=== PATIENT | female | born 1955 | race Caucasian/White ===

== ENCOUNTER → 2017-04-20 | Outpatient (CLI) | payer OTHER ==
[~2017-04-20] MED LIST: CPH250CIP PO; NF-PREM2.5 PO; PROP10TA8 PO
--- NOTE | 2017-04-20 14:11 | Diagnostic Imaging Report ---
EXAMINATION: Bilateral diagnostic mammogram with a Computer Aided Detection (CAD) system. INDICATION: Fullness in the lateral aspect of the left breast. COMPARISON: 01/04/2016. FINDINGS: The breasts are composed of heterogeneously dense parenchyma which may decrease mammographic sensitivity. There is an oval focal asymmetry in the lateral aspect of the left breast that appears to persist on the tomographic views without definitive confirmed mass. Focal compression views were performed and demonstrate persistent focal asymmetry; however, tomographic views of the compression also demonstrate no definite mass. The right breast demonstrates no definite change. IMPRESSION: Focal asymmetry in the lateral aspect of the left breast with no definite underlying lesion. An ultrasound evaluation is pending. ACR BI-RADS Category 0: Incomplete. (Needs additional imaging evaluation). Result letter will be mailed to the patient. Note: At least 10% of breast cancer is not imaged by mammography. Dictated by: Dictated on workstation # [id number]
--- NOTE | 2017-04-20 14:12 | Diagnostic Imaging Report ---
EXAMINATION: Left breast ultrasound. INDICATION: Outer left breast focal asymmetry. FINDINGS: There is a 1.4 x 0.8 x 1.4 cm septated cyst seen in the left breast at the 3 o'clock zone, 6 cm from the nipple. No suspicious mass is seen otherwise. IMPRESSION: A complicated cystic lesion with septation measuring 1.4 cm is seen at the 3 o'clock zone, 6 cm from the nipple. This might explain the focal asymmetry seen on mammography. A 6 month followup mammogram and ultrasound would be recommended to ensure stability. ACR BI-RADS Category 3: Probably benign findings. Dictated by: Dictated on workstation # [id number]
== END ==
LOC: RAD 12:46
PROVIDERS: ATTEND Family Medicine
DX: N64.89 Other specified disorders of breast (principal)
CPT/HCPCS: 76642; 77066

== ENCOUNTER 2018-01-15 13:50 | Outpatient (CLI) | payer BC, OTHER ==
[~2018-01-15] VITALS: Ht 165.1 cm; Wt 56.7 kg
[2018-01-15] MEDS ORDERED: ESTR1TAB14 PO (13:54)
== END 2018-01-15 14:04 ==
LOC: PREOP 13:50
PROVIDERS: ATTEND Surgery
DX: Z01.818 Encounter for other preprocedural examination (principal); Z12.11 Encounter for screening for malignant neoplasm of colon

== ENCOUNTER 2018-01-20 10:55 | Day surgery (SDC) | payer BC, OTHER ==
[~2018-01-20] VITALS: Ht 165.1 cm; Wt 56.7 kg
[~2018-01-20 10:55] MED LIST changes: +ESTR1TAB14 PO
[2018-01-20 11:00] VITALS: BP 115/61
[2018-01-20] MEDS ORDERED: NS IV 500 ML 500 ML IV PRN (11:07)
[2018-01-20] MEDS ORDERED: NS IV 500 ML 500 ML ONE (11:07)
--- NOTE | 2018-01-20 11:35 | Conscious Sedation/ASA ---
Conscious Sedation Pre-Proced Time Reviewed: 11:00 ASA Class: 1 Airway Mallampati Classification: ([place] appropriate class) I. II. III, IV Lungs Heart ASA score ASA 1: a normal healthy patient ASA 2: a patient with a mild systemic disease (mid diabetes, controlled hypertension, obesity ASA 3: a patient with a severe systemic disease that limits activity (angina , COPD, prior Myocardial infarction) ASA 4: a patient with an incapacitating disease that is a constant threat to life (CHF, renal failure) ASA 5: a moribund patient not expected to survive 24 hrs. (ruptured aneurysm) ASA 6: a declared brain patient whose organs are being harvested. For emergent operations, add the letter E after the classification Grade 2 Sedation Plan: Analgesia, Amnesia, Plan communicated to team members, Discussed options with patient/fam, Discussed risks with patient/fam Note The patient is an appropriate candidate to undergo the planned procedure, sedation, and anesthesia. The patient immediately re-assessed prior to indication. KAREN ALARCON MD Jan 20, 2018 11:35 am
--- NOTE | 2018-01-20 11:35 | Progress Note-Pre Operative ---
Pre-Operative Progress Note H&P Reviewed The H&P was reviewed, patient examined and no changes noted. Date Seen by Provider: Jan 20, 2018 Time Seen by Provider: 11:00 Date H&P Reviewed: Jan 20, 2018 Time H&P Reviewed: 11:00 Pre-Operative Diagnosis: screening colonsoscopy KAREN ALARCON MD Jan 20, 2018 11:35 am
[2018-01-20] MEDS ORDERED: ONDANSETRON 4 MG/2 ML (SDV) Z0FRAN IV PRN (11:45)
[2018-01-20] MEDS ORDERED: morphine INJ 10 MG/ML 1ML (SYR OR VIAL) IV PRN (11:45)
[2018-01-20] MEDS ORDERED: ACETAMINOPHEN 325 MG TABLET PO PRN (11:45)
[2018-01-20] MEDS ORDERED: HYDROcodone/APAP 5 MG/325 MG (LORTAB) TAB PO PRN (11:45)
[2018-01-20] MEDS ORDERED: LIDOCAINE JELLY 2% (XYLOCAINE) 5 ML TUBE ONE (13:22)
[2018-01-20] MEDS ORDERED: fentaNYL INJECTION 100 MCG/2 ML AMP ONE ×2 (13:22→13:23)
[2018-01-20] MEDS ORDERED: MIDAZOLAM 2 MG/2 ML (VERSED) VIAL ONE ×4 (13:23)
[2018-01-20] MEDS: fentaNYL INJECTION 100 MCG/2 ML AMP IVP PRN ×2 (13:35→13:40)
[2018-01-20] MEDS: MIDAZOLAM 2 MG/2 ML (VERSED) VIAL IVP PRN ×3 (13:38→13:57)
[2018-01-20 14:40] VITALS: BP 115/61
[2018-01-20 15:07] VITALS: BP 115/61
[2018-01-20 15:20] VITALS: BP 115/61
--- NOTE | 2018-01-20 15:25 | Progress Note-Post Operative ---
Post-Operative Progess Note Surgeon (s)/Appeals Reviewer Veteran (s) Surgeon KAREN ALARCON MD Appeals Reviewer Veteran: none Pre-Operative Diagnosis screening colonsoscopy Post-Operative Diagnosis hyperplastic polyp rectum(1mm) Procedure & Operative Findings Date of Procedure 01/20/18 Procedure Performed/Findings Colonoscopy with bx. Anesthesia Type CS Estimated Blood Loss Estimated blood loss (mL): minimal Specimens/Packing Specimens Removed HP rectal polyp KAREN ALARCON MD Jan 20, 2018 3:25 pm
--- NOTE | 2018-01-20 15:27 | Discharge Inst-Surgical ---
D/C Lap Instructions-AGNES Follow Up 10 years Activity as tolerated High Fiber Diet 25g or more per day Avoid Alcohol, Caffeine, Spicy [place] and Acid foods. Drink 64 fluid oz or more of fluids per day. Symptoms to Report: Fever over 101 degree F, Nausea/Vomiting If any problems/questions: Contact your physician or go to Emergency Room KAREN ALARCON MD Jan 20, 2018 3:27 pm
--- OUTSIDE RECORDS SUMMARY | 2018-01-20 18:16 | XMS REPORT | Continuity of Care Document ---
Author Author [facility] Organization [facility] Address Unknown Phone Unavailable Allergies Active Description Code Type Severity Reaction Onset Reported/Identified Relationship to Patient Clinical Status Yes No Known Drug Allergies [id number] Drug Allergy Unknown N/A 06/26/2013 Medications There is no data. Problems Date Dx Coded Attending Type Code Diagnosis Diagnosed By 09/08/2014 NADYA HOWARD MD Ot 733.90 09/08/2014 NADYA HOWARD MD Ot 737.30 09/11/2014 NADYA HOWARD MD Ot V67.9 09/20/2014 NADYA HOWARD MD Ot 733.90 09/20/2014 NADYA HOWARD MD Ot 737.30 01/07/2016 ORENDER DO, BILL S Ot Z12.31 ENCNTR SCREEN MAMMOGRAM FOR MALIGNANT NE 01/07/2016 ORENDER DO, BILL S Ot Z12.31 ENCNTR SCREEN MAMMOGRAM FOR MALIGNANT NE 01/21/2016 ORENDER DO, BILL S Ot Z12.31 ENCNTR SCREEN MAMMOGRAM FOR MALIGNANT NE 05/13/2017 ORENDER DO, BILL S Ot N64.89 OTHER SPECIFIED DISORDERS OF BREAST 05/13/2017 ORENDER DO, BILL S Ot N64.89 OTHER SPECIFIED DISORDERS OF BREAST 05/25/2017 ORENDER DO, BILL S Ot N64.89 OTHER SPECIFIED DISORDERS OF BREAST 01/13/2018 ORENDER DO, BILL S Ot N64.89 OTHER SPECIFIED DISORDERS OF BREAST 01/15/2018 KAREN ALARCON MD Ot Z01.818 ENCOUNTER FOR OTHER PREPROCEDURAL EXAMIN 01/15/2018 KAREN ALRACON MD Ot Z01.818 ENCOUNTER FOR OTHER PREPROCEDURAL EXAMIN 01/15/2018 KAREN ALARCON MD Ot Z01.818 ENCOUNTER FOR OTHER PREPROCEDURAL EXAMIN 01/18/2018 BILL HERRING DO Ot N64.89 OTHER SPECIFIED DISORDERS OF BREAST 01/18/2018 KAREN ALARCON MD Ot Z01.818 ENCOUNTER FOR OTHER PREPROCEDURAL EXAMIN 01/18/2018 KAREN ALARCON MD Ot Z12.11 ENCOUNTER FOR SCREENING FOR MALIGNANT NE Procedures There is no data. Results There is no data. Encounters ACCT No. Visit Date/Time Discharge Status Pt. Type Provider Facility Loc./Unit Complaint [id number] 01/15/2018 13:50:00 01/15/2018 14:04:00 DIS Outpatient KAREN ALARCON MD [facility] PREOP COLONOSCOPY [id number] 04/20/2017 12:46:00 04/20/2017 23:59:59 CLS Outpatient BILL HERRING DO [facility] RAD LT BREAST LATERAL FULLNESS [id number] 01/04/2016 09:53:00 01/04/2016 23:59:59 CLS Outpatient BILL HERRING DO [facility] RAD [id number] 09/07/2014 09:03:00 09/07/2014 23:59:59 CLS Outpatient NADYA HOWARD MD [facility] RAD [id number] 08/29/2014 08:24:00 08/29/2014 23:59:59 CLS Outpatient NADYA HOWARD MD [facility] RAD [id number] 12/28/2013 07:54:00 12/28/2013 23:59:59 CLS Outpatient [id number] 12/20/2013 11:37:00 12/20/2013 23:59:59 CLS Outpatient [id number] 06/26/2013 22:08:00 06/26/2013 22:38:00 DIS Emergency [id number] 01/20/2018 11:15:00 PEN Preadmit KAREN ALARCON MD [facility] ENDO SCREENING [id number] 09/09/2014 17:41:57 ACT Document Registration 12/201604/07/2017 14:16:24 04/07/2017 23:59:59 CLS Outpatient
--- NOTE | 2018-01-21 01:45 | OPERATIVE REPORT ---
DATE OF SERVICE: 01/20/2018 ATTENDING PRIMARY CARE PHYSICIAN: Dr. Burr PREOPERATIVE DIAGNOSIS: Screening colonoscopy. POSTOPERATIVE DIAGNOSIS: Small hyperplastic polyp of the rectum 1 to 2 mm in size. PROCEDURE: Colonoscopy with biopsy. SURGEON: Karen Alarcon MD ANESTHESIA: Conscious sedation. ESTIMATED BLOOD LOSS: Minimal. FINDINGS: A small hyperplastic polyp of the rectum, 1 to 2 mm in size. DISPOSITION: The patient tolerated the procedure well. INDICATIONS: The patient is a 62-year-old female in need of a screening followup colonoscopy. Her last colonoscopy was approximately 10 years ago and she does not remember any abnormalities at that time. She is doing well for the most part and does not report any diarrhea or constipation as well as no red blood per rectum or any dark tarry stools. She also does not report any family history of colon cancer. DESCRIPTION OF PROCEDURE: The patient was brought to the endoscopy suite, laid in the left lateral decubitus position. After adequate IV pain and sedating medications and conscious sedation anesthesia, a digital rectal examination was performed. Chronic stage II external and internal hemorrhoids were identified, which were not actively edematous or inflamed and no bleeding. Normal sphincter tone was felt and there were no palpable masses. The endoscope was then intubated into the anus and rectum gently insufflated. The endoscope was then advanced through the valves of Dejesus of the rectum with a small hyperplastic polyp identified approximately 1 to 2 mm in size. This was a benign appearing hyperplastic polyp. This was biopsied and destroyed using forceps and electrocautery. The endoscope was advanced to the sigmoid colon where no diverticulosis identified. The endoscope was then advanced to the mid of the descending, transverse and ascending colon and cecum. These segments were normal. There were no polyps and there were no other lesions identified. The endoscope was then slowly withdrawn while taking a second look and suctioning residual air with no additional findings. The patient tolerated the procedure well. We will recommend continued high fiber diet with at least 25 grams of fiber per day as well as at least 64 fluid ounces of water daily to promote soft stools on a daily basis. She does not need another colonoscopy in 10 years. Job ID: [id number] DocumentID: [id number] Dictated Date: 01/20/2018 14:12:52 [place] Crew Pusher Date: 01/21/2018 00:01:31 Dictated By: KAREN ALARCON MD
== END 2018-01-20 15:25 | disposition home or self-care (01) ==
LOC: ENDO 10:55
PROVIDERS: ATTEND Surgery
DX: Z12.11 Encounter for screening for malignant neoplasm of colon (principal); K62.1 Rectal polyp

== ENCOUNTER → 2018-05-19 | Outpatient (CLI) | payer BC ==
--- NOTE | 2018-05-19 09:19 | Diagnostic Imaging Report ---
INDICATION: Followup left breast mass. COMPARISON: 04/20/2017 and 01/07/2016. TECHNIQUE: 2D and 3D bilateral diagnostic mammography was performed with CAD. FINDINGS: Both breasts are heterogeneously dense, limiting the sensitivity of mammography. An ovoid mass in the outer portion of the left breast is again noted. This was shown to represent a septated cyst on prior studies from 1 year ago. A 6 month followup was recommended but the patient did not return. No new mass is seen. No malignant appearing microcalcifications are identified. The axillae are unremarkable. Benign-appearing nodules in the upper-outer right breast are stable and consistent with intramammary lymph nodes. IMPRESSION: Persistent density in the outer left breast, similar to the examination of 1 year earlier. Further evaluation of this area with ultrasound is recommended and will be performed today. ACR BI-RADS Category 0: Incomplete. (Needs additional imaging evaluation). Result letter will be mailed to the patient. Note: At least 10% of breast cancer is not imaged by mammography. Dictated by: Dictated on workstation # [id number]
--- NOTE | 2018-05-19 09:23 | Diagnostic Imaging Report ---
INDICATION: Followup left breast mass. COMPARISON: 04/20/2017. FINDINGS: Sonographic interrogation of the 3 o'clock location of the left breast 6 cm from the nipple was performed. The septated cystic mass previously noted at this location is again noted. This does measure slightly larger on today's study at 19 mm x 9 mm x 16 mm compared to 14 mm x 8 mm x 14 mm previously. This again demonstrates an internal septation but does not demonstrate vascularity. There is posterior acoustic enhancement. No new abnormality is seen. IMPRESSION: Septated cysts at the 3 o'clock location of the left breast, 6 cm from the nipple. This does measure slightly larger on today's study. Continued sonographic followup of the left breast in 6 months is recommended to confirm stability. ACR BI-RADS Category 3: Probably benign findings. Dictated by: Dictated on workstation # [id number]
== END ==
LOC: RAD 07:52
PROVIDERS: ATTEND Family Medicine
DX: N63.42 Unspecified lump in left breast, subareolar (principal); N64.89 Other specified disorders of breast
CPT/HCPCS: 76642; 77066

== ENCOUNTER → 2019-01-04 | Outpatient (CLI) | payer BC ==
--- NOTE | 2019-01-04 15:32 | Diagnostic Imaging Report ---
PROCEDURE: US Non-ob pelvis comp/trans. TECHNIQUE: Multiple realtime grayscale images were obtained of the pelvis in various projections endovaginally. Transabdominal imaging was also performed. INDICATION: Postmenopausal bleeding. FINDINGS: Uterus measures 5.4 x 3.0 x 2.5 cm. The endometrium is heterogeneous measuring approximately 6 mm. No internal vascularity is seen. No myometrial mass is detected. The ovaries were not visualized. No adnexal mass or free fluid is seen. IMPRESSION: Endometrial heterogeneity. No discrete mass is detected. Dictated by: Dictated on workstation # [id number]
--- NOTE | 2019-01-04 21:55 | Diagnostic Imaging Report ---
INDICATION: Left breast cyst. Patient presents for six-month follow-up. Correlation is made with prior left breast ultrasound from 05/19/2018. FINDINGS: Septated cyst at the 3 o'clock location of the left breast 6 cm from the nipple is again noted. This is measuring smaller on today's study at 1.1 x 0.5 x 0.8 cm compared with 1.9 x 0.9 x 1.6 cm. No new mass is detected. IMPRESSION: Decrease in size of septated cystic mass at the 3 o'clock location of the left breast when compared with prior exam. This has shown some stability for nearly two years and patient may return to routine screening mammography. ACR BI-RADS Category 2: Benign findings. Dictated by: Dictated on workstation # [id number]
== END ==
LOC: RAD 11:46
PROVIDERS: ATTEND Family Medicine
DX: N95.0 Postmenopausal bleeding (principal); N63.20 Unspecified lump in the left breast, unspecified quadrant
CPT/HCPCS: 76642; 76830; 76856

== ENCOUNTER 2019-04-01 05:32 | Outpatient (CLI) | payer BC ==
[~2019-04-01] VITALS: Ht 165.1 cm; Wt 56.7 kg
[2019-04-01] MEDS ORDERED: FLUO10TA PO (11:20)
[2019-04-05] MEDS ORDERED: OXC5T PO (10:01)
[2019-04-05] MEDS ORDERED: ACET-77 PO (10:01)
[2019-04-05] MEDS ORDERED: IBUP-844 PO (10:01)
[2019-04-05] MEDS ORDERED: SIME80TA16 PO (10:01)
== END 2019-04-01 11:51 | disposition home or self-care (01) ==
LOC: PREOP 05:32
PROVIDERS: ATTEND Obstetrics & Gynecology
DX: Z01.818 Encounter for other preprocedural examination (principal)

== ENCOUNTER 2019-04-05 06:02 | Day surgery (SDC) | payer BC ==
[~2019-04-05] VITALS: Ht 165.1 cm; Wt 56.7 kg
[2019-04-05] VITALS (10 sets, daily range): BP systolic 95–113; BP diastolic 52–70
[~2019-04-05 06:02] MED LIST changes: +FLUO10TA PO
[2019-04-05] MEDS: LACTATED RINGERS 1,000 ML IV PRN ×2 (06:20→09:05)
[2019-04-05] MEDS ORDERED: LIDOCAINE PF 2% 5 ML (XYLOCAINE) VIAL ONE (06:55)
[2019-04-05] MEDS ORDERED: fentaNYL INJECTION 100 MCG/2 ML AMP ONE (06:55)
[2019-04-05] MEDS ORDERED: ONDANSETRON 4 MG/2 ML (SDV) Z0FRAN ONE (06:55)
[2019-04-05] MEDS ORDERED: proPOfol 200 MG/20 ML (DIPRIVAN) VIAL IV ONE (06:55)
[2019-04-05] MEDS ORDERED: DEXAMETHASONE 10 MG/ML (DECADRON) 1 ML VIAL ONE (06:55)
[2019-04-05] MEDS ORDERED: SEVOFLURANE (ULTANE) 15 ML INHAL SOLN ONE ×2 (06:55→09:51)
[2019-04-05] MEDS ORDERED: MIDAZOLAM 2 MG/2 ML (VERSED) VIAL ONE (06:56)
[2019-04-05] MEDS ORDERED: metroNIDAZOLE 500MG/100ML IVPB 100 ML IV ONE (07:00)
[2019-04-05] MEDS ORDERED: ceFAZolin INJECTION 1,000 MG in WATER (STERILE) FOR INJECTION 10 ML IV ONE (07:00)
[2019-04-05] MEDS ORDERED: CATHETER FLUSH 10 ML SYR IV PRN (07:15)
--- NOTE | 2019-04-05 08:33 | Progress Note-Pre Operative ---
Pre-Operative Progress Note H&P Reviewed The H&P was reviewed, patient examined and no changes noted. Date Seen by Provider: Apr 05, 2019 Time Seen by Provider: 08:30 Date H&P Reviewed: Apr 05, 2019 Time H&P Reviewed: 08:15 Pre-Operative Diagnosis: post menopausal bleeding, cervical stenosis GRECIA SHELLEY DO Apr 05, 2019 08:33
[2019-04-05] MEDS ORDERED: NEOSTIGMINE 3 MG/3 ML VIAL ONE (09:07)
[2019-04-05] MEDS ORDERED: ROCURONIUM 10 MG/ML 5 ML SYRINGE IV ONE (09:07)
[2019-04-05] MEDS ORDERED: GLYCOPYRROLATE 0.2 MG/ML (ROBINUL) 2 ML VIAL ONE (09:07)
[2019-04-05] MEDS ORDERED: BUP/EPI 0.25% 1:200,000 (MARCAINE) 10 ML VIAL IJ ONE (09:09)
[2019-04-05] MEDS ORDERED: KETOROLAC 30 MG/ML VIAL ONE (09:45)
[2019-04-05] MEDS ORDERED: MEPERIDINE (DEMEROL) INJ 50 MG/ML ONE (09:55)
[2019-04-05] MEDS ORDERED: ONDANSETRON 4 MG/2 ML (SDV) Z0FRAN IVP PRN ×2 (10:00→10:15)
[2019-04-05] MEDS ORDERED: ACETAMINOPHEN 500 MG TAB (TYLENOL) PO PRN (10:00)
[2019-04-05] MEDS ORDERED: KETOROLAC 30 MG/ML VIAL IVP ONE (10:00)
--- NOTE | 2019-04-05 10:00 | Discharge Inst-Women's Service ---
Discharge Inst-Women's Serv Depart Medication/Instructions New, Converted or Re-Newed RX: RX on Chart Instructions watch for signs and symptoms of infection, fever, rigors, chills Call if no BM. O k to use stool softener, milk of magnesia, NO ENEMA expect light bleeding, spotting for up to -10 days Appointment in 1 week to discuss pathology and check incisions Bandage in place. May remove tomorrow. Ok to shower, no bath Nothing in the vagina until follow up. Hold prempro until given the ok. Final Diagnosis post menopausal bleeding endometrial polyp uterine perforation with laparoscopy (no injury) Problems Reviewed?: Yes Consults/Follow Up Additional Follow Up: Yes Activity Activity: Activity as Tolerated Driving Instructions: No Driving for 1 Week NO SMOKING: NO SMOKING Nothing Inside Vagina: No Douching, No Whiteside, No Tampons Diet Discharge Diet: No Restrictions Symptoms to Report to : Bleeding Excessive, Pain Increased, Fever Over 101 Degrees F, Vaginal Bleeding Increase, Cramps in Feet or Legs, Vaginal Discharge Foul For Any Problems or Questions: Contact Your Physician Skin/Wound Care Infection Signs and Symptoms: Increased Redness, Foul Odor of Wound, Increased Drainage, Skin Itchy or Has a Rash, Increased Swelling, Temperature Above 101 F Operative Area Clean and Dry: Keep Incision Clean/Dry Stitches/[place]ier/Dermabond: Dermabond Bathing Instructions: GRECIA Black DO Apr 05, 2019 10:00
[2019-04-05] MEDS ORDERED: ACET-77 PO (10:01)
[2019-04-05] MEDS ORDERED: IBUP-844 PO (10:01)
[2019-04-05] MEDS ORDERED: OXC5T PO (10:01)
[2019-04-05] MEDS ORDERED: SIME80TA16 PO (10:01)
[2019-04-05] MEDS ORDERED: MEPERIDINE (DEMEROL) INJ 50 MG/ML IVP ONE (10:15)
[2019-04-05] MEDS ORDERED: HYDROmorphone 2 MG/ML VIAL (DILAUDID) IV ONE (10:15)
[2019-04-05] MEDS ORDERED: morphine INJ 10 MG/ML 1ML (SYR OR VIAL) IVP ONE (10:15)
--- NOTE | 2019-04-05 10:40 | Operative Report ---
Operative Report Date of Procedure/Surgery Apr 05, 2019 Surgeon (s) GRECIA SHELLEY DO Hoisting Engineer Pile Driving (s): Judi Weems, MS III Post-Operative Diagnosis endometrial polyps incidental uterine perforation Procedure Performed Hysteroscopy dilation and curettage laparoscopy, diagnostic and repair of perforation Description of Procedure Anesthesia Type: General Estimated blood loss (mL): minimal Specimen(s) collected/removed endometrial polyps endometrial curettings Description of the Procedure With informed consent the patient was taken to the operating room where general anesthesia was found to be adequate. She had previously signed a consent for hysteroscopy, dilation and curettage due to post menopausal bleeding with a heterotopic endometrium. Risks of bleeding, injury to bowel, bladder, ureter, uterine perforation are explained to the patient. Appropriate consent was signed. She was placed in the dorsolithotomy position and prepped and draped in the usual sterile fashion. A straight catheter was placed in the bladder to drain the bladder of clear, yellow urine. A speculum was placed in the vagina and the cervix was grasped with a tenacululm. The cervix was again noted to be very stenotic. I used a 15 blade to make a small incision in the cervical os and then was able to use the smallest Zeferino dilator and then gradually and gently dilated the cervix. I then placed the hysteroscope and did a hysteroscopy. This revealed an atrophic endometrium with at least two polypoid lesions. I then removed the scope and did a gently polypectomy with a polyp forceps and sent this for pathology. I did a follow up hysteroscopy and at this time noted some bubbles at the top of the uterus suggesting a possible perforation. I did have adequate distension of the uterus cavity but was suspicious of a uterine perforation so I opted to proceed with diagnostic laparoscopy. She was repositioned for laparoscopy. She was reprepped and draped. A sponge stick was placed in the vagina. Attention was turned to the abdomen. The umbilicus was injected wit h 0.25% marcaine with epinephrine. A 5 mm skin incision was made and the veress needle was inserted. Intraabdominal placement was confirmed with a saline drop test and a drop in pressure. I then insufflated the abdomen to a maximum pressure for 15 mmHg. There was some fluid in the pelvis. I placed an additional 5 mm trocar in the right lower quadrant lateral to the rectus muscle and avoiding the inferior epigastric vessels. Findings of the Procedure at least two small polyps, small uterus, atrophic endometrium Allergies and Home Medications Allergies Coded Allergies: No Known Drug Allergies (Verified , 01/20/18) Home Medications Acetaminophen 500 Mg Tablet, 1,000 MG PO Q8H PRN for PAIN-MILD Prescribed by: GRECIA SHELLEY on 04/05/19 100 Fluoxetine HCl Unknown Strength Tablet, 1 TAB PO DAILY, (Reported) Ibuprofen 600 Mg Tablet, 600 MG PO Q6HR Prescribed by: GRECIA SHELLEY on 04/05/19 100 Oxycodone Hcl 5 Mg Tab, 5 MG PO Q4H PRN for PAIN-SEVERE Prescribed by: GRECIA SHELLEY on 04/05/19 100 Simethicone 80 Mg Tab.chew, 80 MG PO q2hr Prescribed by: GRECIA SHELLEY on 04/05/19 100 GRECIA SHELLEY DO Apr 05, 2019 10:40
[2019-04-05] MEDS ORDERED: IBUPROFEN 600 MG (MOTRIN) TAB PO SCH (12:00)
--- NOTE | 2019-04-05 12:41 | Anesthesia-General Post-Op ---
General Patient Condition Mental Status/LOC: Same as Preop Cardiovascular: Satisfactory Nausea/Vomiting: Absent Respiratory: Satisfactory Pain: Controlled Complications: Absent Post Op Complications Complications None Follow Up Care/Instructions Patient Instructions None needed. Anesthesia/Patient Condition Patient Condition Patient is doing well, no complaints, stable vital signs, no apparent adverse anesthesia problems. No complications reported per nursing. MUSA JIMENES CRNA Apr 05, 2019 12:41
== END 2019-04-05 12:08 | disposition home or self-care (01) ==
LOC: SDC 06:02
PROVIDERS: ATTEND Obstetrics & Gynecology
DX: D26.1 Other benign neoplasm of corpus uteri (principal); N99.71 Accidental puncture and laceration of a genitourinary system organ or structure during a genitourinary system procedure; N95.2 Postmenopausal atrophic vaginitis; Z82.49 Family history of ischemic heart disease and other diseases of the circulatory system; Z79.899 Other long term (current) drug therapy
CPT/HCPCS: 87081; 88305

== ENCOUNTER → 2019-08-12 | Outpatient (CLI) | payer BC ==
[~2019-08-12] MED LIST changes: +ACET-77 PO; +GADOBUTROL 7.5 MMOL/7.5 ML (GADAVIST) VIAL IV ONE; +IBUP-844 PO; +OXC5T PO; +SIME80TA16 PO
--- NOTE | 2019-08-12 13:12 | Diagnostic Imaging Report ---
EXAMINATION: MRI pelvis with and without contrast. TECHNIQUE: Multiplanar, multisequence MRI of the pelvis was performed with and without contrast according to rectal staging protocol. HISTORY: Rectal cancer. FINDINGS: Overall image quality: Adequate. Tumor location and morphology: Tumor location: Mid rectum (5.1-10 cm) Distance of inferior border of tumor to anal verge: 7 cm. Distance of inferior border of tumor to anorectal junction: 3 cm. Craniocaudal length: 4-5 cm. Circumferential location: There is circumferential involvement of the tumor in its mid aspect extending from the 12 o'clock position in a circumferential fashion to the 12 o'clock position. Morphology: (semi-)circumferential Mucinous: no T-category: T3a (<1 mm invasion beyond the muscularis propria) Structures invaded: Mesorectal fat. No invasion of surrounding viscera. Involvement of sphincter complex: no CRM (for T3 only): Shortest distance to CRM: 10 mm. Separate tumor deposit, suspicious lymph node or EMVI threating (<2 mm) or invading (<1 mm) the CRM: No. N-category: N1a (1 abnormal lymph node) above 9 mm Suspicious mesorectal lymph nodes and/or tumor deposits: There is a solitary ovoid heterogeneous lymph node measuring 9.2 mm in the left presacral region along the course of the superior rectal vein. Number of suspicious lymph nodes: 1 Distance from tumor deposit to CRM: 2 mm. Extramesorectal fascia lymph nodes: None. Other findings: None. IMPRESSION: 1. Mid rectal tumor has invasion through the muscularis propria by less than 5 mm (T3a). 2. Solitary suspicious lymph node is most indicative of N1a. This lymph node threatens the circumferential resection marking as it was in 2 mm of the mesorectal fascia. Dictated by: Dictated on workstation # [id number]
== END ==
LOC: RAD 10:45
PROVIDERS: ATTEND Internal Medicine Hematology & Oncology
DX: C20 Malignant neoplasm of rectum (principal)
CPT/HCPCS: 72197

== ENCOUNTER → 2019-08-16 | Outpatient (CLI) | payer BC ==
[~2019-08-16] MED LIST changes: -ACET-77 PO; +ACET-78 PO; -ESTR1TAB14 PO; -GADOBUTROL 7.5 MMOL/7.5 ML (GADAVIST) VIAL IV ONE; +NFPREMP0.3 PO
--- NOTE | 2019-08-16 14:12 | Diagnostic Imaging Report ---
INDICATION: Rectal carcinoma, initial staging. TECHNIQUE: Serum blood glucose level at the time of injection was 90 mg/dL. Patient was injected with 12.1 mCi F-18 FDG intravenously in the left antecubital location and PET imaging was performed from the top of skull to mid thigh. Noncontrast CT was also performed for attenuation correction and anatomic correlation. COMPARISON: No prior PET/CT studies are available for comparison. FINDINGS: There is symmetric activity throughout the brain. Soft tissues of the neck are unremarkable. No definite hilar or mediastinal hypermetabolism is seen. There is a circumscribed 17 mm nodule in the right middle lobe. This does not show hypermetabolism and is likely benign. No suspicious pulmonary parenchymal areas of hypermetabolism are identified. Physiologic activity within the gastrointestinal and genitourinary tract is noted. Bladder activity is seen. There is intense activity in the rectum with SUV max of approximately 22 consistent with patient's known rectal carcinoma. No definite hypermetabolic lymph nodes in the pelvis are identified. IMPRESSION: Rectal hypermetabolism consistent with known neoplasm. No hypermetabolic lymph nodes are identified. No other significant abnormality is seen. Dictated by: Dictated on workstation # [id number]
== END ==
LOC: RAD 08:55
PROVIDERS: ATTEND Internal Medicine Hematology & Oncology
DX: C20 Malignant neoplasm of rectum (principal)

== ENCOUNTER 2019-09-30 10:29 | Inpatient (IN) | payer BC ==
[~2019-09-30] VITALS: Ht 165.1 cm; Wt 55.8 kg
[2019-09-30] MEDS ORDERED: NS IV 1000 ML 1,000 ML IV SCH (10:45)
[2019-09-30] MEDS ORDERED: LOPERAMIDE 2 MG (IMODIUM) TABLET PO PRN (11:00)
[2019-09-30 11:17] VITALS: BP 102/61
--- NOTE | 2019-09-30 11:49 | HISTORY AND PHYSICAL ---
DATE OF SERVICE: The patient is admitted to room 419. PRESENTING COMPLAINT: Nausea, vomiting and diarrhea with increasing fatigue. HISTORY OF PRESENT ILLNESS: The patient is a 63-year-old female diagnosed with a rectal cancer recently and is undergoing neoadjuvant chemotherapy and radiation. She is completing 5 weeks of radiation therapy and has been having problems during the last one week with worsening nausea, occasional vomiting as well as diarrhea. Oral intake has been poor. She has been on scheduled antiemetics and receiving IV fluids 3 times this week on an outpatient basis. In spite of this, she is continuing to get worse. She is on a break today from chemotherapy as well as radiation therapy. As it is difficult to manage her on an outpatient basis, it was decided to admit her to the hospital for IV fluids, antiemetics and treatment of dehydration. PAST MEDICAL HISTORY: Significant for diagnosis of rectal cancer recently as mentioned in the history of present illness. She is undergoing combined chemoradiation neoadjuvantly and has completed 5 weeks of treatment. No other major medical problems. PAST SURGICAL HISTORY: Only previous surgeries were a D and C in 04/2019 with incidental uterine perforation requiring laparoscopic repair and a cosmetic eye surgery in 2014. SOCIAL HISTORY: The patient is and lives in [place], [place]. She tobacco or recreational drug use. She uses alcohol socially, but has not used it in the last few months. She has no children of her own, but has 2 stepsons in their 50s. 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 FAMILY HISTORY: Significant for coronary artery disease in her father. Maternal grandfather with lung cancer. Maternal aunt with bone cancer, the patient is unsure if this was primary or metastatic. No other major medical problems in the family that the patient knows of. PHYSICAL EXAMINATION: GENERAL: Showed middle-aged female, weak appearing, awake and oriented, in mild distress. HEENT: Normocephalic, extraocular muscles intact, conjunctivae pink, oral mucosa dry. NECK: Supple, with no JVD. No cervical, supraclavicular or axillary lymphadenopathy palpable. CHEST: Symmetrical. LUNGS: Clear to auscultation without wheezes or rales. CARDIOVASCULAR: Regular in rate and rhythm without murmurs or gallops. ABDOMEN: Soft with mild diffuse tenderness without guarding or rebound. Radiation changes in the lower abdomen/perineal area without skin breakdown. EXTREMITIES: Showed no edema. NEUROLOGIC: Grossly intact without focal motor deficits. The patient did not have any lab work done today. Most recent lab work done on 09/26/2019 showed WBC 2.4, hemoglobin 12, platelet count 190,000 with neutrophil count 1.3, lymphocyte count 0.2 and monocyte count 0.4. BMP from the same day showed normal electrolytes. BUN was 12 and creatinine 0.86 with GFR more than 60 mL per minute. IMPRESSION: 1. Nausea, vomiting and dehydration. 2. Diarrhea secondary to chemoradiation. 3. Rectal cancer with pelvic lymph node metastasis, on neoadjuvant chemoradiation. 4. Neutropenia related to chemoradiation. PLAN: 1. We will admit the patient to the hospital. 2. IV fluids. The patient has received 2 liters of normal saline as bolus on an outpatient basis. We will continue this at 200 mL per hour continuously. 3. I will obtain CBC and CMP today. If there are any electrolyte abnormalities, we will make appropriate replacement. 4. Imodium on a p.r.n. basis to control the diarrhea. 5. 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 6. Proton pump inhibitors for gastric protection. 7. Start on low residual diet with nutritional supplements and advance as tolerated. Job ID: [id number] DocumentID: [id number] Dictated Date: 09/30/2019 11:14:07 Director Of Corporate Sales Date: 09/30/2019 11:48:41 Dictated By: REFUGIO PINTO MD
[2019-09-30] MEDS ORDERED: CATHETER FLUSH 10 ML SYR IV PRN ×2 (13:15)
[2019-09-30] MEDS ORDERED: CAPE500T14 PO (13:20)
[2019-09-30] MEDS ORDERED: PANT20TA3 PO (13:20)
[2019-09-30] MEDS ORDERED: ONDA8TAB15 PO (13:20)
[2019-09-30] MEDS ORDERED: NFPREMP0.3 PO (13:20)
[2019-09-30] MEDS ORDERED: FLUO20CA46 PO (13:20)
[2019-09-30] MEDS: PANTOPRAZOLE 40 MG (PROTONIX) VIAL IV SCH (13:21)
[2019-09-30] MEDS ORDERED: CALC1CAP21 PO (13:21)
[2019-09-30] MEDS ORDERED: LOPE2CAP PO (13:21)
[2019-09-30] MEDS ORDERED: SILV25CR21 TP (13:59)
[2019-09-30] MEDS ORDERED: ONDANSETRON 4 MG/2 ML (SDV) Z0FRAN IVP ONE (14:00)
--- NOTE | 2019-09-30 14:00 | NUR ---
SPOKE WITH PT AND WENT THRU THE EXT MED HISTORY TO COMPLETE THE MED REC. PT WAS ABLE TO VERIFY ALL MEDS AND HOW/WHEN SHE TAKES EACH. PROCHLORPEMAZINE IS SHOWING ON THE EXTERNAL MED HISTORY BUT THE PT HAS NOT PICKED THIS MED UP XELODA 500MG: THE PT TAKES 2 TABS BID ONLY ON DAYS SHE RECEIVES RADIATION (MON-FRI) OTC MEDS: CALCIUM W/ VIT D IMODIUM TYLENOL
[2019-09-30 14:02] LABS: BASOPHILS % (AUTO) 0 % (0-10); EOSINOPHILS % (AUTO) 0 % (0-10); HEMATOCRIT 33 % (35-52); HEMOGLOBIN 10.9 G/DL (11.5-16.0); LYMPHOCYTES # (AUTO) 0.1 X 10^3 (1.0-4.0); LYMPHOCYTES % (AUTO) 2 % (12-44); MEAN CORPUSCULAR HEMOGLOBIN 30 PG (25-34); MEAN CORPUSCULAR HGB CONC 34 G/DL (32-36); MEAN CORPUSCULAR VOLUME 90 FL (80-99); MEAN PLATELET VOLUME 8.4 FL (7.4-10.4); MONOCYTES # (AUTO) 0.4 X 10^3 (0.0-1.0); MONOCYTES % (AUTO) 12 % (0-12); NEUTROPHILS # (AUTO) 2.4 X 10^3 (1.8-7.8); NEUTROPHILS % (AUTO) 86 % (42-75); PLATELET COUNT 186 10^3/uL (130-400); RED CELL DISTRIBUTION WIDTH 16.7 % (10.0-14.5); WHITE BLOOD COUNT 2.8 10^3/uL (4.3-11.0)
[2019-09-30 14:23] LABS: ALANINE AMINOTRANSFERASE 16 U/L (0-55); ALBUMIN 2.7 GM/DL (3.2-4.5); ALKALINE PHOSPHATASE 55 U/L (40-136); BILIRUBIN,TOTAL 0.6 MG/DL (0.1-1.0); BUN/CREATININE RATIO 12; CALCIUM 7.7 MG/DL (8.5-10.1); CARBON DIOXIDE 22 MMOL/L (21-32); CHLORIDE 103 MMOL/L (98-107); CREATININE SERUM 0.67 MG/DL (0.60-1.30); GFR ESTIMATED > 60; GLUCOSE 150 MG/DL (70-105); MAGNESIUM 1.6 MG/DL (1.6-2.4); POTASSIUM 3.3 MMOL/L (3.6-5.0); SODIUM 135 MMOL/L (135-145); TOTAL PROTEIN 4.9 GM/DL (6.4-8.2)
--- NOTE | 2019-09-30 15:48 | Diagnostic Imaging Report ---
INDICATION: Dehydration and low-grade fever. COMPARISON: No prior studies are available for comparison. The heart size is normal. There is a nodular density overlying the right lung base measuring 13 mm in size. The remainder of the lung nichole are clear. No infiltrates are seen. There is no effusion or pneumothorax. IMPRESSION: Right basilar nodule. This was seen on PET/CT study from 08/16/2019 and appears similar in size. No additional abnormality is detected. Dictated by: Dictated on workstation # [id number]
[2019-09-30 15:50] LABS: BAND NEUTROPHILS 6 %; BASOPHILS % (MANUAL) 1 %; LYMPHOCYTES % (MANUAL) 4 %; MONOCYTES % (MANUAL) 15 %; NEUTROPHILS % (MANUAL) 74 %; RBC MORPH NORMAL
[2019-09-30 15:55] VITALS: BP 109/67
--- NOTE | 2019-09-30 16:25 | NUR ---
DR. PINTO WAS CALLED TO NOTIFY HIM THAT PT'S TEMP WAS 37.7. PER DR. PINTO IF PT HAS TEMP OF 100.5 ORDER BLOOD CULTURES; IF PATIENT HAS WORSENING SORE THROAT OR NASAL DRAINAGE ORDER A FLU SWAB. IN EITHER CASE NOTIFY ONCOLOGIST DOCUMENT RESTORER.
[2019-09-30] MEDS: NS IV 1000 ML 1,000 ML IV SCH ×2 (17:15→23:22)
--- NOTE | 2019-09-30 18:41 | NUR ---
CALLED DR. GOMEZ TO NOTIFY HIM PT'S TEMPERATURE WAS UP TO 101.0. ORDERS FOR TYLENOL 650 ONCE AND CHEST X-RAY IF NOT ALREADY ORDERED. X-RAY WAS ORDERED BY . Addendum: 09/30/19 at 1844 by JENNIFER WARNER RN X-RAY DONE IN AM WILL REPEAT
[2019-09-30] MEDS ORDERED: ACETAMINOPHEN 325 MG TABLET PO NR (18:45)
[2019-09-30 19:14] VITALS: BP 112/68
[2019-09-30 19:31] LABS: BILIRUBIN,URINE NEGATIVE (NEGATIVE); CLARITY,URINE CLEAR; COLOR,URINE YELLOW; GLUCOSE, URINE (UA) NEGATIVE (NEGATIVE); KETONES,URINE 1+ (NEGATIVE); LEUKOCYTE ESTERASE ,URINE NEGATIVE (NEGATIVE); NITRITE,URINE NEGATIVE (NEGATIVE); PH,URINE 6.5 (5-9); PROTEIN,URINE TRACE (NEGATIVE)
[2019-09-30 19:39] LABS: BACTERIA,URINE TRACE /HPF; RBC,URINE 0-2 /HPF; WBC,URINE 0-2 /HPF
--- NOTE | 2019-09-30 19:41 | NUR ---
CALLED DR. GOMEZ TO NOTIFY PT WAS COMPLAINING OF NAUSEA NEW ORDER FOR NAUSEA MEDICATION SEE ORDER HISTORY. NEW ORDERS TO D/C FLUIDS AFTER 3 BAG GIVEN AND TO CALL BACK IF PT STILL HAVING TEMP.
--- NOTE | 2019-09-30 19:50 | Diagnostic Imaging Report ---
CHEST 1 VIEW, AP/PA ONLY Indication: Fever Comparison: Chest radiograph of earlier same day. Findings: No consolidation. Stable right basilar pulmonary nodule measuring 1.4 cm. Please note that the posterior lower lobes are poorly evaluated by portable radiography. No pleural effusion or pneumothorax. Normal cardiomediastinal silhouette. Impression: 1. No acute cardiopulmonary process by portable radiography. 2. Stable right basilar pulmonary nodule previously evaluated by PET/CT. Dictated by: Dictated on workstation # [id number]
[2019-09-30] MEDS: ONDANSETRON 4 MG/2 ML (SDV) Z0FRAN IVP SCH (19:53)
[2019-09-30] MEDS: SILVER SULFADIAZINE 50 GM CREAM TOP SCH (19:58)
[2019-09-30] MEDS: PROCHLORPERAZINE 10 MG/2ML INJ (COMPAZINE) IV PRN (23:22)
[2019-10-01] VITALS: BP 125/59
[2019-10-01 04:00] VITALS: BP 128/60
[2019-10-01 07:32] VITALS: BP 137/83
[2019-10-01] MEDS: PANTOPRAZOLE 40 MG (PROTONIX) VIAL IV SCH (07:50)
[2019-10-01] MEDS: SILVER SULFADIAZINE 50 GM CREAM TOP SCH ×2 (07:51→21:57)
[2019-10-01] MEDS: ONDANSETRON 4 MG/2 ML (SDV) Z0FRAN IVP SCH ×3 (07:51→22:00)
[2019-10-01] MEDS: PROCHLORPERAZINE 10 MG/2ML INJ (COMPAZINE) IV PRN (09:08)
[2019-10-01] MEDS ORDERED: DEXAMETHASONE 10 MG/ML (DECADRON) 1 ML VIAL IV ONE (10:00)
[2019-10-01 11:08] VITALS: BP 124/74
[2019-10-01] MEDS ORDERED: NS IV 500 ML 500 ML ONE (11:09)
[2019-10-01] MEDS ORDERED: ACETAMINOPHEN 325 MG TABLET ONE (11:09)
[2019-10-01] MEDS: POTASSIUM CL 10MEQ/50ML IVPB 50 ML IV SCH ×4 (11:29→14:48)
[2019-10-01] MEDS ORDERED: PROMETHAZINE 25 MG (PHENERGAN) TAB PO PRN (12:00)
--- NOTE | 2019-10-01 12:25 | Progress Note ---
Standard Progress Note Progress Notes/Assess & Plan Date Seen by a Provider: Oct 01, 2019 Time Seen by a Provider: 12:05 Progress/Assessment & Plan 63 yo female with rectal cancer currently on chemoradiation was admitted yesterday with nausea, vomiting and failure to thrive. She has been receiving IVF and scheduled ondansetron three times daily. Prochlorperazine PRN was added last night. Last night, she developed a low grade fever of 38.3 C so cultures were drawn and UA was obtained. UA and CXR were negative. She had no other localizing symptoms to suggest a source of her fever. She was given acetaminophen once. This morning, temperature is improved. Patient still cannot stomach more than a sip of Ensure Clear or a few animal crackers despite having antiemetics. Ondansetron seems to have the least effect on her nausea. She denies any dyspepsia, and diarrhea has improved significantly. On abdominal exam, she has hypoactive bowel sounds, mild distension, and mild tenderness without guarding or rebound. We will add dexamethasone and promethazine PRN and check a KUB. Potassium replacement for K 3.3 this morning. Encourage increased PO intake. BHARTI GOMEZ MD Oct 01, 2019 12:25
--- NOTE | 2019-10-01 13:30 | Diagnostic Imaging Report ---
EXAMINATION: Abdominal radiographs, single view. DATE: October 01, 2019. CLINICAL INDICATION: 63-year-old female, abdominal pain. COMPARISON: None. COMMENTS: There are gas-dilated segments of small bowel measuring up to approximately 3.3 cm in diameter. There are gas-filled segments of large bowel. There is no identified free intraperitoneal air on limited supine assessment. There is no identified portal venous gas or pneumatosis. The upper abdomen is incompletely imaged IMPRESSION: 1. Abnormal but nonspecific bowel gas pattern. Small bowel obstruction and ileus are both in the differential diagnosis. Dictated by: Dictated on workstation # [id number]
[2019-10-01] MEDS: DEXAMETHASONE 4 MG/ML SDV (DECADRON) IV PRN ×2 (13:57→22:00)
[2019-10-01 15:30] VITALS: BP 139/68
[2019-10-01] MEDS: NS IV 1000 ML 1,000 ML IV SCH (19:48)
[2019-10-01 19:59] VITALS: BP 131/62
[2019-10-02 00:30] VITALS: BP 131/78
[2019-10-02 04:15] VITALS: BP 135/80
[2019-10-02] MEDS: NS IV 1000 ML 1,000 ML IV SCH ×2 (05:49→16:13)
[2019-10-02 06:25] LABS: BASOPHILS % (AUTO) 0 % (0-10); EOSINOPHILS % (AUTO) 0 % (0-10); HEMATOCRIT 32 % (35-52); HEMOGLOBIN 10.6 G/DL (11.5-16.0); LYMPHOCYTES # (AUTO) 0.1 X 10^3 (1.0-4.0); LYMPHOCYTES % (AUTO) 2 % (12-44); MEAN CORPUSCULAR HEMOGLOBIN 30 PG (25-34); MEAN CORPUSCULAR HGB CONC 33 G/DL (32-36); MEAN CORPUSCULAR VOLUME 90 FL (80-99); MEAN PLATELET VOLUME 8.8 FL (7.4-10.4); MONOCYTES # (AUTO) 0.5 X 10^3 (0.0-1.0); MONOCYTES % (AUTO) 13 % (0-12); NEUTROPHILS # (AUTO) 3.1 X 10^3 (1.8-7.8); NEUTROPHILS % (AUTO) 85 % (42-75); PLATELET COUNT 224 10^3/uL (130-400); RED CELL DISTRIBUTION WIDTH 16.6 % (10.0-14.5); WHITE BLOOD COUNT 3.7 10^3/uL (4.3-11.0)
[2019-10-02 06:59] LABS: ALANINE AMINOTRANSFERASE 12 U/L (0-55); ALBUMIN 2.5 GM/DL (3.2-4.5); ALKALINE PHOSPHATASE 54 U/L (40-136); BILIRUBIN,TOTAL 0.3 MG/DL (0.1-1.0); BUN/CREATININE RATIO 14; CALCIUM 7.8 MG/DL (8.5-10.1); CARBON DIOXIDE 22 MMOL/L (21-32); CHLORIDE 104 MMOL/L (98-107); CREATININE SERUM 0.57 MG/DL (0.60-1.30); GFR ESTIMATED > 60; GLUCOSE 124 MG/DL (70-105); POTASSIUM 3.5 MMOL/L (3.6-5.0); SODIUM 135 MMOL/L (135-145); TOTAL PROTEIN 4.7 GM/DL (6.4-8.2)
[2019-10-02 07:21] VITALS: BP 120/74
[2019-10-02] MEDS: ONDANSETRON 4 MG/2 ML (SDV) Z0FRAN IVP SCH ×3 (08:18→20:40)
[2019-10-02] MEDS: DEXAMETHASONE 4 MG/ML SDV (DECADRON) IV PRN ×2 (08:18→20:40)
[2019-10-02] MEDS: PANTOPRAZOLE 40 MG (PROTONIX) VIAL IV SCH (08:18)
[2019-10-02] MEDS ORDERED: LORazepam 0.5 MG (ATIVAN) TABLET PO PRN (10:45)
[2019-10-02] MEDS ORDERED: METOCLOPRAMIDE INJ 10 MG/2 ML (REGLAN) IVP PRN (10:45)
[2019-10-02 11:16] VITALS: BP 148/79
--- NOTE | 2019-10-02 11:23 | Progress Note ---
Standard Progress Note Progress Notes/Assess & Plan Date Seen by a Provider: Oct 02, 2019 Time Seen by a Provider: 11:16 Progress/Assessment & Plan 63 yo female with rectal cancer currently on definitive chemoradiation was admitted 09/30/19 with nausea, vomiting and failure to thrive. She was started on IVF and scheduled ondansetron TID on admission. The night of admission, she developed a low grade fever of 38.3 C so cultures were drawn and UA was obtained. UA and CXR were negative. She had no other localizing symptoms to suggest a source of her fever. She was given acetaminophen once and fever has not recurred. Patient was still having severe nausea with eating yesterday morning, but after dexamethasone was added to her nausea regimen in the early afternoon, she improved quite significantly and was able to eat a small evening meal. This morning she ate two small meals without nausea or abdominal pain. This morning on abdominal exam, she has mildly improved distension and tenderness, but bowel sounds are improved. KUB yesterday was equivocal but suggested ileus. Her clinical picture contradicts x-ray findings. We will leave her diet to be advanced as tolerated, but we will d/c medications that may delay GI motility. We will add metoclopramide and lorazepam prn. Continue IVF and repeat KUB in the morning. Will plan to resume radiation tomorrow. BHARTI GOMEZ MD Oct 02, 2019 11:23
[2019-10-02] MEDS: POTASSIUM CL 10MEQ/50ML IVPB 50 ML IV SCH ×2 (12:06→13:01)
[2019-10-02] MEDS: SILVER SULFADIAZINE 50 GM CREAM TOP SCH ×2 (13:02→20:40)
[2019-10-02 16:19] VITALS: BP 147/81
[2019-10-02 19:20] VITALS: BP 125/75
[2019-10-03 00:06] VITALS: BP 132/76
[2019-10-03] MEDS: NS IV 1000 ML 1,000 ML IV SCH ×2 (01:57→12:03)
[2019-10-03 05:25] LABS: BASOPHILS % (AUTO) 0 % (0-10); EOSINOPHILS % (AUTO) 0 % (0-10); HEMATOCRIT 31 % (35-52); HEMOGLOBIN 10.3 G/DL (11.5-16.0); LYMPHOCYTES # (AUTO) 0.1 X 10^3 (1.0-4.0); LYMPHOCYTES % (AUTO) 3 % (12-44); MEAN CORPUSCULAR HEMOGLOBIN 30 PG (25-34); MEAN CORPUSCULAR HGB CONC 33 G/DL (32-36); MEAN CORPUSCULAR VOLUME 90 FL (80-99); MEAN PLATELET VOLUME 8.6 FL (7.4-10.4); MONOCYTES # (AUTO) 0.8 X 10^3 (0.0-1.0); MONOCYTES % (AUTO) 17 % (0-12); NEUTROPHILS # (AUTO) 3.6 X 10^3 (1.8-7.8); NEUTROPHILS % (AUTO) 80 % (42-75); PLATELET COUNT 211 10^3/uL (130-400); RED CELL DISTRIBUTION WIDTH 16.5 % (10.0-14.5); WHITE BLOOD COUNT 4.5 10^3/uL (4.3-11.0)
[2019-10-03 05:55] LABS: ALANINE AMINOTRANSFERASE 11 U/L (0-55); ALBUMIN 2.3 GM/DL (3.2-4.5); ALKALINE PHOSPHATASE 55 U/L (40-136); BILIRUBIN,TOTAL 0.3 MG/DL (0.1-1.0); BUN/CREATININE RATIO 13; CALCIUM 7.3 MG/DL (8.5-10.1); CARBON DIOXIDE 24 MMOL/L (21-32); CHLORIDE 106 MMOL/L (98-107); CREATININE SERUM 0.61 MG/DL (0.60-1.30); GFR ESTIMATED > 60; GLUCOSE 122 MG/DL (70-105); POTASSIUM 3.3 MMOL/L (3.6-5.0); SODIUM 135 MMOL/L (135-145); TOTAL PROTEIN 4.3 GM/DL (6.4-8.2)
[2019-10-03 08:00] VITALS: BP 146/82
--- NOTE | 2019-10-03 08:25 | Diagnostic Imaging Report ---
Abdomen at 612 hours. INDICATION: Abdominal pain with nausea. A single supine view was obtained. FINDINGS: The prior exam of 10/01/2019 noted several dilated gas filled segments of small bowel as well as some gas within the colon. On this study, the dilated gas filled segments of small bowel are again evident although they are somewhat less conspicuous. The amount of gas in the colon has also decreased since the prior exam. Bowel gas pattern is nonspecific but may be related to a resolving ileus. There is no mass or organomegaly identified. The osseous structures are intact. IMPRESSION: The amount of gas in the colon seen on prior exam has diminished. The dilated segments of small bowel are also somewhat less distended. This appearance may be secondary to a resolving ileus. A follow-up exam would be recommended for continued evaluation. Dictated by: Dictated on workstation # [id number]
[2019-10-03] MEDS: PANTOPRAZOLE 40 MG (PROTONIX) VIAL IV SCH (08:28)
[2019-10-03] MEDS: ONDANSETRON 4 MG/2 ML (SDV) Z0FRAN IVP SCH ×3 (08:29→21:18)
[2019-10-03] MEDS: SILVER SULFADIAZINE 50 GM CREAM TOP SCH ×2 (08:33→21:18)
--- NOTE | 2019-10-03 10:16 | NUR ---
visited and prayed w/ pt and .
[2019-10-03 12:00] VITALS: BP 128/74
--- NOTE | 2019-10-03 13:34 | NUR ---
"RD ASSESSMENT PMHx: CA(rectal) PT INTERACTION: Pt was awake and pleasant during nutrition assessment. Pt states current appetite is not good, and has been this way for about a week. Note avg PO intake of 25% x3d, per chart review. Pt states following a regular diet at home, and has no issues with chewing/swallowing food. Pt states some recent issues with nausea/vomiting, but states it has improved. Note 1 episode of emesis on , per chart review. Pt states some recent issues with diarrhea. Note last BM was 10/01 and pt not currently on bowel regimen per chart review. Pt states recent 10# wt loss x3w. Note unable to determine recent wt hx, per chart review. Pt states that she isn't tolerating her nutrition supplementation that much. ABNORMAL NUTRITION-RELATED LAB VALUES LOW: K 3.3; Ca 7.3; Pro 4.3; alb 2.3 HIGH: glu 122 Est. kcal needs: 8715-1264 kcal | 25-30 kcal/kg Est. Pro needs: 56-67 g Pro | 1.0-1.2 g Pro/kg PES STATEMENT: Inadequate oral intake (NI-2.1) related to loss of appetite | nausea | vomiting | diarrhea as evidenced by pt interview | avg PO intake <25% x3d INTERVENTION: Continue with current diet order of Fiber Restricted diet. Recommend switching current supplementation order of Ensure Clear to BID at L/HS; and Ensure Enlive to BID at B/D. Clear provides 250 kcal and 8 g Pro per serving; Enlive provides 350 kcal and 13 g Pro per serving. Will continue to follow and reassess as pt needs, intake and status change. MONITOR/EVALUATE: PO Intake; Plan of Care; Hydration Status; Weight Status; Lab Values Maxi Willis, MS, RD, LD"
[2019-10-03 16:14] VITALS: BP 138/74
[2019-10-03] MEDS: NS W/KCL 20 MEQ/L 1,000 ML IV SCH (16:54)
--- NOTE | 2019-10-03 18:28 | Progress Note ---
Standard Progress Note Progress Notes/Assess & Plan Date Seen by a Provider: Oct 03, 2019 Time Seen by a Provider: 18:22 Progress/Assessment & Plan 63 year old female with rectal cancer who is undergoing neoadjuvant chemoradiation using oral Xeloda and has completed 23/28 fractions of radiation, admitted to the hospital with nausea, vomiting, diarrhea and dehydration. Patient had failed outpatient management with IV fluids. She is feeling better and starting to increase oral intake. She was also noted to have ileus by abdominal x-ray which has improved slightly today. Her stools are soft but not watery. She is not taking Imodium at this time. Nausea is controlled with Zofran plus Decadron. Patient had increased abdominal symptoms today morning and the radiation was held for 1 more day after discussion with Dr. Nñuez. I encouraged her to increase oral intake as tolerated. Continue hydration with normal saline and add potassium supplements. Recheck lab work and KUB tomorrow morning. Plan to resume chemotherapy and radiation tomorrow. If she is continuing to improve, we will consider discharge tomorrow. REFUGIO PINTO Oct 03, 2019 18:28
[2019-10-03 20:33] VITALS: BP 146/83
[2019-10-04] VITALS: BP 120/75
[2019-10-04] MEDS: NS W/KCL 20 MEQ/L 1,000 ML IV SCH ×2 (03:03→13:32)
[2019-10-04 05:44] LABS: BASOPHILS % (AUTO) 1 % (0-10); EOSINOPHILS % (AUTO) 1 % (0-10); HEMATOCRIT 34 % (35-52); HEMOGLOBIN 11.2 G/DL (11.5-16.0); LYMPHOCYTES # (AUTO) 0.4 X 10^3 (1.0-4.0); LYMPHOCYTES % (AUTO) 8 % (12-44); MEAN CORPUSCULAR HEMOGLOBIN 30 PG (25-34); MEAN CORPUSCULAR HGB CONC 33 G/DL (32-36); MEAN CORPUSCULAR VOLUME 90 FL (80-99); MEAN PLATELET VOLUME 8.2 FL (7.4-10.4); MONOCYTES # (AUTO) 0.7 X 10^3 (0.0-1.0); MONOCYTES % (AUTO) 13 % (0-12); NEUTROPHILS % (AUTO) 78 % (42-75); PLATELET COUNT 238 10^3/uL (130-400); RED CELL DISTRIBUTION WIDTH 17.2 % (10.0-14.5); WHITE BLOOD COUNT 5.1 10^3/uL (4.3-11.0)
[2019-10-04 06:05] LABS: ALANINE AMINOTRANSFERASE 12 U/L (0-55); ALBUMIN 2.4 GM/DL (3.2-4.5); ALKALINE PHOSPHATASE 56 U/L (40-136); BILIRUBIN,TOTAL 0.4 MG/DL (0.1-1.0); BUN/CREATININE RATIO 9; CALCIUM 7.4 MG/DL (8.5-10.1); CARBON DIOXIDE 24 MMOL/L (21-32); CHLORIDE 105 MMOL/L (98-107); CREATININE SERUM 0.58 MG/DL (0.60-1.30); GFR ESTIMATED > 60; GLUCOSE 95 MG/DL (70-105); MAGNESIUM 1.6 MG/DL (1.6-2.4); SODIUM 137 MMOL/L (135-145); TOTAL PROTEIN 4.3 GM/DL (6.4-8.2)
[2019-10-04] MEDS: PANTOPRAZOLE 40 MG (PROTONIX) VIAL IV SCH (07:47)
[2019-10-04] MEDS: ONDANSETRON 4 MG/2 ML (SDV) Z0FRAN IVP SCH ×2 (07:47→13:31)
[2019-10-04] MEDS: SILVER SULFADIAZINE 50 GM CREAM TOP SCH (07:48)
[2019-10-04 08:00] VITALS: BP 133/65
--- NOTE | 2019-10-04 08:41 | NUR ---
RADIATION TREATMENT #24 OF 28 WAS DELIVERED TODAY AT 8:41 AM
--- NOTE | 2019-10-04 09:20 | Diagnostic Imaging Report ---
INDICATION: Abdominal pain COMPARISON: 10/03/2019 FINDINGS: Supine and upright frontal views of the abdomen are performed. Gas is seen in large and small bowel throughout the abdomen. Distention is improved compared to the prior exam, with no high-grade distention seen at this time. No large collection of free air is seen. No acute osseous abnormalities seen. IMPRESSION: 1. Gaseous bowel distention appears improved compared to the prior study. Dictated by: Dictated on workstation # [id number]
[2019-10-04] MEDS: POTASSIUM CL 10MEQ/50ML IVPB 50 ML IV SCH ×4 (09:35→13:57)
--- NOTE | 2019-10-04 15:47 | Discharge Inst-Simple/Standard ---
Discharge Inst-Standard Reconcile Patient Problems Problems Reviewed?: Yes Discharge Medications New, Converted or Re-Newed RX: Other Patient Instructions/Follow Up Plan of Care/Instructions/FU: F/U at cancer center daily for radiation. F/U with me on at 1030 hrs. Activity as Tolerated: Yes Discharge Diet: Eat Small Frequent Meals Return to The Hospital For: worsening symptoms REFUGIO PINTO Oct 04, 2019 15:47
[2019-10-04 16:24] VITALS: BP 133/65
--- NOTE | 2019-10-04 16:30 | NUR ---
HALEY HERNANDEZ demonstrates understanding of discharge instructions and accurately returns instructions upon questioning. Copy of Post-Discharge Instructions and Medication Discharge Instructions given to PT. HALEY HERNANDEZ is able to manage continuing needs after discharge. Patients belongings returned to PT. Skin dry and intact; no breakdown noted. Patient discharged from 419-1 on at 1624 . HALEY HERNANDEZ left floor via , accompanied by STAFF AND FRIEND.
--- NOTE | 2019-10-05 06:13 | DISCHARGE SUMMARY ---
DATE OF SERVICE: The patient was admitted to room 419. FINAL DIAGNOSES: 1. Dehydration due to intractable nausea, vomiting and diarrhea. 2. Ileus. 3. Rectal cancer and on combined chemotherapy and radiation. 4. Hypokalemia due to diarrhea and vomiting. BRIEF HISTORY AND HOSPITAL COURSE: The patient is a 63-year-old female with history of rectal cancer for which she is undergoing neoadjuvant chemotherapy and radiation. She had completed 23 out of planned 28 fractions of radiation therapy along with concurrent oral chemotherapy with Xeloda. She was having increasing nausea with vomiting and diarrhea, the side effects of the combined chemoradiation. She was treated with outpatient IV fluids, but continued to worsen. On 09/30/2019, it was decided to admit her to the hospital for further management because of increasing weakness, decreased oral intake and clinical dehydration. She had received 2 liters of normal saline bolus prior to admission at the [facility] and this was continued at 200 mL per hour for the initial 24 hours. After that the IV fluids were decreased to 100 mL per hour and continued throughout her stay. She was treated with Zofran, dexamethasone and either Compazine or Reglan for the nausea. With the IV antiemetics, her nausea was under control. She was started on clear liquids and attempt to increase the diet caused worsening of nausea. Also complained of abdominal distention and a KUB obtained showed evidence of ileus. She was continued on liquids for the first 2 to 3 days and then gradually increased the diet to soft, which she tolerated. Serial KUB films showed improvement in the ileus. Symptomatically also the patient improved. She was given a break from chemotherapy and radiation on Thursday as well as on Thursday and by Thursday afternoon, she was significantly better. Her potassium level continued to be low requiring parenteral replacement along with the IV fluids. Her activity level was gradually improved and by 10/04/2019, radiation therapy was restarted and the patient will start the chemotherapy also the same day. As she was eating and drinking better and feeling better, it was decided to discharge home the following instructions and medications. She will continue pantoprazole 40 mg p.o. daily. Zofran 8 mg p.o. every 8 hours as needed. Reglan 5 mg p.r.n. and continue other home medications. She will continue to apply silver sulfadiazine to the perineal area twice daily as instructed. She will follow up at the [facility] daily for radiation therapy as scheduled. She will have an office visit with me on 10/06/2019 at 10:30 with lab work. She is having any new or unusual symptoms, she was instructed to contact us. Job ID: [id number] DocumentID: [id number] Dictated Date: 10/04/2019 17:55:21 Warp Knitting Machine Operator Date: 10/05/2019 06:12:42 Dictated By: REFUGIO PINTO MD
--- OUTSIDE RECORDS SUMMARY | 2019-10-06 22:19 | XMS REPORT | Encounter Summary ---
Author Author [facility] Organization [facility] Address Unknown Phone Unavailable Care Team Providers Care Commercial Internship Name Role Phone PCP Unavailable Encounter Details Care Team Description Date Type Department 08/12/2019 [facility] [address] [address] Social History Date Tobacco Use Types Packs/Day Years Used Never Assessed Sex Assigned at Date Recorded Not on file Industry Job Start Date Occupation Not on file Not on file Not on file Travel End Travel History Travel Start No recent travel history available. documented as of this encounter Plan of Treatment Not on filedocumented as of this encounter Procedures Comments Procedure Name Priority Date/Time Associated Diag nosis CT CHEST EXTERNAL IMAGING Routine 08/12/2019 12:05 AM MARKETING AUTOMATION MANAGER documented in this encounter Results * CT CHEST EXTERNAL IMAGING (08/12/2019 12:05 AM MARKETING AUTOMATION MANAGER) Specimen Narrative Performed At This order has been auto finalized and does not contain a result. documented in this encounter Visit Diagnoses Not on filedocumented in this encounter
--- OUTSIDE RECORDS SUMMARY | 2019-10-06 22:19 | XMS REPORT ---
Author Author [employer] Organization [employer] Address [address] [place] [address] Care Team Providers Care Assistant Spa Manager Name Role Phone ANNA BURR Unavailable KAREN ALARCON MD Unavailable Unavailable Unavailable Unavailable ANNA SMartínez [facility] PP Unavailable ANNA S. [facility] CCM Unavailable ANNA BURR PCP GRECIA SHELLEY DO Unavailable Unavailable ANNA BURR DO Unavailable Unavailable REFUGIO PINTO MD Unavailable Unavailable ADEEL ECHAVARRIA DO Unavailable Unavailable Allergies Normalized Allergy Reported Date of Reaction(s) Care Provider Facility Allergy Type classification allergen Allergy Onset DA (7 Unclassified No Known Drug 06-26-2013 - no information ANNA Not Available sources.) Allergies DO NEVAEH (89608) Medications Medication Ingredient Drug Dose Dates Status Sig Sig Care Class(es) (Normalized) (Original) Provid er acetaminoph Acetaminoph no 1000 04-05-20 Complete take 2 A cetaminophe Grecia en 500 mg en information mg 19 d tablets by n 5 00 Mg C Shelley oral tablet mouth every Tablet 1,000 (no (2 eight hours Mg ORAL phone) sources.) as needed Every 8HRS for pain as needed for Pain-Mild 100 Tab 04/05/19 no Cephalexin no 06-26-20 Complete take 1 Cephalexin Pet er information Hcl (Keflex information 13 - d capsule by Hcl (Keflex J Call Center Trainer (4 Capsule) 01-16-20 mouth three Capsule) 250 [place] sources.) 250 Mg Cap, 18 times daily Mg Cap, 250 (no 250 Mg Oral Mg Oral phone) Three Times A Day 06/26/13 Discontinued estrogens, estrogens, Progestin, 01-12-20 no take 1 Prempro 0.3 [place] conjugated conjugated Estrogen 19 - informat tablet by mg-1.5 mg line (care home) 0.3 (care home) / 01-05-20 ion mouth once tablet Orend e mg / medroxyPROG 20 daily in the RxNorm: r (no medroxyPROG ESTERone morning 1 phone) ESTERone Translation Tablet(s) PO acetate 1.5 s: [ {28 QD mg oral (Estrogens, 01/11/2019 tablet (16 Conjugated 01/05/2020 sources.) (DETENTION) 0.625 Active MG / 11/19/2018 medroxyprog 9:35:46 AM N she, O T I C E Prempro 0.3 Last mg-1.5 mg quantity tablet, doesn't Prempro match 0.45 mg-1.5 original mg tablet] quantity 07-16-2018 Completed take 1 Prempro Jacqueli - tablet 0.3 ne 12-18-2018 by mg-1.5 Orender mouth mg (no once tablet phone) daily RxNorm: in the 9558068 mornin TAKE 1 g TABLET BY MOUTH EVERY DAY 11/20/19 19 12/19/19 19 Inactive 11/20/19 19 9:35:46 AM N O T I C E Last quantity doesn't match original quantity 04-07-2017 Completed take 1 Prempro Jacqueli - tablet 0.3 ne 04-01-2018 by mg-1.5 Orender mouth mg (no once tablet phone) daily RxNorm: 6418969 1 Tablet(s ) PO QD 04/07/20 17 04/01/20 18 Inactive 01-06-2017 Completed take 1 Prempro Jacqueli - tablet 0.45 ne 04-06-2017 by mg-1.5 Orender mouth mg (no once tablet phone) daily RxNorm: 7046856 1 Tablet(s ) PO QD LAST REFILL UNTIL SEEN 02/21/20 17 04/06/20 17 Inactive 12-27-2015 Completed take 1 Prempro Jacqueli - tablet 0.3 ne 01-06-2017 by mg-1.5 Orender mouth mg (no once tablet phone) daily RxNorm: 9638346 1 Tablet(s ) PO QD 12/27/19 16 01/07/20 17 Inactive 04-01-2019 Completed no Estrogen (no inform ,Con/M-P phone) ation rogest Acet (Prempro 0.3 Mg-1.5 Mg Tablet) 1 Each Tablet, 1 Each Oral Daily Disconti nued Completed take 1 Estrogen (no tablet ,Con/M-P phone) by rogest mouth Acet once (Prempro daily, 0.3 then Mg-1.5 take Mg 0.3 Tablet) tablet 1 Each by Tablet 1 mouth Each ORAL Daily 01-15-2018 Completed no Estrog (no inform Conj/Med phone) ation ryoxypro g Acet (Prempro 0.625 Mg/2.5 Mg (Non-For mulary)) 1 Tab Tab, 1 Tab Oral Daily Disconti nued FLUoxetine FLUoxetine Serotonin 40 mg 01-12-20 no take 2 fl uoxetine [place] 20 mg oral Translation Reuptake 19 - informat capsules by 20 m g line capsule (5 s: [ Inhibitor 01-05-20 ion mouth once capsule Orende sources.) Fluoxetine 20 daily RxNorm: r 10 MG Oral [id number] 2 Other Tablet] Capsule(s) Phone: PO QD 1(775) 01/11/[phone] 01/05/2020 32 Active 40 mg 12-27-2015 Completed take 2 fluoxeti Jacqueli - capsul ne 20 mg ne 12-20-2016 es by capsule Orender mouth RxNorm: Other once 452222 2 Phone: daily Capsule( 1(908)23 s) PO QD 1-313112/27/19 16 12/21/19 17 Inactive 10 mg Completed take 1 no Other tablet informat Phone: by ion [phone] mouth 1-3132 once daily ibuprofen Ibuprofen Nonsteroida 600 mg 04-05-20 Complete take 1 Ibuprofen Grecia 600 mg oral l 19 d tablet by (Ibu) 600 Mg C Shelley tablet (2 Anti-inflam mouth every Tablet 600 (no sources.) matory Drug six hours Mg ORAL Give phone) Every 6 Hr On Schedule 60 Tab 04/05/19 oxyCODONE oxyCODONE Opioid 5 mg 04-05-20 Complete take 1 Oxyco done Grecia hydrochlori Agonist 19 d tablet by Hcl (Oxyir C Shelley de 5 mg mouth every Tablet) 5 Mg (no oral tablet four hours Tab 5 Mg phone) (2 as needed ORAL Every sources.) for pain 4HRS as needed for Pain-Severe 12 Tab 04/05/19 propranolol propranolol beta-Adrene 10 mg 06-15-20 Complete no Propranolol (no hydrochlori rgic 18 d information Hcl 10 Mg p trinh) de 10 mg Denys Tablet, 10 oral tablet Mg Oral (4 Daily sources.) Discontinued simethicone Simethicone no 80 mg 04-05-20 Complete take 1 S imethicone Grecia 80 mg information 19 d tablet by 80 Mg C Sh aw chewable mouth every Tab.chew 80 (no tablet (2 two hours Mg ORAL Q2hr phone) sources.) for Gas 60 Tab 04/05/19 Problems Active Problems Problem Normalized Date of Normalized Normalized Provider Fac ility Classification Problem(s) Problem Problem Problem Sta tus Onset/Resoluti Duration on Complications Accidental Episodic Active MARVA ABEBE Via of surgical puncture and [facility] [place] procedures or laceration of Hospital - medical care a [place] (4 sources.) genitourinary (94466) system organ or structure during a genitourinary system procedure 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 disorders (5 replacement [place] [address] [place] sources.) therapy (84549) (Work Translations: Phone: [ Hormone replacement ) therapy (postmenopausa l), Hormone replacement therapy (postmenopausa l), Hormone replacement therapy (postmenopausa l)] Unclassified Laceration of no information Active ANNA [facility] [place] (1 source.) finger [facility] [address] [facility] (52621) Open wounds of Laceration of Episodic Active ANNA As cension Via extremities (2 finger [facility] [address] [place] sources.) Hospital (97722) Cancer of Malignant 09-09-2019 - Chronic Active MARVA SANCHEZ Via rectum and neoplasm of [facility] [place] madrigal (20 rectum Hospital - sources.) [place] ([address]16) Benign Other benign Episodic Active GRECIA SHELLEY [facility] V ia neoplasm of neoplasm of [facility] uterus (4 corpus uteri Hospital - sources.) [place] (41655) Other Other long Episodic Active GRECIA SHELLEY [facility] Via aftercare (4 term (current) [facility] [place] sources.) drug therapy Hospital - [place] (91502) Nonmalignant Other 12-29-2018 - Episodic Active ANNA [facility] Via breast specified [facility] conditions (11 disorders of Hospital - sources.) breast [place] Translations: (57218) [ Solitary cyst of left breast, Solitary cyst of left breast, Solitary cyst of left breast, Solitary cyst of left breast, UNSPECIFIED LUMP IN LEFT BREAST, SUBAREO, OTHER SPECIFIED DISORDERS OF BREAST, UNSPECIFIED LUMP IN THE LEFT BREAST, UNS] Residual Other 09-09-2019 - Episodic Active REFUGIO PINTO [facility] Via codes; specified [facility] unclassified postprocedural Hospital - (21 sources.) [facility] (56244) Menopausal Postmenopausal 12-29-2018 - Chronic Active JACMESFINL INE [facility] Via disorders (13 bleeding [facility] sources.) Translations: Hospital - [ [place] Postmenopausal (95410) bleeding, Postmenopausal bleeding, Postmenopausal bleeding, Postmenopausal atrophic vaginitis, Postmenopausal atrophic vaginitis, Postmenopausal atrophic vaginitis, POSTMENOPAUSAL ATROPHIC VAGINITIS, POSTMENOPAUSAL BLEEDING] Unclassified Screening no information Active ANNA Via [place] (1 source.) colonoscopy [address] ([address]) Nonmalignant Unspecified Episodic Active ANNA Not Av ailable breast lump in left [facility] , (07509) conditions (2 breast, sources.) subareolar Translations: [ OTHER SPECIFIED DISORDERS OF BREAST] Unclassified no information no information Active ANNA [facility] Via (4 sources[address] ([address]) Past or Other Problems Problem Normalized Date of Normalized Normalized Provider Fac ility Classification Problem(s) Problem Problem Problem Sta tus Onset/Resoluti Duration on Other Encounter for Episodic Completed KAREN ALARCON [facility] Via screening for screening for [facility] suspected malignant Hospital - conditions neoplasm of [place] (not mental colon (20769) disorders or infectious disease) (8 sources.) Anal and Rectal polyp Episodic Completed MARVA LOUISE Via rectal [facility] (5 Hospital - sources.) [place] (50426) Procedures Procedure Normalized Procedure Procedure Result Performer Facility Date 04-05-2019 Diagnostic laparoscopy no information GRECIA SHELLEY [facility] ([id number]) 04-05-2019 - 04-05-2019 12-29-2018 Handlg&/or convey of no information no name (no collette ne) ANNA THORNENDER - spec for tr office to [facility] LLC (06388) (Work 12-29-2018 lab Phone: ) Comment: SPECIMEN HANDLING OFFICE-LAB 04-07-2017 Handlg&/or convey of no information no name (no collette ne) ANNA THORNENDER - spec for tr office to [facility] (14219) (Work 04-07-2017 lab Phone: ) Comment: SPECIMEN HANDLING OFFICE-LAB 04-05-2019 Hysteroscopy no information GRECIA SHELLEY [facility] ([id number]) 04-05-2019 - 04-05-2019 Screening colonoscopy no information no name (no phone) Asce nsion Via [facility] (05422) 03-10-2019 Urnls dip stick/tablet no information no name (no p trinh) ANNA BURR - rgnt non-auto w/o [facility] ([id number]) (Wo rk 03-10-2019 micrscp Phone: ) Comment: URINALYSIS NONAUTO W/O SCOPE Immunizations Normalized Immunization Date Notes Care Provider Facili ty Immunization Shingrix 03-04-2019 no information Anna Burr LETICIA UELINE S. 05721 [facility] ([id number]) (Work Phone: ) Shingrix 12-08-2018 no information Anna Gallardoer LETICIA UELINE S. 24686 [facility] ([id number]) (Work Phone: ) Vaccination no information ANNA BURR Via [facility] Translations: [ [address] [place] (78495) vaccine] Results Test Name Value Interpretation Reference Range Date Time Fa cility (Normalized) (Normalized) (Medline Reference) No panel information on null Sodium no information (no code) Via [facility] (53573) methicillin resistant staphylococcus aureus (mrsa) screening culture on 2019-04-05 MRSA isol Org MRSA not (no code) [facility] Via specific cx Ql isolated [facility] (Unsp spec) (52786) Vital Signs Vital Sign Value Interpretation Reference Date Time Care Prov ider Facility (Normalized) (Normalized) Range BMI (Body Mass 21.4 kg/m2 (no code) 15 - 25 kg/m2 12-29-2018 Stefano queline ANNA S. Index) 02:00-0400 Orender 60249 [facility] (14258) (Work Phone: ) BMI (Body Mass 21.4 kg/m2 (no code) 15 - 25 kg/m2 04-07-2017 Stefano queline ANNA S. Index) 02:00-0400 Orender 31219 [facility] ([id number]) (Work Phone: ) BMI (Body Mass 21.8 kg/m2 (no code) 15 - 25 kg/m2 12-27-2015 Stefano queline ANNA S. Index) 02:00-0400 Orender 62350 [facility] ([id number]) (Work Phone: ) Body 98.6 [degF] (N) 97.8 - 99.0 03-10-2019 Anna ANNA S. Temperature [degF] 02:00-0400 O[place] 56650 [facility] ([id number]) (Work Phone: ) Body 98.6 [degF] (N) 97.8 - 99.0 12-29-2018 Anna ANNA S. Temperature [degF] 02:00-0400 Orender 36558 [facility] ([id number]) (Work Phone: ) Body 98.6 [degF] (N) 97.8 - 99.0 04-07-2017 Anna ANNA S. Temperature [degF] 02:00-0400 Orender 43211 [facility] ([id number]) (Work Phone: ) Body 98.6 [degF] (N) 97.8 - 99.0 12-27-2015 Anna German Temperature [degF] 02:00-040 Orender 45619 [facility] ([id number]) (Work Phone: ) Body weight 58 kg (N) kg 03-10-2019 Anna SHAW S. 02:00-399 O[place] 99155 [facility] (49443) (Work Phone: ) Body weight 58 kg (N) kg 12-29-2018 Anna SHAW S. 02:00-399 O[place] 77236 [facility] ([id number]) (Work Phone: ) Body weight 58 kg (N) kg 04-07-2017 Anna SHAW S. 02:00-399 O[place] 31145 [facility] ([id number]) (Work Phone: ) Body weight 59 kg (N) kg 12-27-2015 Anna SHAW S. 02:00-0 Orender 12159 [facility] (75432) (Work Phone: ) Blood Pressure 112/ (N,N) Systolic: 03-10-2019 Kurt German 64mm[Hg] 120 mm[Hg] 02: Orender 96533 [facility] ([id number]) (Work Diastolic: 60 Phone: - 80 mm[Hg] ) Blood Pressure 116/ (N,N) Systolic: 12-29-2018 Kurt German 70mm[Hg] 120 mm[Hg] 02:00 Orender 78411 [facility] (47951) (Work Diastolic: 60 Phone: - 80 mm[Hg] ) Blood Pressure 112/ (N,N) Systolic: 04-07-2017 Kurt KHAN S. 68mm[Hg] 120 mm[Hg] 02:00-0400 Orender 39694 [facility] ([id number]) (Work Diastolic: 60 Phone: - 80 mm[Hg] ) Blood Pressure 116/ (N,N) Systolic: 90 - 12-27-2015 Kurt KHAN S. 70mm[Hg] 120 mm[Hg] 02:00-0400 Orender 02390 [facility] ([id number]) (Work Diastolic: 60 Phone: - 80 mm[Hg] ) Height 165 cm (N) cm 12-29-2018 Anna URENA S. 02:00-0400 Orender 27403 [facility] ([id number]) (Work Phone: ) Height 165 cm (N) cm 04-07-2017 Anna URENA S. 02:00-0400 Orender 85320 [facility] ([id number]) (Work Phone: ) Height 165 cm (N) cm 12-27-2015 Anna YOUNGNE S. 02:00-0400 Orender 49043 [facility] (68005) (Work Phone: ) Pulse (Heart 66 /min (N) 60 - 100 /min 03-10-2019 Jacjanusz ladd ANNA S. Rate) 02:00-0400 Orender 07311 [facility] ([id number]) (Work Phone: ) Pulse (Heart 72 /min (N) 60 - 100 /min 12-29-2018 Jacqueli ne ANNA S. Rate) 02:00-0400 Orender 44923 [facility] (73335) (Work Phone: ) Pulse (Heart 80 /min (N) 60 - 100 /min 04-07-2017 Jacjanusz ne ANNA S. Rate) 02:00-0400 Orender 56925 [facility] ([id number]) (Work Phone: ) Pulse (Heart 72 /min (N) 60 - 100 /min 12-27-2015 Eulalio KHAN S. Rate) 02:00-0400 Orender 84295 [facility] ([id number]) (Work Phone: ) Pulse Oximetry 97 % (N) 95 - 100 % 03-10-2019 Deborah RAMIREZLINE S. 02:00-0400 Orender 65727 [facility] (89319) (Work Phone: ) Pulse Oximetry 98 % (N) 95 - 100 % 12-29-2018 Deborah RAMIREZLINE S. 02:00-040 Orender 55678 [facility] (86339) (Work Phone: ) Pulse Oximetry 97 % (N) 95 - 100 % 04-07-2017 Deborah RAMIREZLINE S. 02:00-040 Orender 98463 [facility] (44462) (Work Phone: ) Respiratory 18 /min (N) 12 - 20 /min 12-29-2018 Anna ANNA S. Rate 02:00-0400 Orender 21563 [facility] ([id number]) (Work Phone: ) Respiratory 20 /min (N) 12 - 20 /min 04-07-2017 Anna ANNA S. Rate 02:00-0400 Orender 38890 [facility] ([id number]) (Work Phone: ) Respiratory 20 /min (N) 12 - 20 /min 12-27-2015 Anna ANNA S. Rate 02:00-0400 Orender 80774 [facility] (47359) (Work Phone: ) Interventions No Information Plan of Treatment Normalized Care Care Detail Care Activity Date Care Provider F acility Activity ASSAY OF FREE Goal: ASSAY OF FREE no information Anna Thorne nder ANNA S. THYROXINE THYROXINE Notes: 91511 [facility] ([id number]) (Work Phone: ) ASSAY THYROID STIM Goal: ASSAY THYROID no information Deborah e Orender ANNA S. HORMONE STIM HORMONE Notes: 61230 [facility] (64305) (Work Phone: ) COMPLETE CBC W/AUTO Goal: COMPLETE CBC no information Deborah e Orender ANNA S. DIFF WBC W/AUTO DIFF WBC 81641 [facility] Notes: (60535) (Work Phone: ) COMPREHEN METABOLIC Goal: COMPREHEN no information Anna O render ANNA S. PANEL METABOLIC PANEL 48660 [facility] Notes: (78097) (Work Phone: ) Development of care no information 03-10-2019 Anna Orend er ANNA S. plan 65418 [facility] ([id number]) (Work Phone: ) Development of care no information 12-29-2018 - Anna Alfa catrachito ANNA S. plan 12-29-2018 - 38369 [facility] 12-29-2018 (53028) (Work Phone: ) Development of care no information 04-07-2017 - Anna Alfa catrachito ANNA S. plan 04-07-2017 - 15696 [facility] 04-07-2017 (50793) (Work Phone: ) Development of care Had extensive 12-27-2015 Anna Orende r ANNA S. plan bloodwork and stress 79250 [employer] [facility] [employer] testing last year at (57522) (Work Phone: David ) ClinicMammogram orderedDue for colonoscopy next yearSees dermatology yearlyPlan for Pap next yearDecrease prempro to 0.3/1.5mg daily LIPID PANEL Goal: LIPID PANEL no information Anna Orender ANNA S. Notes: 73072 [facility] ([id number]) (Work Phone: ) MAMMOGRAM SCREENING Goal: MAMMOGRAM no information Anna O render ANNA S. SCREENING Notes: 51655 [facility] (10889) (Work Phone: ) Patient referral Notes: Referral - no information Anna Or desiree ANNA S. Provider: [place], [address] [facility] DO LARA Grecia Johnson - ([id number]) (Work Phone: Address:[facility] ) [facility], [address] [place], [address] Referral Order Goal: Referral Order no information Anna O render ANNA S. Notes: 93275 [facility] (36903) (Work Phone: ) US EXAM PELVIC Goal: US EXAM PELVIC no information Anna O render ANNA S. COMPLETE COMPLETE Notes: 58255 [facility] ([id number]) (Work Phone: ) Goals No Information Social History Normalized Code Original Code Date Value no information no information no information Never smoked to bacco (finding) Marital status Marital status 12-27-2015 - 12-27-2015 Chanda rubio no information no information no information Tobacco history Alcohol history Alcohol history no information Alcohol histo ry Frequency of drinks Frequency of drinks no information Frequ ency of drinks Functional Status The data below is from unstructured sourcesNo functional status information available.No functional status information available.No functional status information available.No Functional Status dataNo Functional Status dataNo functional status information available.No functional status information available.No functional status information available.No functional status information available. Mental Status No Information Encounters Encounter Normalized Encounter Encounter Diagnosis Care Provi catrachito Organization Date Type 04-05-2019 Admission to day no information GRECIA SHELLEY Work no organization name - surgery (no phone ) 04-05-2019 GRECIA SHELLEY 01-20-2018 Admission to day no information KAREN ALARCON Work no organization name - surgery (no phone ) 01-20-2018 12-27-2015 Initial preventive Encounter for general Anna Burr (no ANNA S. [facility] medicine new patient adult medical phone) LLC (n o phone) 40-64yrs examination without abnormal findings 03-10-2019 Office outpatient Postmenopausal Anna Burr (no ANNA BURR visit 15 minutes bleeding phone) [facility] LLC (no ph one) 05-19-2018 Patient encounter no information no name (no phone) no organization name (no phone) 01-20-2018 Patient encounter no information no name (no phone) no organization name - (no phone) 01-20-2018 01-15-2018 Patient encounter no information [employer] Work no organization name - (no phone) 01-15-2018 [employer] NEGATED Patient encounter no information no name (no phone) no organization name 01-14-2018 (no phone) 04-20-2017 Patient encounter no information no name (no phone) no organization name (no phone) 09-29-2019 Patient encounter no information REFUGIO PINTO MD (no [facility] [place] procedure phone) [facility] (no phone) 09-28-2019 Patient encounter no information REFUGIO PINTO MD (no [facility] [place] procedure phone) [facility] (no phone) 09-27-2019 Patient encounter no information REFUGIO PINTO MD (no [facility] [place] procedure phone) [facility] (no phone) 09-26-2019 Patient encounter no information REFUGIO PINTO MD (no [facility] [place] procedure phone) [facility] (no phone) 09-23-2019 Patient encounter no information REFUGIO PINTO MD (no [facility] [place] procedure phone) [facility] (no phone) 09-22-2019 Patient encounter no information REFUGIO PINTO MD (no [facility] [place] procedure phone) [facility] (no phone) 09-21-2019 Patient encounter no information REFUGIO PINTO MD (no [facility] procedure phone) [facility] (no phone) 09-20-2019 Patient encounter no information REFUGIO PINTO MD (no [facility] [place] procedure phone) [facility] (no phone) 09-19-2019 Patient encounter no information REFUGIO PINTO MD (no [facility] [place] procedure phone) [facility] (no phone) 09-16-2019 Patient encounter no information REFUGIO PINTO MD (no [facility] [place] procedure phone) [facility] (no phone) 09-15-2019 Patient encounter no information REFUGIO PINTO MD (no [facility] [place] procedure phone) [facility] (no phone) 09-14-2019 Patient encounter no information REFUGIO PINTO MD (no [facility] [place] procedure phone) [facility] (no phone) 09-13-2019 Patient encounter no information REFUGIO PINTO MD (no [facility] [place] procedure phone) [facility] (no phone) 09-12-2019 Patient encounter no information REFUGIO PINTO MD (no [facility] [place] procedure phone) [facility] (no phone) 09-09-2019 Patient encounter no information REFUGIO PINTO MD (no [facility] [place] procedure phone) [facility] (no phone) 09-08-2019 Patient encounter no information no name (no phone) no organization name procedure (no phone) 09-07-2019 Patient encounter no information no name (no phone) no organization name procedure (no phone) 09-06-2019 Patient encounter no information no name (no phone) no organization name procedure (no phone) 09-05-2019 Patient encounter no information no name (no phone) no organization name procedure (no phone) 09-02-2019 Patient encounter no information no name (no phone) no organization name procedure (no phone) 09-01-2019 Patient encounter no information no name (no phone) no organization name procedure (no phone) 08-31-2019 Patient encounter no information no name (no phone) no organization name procedure (no phone) 08-23-2019 Patient encounter no information no name (no phone) no organization name procedure (no phone) 08-18-2019 Patient encounter no information no name (no phone) no organization name procedure (no phone) 08-17-2019 Patient encounter no information no name (no phone) no organization name procedure (no phone) 08-16-2019 Patient encounter no information no name (no phone) no organization name procedure (no phone) 08-12-2019 Patient encounter no information REFUGIO PINTO MD (no [facility] procedure phone) [facility] (no phone) 08-11-2019 Patient encounter no information no name (no phone) no organization name procedure (no phone) 04-05-2019 Patient encounter no information no name (no phone) no organization name - procedure (no phone) 04-05-2019 04-05-2019 Patient encounter no information no name (no phone) no organization name - procedure (no phone) 04-05-2019 04-01-2019 Patient encounter no information GRECIA SHELLEY Work no organization name - procedure (no phone ) 04-01-2019 GRECIA SHELLEY 04-01-2019 Patient encounter no information no name (no phone) no organization name - procedure (no phone) 04-01-2019 01-04-2019 Patient encounter no information no name (no phone) no organization name procedure (no phone) 04-20-2017 Patient encounter no information no name (no phone) no organization name procedure (no phone) 12-29-2018 Periodic preventive Encounter for general Deborah e Orender (no ANNA S. [facility] med est patient adult medical phone) DO LLC (no collette ne) 40-64yrs examination without abnormal findings 04-07-2017 Periodic preventive Encounter for general Deborah e Orender (no ANNA S. [facility] med est patient adult medical phone) [facility] (no collette ne) 40-64yrs examination without abnormal findings 12-29-2018 Encounter for Encounter for no name (no phone) no organization name gynecological gynecological (no phone) examination (general) examination (general) (routine) without (routine) without abnormal findings abnormal findings 12-29-2018 Encounter for general Encounter for general no name (no phone) no organization name adult medical adult medical (no phone) examination without examination without abnormal findings abnormal findings 04-07-2017 Encounter for Encounter for no name (no phone) no organization name gynecological gynecological (no phone) examination (general) examination (general) (routine) without (routine) without abnormal findings abnormal findings 04-07-2017 Encounter for general Encounter for general no name (no phone) no organization name [facility] adult medical (no phone) examination without examination without abnormal findings abnormal findings 04-07-2017 Encounter for Encounter for no name (no phone) no organization name gynecological gynecological (no phone) examination (general) examination (general) (routine) without (routine) without abnormal findings abnormal findings 12-27-2015 Encounter for general Encounter for general no name (no phone) no organization name adult [facility] adult medical (no phone) examination without examination without abnormal findings abnormal findings 12-26-2015 Encounter for general Encounter for general no name (no phone) no organization name adult medical adult medical (no phone) examination without examination without abnormal findings abnormal findings no information Encounter for other no name (no phone) no org anization name preprocedural (no phone) examination Medical Equipment No Information Payers Normalized Payer Value [facility] [id number] Private Health Insurance [id number]) Private Health Insurance [id number] [facility] Insurance [id number] Advance Directives Directive Response Recor ded Date/Time Advance Directives No 1:49pm Organ Donor Yes 01/15/18 1:49pm Resuscitation Status Full Code 01/15/18 1:49pm Directive Response Recor ded Date/Time Advance Directives No 11:00am Organ Donor Yes 01/20/18 11:00am Resuscitation Status Full Code 01/20/18 11:00am Directive Response Recor ded Date/Time Advance Directives No 11:21am Organ Donor Yes 04/01/19 11:21am Discharge Instructions No hospital discharge instruction information available.No hospital discharge instruction information available.No hospital discharge instruction information available.No hospital discharge instruction information available. Summary Purpose Interface Exchange Family History Diagnosis Age At Onset Lung Cancer Unknown Diagnosis Age At Onset Coronary Artery Disease(CAD) Unknown Diagnosis Age At Onset Hip fracture Unknown Dementia Unknown Assessments Condition Codes Effectiv e Dates Postmenopausal bleeding ICD-10: N95. 0 ICD-9: 627.1 03/10/2019 Solitary cyst of left breast ICD-10: N60.02 ICD-9: 610.0 12/29/2018 Encounter for general adult medical exam ination without abnormal findings ICD-10: Z00.00 ICD-9: V70.9 12/29/2018 Encounter for gynecological examination (general) (routine) without abnormal findings ICD-10: Z01.419 ICD-9: V72.31 12/29/2018 Postmenopausal atrophic vaginitis IC D-10: N95.2 ICD-9: 627.3 12/29/2018 Hormone replacement therapy (postmenopausal) ICD-10: Z79.890 ICD-9: V07.4 12/29/2018 Essential tremor ICD-10: G25.0 ICD-9: 333.1 04/07/2017 Chief Complaint Reason For Visit Effective Dates Notes follow up 03/10/2019 well woman exam (40-65 years) 12/29/2018 Wellness Physical, last mammogram with additional imaging was May 2018, had colonoscopy January 2018 with polyp Annual Checkup 04/07/2017 ~generic 12/27/2015 New Patient---establishing visit Review of System System Result Effective Dates Gastrointestinal No hemorrhoids 03/10/2019 Gastrointestinal No hepatitis 03/10/2019 Gastrointestinal No abdominal pain 03/10/2019 Gastrointestinal No constipation 03/10/2019 Gastrointestinal No diarrhea 03/10/2019 Gastrointestinal No gastroesophageal reflu x 03/10/2019 Gastrointestinal No melena 03/10/2019 Gastrointestinal No nausea 03/10/2019 Gastrointestinal No vomiting 03/10/2019 Genitourinary/Nephrology hematuria 03/10/2019 Genitourinary/Nephrology menstrual i rregularity 03/10/2019 Constitutional No night sweats 12/29/2018 Constitutional No fatigue 12/29/2018 Constitutional No fever 12/29/2018 Constitutional No insomnia 12/29/2018 Constitutional No weight loss 12/29/2018 Eyes No eye pain 019 Eyes No photophobia 12/02 Eyes No vision change Eyes No visual disturbance 12/29/2018 Ears/Nose/Throat/Neck No hearing loss 12/29/2018 Ears/Nose/Throat/Neck No nasal discharge 12/29/2018 Ears/Nose/Throat/Neck No sinus congestion 12/29/2018 Ears/Nose/Throat/Neck No sore throat 12/29/2018 Cardiovascular No arrhythmia 12/29/2018 Cardiovascular No chest pain/pressure 12/29/2018 Cardiovascular No edema 12/29/2018 Cardiovascular No exercise intolerance 12/29/2018 Cardiovascular No orthopnea 12/29/2018 Cardiovascular No palpitations 12/29/2018 Respiratory No asthma Respiratory No cough Respiratory No dyspnea 0 12/29/2018 Respiratory No pleuritic pain 12/29/2018 Respiratory No productive sputum 12/29/2018 Respiratory No wheezing 12/29/2018 Gastrointestinal No hemorrhoids 12/29/2018 Gastrointestinal No hepatitis 12/29/2018 Gastrointestinal No abdominal pain 12/29/2018 Gastrointestinal No constipation 12/29/2018 Gastrointestinal No diarrhea 12/29/2018 Gastrointestinal No gastroesophageal reflu x 12/29/2018 Gastrointestinal No melena 12/29/2018 Gastrointestinal No nausea 12/29/2018 Gastrointestinal No vomiting 12/29/2018 Genitourinary/Nephrology No dysuria 12/29/2018 Genitourinary/Nephrology No nocturia 12/29/2018 Genitourinary/Nephrology No urinary incontinence 12/29/2018 Musculoskeletal No muscle weakness 12/29/2018 Musculoskeletal No myalgias 12/29/2018 Musculoskeletal No stiffness 12/29/2018 Musculoskeletal No swelling 12/29/2018 Dermatologic No rash Dermatologic No scar Neurologic No dizziness 12/29/2018 Neurologic No headache 0 12/29/2018 Neurologic No neck pain 12/29/2018 Neurologic No syncope Psychiatric No anxiety 0 12/29/2018 Psychiatric No depression 12/29/2018 Endocrine No goiter 12/02 Endocrine No hyperglycemia 12/29/2018 Endocrine No hypoglycemia 12/29/2018 Hematologic/Lymphatic No abnormal ec chymoses 12/29/2018 Hematologic/Lymphatic No petechiae 12/29/2018 Hematologic/Lymphatic No abnormal bl eeding and bruising 12/29/2018 Hematologic/Lymphatic No anemia 12/29/2018 Hematologic/Lymphatic No lymph node enlargement/mass 12/29/2018 Allergy/Immunology No food allergy 12/29/2018 Genitourinary/Nephrology menopausal symptoms 12/29/2018 Constitutional No night sweats 04/07/2017 Constitutional No fatigue 04/07/2017 Constitutional No fever 04/07/2017 Constitutional No insomnia 04/07/2017 Constitutional No weight loss 04/07/2017 Eyes No eye pain 017 Eyes No photophobia 12/2016 Eyes No vision change Eyes No visual disturbance 04/07/2017 Ears/Nose/Throat/Neck No hearing loss 04/07/2017 Ears/Nose/Throat/Neck No nasal discharge 04/07/2017 Ears/Nose/Throat/Neck No sinus congestion 04/07/2017 Ears/Nose/Throat/Neck No sore throat 04/07/2017 Cardiovascular No arrhythmia 04/07/2017 Cardiovascular No chest pain/pressure 04/07/2017 Cardiovascular No edema 04/07/2017 Cardiovascular No exercise intolerance 04/07/2017 Cardiovascular No orthopnea 04/07/2017 Cardiovascular No palpitations 04/07/2017 Respiratory No asthma Respiratory No cough 12/2016 Respiratory No dyspnea 0 04/07/2017 Respiratory No pleuritic pain 04/07/2017 Respiratory No productive sputum 04/07/2017 Respiratory No wheezing 04/07/2017 Gastrointestinal No hemorrhoids 04/07/2017 Gastrointestinal No hepatitis 04/07/2017 Gastrointestinal No abdominal pain 04/07/2017 Gastrointestinal No constipation 04/07/2017 Gastrointestinal No diarrhea 04/07/2017 Gastrointestinal No gastroesophageal reflu x 04/07/2017 Gastrointestinal No melena 04/07/2017 Gastrointestinal No nausea 04/07/2017 Gastrointestinal No vomiting 04/07/2017 Genitourinary/Nephrology No dysuria 04/07/2017 Genitourinary/Nephrology No nocturia 04/07/2017 Genitourinary/Nephrology No urinary incontinence 04/07/2017 Musculoskeletal No muscle weakness 04/07/2017 Musculoskeletal No myalgias 04/07/2017 Musculoskeletal No stiffness 04/07/2017 Musculoskeletal No swelling 04/07/2017 Dermatologic No rash 12/2016 Dermatologic No scar 12/2016 Neurologic No dizziness 04/07/2017 Neurologic No headache 0 04/07/2017 Neurologic No neck pain 04/07/2017 Neurologic No syncope Psychiatric No anxiety 0 04/07/2017 Psychiatric No depression 04/07/2017 Endocrine No goiter 09/0 12/2016 Endocrine No hyperglycemia 04/07/2017 Endocrine No hypoglycemia 04/07/2017 Hematologic/Lymphatic No abnormal ec chymoses 04/07/2017 Hematologic/Lymphatic No petechiae 04/07/2017 Hematologic/Lymphatic No abnormal bl eeding and bruising 04/07/2017 Hematologic/Lymphatic No anemia 04/07/2017 Hematologic/Lymphatic No lymph node enlargement/mass 04/07/2017 Allergy/Immunology No food allergy 04/07/2017 Neurologic dyskinesia or tremor 04/07/2017 Constitutional No night sweats 12/27/2015 Constitutional No fatigue 12/27/2015 Constitutional No fever 12/27/2015 Constitutional No insomnia 12/27/2015 Constitutional No weight loss 12/27/2015 Eyes No eye pain 016 Eyes No photophobia 12/02 Eyes No vision change Eyes No visual disturbance 12/27/2015 Ears/Nose/Throat/Neck No hearing loss 12/27/2015 Ears/Nose/Throat/Neck No nasal discharge 12/27/2015 Ears/Nose/Throat/Neck No sinus congestion 12/27/2015 Ears/Nose/Throat/Neck No sore throat 12/27/2015 Cardiovascular No arrhythmia 12/27/2015 Cardiovascular No chest pain/pressure 12/27/2015 Cardiovascular No edema 12/27/2015 Cardiovascular No exercise intolerance 12/27/2015 Cardiovascular No orthopnea 12/27/2015 Cardiovascular No palpitations 12/27/2015 Respiratory No asthma Respiratory No cough Respiratory No dyspnea 0 12/27/2015 Respiratory No pleuritic pain 12/27/2015 Respiratory No productive sputum 12/27/2015 Respiratory No wheezing 12/27/2015 Gastrointestinal No hemorrhoids 12/27/2015 Gastrointestinal No hepatitis 12/27/2015 Gastrointestinal No abdominal pain 12/27/2015 Gastrointestinal No constipation 12/27/2015 Gastrointestinal No diarrhea 12/27/2015 Gastrointestinal No gastroesophageal reflu x 12/27/2015 Gastrointestinal No melena 12/27/2015 Gastrointestinal No nausea 12/27/2015 Gastrointestinal No vomiting 12/27/2015 Genitourinary/Nephrology No dysuria 12/27/2015 Genitourinary/Nephrology No nocturia 12/27/2015 Genitourinary/Nephrology No urinary incontinence 12/27/2015 Musculoskeletal No muscle weakness 12/27/2015 Musculoskeletal No myalgias 12/27/2015 Musculoskeletal No stiffness 12/27/2015 Musculoskeletal No swelling 12/27/2015 Dermatologic No rash Dermatologic No scar Neurologic No dizziness 12/27/2015 Neurologic No headache 0 12/27/2015 Neurologic No neck pain 12/27/2015 Neurologic No syncope Psychiatric No anxiety 0 12/27/2015 Psychiatric No depression 12/27/2015 Endocrine No goiter 12/02 Endocrine No hyperglycemia 12/27/2015 Endocrine No hypoglycemia 12/27/2015 Hematologic/Lymphatic No abnormal ec chymoses 12/27/2015 Hematologic/Lymphatic No petechiae 12/27/2015 Hematologic/Lymphatic No abnormal bl eeding and bruising 12/27/2015 Hematologic/Lymphatic No anemia 12/27/2015 Hematologic/Lymphatic No lymph node enlargement/mass 12/27/2015 Allergy/Immunology No food allergy 12/27/2015 Musculoskeletal arthralgia(s) 12/27/2015 Physical Exam Exam Name System Name It em Name Status Result Effective Dates Notes Full Exam - General Constitutional general appearance Overall: well nourished 03/10/2019 None Full Exam - General Constitutional general appearance Overall: well developed 03/10/2019 None Full Exam - General Constitutional general appearance Overall: in no acute distress 03/10/2019 None Full Exam - General Neurologic mental status Overall: alert 9 None Full Exam - General Neurologic mental status Overall: oriented 03/10/2019 None Full Exam - General Psychiatric mood and affect Overall: normal mood and affect 03/10/2019 None Full Exam - General Respiratory auscultation Overall: breath sounds clear bilater ally 03/10/2019 None Full Exam - General Abdomen abdominal exam Overall: no masses 03/10/2019 None Full Exam - General Abdomen abdominal exam Overall: no tenderness 03/10/2019 None Full Exam - General Abdomen abdominal exam Overall: normal bowel sounds 03/10/2019 None Full Exam - General Abdomen abdominal exam Overall: soft 03/10/2019 None Full Exam - General Constitutional general appearance Overall: well nourished 12/29/2018 None Full Exam - General Constitutional general appearance Overall: well developed 12/29/2018 None Full Exam - General Constitutional general appearance Overall: in no acute distress 12/29/2018 None Full Exam - General Neurologic mental status Overall: alert 9 None Full Exam - General Neurologic mental status Overall: oriented 12/29/2018 None Full Exam - General Psychiatric mood and affect Overall: normal mood and affect 12/29/2018 None Full Exam - General Respiratory auscultation Overall: breath sounds clear bilater ally 12/29/2018 None Full Exam - General Cardiovascular auscultation of heart Overall: regular rate 12/29/2018 None Full Exam - General Cardiovascular auscultation of heart Overall: normal heart sounds 12/29/2018 None Full Exam - General Cardiovascular auscultation of heart Overall: no murmurs 12/29/2018 None Full Exam - General Neck inspection of neck Overall: normal size 12/29/2018 None Full Exam - General Neck inspection of neck Overall: no masses 12/29/2018 None Full Exam - General Ears/Nose/Throat otoscopic exam Overall: external auditory canals clear 12/29/2018 None Full Exam - General Ears/Nose/Throat otoscopic exam Overall: tympanic membranes clear 12/29/2018 None Full Exam - General Ears/Nose/Throat internal nose Overall: bilateral nasal cavities clear 12/29/2018 None Full Exam - General Ears/Nose/Throat oral cavity/pharynx/larynx Overall: oral mucosa clear 12/29/2018 None Full Exam - General Cardiovascular extremities Overall: no clubbing 12/29/2018 None Full Exam - General Cardiovascular extremities Overall: No edema 12/29/2018 None Full Exam - General Cardiovascular extremities Overall: No cyanosis 12/29/2018 None Full Exam - General Abdomen abdominal exam Overall: no masses 12/29/2018 None Full Exam - General Abdomen abdominal exam Overall: no tenderness 12/29/2018 None Full Exam - General Abdomen abdominal exam Overall: normal bowel sounds 12/29/2018 None Full Exam - General Abdomen abdominal exam Overall: soft 12/29/2018 None Full Exam - General Musculoskeletal gait and station Overall: normal gait 12/29/2018 None Full Exam - General Musculoskeletal gait and station Overall: normal station 12/29/2018 None Full Exam - General Genitourinary uterus Overall: normal size 12/29/2018 None Full Exam - General Genitourinary cervix Inspection: erythematous 12/29/2018 None Full Exam - General Genitourinary cervix Inspection: friable 12/29/2018 with punctate bleeding Full Exam - General Genitourinary labia and vagina Overall: normal hair distribution 12/29/2018 None Full Exam - General Genitourinary labia and vagina Vagina: erythematous 12/29/2018 None Full Exam - General Genitourinary adnexa/parametria Overall: no tenderness 12/29/2018 None Full Exam - General Constitutional general appearance Overall: well nourished 04/07/2017 None Full Exam - General Constitutional general appearance Overall: well developed 04/07/2017 None Full Exam - General Constitutional general appearance Overall: in no acute distress 04/07/2017 None Full Exam - General Neurologic mental status Overall: alert 7 None Full Exam - General Neurologic mental status Overall: oriented 04/07/2017 None Full Exam - General Psychiatric mood and affect Overall: normal mood and affect 04/07/2017 None Full Exam - General Ears/Nose/Throat otoscopic exam Overall: external auditory canals clear 04/07/2017 None Full Exam - General Ears/Nose/Throat otoscopic exam Overall: tympanic membranes clear 04/07/2017 None Full Exam - General Ears/Nose/Throat internal nose Overall: bilateral nasal cavities clear 04/07/2017 None Full Exam - General Ears/Nose/Throat oral cavity/pharynx/larynx Overall: oral mucosa clear 04/07/2017 None Full Exam - General Neck inspection of neck Overall: normal size 04/07/2017 None Full Exam - General Neck inspection of neck Overall: no masses 04/07/2017 None Full Exam - General Respiratory auscultation Overall: breath sounds clear bilater ally 04/07/2017 None Full Exam - General Cardiovascular auscultation of heart Overall: regular rate 04/07/2017 None Full Exam - General Cardiovascular auscultation of heart Overall: normal heart sounds 04/07/2017 None Full Exam - General Cardiovascular auscultation of heart Overall: no murmurs 04/07/2017 None Full Exam - General Cardiovascular extremities Overall: no clubbing 04/07/2017 None Full Exam - General Cardiovascular extremities Overall: No edema 04/07/2017 None Full Exam - General Cardiovascular extremities Overall: No cyanosis 04/07/2017 None Full Exam - General Chest/Breast breast and axillae palpation Overall: breasts non- tender 04/07/2017 None Full Exam - General Chest/Breast breast and axillae palpation Overall: no masses 04/07/2017 None Full Exam - General Chest/Breast breast and axillae palpation Overall: axillae non- tender 04/07/2017 None Full Exam - General Chest/Breast breast and axillae palpation Overall: no nipple discharge 04/07/2017 None Full Exam - General Abdomen abdominal exam Overall: no masses 04/07/2017 None Full Exam - General Abdomen abdominal exam Overall: no tenderness 04/07/2017 None Full Exam - General Abdomen abdominal exam Overall: normal bowel sounds 04/07/2017 None Full Exam - General Abdomen abdominal exam Overall: soft 04/07/2017 None Full Exam - General Genitourinary uterus Overall: normal size 04/07/2017 None Full Exam - General Genitourinary cervix Overall: no discharge 04/07/2017 None Full Exam - General Genitourinary labia and vagina Overall: normal hair distribution 04/07/2017 None Full Exam - General Genitourinary labia and vagina Overall: no lesions 04/07/2017 None Full Exam - General Genitourinary adnexa/parametria Overall: no tenderness 04/07/2017 None Full Exam - General Musculoskeletal gait and station Overall: normal gait 04/07/2017 None Full Exam - General Musculoskeletal gait and station Overall: normal station 04/07/2017 None Full Exam - General Constitutional general appearance Overall: well nourished 12/27/2015 None Full Exam - General Constitutional general appearance Overall: well developed 12/27/2015 None Full Exam - General Constitutional general appearance Overall: in no acute distress 12/27/2015 None Full Exam - General Neurologic mental status Overall: alert 6 None Full Exam - General Neurologic mental status Overall: oriented 12/27/2015 None Full Exam - General Respiratory auscultation Overall: breath sounds clear bilater ally 12/27/2015 None Full Exam - General Cardiovascular auscultation of heart Overall: regular rate 12/27/2015 None Full Exam - General Cardiovascular auscultation of heart Overall: normal heart sounds 12/27/2015 None Full Exam - General Cardiovascular auscultation of heart S3 (ventricular gallop): present 12/27/2015 None Full Exam - General Cardiovascular auscultation of heart Murmur: previously known murmur unchanged 12/27/2015 None Full Exam - General Cardiovascular extremities Overall: no clubbing 12/27/2015 None Full Exam - General Cardiovascular extremities Overall: No edema 12/27/2015 None Full Exam - General Cardiovascular extremities Overall: No cyanosis 12/27/2015 None Full Exam - General Neck inspection of neck Overall: normal size 12/27/2015 None Full Exam - General Neck inspection of neck Overall: no masses 12/27/2015 None Full Exam - General Ears/Nose/Throat otoscopic exam Overall: external auditory canals clear 12/27/2015 None Full Exam - General Ears/Nose/Throat otoscopic exam Overall: tympanic membranes clear 12/27/2015 None Full Exam - General Ears/Nose/Throat internal nose Overall: bilateral nasal cavities clear 12/27/2015 None Full Exam - General Ears/Nose/Throat oral cavity/pharynx/larynx Overall: oral mucosa clear 12/27/2015 None Full Exam - General Abdomen abdominal exam Overall: no masses 12/27/2015 None Full Exam - General Abdomen abdominal exam Overall: no tenderness 12/27/2015 None Full Exam - General Abdomen abdominal exam Overall: normal bowel sounds 12/27/2015 None Full Exam - General Abdomen abdominal exam Overall: soft 12/27/2015 None Full Exam - General Musculoskeletal gait and station Overall: normal gait 12/27/2015 None Full Exam - General Musculoskeletal gait and station Overall: normal station 12/27/2015 None Full Exam - General Musculoskeletal spine, ribs and pelvis Palpation - right hip: tender at greater trochanter 12/27/2015 None History of Present Illness Symptom Name Status Resu lt Effective Date Notes Quality intermittent 03/10/2019 None Onset and Resolution o ngoing 03/10/2019 None Pap Smear last normal performed on 04-07-17 12/29/2018 None Control menopaus e. 12/29/2018 Patient has been having s ome spotting over the last six months to a year. 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 12/29/2018 None Sexual Activity is mon ogamous 12/29/2018 None Health Guidance self-b reast exam 12/29/2018 None Health Guidance baseli ne mammogram 12/29/2018 None Health Guidance HIV pr ecautions 12/29/2018 None Health Guidance STD pr ecautions 12/29/2018 None Health Guidance hormon e replacement therapy 12/29/2018 None Health Guidance geneti c counseling 12/29/2018 None Health Guidance tobacc o, drugs and alcohol avoidance 12/29/2018 None Health Guidance regula r exercise 12/29/2018 None Health Guidance safety belt use 12/29/2018 None Health Guidance helmet use 12/29/2018 None Health Guidance hearin g loss prevention 12/29/2018 None Health Guidance limiti ng UV/sun exposure 12/29/2018 None Health Guidance suicid e prevention 12/29/2018 None Health Guidance depres steven symptoms 12/29/2018 None Nutrition and Exercise normal weight 12/29/2018 None Nutrition and Exercise balanced nutrition 12/29/2018 None Nutrition and Exercise moderate exercise 12/29/2018 None Lifestyle no history o f physical abuse 12/29/2018 None Lifestyle no history o f sexual abuse 12/29/2018 None Lifestyle no history o f verbal abuse 12/29/2018 None Lifestyle regular seat belt use 12/29/2018 None Lifestyle family suppo rtive of relationship 12/29/2018 None Lifestyle satisfactory work experience 12/29/2018 None Lifestyle normal amoun t of stress 12/29/2018 None Lifestyle satisfactory marriage/partner relationship 12/29/2018 None Menstrual History post menopausal bleeding 12/29/2018 None Annual Checkup Control none 04/07/2017 None Annual Checkup Lifestyle no history of physical abuse 04/07/2017 None Annual Checkup Lifestyle no history of sexual abuse 04/07/2017 None Annual Checkup Lifestyle no history of verbal abuse 04/07/2017 None Annual Checkup Sexual Activity is monogamous 04/07/2017 None Annual Checkup Lifestyle regular seatbelt use 04/07/2017 None Annual Checkup Lifestyle family supportive of relationship 04/07/2017 None Annual Checkup Lifestyle satisfactory school experience 04/07/2017 None Annual Checkup Lifestyle satisfactory peer relationships 04/07/2017 None Annual Checkup Lifestyle normal amount of stress 04/07/2017 None Annual Checkup Nutrition and Exercise normal weight 04/07/2017 None Annual Checkup Nutrition and Exercise balanced nutrition 04/07/2017 None Annual Checkup Nutrition and Exercise moderate exercise 04/07/2017 None Annual Checkup Reproductive System D evelopment normal development 04/07/2017 None Annual Checkup Health Guidance self-breast exam 04/07/2017 None Annual Checkup Health Guidance HIV precautions 04/07/2017 None Annual Checkup Health Guidance tobacco, drugs and alcohol avoidance 04/07/2017 None Annual Checkup Health Guidance regular exercise 04/07/2017 None Annual Checkup Health Guidance safety belt use 04/07/2017 None Annual Checkup Health Guidance helmet use 04/07/2017 None Annual Checkup Health Guidance hearing loss prevention 04/07/2017 None Annual Checkup Health Guidance limiting UV/sun exposure 04/07/2017 None Annual Checkup Health Guidance suicide prevention 04/07/2017 None Annual Checkup Health Guidance depression symptoms 04/07/2017 None Annual Checkup Health Guidance control options 04/07/2017 None Annual Checkup Pap Smear normal results 04/07/2017 None well woman exam (40-65 years) Lifestyle no history of physical abuse 12/27/2015 None well woman exam (40-65 years) Lifestyle no history of sexual abuse 12/27/2015 None well woman exam (40-65 years) Lifestyle no history of verbal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
--- OUTSIDE RECORDS SUMMARY | 2019-10-06 22:19 | XMS REPORT | Encounter Summary ---
Author Author [facility] Organization [facility] Address Unknown Phone Unavailable Care Team Providers Care Ebd Teacher Name Role Phone Mony Wang MD Unavailable Anna Burr MD [address] DO Unavailable Anna Burr MD PCP Reason for Visit * Reason Comments General Question rectal bleeding Encounter Details Care Team Description Date Type Department Yoni Elliott DO [address] [place] [address] [phone] General Question (rectal bleeding) 08/31/2019 Telephone The [address] [address] Social History Date Tobacco Use Types Packs/Day Years Used Never Smoker Smokeless Tobacco: Never Used Drinks/Week oz/Week Comments Alcohol Use 2 Glasses of wine 2.0 Yes Sex Assigned at Date Recorded Not on file Industry Job Start Date Occupation Not on file Not on file Not on file Travel End Travel History Travel Start No recent travel history available. documented as of this encounter Miscellaneous Notes * Telephone Encounter - Deepti Hernandez RN - 08/31/2019 12:52 PM FOUNDER & CEO This pt called today to let me know that she's been having intermittent rectal b leeding. She said she was in to see her rad onc today and he was aware. I told h er I would notify Dr. Elliott, but most likely something we will just monitor f or now. I did tell her to call Dr. Wang's office, her med onc, and let him kno w. She had no more questions. DER & CEO documented in this encounter Plan of Treatment Not on filedocumented as of this encounter Visit Diagnoses Not on filedocumented in this encounter
--- OUTSIDE RECORDS SUMMARY | 2019-10-06 22:19 | XMS REPORT | Encounter Summary ---
Author Author [facility] Organization [facility] Address Unknown Phone Unavailable Care Team Providers Care Letter Sorting Machine Operator Name Role Phone Mony Wang MD Unavailable Anna Burr MD [address] DO Unavailable Anna Burr MD PCP Reason for Visit * Reason Comments Appointment Request Encounter Details Care Team Description Date Type Department Yoni Elliott DO [address] [place] [address] [phone] Appointment Request 09/19/[address] [facility] [address] [address] Social History Date Tobacco Use Types Packs/Day [...] encounter Miscellaneous Notes * Telephone Encounter - Logan Arita - 09/19/2019 9:12 AM BIOFUELS PRODUCT MANAGER Left voice message for Pippa Fernandez regarding rescheduled appointments from 2019 to 10/14/2019 MRI (pelvis) at 12:30pm with 12:00pm arrival time at [facility] and Dr. Elliott at 2:30pm with 2:15pm arrival time at [facility]. Will mail appointment information. UELS PRODUCT MANAGER * Telephone Encounter - Logan Arita - 09/19/2019 9:08 AM BIOFUELS PRODUCT MANAGER ----- Message from Deepti Hernandez RN sent at 09/16/2019 3:56 PM BIOFUELS PRODUCT MANAGER ----- Regarding: appt move Diagnosis code (ICD10): C20 Ordering Doctor/EBER: DR. ELLIOTT Has the patient been contacted about this appointment? Yes Comments for appointment: Please call pt to move 10/27 Dr. Elliott appt and MRI pelvis to 10/13. She is finishing her treatment on 10/09 and would like to move up her appt. I left her a VM just now letting her know that would be ok and that someone will be ca lling her to move this early next week. Thank you, STEFANIE Tatum UELS PRODUCT MANAGER documented in this encounter Plan of Treatment Not on filedocumented as of this encounter Visit Diagnoses Not on filedocumented in this encounter
--- OUTSIDE RECORDS SUMMARY | 2019-10-06 22:19 | XMS REPORT | Clinical Summary ---
Author Author [facility] Organization [facility] Address Unknown Phone Unavailable Care Team Providers Care Sock Ironer Name Role Phone Mony Wang MD Unavailable Anna Burr MD [address] DO Unavailable Anna Burr MD PCP Source Comments Some departments are not documenting in the electronic medical record. If you d o not see the information that you expected, contact Release of Information in [facility] [employer] Information Management department at [phone] for further assistan ce in locating additional records.[facility] Allergies No Known Allergies Medications End Date Status Medication Sig Dispensed Refills Start Date Active CALCIUM PO Take 1,200 mg 0 by mouth daily. Active estrogens, Take 1 tablet 0 conj/medroxyPROGESTERone by mouth (PREMPRO) 0.3/1.5 mg daily. tablet Active fluoxetine (PROZAC) 20 mg Take 20 mg by 0 capsule mouth daily. Active Problems Problem Noted Date Rectal cancer 08/26/2019 Encounters Care Team Description Date Type Specialty Yoni Elliott DO General Question 10/04/2019 Telephone Oncology Yoni Elliott DO Rectal cancer (HCC) (Primary Dx) 10/04/2019 Orders Only Oncology Yoni Elliott, DO Appointment Request 09/19/2019 Telephone Oncology Yoni Elliott DO General Question (rectal bleeding) 08/31/2019 Telephone Oncology Yoni Elliott DO Rectal cancer (HCC) (Primary Dx) 08/26/2019 Office Visit Oncology Yoni Elliott, DO Appointment 08/26/2019 Telephone Oncology Yoni Elliott, Navigation Assessment 08/24/2019 Telephone Oncology 08/16/2019 Hospital Radiology Encounter 08/12/2019 Hospital Radiology Encounter 08/12/2019 Hospital Radiology Encounter 08/12/2019 Hospital Radiology Encounter from Last 3 Months Family History Medical History Relation Name Comments Heart Disease Father Hypertension Father Cancer-Ovarian Maternal Grandfather Cancer Paternal Aunt Relation Name Status Comments Father Maternal Grandfather Paternal Aunt Social History Date Tobacco Use Types Packs/Day Years Used Never Smoker Smokeless Tobacco: Never Used Drinks/Week oz/Week Comments Alcohol Use 2 Glasses of wine 2.0 Yes Sex Assigned at Date Recorded Not on file Industry Job Start Date Occupation Not on file Not on file Not on file Travel End Travel History Travel Start No recent travel history available. Last Filed Vital Signs Reading Time Taken Comments Vital Sign 122/65 08/26/2019 9:41 AM WELDING TEACHER Blood Pressure 80 08/26/2019 9:41 AM WELDING TEACHER Pulse 37.1 C (98.8 F) 08/26/2019 9:41 AM WELDING TEACHER Temperature 16 08/26/2019 9:41 AM WELDING TEACHER Respiratory Rate 97% 08/26/2019 9:41 AM WELDING TEACHER Oxygen Saturation - - Inhaled Oxygen Concentration 57 kg (125 lb 9.6 oz) 08/26/2019 9:41 AM WELDING TEACHER Weight 164.4 cm (5' 4.72") 08/26/2019 9:41 AM WELDING TEACHER Height 21.08 08/26/2019 9:41 AM WELDING TEACHER Body Mass Index Plan of Treatment Health Maintenance Due Date Last Done Comments HEPATITIS C SCREENING 1955 DTAP/TDAP VACCINES ( - 11/08/1967 Tdap) HIV SCREENING 11/08/1971 PHYSICAL (COMPREHENSIVE) 1974 EXAM CERVICAL CANCER SCREENING 1986 BREAST CANCER SCREENING 1996 COLORECTAL CANCER 2006 SCREENING INFLUENZA VACCINE 03/03/2019 SHINGLES RECOMBINANT Completed 03/04/2019, 12/08 VACCINE Procedures Comments Procedure Name Priority Date/Time Associated Diag nosis NM PET/CT EXTERNAL Routine 08/16/2019 IMAGING 12:[address] ABD/PEL EXTERNAL Routine 08/12/2019 IMAGING 12:[address] CHEST EXTERNAL IMAGING Routine 08/12/2019 12:05 AM WELDING TEACHER MRI PELVIS EXTERNAL Routine 08/12/2019 IMAGING 12:00 AM WELDING TEACHER from Last 3 Months Results * NM PET/CT EXTERNAL IMAGING (08/16/2019 12:00 AM WELDING TEACHER) Specimen Narrative Performed At This order has been auto finalized and does not contain a result. * CT ABD/PEL EXTERNAL IMAGING (08/12/2019 12:10 AM WELDING TEACHER) Specimen Narrative Performed At This order has been auto finalized and does not contain a result. * CT CHEST EXTERNAL IMAGING (08/12/2019 12:05 AM WELDING TEACHER) Specimen Narrative Performed At This order has been auto finalized and does not contain a result. * MRI PELVIS EXTERNAL IMAGING (08/12/2019 12:00 AM WELDING TEACHER) Specimen Narrative Performed At This order has been auto finalized and does not contain a result. from Last 3 Months Insurance Type Payer Benefit Subscriber ID Effective Phone Address Plan / Dates Group PPO [facility] xxxxxxxxxxxx 2019-[id number] [facility] resent [id number] Advance Directives Patient Printing Assistant Explanation Type Date Recorded Advance Directive/DPOA
--- OUTSIDE RECORDS SUMMARY | 2019-10-06 22:19 | XMS REPORT | Encounter Summary ---
Author Author [facility] Organization [facility] Address Unknown Phone Unavailable Care Team Providers Care Sales And Marketing Director Name Role Phone PCP Unavailable Encounter Details Care Team Description Date Type Department 08/16/2019 [facility] [address] [address] Social History Date Tobacco Use [...] PET/CT EXTERNAL Routine 08/16/2019 IMAGING 12:00 AM TURRET LATHE SET UP OPERATOR documented in this encounter Results * NM PET/CT EXTERNAL IMAGING (08/16/2019 12:00 AM TURRET LATHE SET UP OPERATOR) Specimen Narrative Performed At This order has been auto finalized and does not contain a result. documented in this encounter Visit Diagnoses Not on filedocumented in this encounter
--- OUTSIDE RECORDS SUMMARY | 2019-10-06 22:19 | XMS REPORT | Encounter Summary ---
Author Author [facility] Organization [facility] Address Unknown Phone Unavailable Care Team Providers Care Bag Machine Set Up Operator Name Role Phone Mony Wang MD Unavailable Anna Burr MD [address] DO Unavailable Reason for Visit * Reason Comments Navigation Assessment Encounter Details Care Team Description Date Type Department oYni Elliott DO [address] [place] [address] [phone] Navigation Assessment 08/24/[address] [address] Social History Date Tobacco Use Types Packs/Day Years Used Never Assessed Sex Assigned at Date Recorded Not on file Industry Job Start Date Occupation Not on file Not on file Not on file Travel End Travel History Travel Start No recent travel history available. documented as of this encounter Miscellaneous Notes * Telephone Encounter - Ewelina Millard RN - 08/24/2019 11:16 AM HSE SPECIALIST Navigation Intake Assessment Document Patient Name: Pippa Fernandez : 1955 Insurance: BC Appointment Info: Future Appointments Date Time Provider Department Center 08/26/2019 9:45 AM Yoni Elliott DO [facility] Exam Diagnosis & Reason for Visit: Rectal cancer Physician Info: Referring Physician: Dr Ocampo [phone] Location of Films: PACS Location of Pathology: Please notify Julia Millard RN in Navigation and intake what additional studies are desired on path from rectal bx. Specimen at [facility] Lab [phone] collected 07/21/2019 History of Present Illness: 07/21/2019 Colonoscopy due to hematochezia , frond like partially obstruction la rge mass was found in the rectum 5 cm from anal vergePath mod diff adeno ca 07/26/2019 Flex Sig / EUS 08/11/2019 Medical Oncology Consult -- planning for imaging, MRI chemo/radiation 08/12/2019 CT C/A/P RML Nodule, rectal mass 08/12/2019 MRI Pelvis Mid rectal invasion through Muscularis propria By less james n 5 mm, solitary suspicious lymph node 08/16/2019 Pet Rectal hypermetabolism NEEDS Assessment: Genetic Counseling: Genetic Assessment: No identified risk factors Nutrition: Current Weight (in pounds): 134 Recent Weight Loss Without Trying?: No Eating Poorly Due to Decreased Appetite?: No Score: Malnutrition Screening Tool (MST): 0 Nutrition Intervention: Provided information about available services;Other (Com ment)(deitician appt not available during consult time. ) Social & Financial: Social and Financial Assessment: Reports adequate support system Tobacco assessment last 30 days: Patient has not used tobacco products within th e last 30 days Spiritual & Emotional: Spiritual and Emotional Assessment: Reports adequate support system Physical: Fall Risk: None identified Physical Needs Intervention: Provided information about available services Communication: Communication Barrier: No Onc Fertility: Onc Fertility Assessment: Not applicable SPECIALIST documented in this encounter Plan of Treatment Not on filedocumented as of this encounter Visit Diagnoses Not on filedocumented in this encounter
--- OUTSIDE RECORDS SUMMARY | 2019-10-06 22:19 | XMS REPORT | Encounter Summary ---
Author Author [facility] Organization [facility] Address Unknown Phone Unavailable Care Team Providers Care Boiler Or Engine Operator Name Role Phone Mony Wang MD Unavailable Anna Burr MD [address] DO Unavailable Anna Burr MD PCP Reason for Referral * Radiology Services (Routine) Referred By Contact Referred To Contact Status Reason Specialty Diagnoses / Procedures Yoni Elliott DO [address] [place] [address] Ca2 Mri [address] [address] No Auth Needed Radiology Diagnoses Rectal cancer (HCC) P rocedures MRI PELVIS WO/W CONTRAST MRI PELVIS W CONTRAST Reason for Visit * Reason Comments New CA Pt * Consult, Test & Treat (Routine) Referred By Contact Referred To Contact Status Reason Specialty Diagnoses / Procedures Mony Wang MD [address] [place] [address] Yoni Elliott DO [address] [place] [address] No Auth Needed Oncology Diagnoses Rectal cancer Encounter Details Care Team Description Date Type Department Yoni Elliott DO [address] [facility] [place] [address] [phone] Rectal cancer (HCC) (Primary Dx) 08/26/2019 Office Visit [facility] [address] [address] Social History Date Tobacco Use Types Packs/Day [...] history available. documented as of this encounter Last Filed Vital Signs Reading Time Taken Comments Vital Sign 122/65 08/26/2019 9:41 AM LACQUERER Blood Pressure 80 08/26/2019 9:41 AM LACQUERER Pulse 37.1 C (98.8 F) 08/26/2019 9:41 AM LACQUERER Temperature 16 08/26/2019 9:41 AM LACQUERER Respiratory Rate 97% 08/26/2019 9:41 AM LACQUERER Oxygen Saturation - - Inhaled Oxygen Concentration 57 kg (125 lb 9.6 oz) 08/26/2019 9:41 AM LACQUERER Weight 164.4 cm (5' 4.72") 08/26/2019 9:41 AM LACQUERER Height 21.08 08/26/2019 9:41 AM LACQUERER Body Mass Index documented in this encounter Progress Notes * Yoni Elliott DO - 08/26/2019 9:45 AM LACQUERER Name: Pippa Fernandez : 1955 AGE: 63 y.o . DATE OF SERVICE: 08/26/2019 Subjective: Reason for Visit: New [place] Pt History of Present Illness Pippa Fernandez is a 63 y.o. female without significant past medical history wh o was recently diagnosed with T3N1A rectal adenocarcinoma. She reports history of rectal bleeding for approximately 1 and half years. She underwent colonoscopy as part of her routine screening colonoscopy in the summer 2017. At that time the colonoscopy was negative for polyps or lesions. Her rectal bleeding was att ributed to hemorrhoids at that time. Then she continued having rectal bleeding and had a repeat colonoscopy in July 2019. This was significant for a parti ally obstructing rectal mass for 5 to 15 cm from the anal verge. Biopsy of the lesion was consistent with adenocarcinoma. Her subsequent work-up included CT c hest, abdomen, and pelvis, PET/CT, rectal EUS, and MRI of pelvis. CT chest demonstrated a 14 mm right middle lobe nodule that was PET negative. M RI of the pelvis demonstrated a mid rectum mass 7 cm from the anal verge and 3 c m from the anorectal junction. Lesion was invading beyond the muscularis propri a making T3a and there was a 1 abnormal lymph node grading 9 mm in size. She has already seen with an oncologist and is planning to undergo neoadjuvant c hemoradiation starting next week. Patient continues to have some rectal bleedin g from the bottom but does not have complaints of fatigue or weakness. She pete es any symptoms of rectal obstruction and is having bowel movement every day. Colonoscopy 07/21/2019 Impression 1. 10 mm polyp in the sigmoid colon removed with a hot snare. Resected and ret rieved. 2. Likely malignant partially obstructing tumor in the rectum. Biopsied. 3. Examination was otherwise normal. Surgical pathology: Rectal mass biopsy, moderately differentiated adenocarcinoma . CT of the chest with contrast 08/12/19 Impression: 1. right medial lobe nodule, which may be due to hematoma, granuloma, or metasta tic lesion. A PET/CT should be considered to work-up this lesion. 2. Otherwise normal chest CT PET CT 08/16/2019 Impression: Rectal hypermetabolism consistent with known neoplasm. No hypermeta bolic lymph nodes are identified. No other significant abnormality is seen. MRI of the pelvis T3a, N1a lesion, 7 cm from the anal verge, 3 cm from the anorectal junction. Review of Systems Constitutional: Negative. Negative for activity change, chills, fatigue, fever and unexpected weight change. HENT: Negative for congestion. Eyes: Negative. Respiratory: Negative. Negative for cough, choking, chest tightness and shortne ss of breath. Cardiovascular: Negative. Negative for chest pain and leg swelling. Gastrointestinal: Positive for anal bleeding. Negative for abdominal distention, abdominal pain, blood in stool, constipation, diarrhea, nausea, rectal pain and vomiting. Endocrine: Negative for polydipsia and polyphagia. Genitourinary: Negative. Negative for difficulty urinating, dysuria and frequen cy. Musculoskeletal: Negative. Negative for arthralgias and myalgias. Skin: Negative. Negative for pallor and rash. Neurological: Negative for dizziness and light-headedness. Hematological: Negative for adenopathy. Does not bruise/bleed easily. Psychiatric/Behavioral: Negative for agitation, behavioral problems and confusio n. All other systems reviewed and are negative. Medical History: Diagnosis Date Rectal cancer (HCC) Surgical History: Procedure Laterality Date COLONOSCOPY Family History Problem Relation Age of Onset Heart Disease Father Hypertension Father Cancer Paternal Aunt Cancer-Ovarian Maternal Grandfather Social History Socioeconomic History Marital status: Spouse name: Not on file Number of children: Not on file Years of education: Not on file Highest education level: Not on file Occupational History Not on file Tobacco Use Smoking status: Never Smoker Smokeless tobacco: Never Used Substance and Sexual Activity Alcohol use: Yes Alcohol/week: 2.0 standard drinks Types: 2 Glasses of wine per week Drug use: Not Currently Sexual activity: Not on file Other Topics Concern Not on file Social History Narrative Not on file Objective: CALCIUM PO Take 1,200 mg by mouth daily. estrogens, conj/medroxyPROGESTERone (PREMPRO) 0.3/1.5 mg tablet Take 1 table t by mouth daily. fluoxetine (PROZAC) 20 mg capsule Take 20 mg by mouth daily. Vitals: 08/26/19 0941 BP: 122/65 BP Source: Arm, Right Upper Patient Position: Sitting Pulse: 80 Resp: 16 Temp: 37.1 C (98.8 F) TempSrc: Oral SpO2: 97% Weight: 57 kg (125 lb 9.6 oz) Height: 164.4 cm (64.72") PainSc: Zero Body mass index is 21.08 kg/m. Pain Score: Zero Fatigue Scale: 2 Physical Exam Vitals signs reviewed. Exam conducted with a material inspector present. Constitutional: Appearance: Normal appearance. She is well-developed. HENT: Head: Normocephalic and atraumatic. Eyes: General: No scleral icterus. Right eye: No discharge. Left eye: No discharge. Extraocular Movements: Extraocular movements intact. Conjunctiva/sclera: Conjunctivae normal. Neck: Musculoskeletal: Normal range of motion and neck supple. Trachea: No tracheal deviation. Cardiovascular: Rate and Rhythm: Normal rate. Pulses: Normal pulses. Radial pulses are 2+ on the right side and 2+ on the left side. Pulmonary: Effort: Pulmonary effort is normal. Abdominal: General: Abdomen is flat. Bowel sounds are normal. Palpations: Abdomen is soft. Genitourinary: Comments: MARY JANE consistent with rectal mass 4-5 cm from the anal verge. Posteri or tethered mass was palpated. Musculoskeletal: Normal range of motion. Lymphadenopathy: Cervical: No cervical adenopathy. Right cervical: No superficial cervical adenopathy. Left cervical: No superficial cervical adenopathy. Comments: No significant edema Skin: General: Skin is warm and dry. Coloration: Skin is not pale. Findings: No erythema or rash. Neurological: Mental Status: She is alert and oriented to person, place, and time. Psychiatric: Mood and Affect: Mood normal. Behavior: Behavior normal. Thought Content: Thought content normal. Assessment and Plan: 1. Newly diagnosed rectal adenocarcinoma, cT3 N1a M0 Patient has a newly diagnosed rectal cancer that is biopsy proven. We discussed the natural history, pathophysiology, and treatment scheme for rectal cancer. We explained the need for neoadjuvant chemoradiation therapy given her clinical st aging in order to reduce risk of locoregional recurrence. Need for adjuvant michael mtherapy will be determined by the medical oncologist following her surgery. Giv en her body habitus and surgical history, we will be able to proceed with roboti c, possibly open, low anterior resection with DLI versus APR upon completion of her neoadjuvant therapy. Timeline of surgery was described in detail. Patient is currently following with an oncologist. The oncologist is planning to perform neoadjuvant chemoradiation as early as next week. We will have patient return to clinic following completion of neoadjuvant therapy in approximately 8 week. MRI of pelvis will be repeated at the time. Sudeep Mitchell MD ATTESTATION I personally performed the stark portions of the E/M visit, discussed case with re sident and concur with resident documentation of history, physical exam, assessm ent, and treatment plan unless otherwise noted. Staff name: Yoni Elliott DO Date: 08/26/2019 I spent 45 minutes with this patient. UERER documented in this encounter Plan of Treatment Order Schedule Name Type Priority Associated Diag noses Expected: 10/28/2019 (Approximate), Expi res: 08/26/2020 MRI PELVIS WO/W CONTRAST Imaging Routine Recta l cancer (HCC) documented as of this encounter Visit Diagnoses Diagnosis Rectal cancer (HCC) - Primary Malignant neoplasm of rectum documented in this encounter
--- OUTSIDE RECORDS SUMMARY | 2019-10-06 22:19 | XMS REPORT | Encounter Summary ---
Author Author [facility] Organization [facility] Address Unknown Phone Unavailable Care Team Providers Care Careers Adviser Name Role Phone PCP Unavailable Encounter Details Care Team Description Date Type Department 08/12/2019 [facility] [address] [address] Social History Date Tobacco Use [...] Procedure Name Priority Date/Time Associated Diag nosis MRI PELVIS EXTERNAL Routine 08/12/2019 IMAGING 12:00 AM SPREADING MACHINE OPERATOR documented in this encounter Results * MRI PELVIS EXTERNAL IMAGING (08/12/2019 12:00 AM SPREADING MACHINE OPERATOR) Specimen Narrative Performed At This order has been auto finalized and does not contain a result. documented in this encounter Visit Diagnoses Not on filedocumented in this encounter
--- OUTSIDE RECORDS SUMMARY | 2019-10-06 22:19 | XMS REPORT | Encounter Summary ---
Author Author [facility] Organization [facility] Address Unknown Phone Unavailable Care Team Providers Care Corporate Human Resources Manager Name Role Phone Mony Wang MD Unavailable Anna Burr MD [address] DO Unavailable Anna Burr MD PCP Encounter Details Care Team Description Date Type Department Yoni Elliott DO [address] [place], [place] [phone] Rectal cancer (HCC) (Primary Dx) 10/04/2019 Orders Only The [address] [phone] Social History Date Tobacco Use Types Packs/Day [...] as of this encounter Plan of Treatment Order Schedule Name Type Priority Associated Diag noses Expected: 10/28/2019, Expires: TYPE & SCREEN (NOT Blood Bank Routine Rectal canc er (HCC) CROSSMATCH ELIGIBLE) Expected: 10/05/2019 (Approximate), Expi res: 10/04/2020 CBC Lab Routine Rectal cancer ( HCC) Expected: 10/05/2019 (Approximate), Expi res: 10/04/2020 COMPREHENSIVE METABOLIC Lab Routine Rectal cancer (HCC) PANEL documented as of this encounter Visit Diagnoses Diagnosis Rectal cancer (HCC) - Primary Malignant neoplasm of rectum documented in this encounter
--- OUTSIDE RECORDS SUMMARY | 2019-10-06 22:19 | XMS REPORT | Encounter Summary ---
Author Author [facility] Organization [facility] Address Unknown Phone Unavailable Care Team Providers Care Assistant Property Manager Name Role Phone Mony Wang MD Unavailable Anna Burr MD [address] DO Unavailable Anna Burr MD PCP Reason for Visit * Reason Comments General Question Encounter Details Care Team Description Date Type Department Yoni Elliott DO [address] [place], [place] [phone] General Question 10/04/2019 Telephone [facility] [address] [phone] Social History Date Tobacco Use Types Packs/Day [...] Telephone Encounter - Deepti Hernandez RN - 10/04/2019 3:47 PM SPRING COVERER I called this pt today to clarify timing of MRI. We would prefer her MRI be at least 2 weeks after completion of tx, which is 10/[address] Elliott is ok w MRI being done anytime after that, as he thinks her plan for surgery will not change based on MRI. I called pt and she was ok moving MRI and appt out to 10/27. I have scheduled labs same day and have messaged PAT about clarification about i f pt will need appt or not. I told pt I would call her back and let her know if I needed to add on that appt to 10/[address] Elliott, surgery needs to be scheduled 8 weeks after tx completion. We picked date of 12/08/19, robotic LAR with ileostomy. I discussed this w pt who is ok with this date. I will schedule surgery later this week. Pt had no further questions. NG COVERER documented in this encounter Plan of Treatment Not on filedocumented as of this encounter Visit Diagnoses Not on filedocumented in this encounter
--- OUTSIDE RECORDS SUMMARY | 2019-10-06 22:19 | XMS REPORT | Encounter Summary ---
Author Author [facility] Organization [facility] Address Unknown Phone Unavailable Care Team Providers Care Senior Center Director Name Role Phone Mony Wang MD Unavailable Anna Burr MD [address] DO Unavailable Anna Burr MD PCP Reason for Visit * Reason Comments Appointment Encounter Details Care Team Description Date Type Department Yoni Elliott DO [address] [place] [address] [phone] Appointment 08/26/[address] [facility] [address] [address] Social History Date Tobacco Use Types Packs/Day [...]
--- OUTSIDE RECORDS SUMMARY | 2019-10-06 22:19 | XMS REPORT | Encounter Summary ---
Author Author [facility] Organization [facility] Address Unknown Phone Unavailable Care Team Providers Care Nike Athlete Name Role Phone PCP Unavailable Encounter Details Care Team Description Date Type Department 08/12/2019 [facility] [address] [address] Social History Date Tobacco Use [...] Name Priority Date/Time Associated Diag nosis CT ABD/PEL EXTERNAL Routine 08/12/2019 IMAGING 12:10 AM PANEL MONITOR documented in this encounter Results * CT ABD/PEL EXTERNAL IMAGING (08/12/2019 12:10 AM PANEL MONITOR) Specimen Narrative Performed At This order has been auto finalized and does not contain a result. documented in this encounter Visit Diagnoses Not on filedocumented in this encounter
--- OUTSIDE RECORDS SUMMARY | 2019-10-06 22:20 | XMS REPORT | Continuity of Care Document ---
Author Organization Unknown Address Unknown Phone Unavailable Allergies Active Description Code Type Severity Reaction Onset Reported/Identified Relationship to Patient Clinical Status Yes No Known Drug Allergies [id number] Drug Allergy Unknown N/A 01/20/2018 Medications There is no data. Problems Date Dx Coded Attending Type Code Diagnosis Diagnosed By 09/08/2014 ANITA ORELLANA, NADYA Ugalde Ot 733.90 09/08/2014 ANITA ORELLANA, NADYA Ugalde Ot 737.30 09/11/2014 NADYA HOWARD MD Ot V67.9 09/20/2014 NADYA HOWARD MD Ot 733.90 09/20/2014 ANITA ORELLANA, NADYA Ugalde Ot 737.30 01/07/2016 ORENDER DO, BILL S [...] OF BREAST 01/15/2018 KAREN ALARCON MD Ot Z01.81 8 ENCOUNTER FOR OTHER PREPROCEDURAL EXAMIN 01/15/2018 KAREN ALARCON MD Ot Z01.81 8 ENCOUNTER FOR OTHER PREPROCEDURAL EXAMIN 01/15/2018 KAREN ALARCON MD Ot Z01.81 8 ENCOUNTER FOR OTHER PREPROCEDURAL EXAMIN 01/15/2018 KAREN ALARCON MD Ot Z12.11 ENCOUNTER FOR SCREENING FOR MALIGNANT NE 01/18/2018 ORENDER DO, BILL S Ot N64.89 OTHER SPECIFIED DISORDERS OF BREAST 01/18/2018 KAREN ALARCON MD Ot Z01.81 8 ENCOUNTER FOR OTHER PREPROCEDURAL EXAMIN 01/18/2018 KAREN ALARCON MD Ot Z12.11 ENCOUNTER FOR SCREENING FOR MALIGNANT NE 01/20/2018 KAREN ALARCON MD Ot K62.1 RECTAL POLYP 01/20/2018 KAREN ALARCON MD Ot Z12.11 ENCOUNTER FOR SCREENING FOR MALIGNANT NE 01/22/2018 KAREN ALARCON MD Ot K62.1 RECTAL POLYP 01/22/2018 KAREN ALARCON MD Ot Z12.11 ENCOUNTER FOR SCREENING FOR MALIGNANT NE 05/27/2018 ORENDER DO, BILL S Ot N63.42 UNSPECIFIED LUMP IN LEFT BREAST, SUBAREO 05/27/2018 ORENDER DO, BILL S Ot N64.89 OTHER SPECIFIED DISORDERS OF BREAST 06/11/2018 ORENDER DO, BILL S Ot N63.42 UNSPECIFIED LUMP IN LEFT BREAST, SUBAREO 06/11/2018 ORENDER DO, BILL S Ot N64.89 OTHER SPECIFIED DISORDERS OF BREAST 12/31/2018 ORENDER DO, BILL S Ot N64.89 OTHER SPECIFIED DISORDERS OF BREAST 12/31/2018 ORENDER DO, BILL S Ot N63.42 UNSPECIFIED LUMP IN LEFT BREAST, SUBAREO 12/31/2018 ORENDER DO, BILL S Ot N64.89 OTHER SPECIFIED DISORDERS OF BREAST 01/06/2019 ORENDER DO, BILL S Ot N63.20 UNSPECIFIED LUMP IN THE LEFT BREAST, UNS 01/06/2019 ORENDER DO, BILL S Ot N95.0 POSTMENOPAUSAL BLEEDING 01/20/2019 ORENDER DO, BILL S Ot N63.20 UNSPECIFIED LUMP IN THE LEFT BREAST, UNS 01/20/2019 ORENDER DO, BILL S Ot N95.0 POSTMENOPAUSAL BLEEDING 04/05/2019 GRECIA SHELLEY DO Ot 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 04/05/2019 GRECIA SHELLEY DO Ot N95.2 POSTMENOPAUSAL ATROPHIC VAGINITIS 04/05/2019 SHELLEY DO, GRECIA C Ot N99.7 1 ACC PNCTR LAC OF A SYS ORG DURING A 04/05/2019 SHELLEY DO, GRECIA C Ot Z79.8 99 OTHER PRISON (CURRENT) DRUG THERAPY 04/05/2019 SHELLEY DO, GRECIA C Ot Z82.4 9 FAMILY HX OF ISCHEM HEART DIS AND OTH DI 04/11/2019 SHELLEY DO, GRECIA C Ot 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 04/11/2019 SHELLEY DO, GRECIA C Ot N95.2 POSTMENOPAUSAL ATROPHIC VAGINITIS 04/11/2019 SHELLEY DO, GRECIA C Ot N99.7 1 ACC PNCTR LAC OF A SYS ORG DURING A 04/11/2019 SHELLEY DO, GRECIA C Ot Z79.8 99 OTHER PRISON (CURRENT) DRUG THERAPY 04/11/2019 SHELLEY DO, GRECIA C Ot Z82.4 9 FAMILY HX OF ISCHEM HEART DIS AND OTH DI 04/15/2019 SHELLEY DO, GRECIA C Ot 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 04/15/2019 SHELLEY DO, GRECIA C Ot N95.2 POSTMENOPAUSAL ATROPHIC VAGINITIS 04/15/2019 SHELLEY DO, GRECIA C Ot N99.7 1 ACC PNCTR LAC OF A SYS ORG DURING A 04/15/2019 SHELLEY DO, GRECIA C Ot 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 04/15/2019 SHELLEY DO, GRECIA C Ot Z82.4 9 FAMILY HX OF ISCHEM HEART DIS AND OTH DI 08/15/2019 MILLIE, BOBAN N Ot C20 MALIGNANT NEOPLASM OF RECTUM 08/15/2019 MILLIE, BOBAN N Ot C20 MALIGNANT NEOPLASM OF RECTUM 08/16/2019 MILLIE, BOBAN N Ot C20 MALIGNANT NEOPLASM OF RECTUM 08/18/2019 MILLIE, BOBAN N Ot C20 MALIGNANT NEOPLASM OF RECTUM 08/23/2019 MILLIE, BOBAN N Ot C20 MALIGNANT NEOPLASM OF RECTUM 08/23/2019 MILLIE, BOBAN N Ot Z98.890 OTHER SPECIFIED POSTPROCEDURAL STATES 08/30/2019 MILLIE, BOBAN N Ot C20 MALIGNANT NEOPLASM OF RECTUM 08/30/2019 MILLIE BOBAN N Ot Z98.890 OTHER SPECIFIED POSTPROCEDURAL STATES 09/22/2019 MILLIE, BOBAN N Ot C20 MALIGNANT NEOPLASM OF RECTUM 09/29/2019 REFUGIO PINTO Ot C20 MALIGNANT NEOPLASM OF RECTUM 09/29/2019 REFUGIO PINTO Ot Z98.890 OTHER SPECIFIED POSTPROCEDURAL STATES 10/04/2019 REFUGIO PINTO Ot C20 MALIGNANT NEOPLASM OF RECTUM 10/04/2019 REFUGIO PINTO Ot 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 Results Test Result Range Methicillin resistant Staphylococcus aur eus (MRSA) screening culture - 04/05/19 06:25 Methicillin resistant Staphylococcus aureus (MRSA) scr eening culture NEG NRG Complete blood count (CBC) with automate d white blood cell (WBC) differential - 09/30/19 13:54 Blood leukocytes automated count (number/volume) 2.8 10*3/uL 4.3-11.0 Blood erythrocytes automated count (number/volume) 3.63 10*6/uL 4.35-5.85 Venous blood hemoglobin measurement (mass/volume) 10.9 g/dL 11.5-16.0 Blood hematocrit (volume fraction) 33 % 35-52 Automated erythrocyte mean corpuscular volume 90 [ foz_us] 80-99 Automated erythrocyte mean corpuscular h emoglobin (mass per erythrocyte) 30 pg 25-34 Automated erythrocyte mean corpuscular h emoglobin concentration measurement (mass/volume) 34 g/dL 32-36 Automated erythrocyte distribution width ratio 16. 7 % 10.0- 14.5 Automated blood platelet count (count/volume) 186 10*3/uL 130-400 Automated blood platelet mean volume measurement 8.4 [foz_us] 7.4-10.4 Automated blood neutrophils/100 leukocytes 86 % 42-75 Automated blood lymphocytes/100 leukocytes 2 % 12-44 Blood monocytes/100 leukocytes 12 % 0-12 Automated blood eosinophils/100 leukocytes 0 % 0-10 Automated blood basophils/100 leukocytes 0 % 0-10 Blood neutrophils automated count (number/volume) 2.4 10*3 1.8-7.8 Blood lymphocytes automated count (number/volume) 0.1 10*3 1.0-4.0 Blood monocytes automated count (number/volume) 0. 4 10*3 0.0-1.0 Automated eosinophil count 0.0 10*3/uL 0 .0-0.3 Automated blood basophil count (count/volume) 0.0 10*3/uL 0.0-0.1 Comprehensive metabolic panel - 09/30/19 13:54 Serum or plasma sodium measurement (moles/volume) 135 mmol/L 135-145 Serum or plasma potassium measurement (moles/volume) 3.3 mmol/L 3.6-5.0 Serum or plasma chloride measurement (moles/volume) 103 mmol/L 98-107 Carbon dioxide 22 mmol/L 21-32 Serum or plasma anion gap determination (moles/volume) 10 mmol/L 5-14 Serum or plasma urea nitrogen measurement (mass/volume ) 8 mg/dL 7-18 Serum or plasma creatinine measurement (mass/volume) 0.67 mg/dL 0.60-1.30 Serum or plasma urea nitrogen/creatinine mass ratio 12 NRG Serum or plasma creatinine measurement w ith calculation of estimated glomerular filtration rate > NRG Serum or plasma glucose measurement (mass/volume) 150 mg/dL 70-105 Serum or plasma calcium measurement (mass/volume) 7.7 mg/dL 8.5-10.1 Serum or plasma total bilirubin measurement (mass/volu me) 0.6 mg/dL 0.1-1.0 Serum or plasma alkaline phosphatase michele surement (enzymatic activity/volume) 55 U/L 40-136 Serum or plasma aspartate aminotransfera se measurement (enzymatic activity/volume) 11 U/L 5-34 Serum or plasma alanine aminotransferase measurement (enzymatic activity/volume) 16 U/L 0-55 Serum or plasma protein measurement (mass/volume) 4.9 g/dL 6.4-8.2 Serum or plasma albumin measurement (mass/volume) 2.7 g/dL 3.2-4.5 CALCIUM CORRECTED 8.7 mg/dL 8.5-10.1 Magnesium - 09/30/19 13:54 Magnesium 1.6 mg/dL 1.6-2.4 Manual absolute plasma cell count - 09/04 03/22 13:54 Blood monocytes/100 leukocytes 15 % NRG Manual blood segmented neutrophils/100 leukocytes 74 % NRG Blood band neutrophils/100 leukocytes 6 % NRG Manual blood lymphocytes/100 leukocytes 4 % NRG Manual blood basophils/100 leukocytes 1 % NRG Blood erythrocyte morphology finding identification NORMAL NRG Complete urinalysis with reflex to cultu re - 09/30/19 19:00 Urine color determination YELLOW NRG Urine clarity determination CLEAR NR G Urine pH measurement by test strip 6.5 5-9 Specific gravity of urine by test strip 1.020 1.016-1.022 Urine protein assay by test strip, semi-quantitative TRACE NEGATIVE Urine glucose detection by automated test strip NE GATIVE NEGATIVE Erythrocytes detection in urine sediment by light micr oscopy NEGATIVE NEGATIVE Urine ketones detection by automated test strip 1+ NEGATIVE Urine nitrite detection by test strip NEGATIVE NEGATIVE Urine total bilirubin detection by test strip NEGA TIVE NEGATIVE Urine urobilinogen measurement by automated test strip (mass/volume) 1.0 mg/dL < = 1.0 Urine leukocyte esterase detection by dipstick NEG ATIVE NEGATIVE Automated urine sediment erythrocyte cou nt by microscopy (number/high power field) [HPF] NRG Automated urine sediment leukocyte count by microscopy (number/high power field) [HPF] NRG Bacteria detection in urine sediment by light microsco py TRACE NRG Squamous epithelial cells detection in u rine sediment by light microscopy 2-5 NRG Crystals detection in urine sediment by light microsco py NONE NRG Casts detection in urine sediment by light microscopy NONE NRG Mucus detection in urine sediment by light microscopy NEGATIVE NRG Complete urinalysis with reflex to culture NO NRG Bacterial blood culture - 09/30/19 19:04 Bacterial blood culture NG NRG Bacterial blood culture - 09/30/19 19:09 Bacterial blood culture NG NRG Complete blood count (CBC) with automate d white blood cell (WBC) differential - 10/02/19 05:10 Blood leukocytes automated count (number/volume) 3.7 10*3/uL 4.3-11.0 Blood erythrocytes automated count (number/volume) 3.55 10*6/uL 4.35-5.85 Venous blood hemoglobin measurement (mass/volume) 10.6 g/dL 11.5-16.0 Blood hematocrit (volume fraction) 32 % 35-52 Automated erythrocyte mean corpuscular volume 90 [ foz_us] 80-99 Automated erythrocyte mean corpuscular h emoglobin (mass per erythrocyte) 30 pg 25-34 Automated erythrocyte mean corpuscular h emoglobin concentration measurement (mass/volume) 33 g/dL 32-36 Automated erythrocyte distribution width ratio 16. 6 % 10.0- 14.5 Automated blood platelet count (count/volume) 224 10*3/uL 130-400 Automated blood platelet mean volume measurement 8.8 [foz_us] 7.4-10.4 Automated blood neutrophils/100 leukocytes 85 % 42-75 Automated blood lymphocytes/100 leukocytes 2 % 12-44 Blood monocytes/100 leukocytes 13 % 0-12 Automated blood eosinophils/100 leukocytes 0 % 0-10 Automated blood basophils/100 leukocytes 0 % 0-10 Blood neutrophils automated count (number/volume) 3.1 10*3 1.8-7.8 Blood lymphocytes automated count (number/volume) 0.1 10*3 1.0-4.0 Blood monocytes automated count (number/volume) 0. 5 10*3 0.0-1.0 Automated eosinophil count 0.0 10*3/uL 0 .0-0.3 Automated blood basophil count (count/volume) 0.0 10*3/uL 0.0-0.1 Comprehensive metabolic panel - 10/02/19 05:10 Serum or plasma sodium measurement (moles/volume) 135 mmol/L 135-145 Serum or plasma potassium measurement (moles/volume) 3.5 mmol/L 3.6-5.0 Serum or plasma chloride measurement (moles/volume) 104 mmol/L 98-107 Carbon dioxide 22 mmol/L 21-32 Serum or plasma anion gap determination (moles/volume) 9 mmol/L 5-14 Serum or plasma urea nitrogen measurement (mass/volume ) 8 mg/dL 7-18 Serum or plasma creatinine measurement (mass/volume) 0.57 mg/dL 0.60-1.30 Serum or plasma urea nitrogen/creatinine mass ratio 14 NRG Serum or plasma creatinine measurement w ith calculation of estimated glomerular filtration rate > NRG Serum or plasma glucose measurement (mass/volume) 124 mg/dL 70-105 Serum or plasma calcium measurement (mass/volume) 7.8 mg/dL 8.5-10.1 Serum or plasma total bilirubin measurement (mass/volu me) 0.3 mg/dL 0.1-1.0 Serum or plasma alkaline phosphatase michele surement (enzymatic activity/volume) 54 U/L 40-136 Serum or plasma aspartate aminotransfera se measurement (enzymatic activity/volume) 13 U/L 5-34 Serum or plasma alanine aminotransferase measurement (enzymatic activity/volume) 12 U/L 0-55 Serum or plasma protein measurement (mass/volume) 4.7 g/dL 6.4-8.2 Serum or plasma albumin measurement (mass/volume) 2.5 g/dL 3.2-4.5 CALCIUM CORRECTED 9.0 mg/dL 8.5-10.1 Complete blood count (CBC) with automate d white blood cell (WBC) differential - 10/03/19 04:41 Blood leukocytes automated count (number/volume) 4.5 10*3/uL 4.3-11.0 Blood erythrocytes automated count (number/volume) 3.42 10*6/uL 4.35-5.85 Venous blood hemoglobin measurement (mass/volume) 10.3 g/dL 11.5-16.0 Blood hematocrit (volume fraction) 31 % 35-52 Automated erythrocyte mean corpuscular volume 90 [ foz_us] 80-99 Automated erythrocyte mean corpuscular h emoglobin (mass per erythrocyte) 30 pg 25-34 Automated erythrocyte mean corpuscular h emoglobin concentration measurement (mass/volume) 33 g/dL 32-36 Automated erythrocyte distribution width ratio 16. 5 % 10.0- 14.5 Automated blood platelet count (count/volume) 211 10*3/uL 130-400 Automated blood platelet mean volume measurement 8.6 [foz_us] 7.4-10.4 Automated blood neutrophils/100 leukocytes 80 % 42-75 Automated blood lymphocytes/100 leukocytes 3 % 12-44 Blood monocytes/100 leukocytes 17 % 0-12 Automated blood eosinophils/100 leukocytes 0 % 0-10 Automated blood basophils/100 leukocytes 0 % 0-10 Blood neutrophils automated count (number/volume) 3.6 10*3 1.8-7.8 Blood lymphocytes automated count (number/volume) 0.1 10*3 1.0-4.0 Blood monocytes automated count (number/volume) 0. 8 10*3 0.0-1.0 Automated eosinophil count 0.0 10*3/uL 0 .0-0.3 Automated blood basophil count (count/volume) 0.0 10*3/uL 0.0-0.1 Comprehensive metabolic panel - 10/03/19 04:41 Serum or plasma sodium measurement (moles/volume) 135 mmol/L 135-145 Serum or plasma potassium measurement (moles/volume) 3.3 mmol/L 3.6-5.0 Serum or plasma chloride measurement (moles/volume) 106 mmol/L 98-107 Carbon dioxide 24 mmol/L 21-32 Serum or plasma anion gap determination (moles/volume) 5 mmol/L 5-14 Serum or plasma urea nitrogen measurement (mass/volume ) 8 mg/dL 7-18 Serum or plasma creatinine measurement (mass/volume) 0.61 mg/dL 0.60-1.30 Serum or plasma urea nitrogen/creatinine mass ratio 13 NRG Serum or plasma creatinine measurement w ith calculation of estimated glomerular filtration rate > NRG Serum or plasma glucose measurement (mass/volume) 122 mg/dL 70-105 Serum or plasma calcium measurement (mass/volume) 7.3 mg/dL 8.5-10.1 Serum or plasma total bilirubin measurement (mass/volu me) 0.3 mg/dL 0.1-1.0 Serum or plasma alkaline phosphatase michele surement (enzymatic activity/volume) 55 U/L 40-136 Serum or plasma aspartate aminotransfera se measurement (enzymatic activity/volume) 11 U/L 5-34 Serum or plasma alanine aminotransferase measurement (enzymatic activity/volume) 11 U/L 0-55 Serum or plasma protein measurement (mass/volume) 4.3 g/dL 6.4-8.2 Serum or plasma albumin measurement (mass/volume) 2.3 g/dL 3.2-4.5 CALCIUM CORRECTED 8.7 mg/dL 8.5-10.1 Complete blood count (CBC) with automate d white blood cell (WBC) differential - 10/04/19 05:15 Blood leukocytes automated count (number/volume) 5.1 10*3/uL 4.3-11.0 Blood erythrocytes automated count (number/volume) 3.78 10*6/uL 4.35-5.85 Venous blood hemoglobin measurement (mass/volume) 11.2 g/dL 11.5-16.0 Blood hematocrit (volume fraction) 34 % 35-52 Automated erythrocyte mean corpuscular volume 90 [ foz_us] 80-99 Automated erythrocyte mean corpuscular h emoglobin (mass per erythrocyte) 30 pg 25-34 Automated erythrocyte mean corpuscular h emoglobin concentration measurement (mass/volume) 33 g/dL 32-36 Automated erythrocyte distribution width ratio 17. 2 % 10.0- 14.5 Automated blood platelet count (count/volume) 238 10*3/uL 130-400 Automated blood platelet mean volume measurement 8.2 [foz_us] 7.4-10.4 Automated blood neutrophils/100 leukocytes 78 % 42-75 Automated blood lymphocytes/100 leukocytes 8 % 12-44 Blood monocytes/100 leukocytes 13 % 0-12 Automated blood eosinophils/100 leukocytes 1 % 0-10 Automated blood basophils/100 leukocytes 1 % 0-10 Blood neutrophils automated count (number/volume) 4.0 10*3 1.8-7.8 Blood lymphocytes automated count (number/volume) 0.4 10*3 1.0-4.0 Blood monocytes automated count (number/volume) 0. 7 10*3 0.0-1.0 Automated eosinophil count 0.0 10*3/uL 0 .0-0.3 Automated blood basophil count (count/volume) 0.0 10*3/uL 0.0-0.1 Comprehensive metabolic panel - 10/04/19 05:15 Serum or plasma sodium measurement (moles/volume) 137 mmol/L 135-145 Serum or plasma potassium measurement (moles/volume) 3.0 mmol/L 3.6-5.0 Serum or plasma chloride measurement (moles/volume) 105 mmol/L 98-107 Carbon dioxide 24 mmol/L 21-32 Serum or plasma anion gap determination (moles/volume) 8 mmol/L 5-14 Serum or plasma urea nitrogen measurement (mass/volume ) 5 mg/dL 7-18 Serum or plasma creatinine measurement (mass/volume) 0.58 mg/dL 0.60-1.30 Serum or plasma urea nitrogen/creatinine mass ratio 9 NRG Serum or plasma creatinine measurement w ith calculation of estimated glomerular filtration rate > NRG Serum or plasma glucose measurement (mass/volume) 95 mg/dL 70-105 Serum or plasma calcium measurement (mass/volume) 7.4 mg/dL 8.5-10.1 Serum or plasma total bilirubin measurement (mass/volu me) 0.4 mg/dL 0.1-1.0 Serum or plasma alkaline phosphatase michele surement (enzymatic activity/volume) 56 U/L 40-136 Serum or plasma aspartate aminotransfera se measurement (enzymatic activity/volume) 12 U/L 5-34 Serum or plasma alanine aminotransferase measurement (enzymatic activity/volume) 12 U/L 0-55 Serum or plasma protein measurement (mass/volume) 4.3 g/dL 6.4-8.2 Serum or plasma albumin measurement (mass/volume) 2.4 g/dL 3.2-4.5 CALCIUM CORRECTED 8.7 mg/dL 8.5-10.1 Magnesium - 10/04/19 05:15 Magnesium 1.6 mg/dL 1.6-2.4 Encounters ACCT No. Visit Date/Time Discharge Status Pt. Type Provider Facility Loc./Unit Complaint 12/201607/07/2019 10:13:45 07/07/2019 23:59 :59 CLS Outpatient [id number] 09/30/2019 11:10:00 020 16:24:00 DIS Inpatient REFUGIO PINTO Vi a [facility] 4TH DEHYDRATION,N/V [id number] 08/16/2019 08:55:00 23:59:59 CLS Outpatient REFUGIO PINTO [facility] RAD RECTAL CANCER [id number] 08/12/2019 10:45:00 23:59:59 CLS Outpatient REFUGIO PINTO [facility] RAD RECTAL CANCER [id number] 04/05/2019 06:02:00 019 12:08:00 DIS Outpatient GRECIA SHELLEY DO Via [facility] SDC POST MENOPAUSAL BLEEDIN G [id number] 04/01/2019 05:32:00 019 11:51:00 DIS Outpatient KARSTEN GRECIA [facility] PREOP POST MENOPAUSAL BLEEDIN G [id number] 01/04/2019 11:46:00 019 23:59:59 CLS Outpatient BILL HERRING DO Via [facility] RAD POST MENOPAUSAL BLEEDING [id number] 05/19/2018 07:52:00 018 23:59:59 CLS Outpatient BILL HERRING DO Via [facility] RAD 6 MONTH FOLLOW UP LT BREAST ASYMMETRY [id number] 05/18/2018 10:30:00 018 23:59:59 CLS Preadmit ROBERTH PEOPLES APRN [facility] RAD SCREENING [id number] 01/20/2018 10:55:00 018 15:25:00 DIS Outpatient KAREN ALARCON MD Via [facility] ENDO SCREENING [id number] 01/15/2018 13:50:00 018 14:04:00 DIS Outpatient KAREN ALARCON MD Via [facility] PREOP COLONOSCOPY [id number] 04/20/2017 12:46:00 017 23:59:59 CLS Outpatient BILL HERRING DO Via [facility] RAD LT BREAST LATER AL FULLNESS [id number] 01/04/2016 09:53:00 016 23:59:59 CLS Outpatient BILL HERRING DO Via [facility] RAD [id number] 09/07/2014 09:03:00 015 23:59:59 CLS Outpatient NADYA HOWARD MD Via [facility] RAD [id number] 08/29/2014 08:24:00 015 23:59:59 CLS Outpatient NADYA HOWARD MD Via [facility] RAD [id number] 12/28/2013 07:54:00 014 23:59:59 CLS Outpatient [id number] 12/20/2013 11:37:00 014 23:59:59 CLS Outpatient [id number] 06/26/2013 22:08:00 013 22:38:00 DIS Emergency [id number] 10/05/2019 13:25:[address] Outpatient REFUGIO PINTO [facility]
== END 2019-10-04 16:24 | disposition home or self-care (01) | DRG 641 ==
LOC: 4TH 11:10
PROVIDERS: ADMIT Internal Medicine Hematology & Oncology; ATTEND Internal Medicine Hematology & Oncology
DX: E86.0 Dehydration (principal); C20 Malignant neoplasm of rectum; C77.5 Secondary and unspecified malignant neoplasm of intrapelvic lymph nodes; K52.1 Toxic gastroenteritis and colitis; R11.2 Nausea with vomiting, unspecified; T45.1X5A Adverse effect of antineoplastic and immunosuppressive drugs, initial encounter; R62.7 Adult failure to thrive; D70.1 Agranulocytosis secondary to cancer chemotherapy; L59.8 Other specified disorders of the skin and subcutaneous tissue related to radiation; Y84.2 Radiological procedure and radiotherapy as the cause of abnormal reaction of the patient, or of later complication, without mention of misadventure at the time of the procedure
CPT/HCPCS: 36415; 71045; 74018; 74019; 80053; 81000; 83735; 85007; 85025; 85027; 87040

== ENCOUNTER 2019-11-03 09:13 | Outpatient (RCR) | payer BC ==
[2019-08-11 15:16] LABS: BASOPHILS % (AUTO) 0 % (0-10); EOSINOPHILS # (AUTO) 0.3 10^3/uL (0.0-0.3); EOSINOPHILS % (AUTO) 5 % (0-10); HEMATOCRIT 39 % (35-52); HEMOGLOBIN 12.7 G/DL (11.5-16.0); LYMPHOCYTES # (AUTO) 1.5 X 10^3 (1.0-4.0); LYMPHOCYTES % (AUTO) 26 % (12-44); MEAN CORPUSCULAR HEMOGLOBIN 29 PG (25-34); MEAN CORPUSCULAR HGB CONC 32 G/DL (32-36); MEAN CORPUSCULAR VOLUME 90 FL (80-99); MEAN PLATELET VOLUME 9.2 FL (7.4-10.4); MONOCYTES # (AUTO) 0.5 X 10^3 (0.0-1.0); MONOCYTES % (AUTO) 8 % (0-12); NEUTROPHILS # (AUTO) 3.5 X 10^3 (1.8-7.8); NEUTROPHILS % (AUTO) 60 % (42-75); PLATELET COUNT 241 10^3/uL (130-400); RED CELL DISTRIBUTION WIDTH 13.2 % (10.0-14.5); WHITE BLOOD COUNT 5.9 10^3/uL (4.3-11.0)
[2019-08-11 15:39] LABS: ALBUMIN 4.2 GM/DL (3.2-4.5); BILIRUBIN,TOTAL 0.3 MG/DL (0.1-1.0); CALCIUM 9.5 MG/DL (8.5-10.1); POTASSIUM 4.2 MMOL/L (3.6-5.0); TOTAL PROTEIN 6.8 GM/DL (6.4-8.2)
[2019-08-30 15:08] LABS: BASOPHILS % (AUTO) 0 % (0-10); EOSINOPHILS # (AUTO) 0.2 10^3/uL (0.0-0.3); EOSINOPHILS % (AUTO) 4 % (0-10); HEMATOCRIT 39 % (35-52); HEMOGLOBIN 12.6 G/DL (11.5-16.0); LYMPHOCYTES # (AUTO) 1.5 X 10^3 (1.0-4.0); LYMPHOCYTES % (AUTO) 23 % (12-44); MEAN CORPUSCULAR HEMOGLOBIN 29 PG (25-34); MEAN CORPUSCULAR HGB CONC 32 G/DL (32-36); MEAN CORPUSCULAR VOLUME 90 FL (80-99); MEAN PLATELET VOLUME 9.3 FL (7.4-10.4); MONOCYTES # (AUTO) 0.5 X 10^3 (0.0-1.0); MONOCYTES % (AUTO) 7 % (0-12); NEUTROPHILS # (AUTO) 4.3 X 10^3 (1.8-7.8); NEUTROPHILS % (AUTO) 66 % (42-75); PLATELET COUNT 226 10^3/uL (130-400); WHITE BLOOD COUNT 6.5 10^3/uL (4.3-11.0)
[2019-08-30 15:31] LABS: ALANINE AMINOTRANSFERASE 13 U/L (0-55); ALBUMIN 4.1 GM/DL (3.2-4.5); ALKALINE PHOSPHATASE 73 U/L (40-136); BILIRUBIN,TOTAL 0.3 MG/DL (0.1-1.0); BUN/CREATININE RATIO 15; CALCIUM 9.5 MG/DL (8.5-10.1); CARBON DIOXIDE 29 MMOL/L (21-32); CHLORIDE 103 MMOL/L (98-107); CREATININE SERUM 0.84 MG/DL (0.60-1.30); GFR ESTIMATED > 60; GLUCOSE 113 MG/DL (70-105); POTASSIUM 3.9 MMOL/L (3.6-5.0); SODIUM 139 MMOL/L (135-145); TOTAL PROTEIN 6.9 GM/DL (6.4-8.2)
[2019-09-07 08:54] LABS: BASOPHILS % (AUTO) 0 % (0-10); EOSINOPHILS # (AUTO) 0.3 10^3/uL (0.0-0.3); EOSINOPHILS % (AUTO) 9 % (0-10); HEMATOCRIT 37 % (35-52); HEMOGLOBIN 12.1 G/DL (11.5-16.0); LYMPHOCYTES # (AUTO) 0.6 X 10^3 (1.0-4.0); LYMPHOCYTES % (AUTO) 18 % (12-44); MEAN CORPUSCULAR HEMOGLOBIN 30 PG (25-34); MEAN CORPUSCULAR HGB CONC 33 G/DL (32-36); MEAN CORPUSCULAR VOLUME 90 FL (80-99); MEAN PLATELET VOLUME 8.8 FL (7.4-10.4); MONOCYTES # (AUTO) 0.3 X 10^3 (0.0-1.0); MONOCYTES % (AUTO) 9 % (0-12); NEUTROPHILS # (AUTO) 1.9 X 10^3 (1.8-7.8); NEUTROPHILS % (AUTO) 64 % (42-75); PLATELET COUNT 186 10^3/uL (130-400); RED CELL DISTRIBUTION WIDTH 12.8 % (10.0-14.5)
[2019-09-07 09:10] LABS: BUN/CREATININE RATIO 21; CALCIUM 8.8 MG/DL (8.5-10.1); CARBON DIOXIDE 24 MMOL/L (21-32); CHLORIDE 107 MMOL/L (98-107); CREATININE SERUM 0.78 MG/DL (0.60-1.30); GFR ESTIMATED > 60; GLUCOSE 92 MG/DL (70-105); POTASSIUM 4.1 MMOL/L (3.6-5.0); SODIUM 138 MMOL/L (135-145)
[2019-09-13 08:59] LABS: BASOPHILS % (AUTO) 0 % (0-10); EOSINOPHILS # (AUTO) 0.5 10^3/uL (0.0-0.3); EOSINOPHILS % (AUTO) 14 % (0-10); HEMATOCRIT 36 % (35-52); HEMOGLOBIN 11.6 G/DL (11.5-16.0); LYMPHOCYTES # (AUTO) 0.4 X 10^3 (1.0-4.0); LYMPHOCYTES % (AUTO) 14 % (12-44); MEAN CORPUSCULAR HEMOGLOBIN 30 PG (25-34); MEAN CORPUSCULAR HGB CONC 33 G/DL (32-36); MEAN CORPUSCULAR VOLUME 91 FL (80-99); MEAN PLATELET VOLUME 8.9 FL (7.4-10.4); MONOCYTES # (AUTO) 0.3 X 10^3 (0.0-1.0); MONOCYTES % (AUTO) 9 % (0-12); NEUTROPHILS % (AUTO) 62 % (42-75); PLATELET COUNT 135 10^3/uL (130-400); RED CELL DISTRIBUTION WIDTH 13.3 % (10.0-14.5); WHITE BLOOD COUNT 3.2 10^3/uL (4.3-11.0)
[2019-09-13 09:16] LABS: BUN/CREATININE RATIO 22; CALCIUM 8.8 MG/DL (8.5-10.1); CARBON DIOXIDE 26 MMOL/L (21-32); CHLORIDE 106 MMOL/L (98-107); CREATININE SERUM 0.79 MG/DL (0.60-1.30); GFR ESTIMATED > 60; GLUCOSE 81 MG/DL (70-105); POTASSIUM 4.1 MMOL/L (3.6-5.0); SODIUM 138 MMOL/L (135-145)
[2019-09-20 11:02] LABS: BASOPHILS % (AUTO) 0 % (0-10); EOSINOPHILS # (AUTO) 0.7 10^3/uL (0.0-0.3); EOSINOPHILS % (AUTO) 17 % (0-10); HEMATOCRIT 38 % (35-52); HEMOGLOBIN 12.5 G/DL (11.5-16.0); LYMPHOCYTES # (AUTO) 0.3 X 10^3 (1.0-4.0); LYMPHOCYTES % (AUTO) 7 % (12-44); MEAN CORPUSCULAR HEMOGLOBIN 30 PG (25-34); MEAN CORPUSCULAR HGB CONC 33 G/DL (32-36); MEAN CORPUSCULAR VOLUME 90 FL (80-99); MEAN PLATELET VOLUME 8.8 FL (7.4-10.4); MONOCYTES # (AUTO) 0.3 X 10^3 (0.0-1.0); MONOCYTES % (AUTO) 8 % (0-12); NEUTROPHILS % (AUTO) 69 % (42-75); PLATELET COUNT 134 10^3/uL (130-400); RED CELL DISTRIBUTION WIDTH 14.6 % (10.0-14.5); WHITE BLOOD COUNT 4.4 10^3/uL (4.3-11.0)
[2019-09-20 11:25] LABS: ALANINE AMINOTRANSFERASE 13 U/L (0-55); ALBUMIN 3.9 GM/DL (3.2-4.5); ALKALINE PHOSPHATASE 55 U/L (40-136); BILIRUBIN,TOTAL 0.5 MG/DL (0.1-1.0); BUN/CREATININE RATIO 19; CALCIUM 9.1 MG/DL (8.5-10.1); CARBON DIOXIDE 28 MMOL/L (21-32); CHLORIDE 105 MMOL/L (98-107); CREATININE SERUM 0.79 MG/DL (0.60-1.30); GFR ESTIMATED > 60; GLUCOSE 102 MG/DL (70-105); POTASSIUM 4.2 MMOL/L (3.6-5.0); SODIUM 139 MMOL/L (135-145); TOTAL PROTEIN 6.4 GM/DL (6.4-8.2)
[2019-09-26 10:29] LABS: BASOPHILS % (AUTO) 0 % (0-10); EOSINOPHILS # (AUTO) 0.4 10^3/uL (0.0-0.3); EOSINOPHILS % (AUTO) 16 % (0-10); HEMATOCRIT 37 % (35-52); LYMPHOCYTES # (AUTO) 0.2 X 10^3 (1.0-4.0); LYMPHOCYTES % (AUTO) 9 % (12-44); MEAN CORPUSCULAR HEMOGLOBIN 29 PG (25-34); MEAN CORPUSCULAR HGB CONC 32 G/DL (32-36); MEAN CORPUSCULAR VOLUME 91 FL (80-99); MEAN PLATELET VOLUME 8.6 FL (7.4-10.4); MONOCYTES # (AUTO) 0.4 X 10^3 (0.0-1.0); MONOCYTES % (AUTO) 18 % (0-12); NEUTROPHILS # (AUTO) 1.3 X 10^3 (1.8-7.8); NEUTROPHILS % (AUTO) 57 % (42-75); PLATELET COUNT 190 10^3/uL (130-400); RED CELL DISTRIBUTION WIDTH 15.5 % (10.0-14.5); WHITE BLOOD COUNT 2.4 10^3/uL (4.3-11.0)
[2019-09-26 10:49] LABS: BUN/CREATININE RATIO 14; CALCIUM 8.8 MG/DL (8.5-10.1); CARBON DIOXIDE 28 MMOL/L (21-32); CHLORIDE 106 MMOL/L (98-107); CREATININE SERUM 0.86 MG/DL (0.60-1.30); GFR ESTIMATED > 60; GLUCOSE 88 MG/DL (70-105); POTASSIUM 4.2 MMOL/L (3.6-5.0); SODIUM 141 MMOL/L (135-145)
[2019-10-06 09:56] LABS: BASOPHILS % (AUTO) 0 % (0-10); EOSINOPHILS # (AUTO) 0.3 10^3/uL (0.0-0.3); EOSINOPHILS % (AUTO) 5 % (0-10); HEMATOCRIT 37 % (35-52); LYMPHOCYTES # (AUTO) 0.2 X 10^3 (1.0-4.0); LYMPHOCYTES % (AUTO) 4 % (12-44); MEAN CORPUSCULAR HEMOGLOBIN 30 PG (25-34); MEAN CORPUSCULAR HGB CONC 33 G/DL (32-36); MEAN CORPUSCULAR VOLUME 91 FL (80-99); MEAN PLATELET VOLUME 8.4 FL (7.4-10.4); MONOCYTES # (AUTO) 0.4 X 10^3 (0.0-1.0); MONOCYTES % (AUTO) 8 % (0-12); NEUTROPHILS # (AUTO) 3.8 X 10^3 (1.8-7.8); NEUTROPHILS % (AUTO) 82 % (42-75); PLATELET COUNT 256 10^3/uL (130-400); RED CELL DISTRIBUTION WIDTH 16.8 % (10.0-14.5); WHITE BLOOD COUNT 4.7 10^3/uL (4.3-11.0)
[2019-10-06 10:24] LABS: ALANINE AMINOTRANSFERASE 16 U/L (0-55); ALBUMIN 2.8 GM/DL (3.2-4.5); ALKALINE PHOSPHATASE 60 U/L (40-136); BILIRUBIN,TOTAL 0.5 MG/DL (0.1-1.0); BUN/CREATININE RATIO 14; CALCIUM 8.1 MG/DL (8.5-10.1); CARBON DIOXIDE 28 MMOL/L (21-32); CHLORIDE 102 MMOL/L (98-107); CREATININE SERUM 0.71 MG/DL (0.60-1.30); GFR ESTIMATED > 60; GLUCOSE 98 MG/DL (70-105); MAGNESIUM 1.7 MG/DL (1.6-2.4); POTASSIUM 3.3 MMOL/L (3.6-5.0); SODIUM 139 MMOL/L (135-145); TOTAL PROTEIN 4.9 GM/DL (6.4-8.2)
[2019-10-10 15:03] LABS: BASOPHILS % (AUTO) 0 % (0-10); EOSINOPHILS # (AUTO) 0.2 10^3/uL (0.0-0.3); EOSINOPHILS % (AUTO) 2 % (0-10); HEMATOCRIT 36 % (35-52); HEMOGLOBIN 11.8 G/DL (11.5-16.0); LYMPHOCYTES # (AUTO) 0.4 X 10^3 (1.0-4.0); LYMPHOCYTES % (AUTO) 4 % (12-44); MEAN CORPUSCULAR HEMOGLOBIN 30 PG (25-34); MEAN CORPUSCULAR HGB CONC 33 G/DL (32-36); MEAN CORPUSCULAR VOLUME 93 FL (80-99); MEAN PLATELET VOLUME 8.4 FL (7.4-10.4); MONOCYTES # (AUTO) 0.5 X 10^3 (0.0-1.0); MONOCYTES % (AUTO) 7 % (0-12); NEUTROPHILS % (AUTO) 87 % (42-75); PLATELET COUNT 238 10^3/uL (130-400); RED CELL DISTRIBUTION WIDTH 16.9 % (10.0-14.5)
[2019-10-10 15:20] LABS: BUN/CREATININE RATIO 14; CALCIUM 8.2 MG/DL (8.5-10.1); CARBON DIOXIDE 31 MMOL/L (21-32); CHLORIDE 104 MMOL/L (98-107); CREATININE SERUM 0.81 MG/DL (0.60-1.30); GFR ESTIMATED > 60; GLUCOSE 106 MG/DL (70-105); MAGNESIUM 1.8 MG/DL (1.6-2.4); POTASSIUM 4.5 MMOL/L (3.6-5.0); SODIUM 139 MMOL/L (135-145)
[~2019-11-03 09:13] MED LIST changes: +CALC1CAP21 PO; +CAPE500T14 PO; +FLUO20CA46 PO; +LOPE2CAP PO; +NS IV 1000 ML (CANCER CTR) 1,000 ML ONE; +NS IV 500 ML (CANCER CENTER) 500 ML ONE; +ONDA8TAB15 PO; +ONDANSETRON 8 MG, DEXAMETHASONE 4 MG/NS 50 ML IVPB (Cancer Ctr) IV ONE; +ONDANSETRON MDV (CANCER CENTER 8 MG, DEXAMETHASONE INJ (CANCER CTR) 4 MG in NS (IVPB) C... IV ONE; +PANT20TA3 PO; +POTASSIUM CHL INJ (CANCER CTR) 20 MEQ in NS IV 1000 ML (CANCER CTR) 1,000 ML IV NR; +SILV25CR21 TP
[2019-11-03 09:26] LABS: BASOPHILS % (AUTO) 0 % (0-10); EOSINOPHILS # (AUTO) 0.1 10^3/uL (0.0-0.3); EOSINOPHILS % (AUTO) 1 % (0-10); HEMATOCRIT 35 % (35-52); HEMOGLOBIN 11.4 G/DL (11.5-16.0); LYMPHOCYTES # (AUTO) 0.3 X 10^3 (1.0-4.0); LYMPHOCYTES % (AUTO) 8 % (12-44); MEAN CORPUSCULAR HEMOGLOBIN 31 PG (25-34); MEAN CORPUSCULAR HGB CONC 33 G/DL (32-36); MEAN CORPUSCULAR VOLUME 96 FL (80-99); MEAN PLATELET VOLUME 8.1 FL (7.4-10.4); MONOCYTES # (AUTO) 0.5 X 10^3 (0.0-1.0); MONOCYTES % (AUTO) 13 % (0-12); NEUTROPHILS # (AUTO) 2.9 X 10^3 (1.8-7.8); NEUTROPHILS % (AUTO) 78 % (42-75); PLATELET COUNT 275 10^3/uL (130-400); RED CELL DISTRIBUTION WIDTH 18.2 % (10.0-14.5); WHITE BLOOD COUNT 3.8 10^3/uL (4.3-11.0)
[2019-11-03 09:41] LABS: ALANINE AMINOTRANSFERASE 18 U/L (0-55); ALBUMIN 3.8 GM/DL (3.2-4.5); ALKALINE PHOSPHATASE 71 U/L (40-136); BILIRUBIN,TOTAL 0.4 MG/DL (0.1-1.0); BUN/CREATININE RATIO 16; CALCIUM 8.6 MG/DL (8.5-10.1); CARBON DIOXIDE 24 MMOL/L (21-32); CHLORIDE 106 MMOL/L (98-107); CREATININE SERUM 0.77 MG/DL (0.60-1.30); GFR ESTIMATED > 60; GLUCOSE 82 MG/DL (70-105); POTASSIUM 3.8 MMOL/L (3.6-5.0); SODIUM 140 MMOL/L (135-145); TOTAL PROTEIN 6.5 GM/DL (6.4-8.2)
== END 2019-11-09 | disposition home or self-care (01) ==
LOC: ONC 09:13
PROVIDERS: ATTEND Internal Medicine Hematology & Oncology
DX: Z51.0 Encounter for antineoplastic radiation therapy (principal); C20 Malignant neoplasm of rectum; Z98.890 Other specified postprocedural states
CPT/HCPCS: 77290; 77295; 77300; 77307; 77334; 77336; 77417; 77470; 80048; 80053; 82378; 83735; 85025; 96360; 96361; 96365; 96366; 96374; 99204; 99213; 99214

== ENCOUNTER → 2019-11-28 | Outpatient (CLI) | payer BC ==
[~2019-11-28] MED LIST changes: -NS IV 1000 ML (CANCER CTR) 1,000 ML ONE; -NS IV 500 ML (CANCER CENTER) 500 ML ONE; -ONDANSETRON 8 MG, DEXAMETHASONE 4 MG/NS 50 ML IVPB (Cancer Ctr) IV ONE; -ONDANSETRON MDV (CANCER CENTER 8 MG, DEXAMETHASONE INJ (CANCER CTR) 4 MG in NS (IVPB) C... IV ONE; -POTASSIUM CHL INJ (CANCER CTR) 20 MEQ in NS IV 1000 ML (CANCER CTR) 1,000 ML IV NR
== END ==
LOC: LABNPT 14:04
PROVIDERS: ATTEND Family Medicine
DX: C20 Malignant neoplasm of rectum (principal)
CPT/HCPCS: 87635

== ENCOUNTER 2020-01-17 05:40 | Outpatient (RCR) | payer BC ==
[~2020-01-17] VITALS: Ht 165 cm; Wt 54.5 kg
== END 2020-01-17 14:30 | disposition home or self-care (01) ==
LOC: PREOP 05:40
PROVIDERS: ATTEND Surgery
DX: Z01.818 Encounter for other preprocedural examination (principal); Z11.59 Encounter for screening for other viral diseases
CPT/HCPCS: 87635

== ENCOUNTER 2020-01-20 08:43 | Day surgery (SDC) | payer BC ==
[~2020-01-20] VITALS: Ht 165 cm; Wt 54.5 kg
[2020-01-20] VITALS (8 sets, daily range): BP systolic 96–122; BP diastolic 51–66
[2020-01-20] MEDS ORDERED: LACTATED RINGERS 1,000 ML IV PRN (08:49)
[2020-01-20] MEDS ORDERED: ceFAZolin INJECTION 1,000 MG in WATER (STERILE) FOR INJECTION 10 ML IV ONE (09:00)
[2020-01-20] MEDS ORDERED: 0.9% SODIUM CHLORIDE PF INJ 20 ML VIAL ONE (09:01)
[2020-01-20] MEDS ORDERED: BUP/EPI 0.5% 1:200,000 (SENSORCAINE) 30 ML VIAL ONE (09:01)
[2020-01-20] MEDS ORDERED: HEParin (CENTRAL IV FLUSH) 500 UNIT/5 ML SYR ONE (09:01)
--- NOTE | 2020-01-20 09:07 | Progress Note-Pre Operative ---
Pre-Operative Progress Note H&P Reviewed The H&P was reviewed, patient examined and no changes noted. Date Seen by Provider: Jan 20, 2020 Time Seen by Provider: 09:07 Date H&P Reviewed: Jan 20, 2020 Time H&P Reviewed: 09:07 Pre-Operative Diagnosis: rectal cancer SHEBA TORRES DO Jan 20, 2020 09:07
[2020-01-20] MEDS ORDERED: WATER (STERILE) FOR INJECTION 10 ML ONE (09:08)
[2020-01-20] MEDS ORDERED: ceFAZolin INJECTION 1,000 MG ONE (09:08)
[2020-01-20] MEDS ORDERED: PROPOFOL INJECTION 50 ML IV ONE (09:25)
[2020-01-20] MEDS ORDERED: MIDAZOLAM 2 MG/2 ML (VERSED) VIAL ONE (09:26)
[2020-01-20] MEDS ORDERED: CATHETER FLUSH 10 ML SYR IV PRN (09:30)
--- OUTSIDE RECORDS SUMMARY | 2020-01-20 09:51 | XMS REPORT | Clinical Summary ---
Author Author [facility] Organization [facility] Address Unknown Phone Unavailable Care Team Providers Care Superintendent Tests Name Role Phone Mony Wang MD Unavailable Anna Burr MD [id number] Dudley DO Unavailable Anna Burr MD PCP Source Comments Some departments are not documenting in the electronic medical record. If you d o not see the information that you expected, contact Release of Information in [facility] Information Management department at [phone] for further assistan ce in locating additional records.[facility] Allergies No Known Allergies Medications End Date Status Medication Sig Dispensed Refills Start Date Active CALCIUM PO Take 1,200 mg 0 by mouth daily. Active estrogens, Take 1 tablet 0 conj/medroxyPROGESTERone by mouth (PREMPRO) 0.3/1.5 mg daily. tablet Active fluoxetine (PROZAC) 20 mg Take 20 mg by 0 capsule mouth daily. Active pantoprazole DR Take 20 mg by 0 (PROTONIX) 20 mg tablet mouth daily. 0 Active ondansetron (ZOFRAN) 4 mg Take one 4 tablet 0 tabletIndications: Rectal tablet by 0 cancer (HCC) mouth every 4 hours as needed for Nausea or Vomiting. Active Calcium Carbonate Take 2 0 (CALCIUM 600) 600 mg tablets by calcium (1,500 mg) tab mouth daily. Active oxyCODONE (ROXICODONE) 5 Take one 30 tablet 0 0 mg tablet tablet to two 0 tablets by mouth every 4 hours as needed Active Problems Problem Noted Date Rectal cancer 08/26/2019 Encounters Care Team Description Date Type Specialty Nikkie Rodriguez, PROPERTY ADJUSTER-FUR SCRAPER Rectal cancer (HCC) (Primary Dx) 12/23/2019 Office Visit Oncology 12/23/2019 Travel Lexi Bessy DO Kena General Question (postop question) 12/13/2019 Telephone Oncology Bessy Elliott DO Results (path results) 12/08/2019 Telephone Oncology Bessy Elliott DO Results 12/05/2019 Telephone Oncology Gabriel Rose MD 12/01/2019 Anesthesia Event Bessy Elliott DO ROBOTIC ASSISTED LOW ANTERIOR RESECTION WITH LOOP ILEOSTOMY, MOBILIZATION OF SPLENIC FLEXURE 12/01/2019 Surgery Bessy Elliott DO Rectal cancer (HCC) 12/01/2019 Hospital - Encounter 12/04/2019 12/01/2019 Bessy Armijo DO 11/29/2019 Orders Only Oncology Bessy Elliott DO General Question (preop covid19 testing) 11/22/2019 Telephone Oncology Bessy Elliott DO Rectal cancer (HCC) (Primary Dx) 11/22/2019 Orders Only Oncology Bessy Elliott, Rectal cancer (HCC) (Primary Dx) 10/28/2019 Office Visit Oncology Bessy Elliott DO Rectal cancer (HCC) 10/28/2019 Lab Only Oncology Bessy Elliott DO 10/28/2019 Hospital Radiology Encounter Bessy Elliott DO Rectal cancer (HCC) (Primary Dx) 10/28/2019 Prep for Case Oncology 10/28/2019 Travel Bessy Elliott DO General Question 10/24/2019 Telephone Oncology from Last 3 Months Family History Medical History Relation Name Comments Heart Disease Father Hypertension Father Cancer-Ovarian Maternal Grandfather Cancer Paternal Aunt Relation Name Status Comments Father Maternal Grandfather Paternal Aunt Social History Date Tobacco Use Types Packs/Day Years Used Never Smoker Smokeless Tobacco: Never Used Drinks/Week oz/Week Comments Alcohol Use 2 Glasses of wine 2.0 Yes Sex Assigned at Date Recorded Female 10/28/2019 9:01 AM CDT Industry Job Start Date Occupation Not on file Not on file Not on file Travel End Travel History Travel Start No recent travel history available. Date Recorded COVID-19 Exposure Response 12/23/2019 10:24 AM CDT In the last month, have you been in contact with No / Unsure someone who was confirmed or suspected to have Coronavirus / COVID-19? Last Filed Vital Signs Reading Time Taken Comments Vital Sign 109/62 12/23/2019 10:37 AM CDT Blood Pressure 76 12/23/2019 10:37 AM CDT Pulse 36.3 C (97.3 F) 12/23/2019 10:37 AM CDT Temperature 16 12/23/2019 10:37 AM CDT Respiratory Rate 96% 12/23/2019 10:37 AM CDT Oxygen Saturation - - Inhaled Oxygen Concentration 53.4 kg (117 lb 12.8 oz) 12/23/2019 10:37 AM CDT Weight 165.1 cm (5' 5") 12/23/2019 10:37 AM CDT Height 19.6 12/23/2019 10:37 AM CDT Body Mass Index Plan of Treatment Health Maintenance Due Date Last Done Comments HIV SCREENING 11/08/1971 DTAP/TDAP VACCINES (1 - 1974 Tdap) HEPATITIS C SCREENING 1974 PHYSICAL (COMPREHENSIVE) 1974 EXAM CERVICAL CANCER SCREENING 1977 BREAST CANCER SCREENING 1996 COLORECTAL CANCER 2006 SCREENING INFLUENZA VACCINE 05/03/2020 SHINGLES RECOMBINANT Completed 03/04/2019, VACCINE 12/08/2018 Goals Goal Patient Associated Recent Progress Patient-Stat Aut hor Goal Type Problems ed? Resume normal activities [facility] No Pat Hand RN Procedures Comments Procedure Name Priority Date/Time Associated Diag nosis HC BASIC METABOLIC PANEL Routine 12/02/2019 4:14 AM CDT HC CBC,AUTOMATED Routine 12/02/2019 4:14 AM CDT HC LEV III SRG PTH, GROSS Routine 12/01/2019 Rect al cancer (HCC) & MICRO 9:45 AM CDT ROBOT ASSISTED 12/01/2019 Rectal cancer (HCC) LAPAROSCOPIC COLECTOMY 7:50 AM CDT WITH ANASTOMOSIS AND COLOPROCTOSTOMY PARTIAL HC ABO GROUP STAT 12/01/2019 6:40 AM CDT TELEMETRY STRIPS-SCAN 12/01/2019 12:00 AM CDT HC ABO GROUP Routine 10/28/2019 Rectal cancer ( HCC) 10:56 AM CDT HC COMPREHENSIVE Routine 10/28/2019 Rectal cancer (HCC) METABOLIC PANEL 10:56 AM CDT HC CBC,AUTOMATED Routine 10/28/2019 Rectal cancer (HCC) 10:56 AM CDT MRI PELVIS WO/W CONTRAST Routine 10/28/2019 Recta l cancer (HCC) 10:21 AM CDT from Last 3 Months Results * CBC (12/02/2019 4:14 AM CDT) Only the most recent of 2 results within the time period is included. White Blood 5.5 4.5 - 11.0 K/UL [facility] Cells RBC 3.57 (L) 4.0 - 5.0 M/UL [facility] Hemoglobin 11.5 (L) 12.0 - 15.0 GM/DL [facility] Hematocrit 33.8 (L) 36 - 45 % [facility] MCV 94.8 80 - 100 FL [facility] MCH 32.2 26 - 34 PG [facility] MCHC 34.0 32.0 - 36.0 G/DL [facility] RDW 14.7 11 - 15 % [facility] Platelet Count 189 150 - 400 K/UL [facility] MPV 7.1 7 - 11 FL [facility] Specimen Blood Performing Organization Address City/State/Zipcode Ph one Number [facility] [address] [place] [address] * BASIC METABOLIC PANEL (12/02/2019 4:14 AM CDT) Pathologist [facility] [place] Sodium 140 137 - 147 MMOL/L [facility] Potassium 4.3 3.5 - 5.1 MMOL/L [facility] Chloride 107 98 - 110 MMOL/L [facility] CO2 29 21 - 30 MMOL/L [facility] Anion Gap 4 3 - 12 [facility] Glucose 103 (H) 70 - 100 MG/DL [facility] Blood Urea 9 7 - 25 MG/DL [facility] Nitrogen Creatinine 0.91 0.4 - 1.00 MG/DL [facility] Calcium 8.5 8.5 - 10.6 MG/DL [facility] eGFR Non >60 >60 mL/min [facility] Comment: [place] The eGFR is not validated f or use in drug dosing adjustments. Continue to use estimated creatinine clearance per dosing reference text. Please contact the Clinical Pharmacist for questions. eGFR >60 >60 mL/min [facility] [place] Comment: The eGFR is not validated for use in drug dosing adjustments. Continue to use estimated creatinine clearance per dosing reference text. Please contact the Clinical Pharmacist for questions. Specimen Blood Performing Organization Address City/State/Zipcode Ph one Number [facility] [address] [place] [address] * SURGICAL PATHOLOGY (12/01/2019 9:45 AM CDT) PATHOLOGY [facility] [email or web address] Department of Pathology and Laboratory Medicine [address] [place] [address] Surgical Pathology Office: [phone] SURGICAL PATHOLOGY REPORT NAME: PIPPA HERNANDEZ Raji SURG PATH #: [id number] MR #: [id number] SPECIMEN CLASS: [facility] BILLING #: [id number] ALT ID #: LOCATION: DISCHARGED DATE OF PROCEDURE: 12/01/2019 AGE: 64 SEX: F DATE RECEIVED: 12/02/2019 : 1955 TIME RECEIVED: 14:49 PHYSICIAN: BESSY ELLIOTT DO DATE OF REPORT: 12/07/2019 COPY TO: DATE OF PRINTIN12/07/2019 ############################## ############################## ############ Final Diagnosis: A. "Rectum and sigmoid", resection: Invasive moderately differentiated colonic adenocarcinoma, invading muscularis propria. Fibrosis and acellular mucin, consistent with treatment effect. Lymph nodes (23): negative for malignancy in 23 lymph nodes (0/23). Tubular adenoma. Hyperplastic polyps. See comment. B. "Distal donut", excision: Negative for malignancy. Comment: Pursuant to the Dry Primer Powder Blender Program at the [facility] Pathology Department, selected slides from this case have been concurrently reviewed by the following pathologist: Dr. Cates who agrees with the final diagnosis. COLON AND RECTUM: Resection, Including Transanal Disk Excision of Rectal Neoplasms CAP Version: ColonRectum 4.0.1.0 Procedure: Low anterior resection Tumor Site: Rectum Tumor Location: Entirely below the anterior peritoneal reflection Tumor Size: Greatest dimension: 1.4 cm Macroscopic Tumor Perforation: Not identified Macroscopic Intactness of Mesorectum: (ONLY FOR CARCINOMAS INVOLVING THE RECTUM) Complete Histologic Type: Adenocarcinoma Histologic Grade: G2: Moderately differentiated Microscopic Tumor Extension: Tumor invades muscularis propria Margins: All margins uninvolved by invasive carcinoma, high-grade dysplasia, intramucosal adenocarcinoma, and adenoma Margins examined: Proximal, distal, radial Distance of tumor from radial margin (required only for rectal tumors): >1 cm Treatment Effect: Present Residual cancer with evident tumor regression, but more than single cells or rare small groups of cancer cells (partial response, score 2) Lymphovascular Invasion: Not identified Perineural Invasion: Not identified Tumor Deposits: Not identified Regional Lymph Nodes Lymph Node Examination (required only if lymph nodes present in specimen) Number of Lymph Nodes Involved: 0 Number of Lymph Nodes Examined: 23 Prognostic markers ordered: See below. Pathologic Stage Classification (pTNM, AJCC 8th Edition) Pathologic Staging (pTNM): ypT2 N0 TNM Descriptors y (posttreatment) Primary Tumor (pT): pT2: Tumor invades muscularis propria Regional Lymph Nodes (pN): pN0: No regional lymph node metastasis The pathologic stage assigned here should be regarded as provisional, as it reflects only current pathologic data and does not incorporate full knowledge of the patient's clinical status and/or prior pathology. Block for Biomarker Testing: [A5] Block tested: A5 i. Immunohistochemistry (IHC) Testing for Mismatch Repair (MMR) Proteins MLH1 Intact nuclear expression MSH2 Intact nuclear expression MSH6 Intact nuclear expression PMS2 Intact nuclear expression Background nonneoplastic tissue/internal control with intact nuclear expression: Yes IHC Interpretation No loss of nuclear expression of MMR proteins: low probability of microsatellite instability-high (MSI-H)# #There are exceptions to the above IHC interpretations. These results should not be considered in isolation, and clinical correlation with genetic counseling is recommended to assess the need for germline testing. Attestation: By this signature, I attest that I have personally formulated the final interpretation expressed in this report and that the above diagnosis is based upon my examination of the slides and/or other material indicated in this report. +++ +++ mew/12/05/2019 ############################## ############################## ############ Material Received: A: rectum and sigmoid B: distal donut History: 64-year-old female with clinical history of rectal cancer. Gross Description: A. Fixative: Fresh Labeled: 'Rectum and sigmoid" Measurements: 14.0 cm in length by 2.5 to 3.4 cm in diameter Serosa: Zuñiga-pink, smooth Tumor: 1.0 x 0.6 x 0.3 cm Tumor location: Rectum Tumor appearance: Firm zuñiga scar Tumor from proximal margin: 12.5 cm Tumor from distal margin: 1.4 cm Tumor invasion: Superficial Tumor from serosa: 3.0 cm Tumor from circumferential/mesenteric margin: 1.2 cm Tumor to peritoneal reflection: Below Mesorectal envelope: Complete Uninvolved mucosa: Zuñiga-pink with multiple scattered sessile and superficial polyps measuring up to 0.4 cm Lymph nodes: Ranging from 0.3 x 0.2 x 0.2 cm to 0.5 x 0.4 x 0.3 cm The serosal surface is inked blue, the circumferential/mesenteric margin is inked black. The distal staple margin is removed and the underlying tissue is inked green. Tissue submitted to Biospecimen Repository Core Facility: No Upholstery Handler sections of the specimen are submitted as follows: A1 Proximal margin shave. A2 Perpendicular section of serosal surface closest to tumor. A3-A5 Entire tumor to distal margin, circumferential margin, and adjacent mucosa. A6-A8 Every polyp with adjacent mucosa. A9-A10 Multiple possible lymph nodes, intact. (maricarmen) A11-A15 Fibroadipose tissue with multiple possible lymph nodes (submitted on 12/06/2019 by (maricarmen)). B. Received in formalin, labeled with the patient's name and "distal donut" is a 1.5 x 1.3 x 0.7 cm ring of colonic mucosa. A 1.0 cm staple line is removed and the underlying tissue is inked blue. The mucosa is zuñiga, smooth. The specimen is serially sectioned and submitted entirely in cassettes B1-B2. (maricarmen) 12/05/2019 If immunohistochemical stains and/or in situ hybridization are cited in this report, the performance characteristics were determined by the Department of Pathology and Laboratory Medicine of the [facility] ([employer]) in compliance with CLIA'88 regulations. Some of these tests rely on the use of "analyte specific reagents" and are subject to specific labeling requirements by the FDA. Known positive and negative control tissues demonstrate appropriate staining. Results should be interpreted with caution given the likelihood of false negativity on decalcified specimens. This testing was developed by the Department of Pathology and Laboratory Medicine of the [facility]. It has not been cleared or approved by the FDA. The FDA has determined that such clearance or approval is not necessary. Specimen Tissue - Colon Tissue - Colon Performing Organization Address [facility] Ph one Number [facility] [address] [place] [address] * TYPE & CROSSMATCH (12/01/2019 6:40 AM CDT) Units Ordered 2 [facility] Crossmatch 12/04/2019,2359 Interview [facility] Expires Record Check FOUND MAIN LAB ABO/RH(D) O POS MAIN LAB Antibody Screen NEG MAIN LAB Electronic YES MAIN LAB Crossmatch Specimen Blood Performing Organization Address [facility] Ph one Number [facility] [address] [place] [address] * TELEMETRY STRIPS-SCAN (12/01/2019 12:00 AM CDT) Narrative Performed At This result has an attachment that is n ot available. Ordered by an unspecified provider. * TYPE & SCREEN (NOT CROSSMATCH ELIGIBLE) (10/28/2019 10:56 AM CDT) ABO/RH(D) O POS MAIN LAB Antibody Screen NEG MAIN LAB Blood Component RED CELL GROUP MAIN LAB Type Specimen Blood, venous - Blood Performing Organization Address [facility] Ph one Number [facility] [address] [place] [address] * COMPREHENSIVE METABOLIC PANEL (10/28/2019 10:56 AM CDT) Sodium 140 137 - 147 MMOL/L [facility] Potassium 3.9 3.5 - 5.1 MMOL/L [facility] Chloride 105 98 - 110 MMOL/L [facility] Glucose 96 70 - 100 MG/DL [facility] Blood Urea 11 7 - 25 MG/DL [facility] Nitrogen Creatinine 0.65 0.4 - 1.00 MG/DL [facility] Calcium 9.0 8.5 - 10.6 MG/DL [facility] Total Protein 6.3 6.0 - 8.0 G/DL [facility] Total Bilirubin 0.4 0.3 - 1.2 MG/DL [facility] Albumin 3.6 3.5 - 5.0 G/DL [facility] Alk Phosphatase 72 25 - 110 U/L [facility] AST (SGOT) 18 7 - 40 U/L [facility] CO2 28 21 - 30 MMOL/L [facility] ALT (SGPT) 18 7 - 56 U/L [facility] Anion Gap 7 3 - 12 [facility] eGFR Non >60 >60 mL/min [facility] Comment: [place] The eGFR is not validated f or use in drug dosing adjustments. Continue to use estimated creatinine clearance per dosing reference text. Please contact the Clinical Pharmacist for questions. eGFR >60 >60 mL/min [facility] [place] Comment: The eGFR is not validated for use in drug dosing adjustments. Continue to use estimated creatinine clearance per dosing reference text. Please contact the Clinical Pharmacist for questions. Specimen Performing Organization Address City/State/Zipcode Ph one Number [facility] [address] [place] [address] * MRI PELVIS WO/W CONTRAST (10/28/2019 10:21 AM CDT) Specimen Impressions Performed At 1. Decrease in size of the posterior lo w rectal mass. Mild residual soft tissue [facility] thickening with associated restricted d iffusion is suggestive of residual tumor. 2. Decrease in size and near complete r esolution of a previously enlarged perirectal lymph node. Finalized by Terrence Torres M.D. on 0 11:18 AM. Dictated by Terrence Torres M.D. on 10/28/2019 11:01 AM. Narrative Performed At MRI PELVIS [facility] Clinical Indication: Rectal cancer. Technique: Multisequence and multiplana r MR imaging was obtained through the pelvis before and following the adminis tration of gadolinium contrast material. IV Contrast:Multihance Bowel contrast: None Magnet:3 Lu[place] Comparison: Pelvis MRI August 12, 2019 that was performed at an outside facility. FINDINGS: Significant decrease in size of the janes iannular, polypoid mass that was present along the posterior wall of the low rec jarret. There continues to be some residual mild thickening at this location that h as associated restricted diffusion (series 7 image 20). The distal aspect of this residual thickening is 5.4 cm from the anal verge. There is no involv ement of the anus. A mildly enlarged lymph node in the perirectal space fat posterior to the mid rectum at the 5 o'clock position has decreased in size and near completely resolved. No iliac or inguinal lymphadenopathy. There is a mi niscule amount of ascites layering dependently within the pelvis. Procedure Note Interface, Radiant Results - 10/28/2019 11:22 AM CDT MRI PELVIS Clinical Indication: Rectal cancer. Technique: Multisequence and multiplanar MR imaging was obtained through the pelvis before and following the administration of gadolinium contrast material. IV Contrast:Multihance Bowel contrast: None Magnet:3 Lu[place] Comparison: Pelvis MRI August 12, 2019 that was performed at an outside facility. FINDINGS: Significant decrease in size of the semiannular, polypoid mass that was present along the posterior wall of the low rectum. There continues to be some residual mild thickening at this location that has associated restricted diffusion (series 7 image 20). The distal aspect of this residual thickening is 5.4 cm from the anal verge. There is no involvement of the anus. A mildly enlarged lymph node in the perirectal space fat posterior to the mid rectum at the 5 o'clock position has decreased in size and near completely resolved. No iliac or inguinal lymphadenopathy. There is a miniscule amount of ascites layering dependently within the pelvis. IMPRESSION 1. Decrease in size of the posterior low rectal mass. Mild residual soft tissue thickening with associated restricted diffusion is suggestive of residual tumor. 2. Decrease in size and near complete re solution of a previously enlarged perirectal lymph node. Finalized by Terrence Torres M.D. on 10/28/2019 11:18 AM. Dictated by Terrence Torres M.D. on 10/28/2019 11:01 AM. Performing Organization Address City/State/Zipcode Ph one Number [facility] from Last 3 Months Insurance Type Payer Benefit Subscriber ID Effective Phone Address Plan / Dates Group PPO BCBS [facility] xxxxxxxxxxxx [id number] PREF CARE resent BLUE [id number] Advance Directives Patient Upholstery Handler Explanation Type Date Recorded Advance Directive/DPOA Date Inactivated Comments Code Status Date Activated 12/04/2019 3:17 PM Full Code 12/01/2019 1:35 PM Provider has discussed Code Status No, discussion no t w/Patient or Family? necessary based on Dx
--- OUTSIDE RECORDS SUMMARY | 2020-01-20 09:51 | XMS REPORT | Continuity of Care Document ---
Author HALEY Roldan Organization [facility] Address Unknown Phone Unavailable Care Team Providers Care Molder Feeder Name Role Phone [facility] Unavailable Unavailable Problems No Data Provided for This Section Medications No Data Provided for This Section Allergies, Adverse Reactions, Alerts No Known Medication Allergies Immunizations Immunization Date Given Site Status Last Updated Comments Source Evaluated Forecast 01/20/2020 completed table.evaluated-forecast { border-collapse: collapse; font-family: Quail, Helvetica, sans-serif; } .evaluated-forecast th, .evaluated-forecast td { paddinpx 8px; } .evaluated-forecast thead th { background: #[id number]; text-transform: lowercase; text-align: left; font-size: 15px; color: #fff; } .evaluated-forecast tr { border: 1px solid #[id number]; } .evaluated- forecast tbody tr { border-bottom: 1px solid #[id number]; } .evaluated- forecast tbody tr:nth-child(odd) { background: #[id number]; } .e valuated-forecast tbody th, .evaluated-forecast tbody tr td { border- right: 1px solid #[id number]; } .evaluated-forecast tfoot th { background: #[id number]; text-align: left; font-weight: normal; font-size: 10px; color: #fff; } .evaluated-forecast tr *:nth- child(3), .evaluated-forecast tr *:nth-child(4) { text-align: right; } MMR 1956 LANCE (Varivax) 1956 Td 07/24/2013 Influenza IIV4 MDV 01/31/2019 PPSV23 (Pneumovax 23) 2021 Polio, [id number]^Too Old^LN Hib, UF [id number]^Too Old^LN Hep B, UF [id number]^Too Old^LN Hep A, UF [id number]^Too Old^LN Rotavirus, UF [id number]^Too Old^LN Meningococcal, UF [id number]^Too Old^LN HPV, UF [id number]^Too Old^LN Zoster, UF TF96274-7^Complete^LN [id number], Zoster Subunit (Shingrix) 03/04/2019 Not Given [id number], Zoster Subunit (Shingrix) 12/08/2018 Not Given [id number], Tdap 06/26/2013 Not Given [id number], Results No Data Provided for This Section Pathology Reports No Data Provided for This Section Diagnostic Reports No Data Provided for This Section Consultation Notes No Data Provided for This Section Discharge Summaries No Data Provided for This Section History and Physicals No Data Provided for This Section Vital Signs No Data Provided for This Section Encounters Location Location Details Encounter Type Encounter Number Reason For Visit Attending Provider ADM Date DC Date Status Source [facility] [id number] J OHN RON 08/26/2019 08/26/2019 Active [facility], CA2MRI OUTP ATIENT [id number] J OHN RNO 10/14/2019 Active [facility], CA[facility] OUTP ATIENT [id number] J OHN RON 10/28/2019 10/29/2019 Active [facility], CA2[facility] OUTP ATIENT [id number] J OHN RON 10/28/2019 10/29/2019 Discharged [facility], CA7 INPATIE NT [id number] J OHN RON 12/01/2019 12/04/2019 Active [facility] CA SER IES [id number] José Manuel TORRE 12/23/2019 12/23/2019 Active [facility], [facility] Lupe TORRE Active [facility], Procedures No Data Provided for This Section Plan of Care No Data Provided for This Section Social History No Data Provided for This Section Assessment and Plan No Data Provided for This Section Family History No Data Provided for This Section Advance Directives No Data Provided for This Section Functional Status No Data Provided for This Section
--- OUTSIDE RECORDS SUMMARY | 2020-01-20 09:51 | XMS REPORT | Encounter Summary ---
Author Author [facility] Organization [facility] Address Unknown Phone Unavailable Care Team Providers Care Lining Feller Blindstitch Name Role Phone Mony Wang MD Unavailable Anna Burr MD [address] DO Unavailable Anna Burr MD PCP Reason for Visit * Reason Comments General Question postop question Encounter Details Care Team Description Date Type Department Yoni Elliott DO [address] [place] [address] [phone] General Question (postop question) 12/13/2019 Telephone [facility] Cancer [address] [phone] Social History Date Tobacco Use Types Packs/Day [...] history available. Date Recorded COVID-19 Exposure Response 12/01/2019 6:08 AM CDT In the last month, have you been in contact with No / Unsure someone who was confirmed or suspected to have Coronavirus / COVID-19? documented as of this encounter Functional Status Date of Assessment Functional Status Response 12/01/2019 Does the patient have a hearing impairment: No 10/28/2019 Does the patient have a visual impairment: Yes 10/28/2019 Does the patient have impaired ambulation: No 10/28/2019 Does the patient have an activity of daily living No (ADL) impairment: 10/28/2019 Does the patient have an instrumental activity of No daily living (IADL) impairment: Date of Assessment Cognitive Status Response 10/28/2019 Does the patient have a cognitive impairment: No documented as of this encounter Miscellaneous Notes * Telephone Encounter - Deepti Hernandez RN - 12/13/2019 11:31 AM CDT This pt called today leaving a VM, c/o some cramping she has noticed last night and this morning. I called her back to discuss. I told her since only 2 weeks out from surgery I'm not surprised she is having some intermittent cramping still. I told her ok to take ibuprofen if she wanted to and to try a heating pad. She said overall she h as been doing well with no other concerns. I reminded her of her postop appt on 12/22. She is aware. She said she would use a heating pad. I told her to call me back with any other questions. documented in this encounter Plan of Treatment Not on filedocumented as of this encounter Goals Goal Patient Associated Recent Progress Patient-Stat Aut hor Goal Type Problems ed? Resume normal activities Hospital No Pat Hand RN documented as of this encounter Visit Diagnoses Not on filedocumented in this encounter
--- OUTSIDE RECORDS SUMMARY | 2020-01-20 09:51 | XMS REPORT | Encounter Summary ---
Author Author [facility] Organization [facility] Address Unknown Phone Unavailable Care Team Providers Care Dryland Farmer Name Role Phone Mony Wang MD Unavailable Anna Burr MD [address] DO Unavailable Anna Burr MD PCP Encounter Details Care Team Description Date Type Department 12/23/2019 Travel Social History Date Tobacco Use Types Packs/Day [...] impairment: No documented as of this encounter Plan of Treatment Not on filedocumented as of this encounter Goals Goal Patient Associated Recent Progress Patient-Stat Aut hor Goal Type Problems ed? Resume normal activities Hospital No Pat Hand RN documented as of this encounter Visit Diagnoses Not on filedocumented in this encounter
--- OUTSIDE RECORDS SUMMARY | 2020-01-20 09:51 | XMS REPORT | Encounter Summary ---
Author Author [facility] Organization [facility] Address Unknown Phone Unavailable Care Team Providers Care Rewind Operator Name Role Phone Mony Wang MD Unavailable Anna Burr MD [address] DO Unavailable Anna Burr MD PCP Reason for Referral * Radiology Services (Routine) Referred By Contact Referred To Contact Status Reason Specialty Diagnoses / Procedures Nikkie Rodriguez APRN-NP [address] [place] [address] New Request Radiology Diagnoses Rectal cancer (HCC) P rocedures COLON SINGLE CONTRAST Reason for Visit * Reason Comments Post Operative Visit Encounter Details Care Team Description Date Type Department Nikkie Rodriguez APRN-NP [address] [place], [place] [phone] Rectal cancer (HCC) (Primary Dx) 12/23/2019 Office Visit [facility] [address] [place] [phone] Social History Date Tobacco Use Types Packs/Day [...] / COVID-19? documented as of this encounter Last Filed [...] 12/23/2019 10:37 AM CDT Body Mass Index documented in this encounter Functional Status Date of Assessment [...] impairment: No documented as of this encounter Progress Notes * Nikkie Rodriguez, BALDEV-TERRITORY ACCOUNT EXECUTIVE - 12/23/2019 10:30 AM CDT Name: Pippa Fernandez : 1955 AGE: 64 y.o . DATE OF SERVICE: 12/23/2019 Subjective: Reason for Visit: Post Operative Visit Pippa Fernandez is a 64 y.o. female. Cancer Staging No matching staging information was found for the patient. History of Present Illness Mrs. Fernandez is a 64yo with rectal cancer status post robotic assisted LAR with DL I on 12/01/2019. Final pathology returned ypT2N0. She returns today post operati vely. She is doing exceeding well. She has already seen medical oncology who lynn ns to give her additional chemotherapy. She is eating and drinking well without any nausea or vomiting. Her stoma is functioning well. She empties this every 2- 3hrs. There is some consistency to the output. There is minimal surrounding skin irritation. She had a little bit of this but used stoma powder and it resolved. Denies any light headedness or dizziness. Pain is well controlled with OTC medi cation. Incisions are healing well without drainage or redness. Denies any fever or chills. 12/01/2019 - ROBOTIC ASSISTED LOW ANTERIOR RESECTION WITH LOOP ILEOSTOMY, MOBILI ZATION OF SPLENIC FLEXURE Pathology: A. "Rectum and sigmoid", resection: Invasive moderately differentiated colonic adenocarcinoma, invading muscularis propria. Fibrosis and acellular mucin, consistent with treatment effect. Lymph nodes (23): negative for malignancy in 23 lymph nodes (0/23). Tubular adenoma. Hyperplastic polyps. See comment. B. "Distal donut", excision: Negative for malignancy. Comment: Pursuant to the Bedspread Cutter Hand Program at the [facility] Pathology Department, selected slides from this case [...] to assess the need for germline testing. . Medical History: Diagnosis Date Rectal cancer (HCC) Surgical History: Procedure Laterality Date ROBOTIC ASSISTED LOW ANTERIOR RESECTION WITH LOOP ILEOSTOMY, MOBILIZATION OF SPLENIC FLEXURE N/A 12/01/2019 Performed by Yoni Elliott DO at [facility] COLONOSCOPY Family History Problem Relation Age of [...] Glasses of wine per week Drug use: Never Sexual activity: Not on file Other Topics Concern Not on file Social History Narrative Not on file Review of Systems Constitutional: Positive for activity change. Negative for chills, fever and une xpected weight change. HENT: Negative. Eyes: Negative. Respiratory: Negative. Cardiovascular: Negative. Gastrointestinal: Positive for abdominal pain. Negative for abdominal distention , anal bleeding, blood in stool, constipation, diarrhea, nausea, rectal pain and vomiting. Endocrine: Negative. Genitourinary: Negative. Musculoskeletal: Negative. Skin: Negative. Negative for color change and wound. Allergic/Immunologic: Negative. Neurological: Negative. Negative for weakness and light-headedness. Hematological: Negative. Psychiatric/Behavioral: Negative. All other systems reviewed and are negative. Objective: Calcium Carbonate (CALCIUM 600) 600 mg calcium (1,500 mg) tab Take 2 tablets by mouth daily. CALCIUM PO Take 1,200 mg by mouth daily. estrogens, conj/medroxyPROGESTERone (PREMPRO) 0.3/1.5 mg tablet Take 1 table t by mouth daily. fluoxetine (PROZAC) 20 mg capsule Take 20 mg by mouth daily. ondansetron (ZOFRAN) 4 mg tablet Take one tablet by mouth every 4 hours as n eeded for Nausea or Vomiting. oxyCODONE (ROXICODONE) 5 mg tablet Take one tablet to two tablets by mouth e very 4 hours as needed pantoprazole DR (PROTONIX) 20 mg tablet Take 20 mg by mouth daily. Vitals: 12/23/19 1037 BP: 109/62 BP Source: Arm, Left Upper Patient Position: Sitting Pulse: 76 Resp: 16 Temp: 36.3 C (97.3 F) SpO2: 96% Weight: 53.4 kg (117 lb 12.8 oz) Height: 165.1 cm (65") PainSc: Zero Body mass index is 19.6 kg/m. Pain Score: Zero Fatigue Scale: 4 Physical Exam Vitals signs reviewed. Constitutional: General: She is not in acute distress. Appearance: Normal appearance. She is well-developed. HENT: Head: Normocephalic and atraumatic. Nose: Nose normal. Eyes: General: Lids are normal. Conjunctiva/sclera: Conjunctivae normal. Neck: Musculoskeletal: Normal range of motion. Pulmonary: Effort: Pulmonary effort is normal. No respiratory distress. Breath sounds: Normal breath sounds. Abdominal: General: There is no distension. Palpations: Abdomen is soft. Tenderness: There is no abdominal tenderness. There is no guarding. Musculoskeletal: Normal range of motion. Skin: General: Skin is warm and dry. Neurological: Mental Status: She is alert and oriented to person, place, and time. Psychiatric: Speech: Speech normal. Behavior: Behavior normal. Thought Content: Thought content normal. Judgment: Judgment normal. Assessment and Plan: Date 12/01/2019 Surgery LAR Path/Stage ypT2N0 [facility] Colonoscopy 07/21/2019 Scans 08/15/2019 [facility] SCP 64yo with rectal cancer status post robotic assisted LAR with DLI on 12/01/2019. Final pathology returned ypT2N0. She is doing exceedingly well. Ileostomy funct ioning well. Post-Operative Care: - Reviewed that the patient has a 10lb weightlifting restriction for 6wks from t he date of surgery. I warned the patient of the risk of hernia if lifting too so on. However, encouraged aerobic activity. Gentle resume tennis back. Discussed t hat there is a lot of core involved with this and she may experience discomfort. - Discussed that small frequent high protein meals will assist with healing. Exa mples of hard-boiled egg, peanut butter and crackers, or yogurt was given. [place] should eat 6 small meals a day. If not having 6 supplements with protein supp lemental shake. - Discussed pain management strategies at this point post operatively. Heating p ad and ibuprofen as needed. - Wound care reviewed. Rectal Cancer: - Reviewed pathology. - Already has seen Med Onc. Planning additional treatment. - Will require GGE (ordered) and 4wks past last chemotherapy treatment for rever jewel. - She will call to set this up once she knows when her last chemotherapy will be . High Ostomy Output: - Discussed that an ileostomy can lead to dehydration due to the very liquidly n ature of the output. Reviewed why it is liquid in nature. This can lead to signi ficant dehydration and electrolyte abnormalities. Goal of 800-1000mL of ostomy o utput per day. - She was admitted during neoadjuvant treatment for dehydration. - The patient was given a cylinder and in case she needs to start measuring. Dis cussed the possible need for labs, fluids, and Imodium were discussed. Provider Communication: - The patient was encouraged to sign up for [employer]. They were instructed that tiki sabillon may send pictures with this. They were encouraged to call with any questions or concerns. Plan: - RTC approximately 3wks after completion of chemotherapy with GGE. .My collaborating provider on this case is Dr. Yoni Elliott DO. Nikkie Rodriguez MSN, PLASTIC FABRICATOR, AGCNS-BC, AGPCNP- Advanced Practice Provider Colon and Rectal Surgery Surgical Oncology Pager: [phone] * Nikkie Rodriguez APRN-NP - 12/23/2019 10:30 AM CDT .Pre Clinic Pre Chart: Problem List: . Date 12/01/2019 Surgery LAR Path/Stage ypT2N0 [facility] Colonoscopy 07/21/2019 Scans 08/15/2019 [facility] SCP Rectal Cancer Status Ileostomy 12/01/2019 - ROBOTIC ASSISTED LOW ANTERIOR RESECTION WITH LOOP ILEOSTOMY, MOBILI ZATION OF SPLENIC FLEXURE Pathology: A. "Rectum and sigmoid", resection: Invasive moderately differentiated colonic adenocarcinoma, invading muscularis propria. Fibrosis and acellular mucin, consistent with treatment effect. Lymph nodes (23): negative for malignancy in 23 lymph nodes (0/23). Tubular adenoma. Hyperplastic polyps. See comment. B. "Distal donut", excision: Negative for malignancy. Comment: Pursuant to the Bedspread Cutter Hand Program at the [facility] Pathology Department, selected slides from this case [...] to assess the need for germline testing. documented in this encounter Plan of Treatment Order Schedule Name Type Priority Associated Diag noses Expected: 12/23/2019 (Approximate), Expi res: 12/23/2020 COLON SINGLE CONTRAST Imaging Routine Rectal c ancer (HCC) documented as of this encounter Goals Goal Patient Associated Recent Progress Patient-Stat Aut hor Goal Type Problems ed? Resume normal activities Hospital No Pat Hand RN documented as of this encounter Visit Diagnoses Diagnosis Rectal cancer (HCC) Malignant neoplasm of rectum documented in this encounter
--- OUTSIDE RECORDS SUMMARY | 2020-01-20 09:52 | XMS REPORT | Encounter Summary ---
Author Author [facility] Organization [facility] Address Unknown Phone Unavailable Care Team Providers Care Motorcycle Police Name Role Phone Mony Wang MD Unavailable Anna Burr MD [address] Carlton Dudley DO Unavailable Anna Burr MD PCP Reason for Visit * Auth/Cert Referred By Contact Referred To Contact Status Reason Specialty Diagnoses / Procedures Diagnoses Rectal cancer (HCC) Rectal cancer (HCC) [C20] P rocedures IA LAPS COLECTOMY PRTL W/COLOPXTSTMY LW ANAST ROBOTIC ASSISTED LOW ANTERIOR RESECTION WITH LOOP ILEOSTOMY Encounter Details Care Team Description Date Type Department Gabriel Rose MD [id number] [place] [address] 12/01/2019 Anesthesia [facility] [place] [address] [place] [address] Anesthesia Record Responsible Anesthesiologist Anesthesia Start Time Anesthesi a Stop Time Procedure Name Gabriel Rose MD 12/01/19 0750 12/01/19 1136 ROBOTIC ASSISTED LOW ANTERIOR RESECTION WITH LOOP ILEOSTOMY, MOBILIZATION OF SPLENIC FLEXURE (N/A Abdomen) Date Time Event Comment 71424 AN Equip Check 0749 Out of Pre Procedure 0750 Anes Start 0750 In Room 0751 An Start Data 0802 An Induction The patient was ree valuated immediately before moderate or deep sedation use and before anesthesia induction. 0802 An Intubation 0811 Anesthesia Ready 0811 Antibiotic Given 0819 Quick Note CI 4.0 0838 Proc Start 0902 Quick Note SVI 47 CI 3 0930 Quick Note SVI 43 CI 2.7 1012 Antibiotic Given 1012 Quick Note SVI 48 CI 3.0 1109 An Extubation 1131 an stop data 1136 Handoff to RN I completed my SBAR handoff to the receiving nurse. 1136 An Stop Meds Name Total midazolam (VERSED) 1 mg/mL injection 2 mg lidocaine (2%) 200 mg/10mL Injection 80 mg syringe propofol (DIPRIVAN) 200 mg/ 20 mL 100 mg injection (VIAL) rocuronium (ZEMURON) injection 70 mg ondansetron (ZOFRAN) injection 4 mg dexamethasone (DECADRON) 4 mg/mL 4 mg injection phenylephrine (HERMINIA-SYNEPHRINE) 0.1 mg/mL 400 mcg injection (SYRINGE) sugammadex (BRIDION) 100 mg/mL iv soln 150 mg dextran 70/hypromellose (GENTEAL TEARS; 2 drop BION TEARS) ophthalmic solution cefOXitin (MEFOXIN) 2 g in sodium 4 g chloride 0.9% (NS) 100 mL IVPB (MB+) HYDROmorphone injection (DILAUDID) 2 2 mg mg syringe indocyanine green (ICY-GREEN) injection 7.5 mg sodium chloride 0.9 % infusion 250 mL electrolyte-A (PLASMA-LYTE A PH 7.4) 700 mL infusion lactated ringers infusion (1000 mL bag) 300 mL * Name O2 N2O Inspired Sevoflurane Inspired Sevoflurane * No blood administrations on file. Removal Type Details Placement Ileostomy 12/01/19; 1025; Upper Right Quadrant 0 12/01/19 1025 by Cheri Benjamin, GORDONN Wounds 12/01/19; 1025; Abdomen; Surgical 11/03 1025 by (NOT for Incision Cheri Benjamin, GORDONN Pressure Injuries) 12/04/19 1105 by Maral Hawkins RN Peripheral 12/01/19; 0705; RN; L; Outer; Wrist; 12/01/19 0705 by ROSY Velásquez G; 1; Therapy completed; 12/04/19; 1105 STEFANIE Samson 12/01/19 1109 by Susana Prieto CRNA ETT 12/01/19; 0802; Mask ventilation not 0 12/01/19 0802 by Conner, attempted (0); Direct laryngoscopy, DAT Meza Stylet; Single-Lumen; 7mm; Mac; 3; Oral ; 1-Full view of the glottis; 1 insertion attempt; Auscultation, ETCO2 Detector; 22 centimeters; 12/01/19; 1109 12/04/19 1105 by Maral Hawkins RN Peripheral 12/01/19; 0806; Provider; R; Hand; 16 G ; 12/01/19 0806 by ROSY Prieto 1; Therapy completed; 12/04/19; 1105 L almamila, ELIGIBILITY CONSULTANT 12/02/19 0700 by Pat Lewis RN Indwelling 12/01/19; 0825; Unit (Comment) (OR); 16 12/01/19 0825 by Urinary FR; Regular (Two-way); 12/02/19; 0700 Cheri Benjamin BSN Catheter documented in this encounter Social History Date Tobacco Use Types Packs/Day [...] Status Date of Assessment Functional Status Response 10/28/2019 Does the patient have a hearing impairment: [...] impairment: No documented as of this encounter OR Notes * Anesthesia Postprocedure Evaluation - Lazaro Leggett MD - 12/01/2019 12:38 PM CDT Post-Anesthesia Evaluation Name: Pippa Fernandez : 1955 Age: 64 y.o. Sex: female Procedure Date: 12/01/2019 Procedure(s): ROBOTIC ASSISTED LOW ANTERIOR RESECTION WITH LOOP ILEOSTOMY, MOBILIZATION OF SPL ENIC FLEXURE Surgeon: Surgeon(s): Yoni Elliott DO Mouw, Tyler, MD Cummiskey, Brian R, MD Post-Anesthesia Vitals BP: 118/67 (11/30 1230) Temp: 36.6 C (97.9 F) (11/30 1200) Pulse: 85 (11/30 1230) Respirations: 17 PER MINUTE (11/30 1230) SpO2: 99 % (11/30 1230) SpO2 Pulse: 85 (11/30 1230) Vitals Value Taken Time BP 118/67 12/01/2019 12:30 PM Temp 36.6 C (97.9 F) 12/01/2019 12:00 PM Pulse 85 12/01/2019 12:30 PM Respirations 17 PER MINUTE 12/01/2019 12:30 PM SpO2 99 % 12/01/2019 12:30 PM Post Anesthesia Evaluation Note Evaluation location: pre/post Patient participation: recovered; patient participated in evaluation Level of consciousness: alert Pain score: 3 Pain management: adequate Hydration: normovolemia Temperature: 36.0C - 38.4C Airway patency: adequate Perioperative Events Post-op nausea and vomiting: no PONV Postoperative Status Cardiovascular status: hemodynamically stable Respiratory status: spontaneous ventilation and supplemental oxygen (supplementa l O2 as per SSI bundle) Perioperative Events Perioperative Event: No Emergency Case Activation: No * Anesthesia Preprocedure Evaluation - Gabriel Rose MD - 12/01/2019 7:09 AM CDT Anesthesia Pre-Procedure Evaluation Name: Pippa Fernandez : 1955 Age: 64 y.o. Sex: female Procedure Info: Procedure Information Date/Time: 12/01/19744 Procedure: ROBOTIC ASSISTED LOW ANTERIOR RESECTION WITH LOOP ILEOSTOMY (N/A ) - CASE LENGTH 3 HOURS, CLIPPING AND HIBICLENS PREP TO BE DONE IN PRE-POST Location: [facility] OR07 / [facility] OR/Periop Surgeon: Yoni Elliott DO Physical Assessment Vital Signs (last filed in past 24 hours): BP: 129/71 (12/01 631) Temp: 36.8 C (98.2 F) (12/01 631) Pulse: 87 (12/01 631) Respirations: 18 PER MINUTE (12/01 631) SpO2: 99 % (12/01 631) Height: 165.1 cm (65") (12/01 631) Weight: 52.8 kg (116 lb 6.4 oz) (12/01 631) Patient History No Known Allergies Current Medications Medication Directions CALCIUM PO Take 1,200 mg by mouth daily. estrogens, conj/medroxyPROGESTERone (PREMPRO) 0.3/1.5 mg tablet Take 1 tablet by mouth daily. fluoxetine (PROZAC) 20 mg capsule Take 20 mg by mouth daily. metroNIDAZOLE (FLAGYL) 500 mg tablet 2 tablets PO at 1 pm, 3 pm and 11 pm the da y prior to surgery neomycin (MYCIFRADIN) 500 mg tablet 2 tablets PO at 1 pm, 3 pm and 11 pm the day prior to surgery ondansetron (ZOFRAN) 4 mg tablet Take one tablet by mouth every 4 hours as neede d for Nausea or Vomiting. pantoprazole DR (PROTONIX) 20 mg tablet Take 20 mg by mouth daily. Review of Systems/Medical History PONV Screening: Female gender and Non-smoker No history of anesthetic complications No family history of anesthetic complications Airway - negative Pulmonary - negative Cardiovascular - negative Exercise tolerance: >4 METS (diminished with chemo) GI/Hepatic/Renal - negative Neuro/Psych - negative Endocrine/Other Malignancy (rectal cancer) Constitution - negative Physical Exam Airway Findings Mallampati: I TM distance: >3 FB Neck ROM: full Mouth opening: good Airway patency: adequate Dental Findings: Negative Cardiovascular Findings: Negative Pulmonary Findings: Negative Abdominal Findings: Negative Constitutional findings: Negative Diagnostic Tests Hematology: Lab Results Component Value Date HGB 11.7 10/28/2019 HCT 34.8 10/28/2019 PLTCT 301 10/28/2019 WBC 4.9 10/28/2019 MCV 92.9 10/28/2019 MCH 31.1 10/28/2019 MCHC 33.5 10/28/2019 MPV 6.2 10/28/2019 RDW 20.3 10/28/2019 General Chemistry: Lab Results Component Value Date NA 140 10/28/2019 K 3.9 10/28/2019 CL 105 10/28/2019 CO2 28 10/28/2019 GAP 7 10/28/2019 BUN 11 10/28/2019 CR 0.65 10/28/2019 GLU 96 10/28/2019 CA 9.0 10/28/2019 ALBUMIN 3.6 10/28/2019 TOTBILI 0.4 10/28/2019 Coagulation: No results found for: PT, PTT, INR Anesthesia Plan ASA score: 2 Plan: general Induction method: intravenous NPO status: acceptable Informed Consent Anesthetic plan and risks discussed with patient. Plan discussed with: anesthesiologist and ELIGIBILITY CONSULTANT. documented in this encounter Plan of Treatment Not on filedocumented as of this encounter Goals Goal Patient Associated Recent Progress Patient-Stat Aut hor Goal Type Problems ed? Resume normal activities Hospital No Pat Hand RN documented as of this encounter Visit Diagnoses Not on filedocumented in this encounter Administered Medications Action Date Dose Rate Site Medication Order MAR Action 12/01/2019 10:12 AM CDT 2 g cefOXitin (MEFOXIN) 2 g in sodium Bolus chloride 0.9% (NS) 100 mL IVPB (MB+) 2 g, Intravenous, at 600 mL/hr, ONCE, 1 dose, Nicky 12/01/19 at 0630, Give Pre-Op < 60 minutes prior to first incision. Re-dose every 2 hours while in procedure., Pre-Op 2 g Given - New Bag 12/01/2019 8:11 AM CDT 12/01/2019 8:10 AM CDT 4 mg dexamethasone (DECADRON) injection Given Intravenous, INTRA-PROCEDURE MED, Starting Nicky 20 at 0810, Until Nicky 12/01/19 at 1139, Anesthesia Intra-op 12/01/2019 8:03 AM CDT 2 drops dextran 70/hypromellose (GENTEAL TEARS) Given ophthalmic solution INTRA-PROCEDURE MED, Starting Nicky 12/01/19 at 0803, Until Nicky 12/01/19 at 1139, Anesthesia Intra-op 12/01/2019 8:07 AM CDT electrolyte-A (PLASMA-LYTE A PH 7.4) Given - New injection Bag INTRA-PROCEDURE MED(CONT), Starting Nicky 12/01/19 at 0807, Until Nicky 12/01/19 at 1139, Anesthesia Intra-op 12/01/2019 10:55 AM CDT 1 mg HYDROmorphone injection (DILAUDID) Given INTRA-PROCEDURE MED, Starting Nicky 12/01/19 at 0750, Until Nicky 12/01/19 at 1139, Anesthesia Intra-op 0.5 mg Given 12/01/2019 7:58 AM CDT 0.5 mg Given 12/01/2019 7:50 AM CDT 12/01/2019 9:54 AM CDT 7.5 mg indocyanine green (IC GREEN) injection Given INTRA-PROCEDURE MED, Starting Nicky 12/01/19 at 0954, Until Nicky 12/01/19 at 1139, Anesthesia Intra-op 12/01/2019 8:05 AM CDT lactated ringers infusion Given - New INTRA-PROCEDURE MED(CONT), Starting Nicyk Bag 12/01/19 at 0805, Until Nicky 12/01/19 at 1139, Anesthesia Intra-op 12/01/2019 8:02 AM CDT 80 mg lidocaine (PF) injection Given INTRA-PROCEDURE MED, Starting Nicky 20 at 0802, Until Nicky 20 at 1139, Anesthesia Intra-op 12/01/2019 7:50 AM CDT 2 mg midazolam (VERSED) injection Given Intravenous, INTRA-PROCEDURE MED, Starting Nicky 4/30/20 at 0750, Until Nicky 12/01/19 at 1139, Anesthesia Intra-op 12/01/2019 10:19 AM CDT 4 mg ondansetron (ZOFRAN) injection Given Intravenous, INTRA-PROCEDURE MED, Starting Nicky 12/01/19 at 1019, Until Nicky 12/01/19 at 1139, Anesthesia Intra-op 12/01/2019 8:40 AM CDT 100 mcg phenylephrine in NS injection syringe Given Intravenous, INTRA-PROCEDURE MED, Starting Nicky 12/01/19 at 0812, Until Nicky 12/01/19 at 1139, Anesthesia Intra-op 100 mcg Given 12/01/2019 8:37 AM CDT 100 mcg Given 12/01/2019 8:13 AM CDT 12/01/2019 8:02 AM CDT 100 mg propofol (DIPRIVAN) injection Given INTRA-PROCEDURE MED, Starting Nicky 12/01/19 at 0802, Until Nicky 12/01/19 at 1139, Anesthesia Intra-op 12/01/2019 9:58 AM CDT 10 mg rocuronium injection Given Intravenous, INTRA-PROCEDURE MED, Starting Nicky 12/01/19 at 0802, Until Nicky 12/01/19 at 1139, Anesthesia Intra-op 60 mg Given 12/01/2019 8:02 AM CDT 12/01/2019 10:52 AM CDT 150 mg sugammadex (BRIDION) injection Given Intravenous, INTRA-PROCEDURE MED, Starting Nicky 12/01/19 at 1052, Until Nicky 12/01/19 at 1139, Anesthesia Intra-op documented in this encounter
--- OUTSIDE RECORDS SUMMARY | 2020-01-20 09:52 | XMS REPORT | Encounter Summary ---
Author Author [facility] Organization [facility] Address Unknown Phone Unavailable Care Team Providers Care Instructor Dramatic Arts Name Role Phone Mony Wang MD Unavailable Anna Burr MD [address] Carl[address] Dudley DO Unavailable Anna Burr MD PCP Encounter Details Care Team Description Date Type Department Yoni Elliott DO [address] [place] [address] [phone] 11/29/2019 Orders Only The [facility] [address] [address] Social History Date Tobacco Use Types Packs/Day [...]
--- OUTSIDE RECORDS SUMMARY | 2020-01-20 09:52 | XMS REPORT | Encounter Summary ---
Author Author [facility] Organization [facility] Address Unknown Phone Unavailable Care Team Providers Care Clinical Editor Name Role Phone Mony Wang MD Unavailable Anna Burr MD [address]ton Dudley DO Unavailable Anna Burr MD PCP Encounter Details Care Team Description Date Type Department 10/28/2019 Travel Social History Date Tobacco Use Types [...] history available. Date Recorded COVID-19 Exposure Response 10/28/2019 8:56 AM CDT In the last month, have [...]
--- OUTSIDE RECORDS SUMMARY | 2020-01-20 09:52 | XMS REPORT | Encounter Summary ---
Author Author [facility] Organization [facility] Address Unknown Phone Unavailable Care Team Providers Care Information Manager Name Role Phone Mony Wang MD Unavailable Anna Burr MD [address] Carlton Dudley DO Unavailable Anna Burr MD PCP Reason for Visit * Reason Comments Results path results Encounter Details Care Team Description Date Type Department Yoni Elliott KenaDO [address] [place] [address] [phone] Results (path results) 12/08/[address] [address] Social History Date Tobacco Use Types Packs/Day [...] Telephone Encounter - Deepti Hernandez RN - 12/08/2019 9:38 AM CDT I called this pt today to let her know her lymph nodes were negative for any mal ignancy. She said she sees her oncologist Dr. Wang on 12/15 and asked if I would fax his office her path report. I told her I would do this today. We will see her back in clinic on 12/22. I told her to let me know if she needed anything prior to that. She has my direct phone number. documented in this encounter Plan of Treatment Not on filedocumented as of this encounter Goals Goal Patient Associated Recent Progress Patient-Stat Aut hor Goal Type Problems ed? Resume normal activities Hospital No Pat Hand RN documented as of this encounter Visit Diagnoses Not on filedocumented in this encounter
--- OUTSIDE RECORDS SUMMARY | 2020-01-20 09:52 | XMS REPORT | Encounter Summary ---
Author Author [facility] Organization [facility] Address Unknown Phone Unavailable Care Team Providers Care Respite Care Provider Name Role Phone Mony Wang MD Unavailable Anna Burr MD [address] Carlton Dudley DO Unavailable Anna Burr MD PCP Encounter Details Care Team Description Date Type Department Yoni Elliott DO [address] [place] [address] [phone] Rectal cancer (HCC) (Primary Dx) 10/28/2019 Prep for Case The [address] [address] Social History Date Tobacco Use Types Packs/Day [...]
--- OUTSIDE RECORDS SUMMARY | 2020-01-20 09:52 | XMS REPORT | Encounter Summary ---
Author Author [facility] Organization [facility] Address Unknown Phone Unavailable Care Team Providers Care Commercial Loan Underwriter Name Role Phone Mony Wang MD Unavailable Anna Burr MD [address] Carlton Dudley DO Unavailable Anna Burr MD PCP Reason for Visit * Reason Comments Results Encounter Details Care Team Description Date Type Department Yoni Elliott KenaDO [address] [place] [address] [phone] Results 12/05/2019 [address] The [address] [address] Social History Date Tobacco Use Types Packs/Day [...] Telephone Encounter - Deepti Hernandez RN - 12/05/2019 10:34 AM CDT This pt called today asking for her pathology results. I told her they are still in process, but would keep an eye out for results to get posted and let her kno w. She said she was doing well postop, has no questions or concerns. documented in this encounter Plan of Treatment Not on filedocumented as of this encounter Goals Goal Patient Associated Recent Progress Patient-Stat Aut hor Goal Type Problems ed? Resume normal activities Hospital No Pat Hand, STEFANIE documented as of this encounter Visit Diagnoses Not on filedocumented in this encounter
--- OUTSIDE RECORDS SUMMARY | 2020-01-20 09:52 | XMS REPORT | Encounter Summary ---
Author Author [facility] Organization [facility] Address Unknown Phone Unavailable Care Team Providers Care Media Center Assistant Name Role Phone Mony Wang MD Unavailable Anna Burr MD [address] Carlton Dudley DO Unavailable Anna Burr MD PCP Encounter Details Care Team Description Date Type Department 12/01/2019 Travel Social History Date Tobacco Use Types [...]
--- OUTSIDE RECORDS SUMMARY | 2020-01-20 09:52 | XMS REPORT | Encounter Summary ---
Author Author [facility] Organization [facility] Address Unknown Phone Unavailable Care Team Providers Care Maintenance [place] Name Role Phone Mony Wang MD Unavailable Anna Burr MD [address] Carlton Dudley DO Unavailable Anna Burr MD PCP Reason for Visit * Reason Comments General Question preop covid19 testing Encounter Details Care Team Description Date Type Department Yoni Elliott, DO [address] [place] [address] [phone] General Question (preop covid19 testing) 11/22/2019 Telephone The [facility] [address] [address] Social History Date Tobacco Use Types Packs/Day [...] Telephone Encounter - Deepti Hernandez RN - 11/22/2019 4:38 PM CDT I called this pt today to set up her preop covid19 screening at [facility] in [place], [place]. I have faxed [facility] microbiology lab the order and have fille d out the requested [facility] screening form. Pt is to go for screening 11/27 between 1-3pm. She was given the address and the phone number to call when she pulls up PH: [phone]. Her surgery is 11/30 wit byron Elliott. They will call me directly with results and I have requested that they fax them as well. Pt had no further questions. documented in this encounter Plan of Treatment Not on filedocumented as of this encounter Goals Goal Patient Associated Recent Progress Patient-Stat Aut hor Goal Type Problems ed? Resume normal activities Hospital No Pat Hand RN documented as of this encounter Visit Diagnoses Not on filedocumented in this encounter
--- OUTSIDE RECORDS SUMMARY | 2020-01-20 09:52 | XMS REPORT | Encounter Summary ---
Author Author [facility] Organization [facility] Address Unknown Phone Unavailable Care Team Providers Care Fluorescent Solution Mixer Name Role Phone Mony Wang MD Unavailable Anna Burr MD [address] Carlton Dudley DO Unavailable Anna Burr MD PCP Encounter Details Care Team Description Date Type Department Yoni Elliott DO [address] [place] [address] [phone] Rectal cancer (HCC) (Primary Dx) 11/22/2019 Orders Only The [facility] [address] [address] Social History Date Tobacco Use Types Packs/Day [...] Name Type Priority Associated Diag noses Expected: 12/05/2019 (Approximate), Expi res: 11/21/2020 COVID-19 (SARS-COV-2) PCR Microbiology Routine Rect al cancer (HCC) documented as of this encounter Goals Goal Patient Associated Recent Progress Patient-Stat Aut hor Goal Type Problems ed? Resume normal activities Hospital No Pat Hand, STEFANIE documented as of this encounter Visit Diagnoses Diagnosis Rectal cancer (HCC) Malignant neoplasm of rectum documented in this encounter
--- OUTSIDE RECORDS SUMMARY | 2020-01-20 09:52 | XMS REPORT | Encounter Summary ---
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 Name Role Phone Mony Wang MD Unavailable Anna Burr MD [phone] Dudley DO Unavailable Anna Burr MD PCP Reason for Visit * Auth/Cert Referred By Contact Referred To Contact Status Reason Specialty Diagnoses / Procedures Diagnoses Rectal cancer (HCC) Rectal cancer (HCC) [C20] P rocedures [place] LAPS COLECTOMY PRTL W/COLOPXTSTMY LW ANAST ROBOTIC ASSISTED LOW ANTERIOR RESECTION WITH LOOP ILEOSTOMY Encounter Details Care Team Description Date Type Department Bessy Elliott DO [address] [place], [place] [id number] Rectal cancer (HCC) 12/01/2019 [facility] 12/04/[address] [place] [id number] Social History Date Tobacco Use Types Packs/Day [...] Signs Reading Time Taken Comments Vital Sign 106/68 12/04/2019 7:14 AM CDT Blood Pressure 81 12/04/2019 7:14 AM CDT Pulse 37.1 C (98.8 F) 12/04/2019 7:14 AM CDT Temperature - - Respiratory Rate 98% 12/04/2019 7:14 AM CDT Oxygen Saturation - - Inhaled Oxygen Concentration 52.8 kg (116 lb 6.4 oz) 12/01/2019 6:32 AM CDT Weight 165.1 cm (5' 5") 12/01/2019 6:32 AM CDT Height 19.37 12/01/2019 6:32 AM CDT Body Mass Index documented in [...] impairment: No documented as of this encounter Discharge Summaries * Donnie Marquez DO - 12/04/2019 1:00 PM CDT Physician Discharge Summary Name: Pippa Hernandez Date Of : 1955 Age: 64 years Admit date: 12/01/2019 Discharge date: 12/04/2019 1:00 PM Attending Physician: Dr. Bessy Elliott DO Service: Surgery-Onco logy Physician Summary completed by: Donnie Marquez DO Reason for hospitalization: Rectal cancer (HCC) Significant PMH: Medical History: Diagnosis Date Rectal cancer (HCC) Allergies: Patient has no known allergies. Admission Physical Exam notable for: none Admission Lab/Radiology studies notable for: No results found for this visit on 12/01/19 (from the past 24 hour(s)). No orders to display Brief Hospital Course: The patient was admitted and the following issues were a ddressed during this hospitalization: (with pertinent details). Mrs. Hernandez is a 64 female with known rectal CA who underwent RA LAR, DLI on 11/03 0. Postoperatively there were no complications. POD2 she began to have great ile ostomy output. She worked well with PT and was deemed safe for discharge to home . Patient was discharged in stable condition, afebrile, with good bowel and urin ketan function, ambulating, tolerating regular diet and PO medications. Ostomy edu cation was provided prior to discharge. Condition at Discharge: Stable Discharge Diagnoses: Hospital Problems Active Problems Rectal cancer (HCC) Active Problems: Rectal cancer (HCC) Surgical Procedures: Procedure(s) (LRB): ROBOTIC ASSISTED LOW ANTERIOR RESECTION WITH LOOP ILEOSTOMY, MOBILIZATION OF SPL ENIC FLEXURE (N/A) Significant Diagnostic Studies and Procedures: noted in brief hospital course Consults: CONSULT WOUND/OSTOMY TEAM NURSE Patient Disposition: Home Patient instructions/medications: Regular Diet You have no dietary restriction. Please continue with a healthy balanced diet. Activity as Tolerated You will likely feel tired for at least 1 week after your surgery. Take your pa in medicine as needed in order to stay active, but rest as needed for recovery. Gradually increased your activity level and take short walks 2-3 times a day. This will help reduce the risk of blood clots and lung infection (pneumonia) fol lowing surgery. You may use the stairs as needed as long as you are not dizzy or weak. Make sure someone is around the first few times you use the stairs or exercise. Begin to work toward your normal activity level at [facility] emergency department. Bathing Restrictions You may shower the day after surgery and allow clean, soapy water to run over y our incision but do not expose your incisions to soaking in water (i.e. hot tub, bathtub or swimming pools) for the first 6 weeks after surgery. Do not put any ointment or creams over the incisions for the first 6 weeks after surgery or whi le the incision is open, draining or scabbed. Lifting Restrictions Practice 10 deep breaths every hour and 2 coughs every hour, (for at least 12 h ours a day), while awake for the first week after surgery to reduce the risk of lung problems or pneumonia. Do not lift heavy objects (more than 8 pounds) for t he first 4 weeks. Also avoid pushing, pulling or abdominal pressure for these fi rst 4 weeks. When coughing, be sure to place a pillow over the incision and gent ly press inward to reduce the pressure (from coughing) on your incision. Incision Care *Keep your incision clean and dry. *May shower the day following procedure. Avoid direct water contact to the incis ion. Take sponge baths, working around the incision during this time. soapy wate r to run over your incision but do not expose your incisions to soaking in water (i.e. hot tub, bathtub or swimming pools) for the first 6 weeks after surgery. Do not put any ointment or creams over the incisions for the first 6 weeks after surgery or while the incision is open, draining or scabbed. *Your incisions have been closed with dissolvable suture on the inside and a spe cial skin glue over the incision. The skin glue will dissolve so do not attempt to remove it from your skin. *Your incision should gradually look better each day. If you notice unusual swel ling, redness, drainage, have increasing pain at the site, or have a fever great er than 100 degrees, notify your physician immediately Report These Signs and Symptoms Please contact your doctor if you have any of the following symptoms: temperatu re higher than 100.4 degrees F, uncontrolled pain, persistent nausea and/or vomi ting or severe abdominal pain Questions About Your Stay For questions or concerns regarding your hospital stay, call [phone]. Discharging attending physician: BESSY ELLIOTT [[id number]] Current Discharge Medication List START taking these medications Details oxyCODONE (ROXICODONE) 5 mg tablet Take one tablet to two tablets by mouth every 4 hours as needed Qty: 30 tablet, Refills: 0 PRESCRIPTION TYPE: Print CONTINUE these medications which have NOT CHANGED Details Calcium Carbonate (CALCIUM 600) 600 mg calcium (1,500 mg) tab Take 2 tablets by mouth daily. PRESCRIPTION TYPE: Historical Med CALCIUM PO Take 1,200 mg by mouth daily. PRESCRIPTION TYPE: Historical Med estrogens, conj/medroxyPROGESTERone (PREMPRO) 0.3/1.5 mg tablet Take 1 tablet by mouth daily. PRESCRIPTION TYPE: Historical Med fluoxetine (PROZAC) 20 mg capsule Take 20 mg by mouth daily. PRESCRIPTION TYPE: Historical Med ondansetron (ZOFRAN) 4 mg tablet Take one tablet by mouth every 4 hours as neede d for Nausea or Vomiting. Qty: 4 tablet, Refills: 0 PRESCRIPTION TYPE: Normal Associated Diagnoses: Rectal cancer (HCC) pantoprazole DR (PROTONIX) 20 mg tablet Take 20 mg by mouth daily. PRESCRIPTION TYPE: Historical Med Future Appointments Date Time Provider Department Center 12/23/2019 10:30 AM Nikkie Rodriguez APRN-ROUTE RETURNER [facility]2 [facility] Exam Pending items needing follow up: follow up appointment Signed: Donnie Marquez DO 12/04/2019 cc: Primary Care Physician: Anna Burr Referring physicians: Additional provider(s): documented in this encounter Discharge Instructions * Pre-Anesthesia Patient Instructions* Rosalina Jules RN - 11/24/2019 12:02 PM CDT GENERAL INFORMATION Before you come to the hospital Make arrangements for a responsible adult to drive you home and stay with you for 24 hours following surgery. Bath/Shower Instructions Take a bath or shower with antibacterial soap the night before or the morning of your procedure. Use clean towels. Put on clean clothes after bath or shower. Avoid using lotion and oils. Sleep on clean sheets if bath or shower is done the night before procedure. Leave money, credit cards, jewelry, and any other valuables at home. [facility] is not responsible for the loss or breakage of persona Oris4 items. Remove nail venezuelan, makeup and all jewelry (including piercings) before comin g to the hospital. The morning of your procedure: brush your teeth and tongue do not smoke do not shave the area where you will have surgery What to bring to the hospital ID/ Insurance Card [employer] card Official documents for legal guardianship Copy of your Living Will, Advanced Directives, and/or Durable Power of Attorn ey Small bag with a few personal belongings Cases for glasses/hearing aids/contact lens (bring solutions for contacts) Dress in clean, loose, comfortable clothing Eating or drinking before surgery Do not eat or drink anything after 11:00 p.m. the day before your procedure ( including gum, mints, candy, or chewing tobacco) OR follow the specific instruct ions you were given by your Surgeon. You may have WATER ONLY up to 2 hours before arriving at the hospital. Other instructions Notify your surgeon if: there is a possibility that you are you become ill with a cough, fever, sore throat, nausea, vomiting or flu-like symptoms you have any open wounds/sores that are red, painful, draining, or are new si nce you last saw the doctor you need to cancel your procedure You will receive a call with your surgery arrival time from between 2:30pm an d 4:30pm the last business day before your procedure. If you do not receive a c all, please call [phone] before 4:30pm or [phone] after 4:30pm. Notify us at Call [phone] and ask for [employer] if you need to cancel your procedure if you are going to be late Arrival at the hospital [address] [address] ? Park in the P5 parking garage located at [facility] [address]. ? [employer] parking is available in front of [facility] between the hours of 7:00 am and 4:00 pm Thursday through Thursday. ? If parking in the P5 garage, take the east elevators in the parking garage to the second level and walk to the entrance of the [facility]. ? Enter through the 1st floor main entrance and check in with Information Desk. ? If you are a woman between the ages of 10 and 55, and have not had a hysterect franklyn, you will be asked for a urine sample prior to surgery. Please do not urina te before arriving in the Surgery Waiting Room. Once there, check in and let th e attendant know if you need to provide a sample. Coronavirus (COVID19) Information If you get sick with fever (100.4F/38C or higher), cough, or have trouble breath ing: ? Call your primary care physician for questions or health needs ? Tell your doctor about any recent travel and your symptoms. ? Avoid contact with others. ? Notify your surgeon. For up to date information on the Coronavirus, visit the CDC website at CDC.gov. For the safety of all patients, visitors and staff as we work to contain COVID-1 9, we must dramatically restrict patient visitors. For most patients, no visitors are allowed. Exceptions include: ? 1 parent or guardian for patients younger than 18 ? 1 support person for labor and delivery patients ? 1 support person for patients with disabilities or impairments needing assista nce ? 1 support person or line haul driver for patients undergoing outpatient treatment or pro cedures ? Support persons for patients nearing end of life * Pre-Anesthesia Medication Instructions* Rosalina Jules RN - 11/24/2019 12:04 PM CDT YOUR MEDICATIONS: CALCIUM PO Take 1,200 mg by mouth daily. estrogens, conj/medroxyPROGESTERone (PREMPRO) 0.3/1.5 mg tablet Take 1 table t by mouth daily. fluoxetine (PROZAC) 20 mg capsule Take 20 mg by mouth daily. metroNIDAZOLE (FLAGYL) 500 mg tablet 2 tablets PO at 1 pm, 3 pm and 11 pm th e day prior to surgery neomycin (MYCIFRADIN) 500 mg tablet 2 tablets PO at 1 pm, 3 pm and 11 pm the day prior to surgery ondansetron (ZOFRAN) 4 mg tablet Take one tablet by mouth every 4 hours as n eeded for Nausea or Vomiting. pantoprazole DR (PROTONIX) 20 mg tablet Take 20 mg by mouth daily. YOUR MEDICATION INSTRUCTIONS FOR SURGERY: Before surgery Do not start any new vitamins, herbals, and natural supplements 14 days before s urgery: Stop the following medications 7 days before surgery: Anti-inflammatory medications such as ibuprofen (Advil, Motrin) and naproxen (Aleve) You may use acetaminophen (Tylenol) Morning of surgery On the morning of surgery, do NOT take these medications: Remaining vitamins/supplements Ointments/creams/lotions Calcium supplement On the morning of surgery, take ONLY these medications with a sip (1-2 ounces) o f water: Estrogen (Prempro) Fluoxetine (Prozac) Ondansetron (Zofran) if needed Pantoprazole DR (Protonix) if taking Other information Before surgery, please contact Rosalina with any medicine updates or questions. E-mail: [email or web address] Before going home from the hospital, please ask your doctor when you should re-s tart your medicines that were stopped before surgery. * Discharge Instr - Case Management* Ellie Reed RN - 12/02/2019 1:42 PM CDT Your home health agency is [facility] in [place] [phone]. Your home health nurse will call you tomorrow to arrange your first home health visi t. Please be aware that the nurse is typically coming [facility] and will provide a time frame for visit, not a specific time. If you do not he ar from your nurse within 48 hours of discharge, please call your home health ag ency directly at number listed above. Please schedule follow up appointment with Anna Burr with in a month o f discharge, please call [phone]. Thank you, and take care! Ellie Reed documented in this encounter Medications at Time of Discharge Start Date End Date Medication Sig Dispensed Refills Calcium Carbonate Take 2 0 (CALCIUM 600) 600 mg tablets by calcium (1,500 mg) tab mouth daily. CALCIUM PO Take 1,200 mg 0 by mouth daily. estrogens, Take 1 tablet 0 conj/medroxyPROGESTERone by mouth (PREMPRO) 0.3/1.5 mg daily. tablet fluoxetine (PROZAC) 20 mg Take 20 mg by 0 capsule mouth daily. 10/28/2019 ondansetron (ZOFRAN) 4 mg Take one 4 tablet 0 tabletIndications: Rectal tablet by cancer (HCC) mouth every 4 hours as needed for Nausea or Vomiting. 12/04/2019 oxyCODONE (ROXICODONE) 5 Take one 30 tablet 0 mg tablet tablet to two tablets by mouth every 4 hours as needed 10/18/[address] Take 20 mg by 0 (PROTONIX) 20 mg tablet mouth daily. documented as of this encounter Progress Notes * Maral Hawkins RN - 12/04/2019 11:11 AM CDT Discharge instructions given to pt regarding pain management and opioid safety, bowel regimen, follow-up appointment, activity restrictions, diet, SSI to watch for and report to MD. IV d/c with tip intact. Bandage applied to site, pt tolera jacob well. All belongings, d/c paperwork, and prescriptions with pt at time of d/ c. Pt awaiting transport. * Donnie Marquez DO - 12/04/2019 5:37 AM CDT Surgical Oncology Progress Note 12/04/2019 ASSESSMENT 64 F w rectal CA s/p RA GINA GARVEY (11/30) Active Problems: Rectal cancer (HCC) PLAN - Regular diet, SLIV today - Pain control with tylenol, oxycodone - Continue to monitor ileostomy output; will remove bridge - Encourage IS - PT/OT, encourage ambulation; anticipated home with supervision - Dispo: floor, will need home health at discharge with ostomy Plan for discharge this afternoon Frederic Kiser DO Pager: [phone] S: No acute events overnight. Pain controlled. No nausea or vomiting. Increased os ross output. Ambulating as tolerated O: Temp: 36.8 C (98.3 F) (12/04 347) Pulse: 70 (12/04 347) Respirations: 16 PER MINUTE (12/04 347) BP: 123/52 (12/04 347) PE Gen: no apparent distress, alert and oriented HEENT: normocephalic/atraumatic CV: regular rate and rhythm Resp: unlabored on RA Abd: Soft, Appropriate TTP, minimally distended, ostomy pink and moist with good output recorded, bridge in place Ext: non edematous, no deformities noted No current facility-administered medications on file prior to encounter. Current Outpatient Medications on File Prior to Encounter Medication Sig Dispense Refill Calcium Carbonate (CALCIUM 600) 600 mg calcium [...] as n eeded for Nausea or Vomiting. [address] (PROTONIX) 20 mg tablet Take 20 mg by mouth daily. Associated attestation - Lele Campbell MD - 12/11/2019 12:55 AM CDT ATTESTATION I personally performed the stark portions of the E/M visit, discussed case with re sident and concur with resident documentation of history, physical exam, assessm ent, and treatment plan unless otherwise noted. Staff name: Lele Campbell MD Date: 12/11/2019 * Donnie Marquez DO - 12/03/2019 5:52 AM CDT Surgical Oncology Progress Note 12/03/2019 ASSESSMENT 64 F w rectal CA s/p RA LAR, DLI (11/30) Active Problems: Rectal cancer (HCC) PLAN - Regular diet, SLIV today - Successful follow up void, continue to monitor I/Os - Pain control with tylenol, oxycodone 5-15, d/c fent prn - Continue to monitor ileostomy output - Wound/ostomy team for education, will remove bridge POD3 (tomorrow) - Encourage IS - PT/OT, encourage ambulation; anticipated home with supervision - Dispo: floor, will need home health at discharge with ostomy Donnie Marquez DO Pager: [phone] S: No acute events overnight. Pain controlled. No nausea or vomiting. Increased os ross output. Ambulating as tolerated O: Temp: 36.3 C (97.3 F) (12/02 302) Pulse: 76 (12/02 302) Respirations: 16 PER MINUTE (12/02 302) BP: 132/68 (12/02 302) PE Gen: no apparent distress, alert and oriented HEENT: normocephalic/atraumatic CV: regular rate and rhythm Resp: unlabored on RA Abd: Soft, Appropriate TTP, minimally distended, ostomy pink and moist with good output recorded, bridge in place Ext: non edematous, no deformities noted No current facility-administered medications on file prior to encounter. Current Outpatient Medications on File Prior to Encounter Medication Sig Dispense Refill Calcium Carbonate (CALCIUM 600) 600 mg calcium [...] as n eeded for Nausea or Vomiting. [address] (PROTONIX) 20 mg tablet Take 20 mg by mouth daily. Associated attestation - Lele Campbell MD - 12/11/2019 12:54 AM CDT ATTESTATION I personally performed the stark portions of the E/M visit, discussed case with re sident and concur with resident documentation of history, physical exam, assessm ent, and treatment plan unless otherwise noted. Staff name: Lele Campbell MD Date: 12/11/2019 * Liv Canela - 12/02/2019 8:50 AM CDT OCCUPATIONAL THERAPY ASSESSMENT & DISCHARGE NOTE Name: Pippa Hernandez : 1955 Age: 64 y.o. Admission Date: 12/01/2019 LOS: 1 day Mobility Progressive Mobility Level: Walk in hallway Distance Walked (feet): 200 ft Level of Assistance: Assist X1 Assistive Device: None(hand hold initially progressing to none) Time Tolerated: 11-30 minutes Activity Limited By: Fatigue;Nausea Subjective Pertinent Dx per Physician: 64 F w rectal CA s/p RA LAR, DLI (11/30) Precautions: Standard;Falls Pain / Complaints: Patient agrees to participate in therapy;Patient premedicated Pain Location: Abdomen Comments: Patient in bed upon therapist entry and positioned for comfort in galdino r with needs in reach and precautions in place upon therapist exit. RN aware. Pt feeling a little nauseous- RN notified and will address. Objective Psychosocial Status: Willing and Cooperative to Participate Persons Present: Physical Therapist Home Living Type of Home: House Bathroom Shower / Tub: Walk-in Shower Bathroom Toilet: Standard Comment: Sleeps in a flat bed. OT provided education regarding long-handled spon ge rec for bathing at d/c. Prior Function Level Of Hunt: Independent with ADLs and functional transfers Lives With: Spouse Receives Help From: None Needed Comments: Patient active, independent with ADLs/IADLs and mobility without yocasta tive device. Reports she will have plenty of help from spouse with chores/ as ne eded at discharge. Vision Current Vision: (WFL) ADL's Where Assessed: Edge of Bed;Chair Eating Assist: Not Performed Eating Deficits: (hand to mouth WNL) UE Dressing Deficits: No Assist Needed LE Dressing Assist: Stand By Assist LE Dressing Deficits: Supervision/Safety(Demonstrated crossover technique for so cks) Toileting Assist: Total Assist Toileting Deficits: (new ostomy) Functional Transfer Assist: Minimal Assist (Contact Guard); Stand by assist Functional Transfer Deficits: Setup;Steadying;Verbal Cueing;Supervision/Safety Comments: Stand by assist + verbal cues for log roll for supine to sit. Contact guard for sit <> stands. Minimal assist progressing to contact guard for hallway mobility without assistive device. Activity Tolerance Endurance: 3/5 Tolerates 25-30 Minutes Exercise w/Multiple Rests Sitting Balance: 4/5 Moves/Returns Trunkal Midpoint 1-2 Inches in Multiple Plane s Comments: C/o a little lightheadedness upon sitting up at EOB that improved. Pt c/o nausea during hallway mobility. RN notified and reports she will address. Cognition Overall Cognitive Status: WFL to Adequately Complete Self Care Tasks Safely UE AROM Overall BUE AROM WNL: Yes Coordination: Adequate to Complete ADLs Grasp: Bilateral Grasp Functional for Activity Sensory Overall Sensory: Bilateral Intact UE Strength / Tone Overall Strength / Tone: WFL Able to Perform ADL Tasks Overall Strength < 4/5: No Education Goal Formulation: With Patient Assessment Assessment: Decreased Endurance;Decreased High-Level ADLs;Decreased Self-Care Tr ans Prognosis: Good Goal Formulation: Patient Plan OT Frequency: No Further Treatment Comments: Patient's current functional status suggests that she will progress wi th on discipline acutely. OT will sign off at this time, as discussed with patie nt and PT. Please re-consult, as indicated, if patient has a decline in function al status. Thank you. OT Discharge Recommendations Recommendation: Home/prior living situation; Discontinue acute OT Patient Currently Requires Physical Assist With: (IADLs) Patient Currently Requires Equipment: None Therapist: SEEMA Chavarria/Lesa [id number] Date: 12/02/2019 * Luci Flores, PT - 12/02/2019 8:30 AM CDT PHYSICAL THERAPY ASSESSMENT Name: Pippa Hernandez : 1955 Age: 64 y.o. Admission Date: 12/01/2019 LOS: 1 day Mobility Patient Turn/Position: Chair Subjective Significant hospital events: 64 F w rectal CA s/p RA LAR, DLI (11/30) Mental / Cognitive Status: Alert;Oriented;Cooperative;Follows Commands Persons Present: Spouse Pain: Patient complains of pain;10/10 Pain Location: Abdomen;Post-surgical Pain Description: Aching Pain Interventions: Patient pre-medicated;Patient agrees to participate in thera py;Patient assisted into position of comfort Ambulation Assist: Independent Mobility in Community without Device Patient Owned Equipment: Roller Walker(shower chair) Home Situation: Lives with Family() Type of Home: House Entry Stairs: No Stairs In-Home Stairs: No Stairs Comments: Patient reports that she was independent with all ADL and IADL prior t o admission ROM LE ROM: Bilateral;WFL Strength R LE WNL: Yes L LE WNL: Yes Posture/Neurological Head Control: Independent Posture: No Postural Deviations Bed Mobility/Transfer Bed Mobility: Supine to Sit: Standby Assist(standby assist with logroll techniqu e ) Comments: Tolerated sitting edge of bed with standby assist. Slight dizziness re ported, vitals stable Transfer Type: Sit to Stand Transfer: Assistance Level: To/From;Bed;Minimal Assist(contact guard assist ) Transfer: Assistive Device: Hand Hold Assist Transfers: Type Of Assistance: For Balance;For Safety Considerations End Of Activity Status: Up in Chair;Nursing Notified;Instructed Patient to Reque st Assist with Mobility;Instructed Patient to Use Call Light(chair alarm activat ed ) Balance Sitting Balance: Static Sitting Balance;Dynamic Sitting Balance;No UE Support;St andby Assist Standing Balance: Static Standing Balance;Dynamic Standing Balance;No UE support ;Standby Assist Gait Gait Distance: 200 feet Gait: Assistance Level: Minimal Assist(contact guard assist ) Gait: Assistive Device: None;Hand Hold Assist Gait: Descriptors: Pace: Slow;Decreased step length Comments: Patient ammbulated 200 feet with hand hold initially progressing to no device. 1 minor loss of balance that she was able to slef correct. Distance berumen ited by pain and nausea Activity Limited By: Complaint of Pain;Nausea Activity/Exercise Sit Edge Of Bed: 5 minutes Sit Edge Of Bed Assist: Stand By Assist Stand At Bedside : 2 minutes Stand At Bedside Assist: Stand By Assist Education Persons Educated: Patient Patient Barriers To Learning: None Noted Teaching Methods: Verbal Instruction Patient Response: Verbalized Understanding Topics: Plan/Goals of PT Interventions;Mobility Progression;Safety Awareness;Up with Assist Only;Importance of Increasing Activity;Recommend Continued Therapy Assessment/Progress Impaired Mobility Due To: Decreased Activity Tolerance;Post Surgical Changes Assessment/Progress: Should Improve w/ Continued PT AM-PAC 6 Clicks Basic Mobility Inpatient Turning from your back to your side while in a flat bed without using bed rails: None Moving from lying on your back to sitting on the side of a flatbed without using bedrails : A Little Moving to and from a bed to a chair (including a wheelchair): A Little Standing up from a chair using your arms (e.g. wheelchair, or bedside chair): A Little To walk in hospital room: A Little Climbing 3-5 steps with a railing: A Little Raw Score: 19 Standardized (T-scale) Score: 42.48 Basic Mobility CMS 0-100%: 36.99 CMS G Code Modifier for Basic Mobility: CJ Goals Goal Formulation: With Patient Time For Goal Achievement: 3 days, To, 5 days Patient Will Go Supine To/From Sit: Independently Patient Will Transfer Sit to Stand: Independently Patient Will Ambulate: Greater than 200 Feet, w/ No Device, Independently Plan Treatment Interventions: Mobility Training;Balance Activities;Endurance Training Plan Frequency: 5 Days per Week PT Plan for Next Visit: Increase ambulation distance. Trial stairs. Add PIOTR P.T. mobility aide to assist with ongoing mobilization and exercise per instruct ions of licensed physical therapy staff. PT Discharge Recommendations Recommendation: Home with intermittent supervision/assistance Patient Currently Requires Physical Assist With: Ambulation Patient Currently Requires Equipment: None Therapist Luci Flores PT, DPT Date 12/02/2019 * Adam Bautista, RT - 12/02/2019 8:15 AM CDT RT Adult Assessment Note NAME:Pippa Hernandez :1955 AGE: 64 y.o. ADMISSION DATE: 12/01/2019 DAYS ADMITTED: LOS: 1 day RT Treatment Plan: Protocol Plan: Procedures Oxygen/Humidity: Discontinued Monitoring: Discontinued Additional Comments: Impressions of the patient: Patient resting comfortable on RA. No soa noted or e ndorsed at this time. Criteria for RT protocol not met at this time Vital Signs: Pulse: 80 RR: 18 PER MINUTE SpO2: 100 % O2 Device: Liter Flow: O2%: 21 % Breath Sounds: Respiratory Effort: Non-Labored * Pat Lewis RN - 12/02/2019 7:00 AM CDT Pt jaramillo catheter removed at 0700. Patient tolerated well. Will continue to [facility] for urine output. * Terrence Kumar MD - 12/02/2019 5:49 AM CDT Surgical Oncology Progress Note 12/02/2019 ASSESSMENT 64 F w rectal CA s/p RA GURU DLJanee (11/30) Active Problems: Rectal cancer (HCC) PLAN - Regular diet - Will remove jaramillo this AM, f/u void trial - Pain control with tylenol, oxycodone 5-15, fent prn - Continue to monitor ileostomy output - Wound/ostomy team for education - Encourage IS - PT/OT, encourage ambulation - Dispo: floor, will need home health at discharge with ostomy Donnie Marquez DO Pager: [phone] S: No acute events overnight. Pain controlled. No nausea or vomiting. Small amoun t of ostomy output. O: Temp: 36.9 C (98.4 F) (12/01 0500) Pulse: 78 (12/01 0500) Respirations: 18 PER MINUTE (12/01 0500) BP: 106/55 (12/01 0500) PE Gen: no apparent distress, alert and oriented HEENT: normocephalic/atraumatic CV: regular rate and rhythm Resp: unlabored on RA Abd: Soft, Appropriate TTP, minimally distended, ostomy pink and moist Ext: non edematous, no deformities noted No current facility-administered medications on file prior to encounter. Current Outpatient Medications on File Prior to Encounter Medication Sig Dispense Refill Calcium Carbonate (CALCIUM 600) 600 mg calcium [...] as n eeded for Nausea or Vomiting. [address] (PROTONIX) 20 mg tablet Take 20 mg by mouth daily. * Apryl Thompson RN - 12/01/2019 1:10 PM CDT Patient arrived to [place] [address] via bed accompanied by PACU staff. Patient transferre d to the bed assistance. Bedside safety checks done. Initial patient assessment completed. Refer to flowsheet for details. Admission skin assessment completed with: Maria M Bacon RN Pressure injury present on arrival?: No 1. Head/Face/Neck: No 2. Trunk/Back: No 3. Upper Extremities: No 4. Lower Extremities: No 5. Pelvic/Coccyx: No 6. Assessed for device associated injury? Yes 7. Malnutrition Screening Tool (Nursing Nutrition Assessment) Completed? No See Doc Flowsheet for additional wound details. * Mali Velásquez RN - 12/01/2019 7:15 AM CDT Pt belongings in locker#05 code 1955 * Keith Pastor RN - 12/01/2019 6:44 AM CDT Wound Ostomy Note NAME:Pippa Hernandez :1955 AGE: 64 y.o. ADMISSION DATE: 12/01/2019 DAYS ADMITTED: LOS: 0 days Reason for Consult/Visit: ostomy marking Assessment/Plan: Active Problems: Rectal cancer (HCC) Planned Procedure: Robotic Lower Anterior Resection, Loop Ileostomy Surgeon: Lexi Abdomen remains smooth and flat in supine and seated positions. Sites x 2 markin g with " * " in RLQ and LLQ quadrants. Line marked at belt line that is above um bilicus. Minimal area between ribs and umbilicus. Our service will plan to follow up with patient post operatively and implement o stomy education if warranted. Brief discussion with patient about stoma and futu re inpatient stoma/pouch care. All questions from patient answered at this time. Will continue to follow. Keith Pastor RN, BSN Wound/ Ostomy Nursing Consult Service Office: [phone] Pager: [phone] Wound/ Ostomy Team pager (after hours/ weekends): [phone] * Amada Hanks RN - 11/30/2019 12:02 PM CDT Perioperative and Procedural COVID-19 Screening Form Have you been in contact with someone who was sick? ([employer] One) Yes No / Unsure x Unable to assess Does the patient have any of the following symptoms? (Select all that apply) None of these x Cough Muscle Pain Shortness of breath Unable to assess Diarrhea Rash Vomiting Abdominal Pain Fever Greater than 100F or 37.8 C Red eye Weakness Bruising or bleeding Joint Pain Severe Headache Unable to assess Travel History: Has the patient travelled outside [place] and [place] in the past 14 days? No If so, where did they travel? <Location> If so, what dates did they travel? <Dates> Pt denies loss of ability to taste or smell. Pt reports she had COVID test comp leted "Thursday @ [facility], and it came back negative yesterday". Results in [facility] Patient Window. * Suzanne Soto RN - 11/28/2019 4:35 PM CDT Attempt to contact patient for COVID-19 screening for procedure scheduled 9. Name and call-back number left on voicemail. * Rosalina Jules RN - 11/24/2019 12:08 PM CDT PAC triage call completed w/pt for surgery on 12/01/19 w/Dr. Elliott. PMH, aller gies and medications reviewed. Pt denies history of cardiopulmonary disease, CP, SOB, URI and able to climb 2 flights of stairs w/out CP or SOB. Pt has history of Rectal Cancer. Pt has had a colonoscopy in the past and reports some cosmetic procedures to her eyes where she had anesthesia, denies complications w/anesthe teri. Pt COVID screening questionnaire was negative all except that she traveled to [place] October 15-. Pt has labs in chart from 10/28/19. No PAC appt indicat ed at this time. Pre-op and medication instructions given. Visitor restrictions reviewed. Pt verbalizes understanding and copy emailed to pt. documented in this encounter H&P Notes * Eulalio Wilson MD - 12/01/2019 6:37 AM CDT Admission History and Physical Examination Name: Pippa Hernandez 9 Admission Date: 12/01/2019 Assessment/Plan: Ms. Hernandez is a 64 year old female with rectal cancer s/p neoad juvant chemorads who presents for surgery. Active Problems: Rectal cancer (HCC) Ms. Hernandez has done well with chemoradiation and completed treatment on 10/10/19. W luis discussed moving forward with surgery six to eight weeks following completion of treatment. We discussed the findings of the MRI today and what that means in terms of surgery. Given her favorable response and location of the tumor on exam today, we will plan for robotic assisted low anterior resection with diverting loop ileostomy in the coming weeks. We discussed the risks of the operation incl uding injury to bowel, bladder, ureter (1%), nerve injury (20%) and anastomotic leak. She wishes to proceed with surgery. Informed consent obtained. -To OR for RA GARVEY w/DLI -Consented -NPO -Type & Cross ordered __ Primary Care Physician: Anna Burr Verified Chief Complaint: Rectal Cancer History of Present Illness: Pippa Hernandez is a 64 y.o. female with recently d iagnosed rectal cancer who returns to clinic for ongoing surgical planning. She has completed neoadjuvant chemoradiation as of 10/10/19. Her only side effect from chemoradiation is fatigue. She also lost 15 pounds during treatment, but she re ports having gained back 4 recently. Her appetite is good. She denies issues wit h nausea, vomiting, fevers, chills, constipation or diarrhea. She underwent MRI pelvis today with the findings below indicating treatment response. She remains active and is motivated to proceed with surgery. Medical History: Diagnosis Date Rectal cancer (HCC) [...] on file Occupational History Not on file Social Needs Financial resource strain: Not on file Food insecurity Worry: Not on file Inability: Not on file Transportation needs Medical: Not on file Non-medical: Not on file Tobacco Use Smoking status: Never Smoker Smokeless tobacco: Never Used Substance and Sexual Activity Alcohol use: Yes Alcohol/week: 2.0 standard drinks Types: 2 Glasses of wine per week Drug use: Not Currently Sexual activity: Not on file Lifestyle Physical activity Days per week: Not on file Minutes per session: Not on file Stress: Not on file Relationships Social connections Talks on phone: Not on file Gets together: Not on file Attends mandaeism service: Not on file Active member of club or organization: Not on file Attends meetings of clubs or organizations: Not on file Relationship status: Not on file Intimate partner violence Fear of current or ex partner: Not on file Emotionally abused: Not on file Physically abused: Not on file Forced sexual activity: Not on file Other Topics Concern Not on file Social History Narrative Not on file Immunizations (includes history and patient reported): There is no immunization history on file for this patient. Allergies: Patient has no known allergies. Medications: Medications Prior to Admission Medication Sig CALCIUM PO Take 1,200 mg by mouth daily. estrogens, conj/medroxyPROGESTERone (PREMPRO) 0.3/1.5 mg tablet Take 1 table t by mouth daily. fluoxetine (PROZAC) 20 mg capsule Take 20 mg by mouth daily. metroNIDAZOLE (FLAGYL) 500 mg tablet 2 tablets PO at 1 pm, 3 pm and 11 pm th e day prior to surgery neomycin (MYCIFRADIN) 500 mg tablet 2 tablets PO at 1 pm, 3 pm and 11 pm the day prior to surgery ondansetron (ZOFRAN) 4 mg tablet Take one tablet by mouth every 4 hours as n eeded for Nausea or Vomiting. pantoprazole DR (PROTONIX) 20 mg tablet Take 20 mg by mouth daily. Review of Systems: Constitutional: Positive for activity change. HENT: Negative. Eyes: Negative. Respiratory: Negative. Cardiovascular: Negative. Gastrointestinal: Negative. Endocrine: Negative. Genitourinary: Negative. Musculoskeletal: Negative. Skin: Negative. Neurological: Negative. Hematological: Negative. Psychiatric/Behavioral: Negative. Physical Exam: Vital Signs: Last Filed In 24 Hours Vital Signs: 24 Hour Range BP: 129/71 (12/01 631) Temp: 36.8 C (98.2 F) (12/01 631) Pulse: 87 (12/01 631) Respirations: 18 PER MINUTE (12/01 631) SpO2: 99 % (12/01 631) Height: 165.1 cm (65") (12/01 631) BP: (129)/(71) Temp: [36.8 C (98.2 F)] Pulse: [87] Respirations: [18 PER MINUTE] SpO2: [99 %] Physical Exam Exam conducted with a nursing assistant present. Constitutional: Appearance: Normal appearance. HENT: Head: Normocephalic and atraumatic. Eyes: Extraocular Movements: Extraocular movements intact. Cardiovascular: Rate and Rhythm: Normal rate. Pulmonary: Effort: Pulmonary effort is normal. No respiratory distress. Abdominal: General: Abdomen is flat. There is no distension. Palpations: Abdomen is soft. Genitourinary: Exam position: Knee-chest position. Musculoskeletal: Normal range of motion. Skin: General: Skin is warm and dry. Neurological: General: No focal deficit present. Mental Status: She is alert and oriented to person, place, and time. Psychiatric: Mood and Affect: Mood normal. Behavior: Behavior normal. Thought Content: Thought content normal. Judgment: Judgment normal. Lab/Radiology/Other Diagnostic Tests: 24-hour labs: No results found for this visit on 12/01/19 (from the past 24 nakia r(s)). Pertinent radiology reviewed. Eulalio Wilson MD Service Pager [phone] documented in this encounter Consult Notes * Leda Guan, RN - 12/02/2019 11:37 AM CDT Associated Order(s): CONSULT WOUND/OSTOMY TEAM NURSE Wound Ostomy Note NAME:Pippa Hernandez :1955 AGE: 64 y.o. ADMISSION DATE: 12/01/2019 DAYS ADMITTED: LOS: 1 day Reason for Consult/Visit: ostomy education Assessment/Plan: Active Problems: Rectal cancer (HCC) 64 F w rectal CA s/p RA LAR, DLI (11/30) Ileostomy 12/01/19 1025 Upper Right Quadrant (Active) 12/01/19 1025 Upper Right Quadrant Agree With My Assessment? Yes 12/02/2019 4:04 AM Stoma Assessment Red, Protruding 12/02/2019 11:16 AM Drainage Description Brown 12/02/2019 11:16 AM Peristomal Skin Assessment Unable to Assess 12/02/2019 11:16 AM Dressing Status Intact 12/02/2019 11:16 AM Stoma Miscellaneous Bridge in Place 12/02/2019 11:16 AM Intake/Flush (ml) 0 milliliter 12/01/2019 11:35 AM Education: Patient alert and engaged in ostomy teaching. Written educational mat erials provided including information on secure start and support services. Stoo l output noted in pouch. Demonstrated how to open/close pouch for emptying. Pt d eclined to empty her own pouch but did practice/review the steps. Encouraged patient to actively participate in ostomy care. Current pouch remains intact without signs of leaking. Will plan on changing pouch during next visit. Topics discussed: frequency of emptying/changing pouch, how to empty/change pouc h, stoma/peristomal skin care, pouch options, how to cut pouch, how to obtain po uches, showering. Patient asked appropriate questions. Pt plans for home health at discharge. Lives with spouse who will be able to ass ist with ostomy tasks. OSTOMY CARE: - Change pouch with any sign of leaking. Do not reinforce leaking pouch with tap e - Clean skin with water only - no soap or wipes - If skin is broken down or macerated surrounding stoma, sprinkle stoma powder a nd wipe away the excess - [place] no sting skin prep on powdered skin and let dry completely - Cut new pouch leaving 1/8"-1/4" of skin showing between the stoma and pouch - Stretch Iesha slim paste ring (#1374) around opening created on the adhesi ve side of pouch - Warm new pouch in palm of hands - Ensure skin is dry and apply new pouch - Lay warm hand over pouch once it's applied Bedside RN is responsible for continuing ostomy education in between visits fr om our service. This can be achieved by including patient (and family) in ostomy care tasks such as pouch emptying and pouch changes. Will continue to follow. Leda Guan RN, BSN, CMSRN Wound/Ostomy Team Pager: [phone] After Hours Wound/OstomyTeam Pager: [phone] documented in this encounter Miscellaneous Notes * Case Mgmt DC Plan - Bernadine Peraza RN - 12/04/2019 11:14 AM CDT Case Management Progress Note NAME:Pippa Hernandez :[birth year] AGE: 64 y.o. ADMISSION DATE: 12/01/2019 DAYS ADMITTED: LOS: 3 days Todays Date: 12/04/2019 Plan Home today with HH services Interventions ? Support ? Info or Referral ? Discharge Planning Discharge Planning: Home Health * Stable for DC today * Contacted [facility] in [place] at [phone] and spoke with t he answering service to inform of DC today * Soumya with [employer] contacted me and confirmed plan for SOC tomorrow * Final referral info faxed to agency ? Medication Needs ? Financial ? Legal ? Other Disposition ? Expected Discharge Date Expected Discharge Date: 12/04/19 Expected Discharge Time: 1400 ? Transportation Does the patient need discharge transport arranged?: No Transportation Name, Phone and Availability #1: Mike, . Lives 1hr and 45mi ns away. Does the patient use Medicaid Transportation?: No ? Next Level of Care (Acute Psych discharges only) ? Discharge Disposition Durable Medical Equipment No service has been selected for the patient. Destination No service has been selected for the patient. Home Care Service Provider Request Status Selected Services Address Phone Number Fax Numb er [facility] Selected [facility] Health Services [address] [facility] [address] [phone] Dialysis/Infusion No service has been selected for the patient. Bernadine Peraza, RN, BSN, ACM-RN Lead Nurse Dining Services ManagerRetail Shift Supervisor [phone] Pager *[phone] * Care Plan - Maral Hawkins RN - 12/04/2019 10:59 AM CDT All goals met * Anesthesia Post Op Day 1 - Madison Murphy CRNA - 12/02/2019 3:59 PM CDT Anesthesia Follow-Up Evaluation: Post-Procedure Day One Name: Pippa Hernandez : 1955 Age: 64 y.o. S ex: female Procedure Date: 12/01/2019 Procedure: Procedure(s) with comments: ROBOTIC ASSISTED LOW ANTERIOR RESECTION WITH LOOP ILEOSTOMY, MOBILIZATION OF SPL ENIC FLEXURE - CASE LENGTH 3 HOURS, CLIPPING AND HIBICLENS PREP TO BE DONE IN [place] E-POST Physical Assessment Height: 165.1 cm (65") Weight: 52.8 kg (116 lb 6.4 oz) Vital Signs (Last Filed in 24 hours) BP: 113/56 (12/01 154) Temp: 37.1 C (98.7 F) (12/01 1542) Pulse: 78 (12/01 1542) Respirations: 16 PER MINUTE (12/01 1542) SpO2: 97 % (12/01 1541) Patient History Allergies No Known Allergies Medications Scheduled Meds:enoxaparin (LOVENOX) syringe 40 mg, 40 mg, Subcutaneous, QDAY(21) FLUoxetine (PROzac) capsule 20 mg, 20 mg, Oral, QDAY pantoprazole DR (PROTONIX) tablet 20 mg, 20 mg, Oral, QDAY Continuous Infusions: dextrose 5 % & 0.45% NaCl with KCl 20 mEq/L infusion 75 mL/hr at 12/02/19 1203 PRN and Respiratory Meds:acetaminophen Q4H PRN, fentaNYL citrate PF Q2H PRN, ond ansetron (ZOFRAN) IV Q6H PRN, oxyCODONE Q4H PRN, phenol PRN Diagnostic Tests Hematology: Lab Results Component Value Date HGB 11.5 12/02/2019 HCT 33.8 12/02/2019 PLTCT 189 12/02/2019 WBC 5.5 12/02/2019 MCV 94.8 12/02/2019 MCH 32.2 12/02/2019 MCHC 34.0 12/02/2019 MPV 7.1 12/02/2019 RDW 14.7 12/02/2019 General Chemistry: Lab Results Component Value Date NA 140 12/02/2019 K 4.3 12/02/2019 CL 107 12/02/2019 CO2 29 12/02/2019 GAP 4 12/02/2019 BUN 9 12/02/2019 CR 0.91 12/02/2019 GLU 103 12/02/2019 CA 8.5 12/02/2019 ALBUMIN 3.6 10/28/2019 TOTBILI 0.4 10/28/2019 Coagulation: No results found for: PT, PTT, INR Follow-Up Assessment Patient location during evaluation: floor Anesthetic Complications: Anesthetic complications: The patient did not experience any anesthestic complic ations. Pain: Management:adequate Level of Consciousness: awake and alert Hydration:acceptable Airway Patency: patent Respiratory Status: acceptable Cardiovascular Status:acceptable Regional/Neuroaxial: * Case Mgmt DC Hardik - Ellie Reed RN - 12/02/2019 1:42 PM CDT Case Management Admission Assessment NAME:Pippa Hernandez :1955 AGE: 64 y.o. ADMISSION DATE: 12/01/2019 DAYS ADMITTED: LOS: 1 day Todays Date: 12/02/2019 Source of Information: Patient's , Mike. Current Problem: POD 1 RA LAR, DLI Plan Plan: Case Management Assessment, Assist PRN with SW/NCM Services, Discharge Doris nning for Home Anticipated -This CM met with patient for assessment on this date. Provided contact informa tion and explanation of SW/NCM roles. Reviewed [facility], Preparing fo r Discharge, and Preferred Provider Network hand-outs. Provided opportunity for questions and discussion. Patient/family encouraged to contact Case Management team with questions and concerns during hospitalization and until patient is abl e to transition back to the patient's primary care physician. -No previous DME, HH, IPR, or SNF. -Patient/family comfortable with post op recovery and discussed importance of in creasing activity, monitoring incisions, s/s of infection, monitor bowel functio n, pain control and encouraged calling for questions/concerns. Role of HH review ed and patient/family requests the need for same. -HH preference of [facility] in [place] [phone]/ fax because of previous family use. -This NCM contacted Max with [facility] in [place] [phone]/ fa x [phone] to inform of referral for RN and estimated discharge of /. Fax sent and receipt confirmation. -NCM called PCP to inquire if PCP Anna Burr would follow HH orders upo n DC. Will follow up. -Orders have been completed and set to be signed. AVS updated with current outsi de agency information. -Mike/ able to transport home at [place]; lives 1hr [place] 45mins away. Last PCP a ppointment was with in 2019. -NCM placed patient on the weekend list for final DC POC. Anticipated CM needs: HH for new ostomy Nurse Dining Services Manager Weekend Needs Instructions for CM W/E Staff: Notify [facility] in [place] [phone]/ fax [phone] of DC, send orders, and AVS. Teaching Needs Prior to DC: Teaching done Thursday and will get more per bedside RNs Expected delivery of any needed medication/supplies/equipment: At bedside Agency Expected SOC and Services Planned: SOC Thursday for RN Patient Address/Phone [address] [phone] (home) Emergency Contact Extended Emergency Contact Information Primary Emergency Contact: Mike Hernandez Mobile Relation: Spouse Secondary Emergency Contact: Dequan Hernandez Mobile Relation: Son Healthcare Directive Healthcare Directive: No, patient does not have a healthcare directive Would patient like to fill out a (a new) Healthcare Directive?: No, patient decl ined Psych Advance Directive (Psych unit only): No, patient does not have a Psych Adv ance Directive Transportation Does the patient need discharge transport arranged?: No Transportation Name, Phone and Availability #1: Mike, . Lives 1hr and 45mi ns away. Does the patient use Medicaid Transportation?: No Expected Discharge Date Expected Discharge Date: 12/05/19 Expected Discharge Time: 1300 Barriers to discharge: ROBF, advancing diet, pain control Living Situation Prior to Admission ? Living Arrangements Type of Residence: Home, independent Living Arrangements: Spouse/significant other Bathroom Shower / Tub: Walk-in Shower How many levels in the residence?: 1 Can patient live on one level if needed?: Yes Does residence have entry and/or side stairs?: No Assistance needed prior to admit or anticipated on discharge: No Who provides assistance or could if needed?: Mike/ Are they in good health?: Unknown Can support system provide 24/7 care if needed?: Yes ? Level of Function Prior level of function: Independent ? Cognitive Abilities Cognitive Abilities: Alert and Oriented, Engages in problem solving and planning , Participates in decision making Financial Resources ? Coverage Primary Insurance: Commercial insurance Additional Coverage: RX ? Source of Income Source Of Income: Employed ? Financial Assistance Needed? No Psychosocial Needs ? Mental Health Mental Health History: No ? Substance Use History Substance Use History Screen: No ? Other No Current/Previous Services ? PCP Anna Burr, , Last appointment: per with in 2019 ? Pharmacy [facility] - [place], [place] - [address] [place] [address] Mirna WEINER [id number] ? Durable Medical Equipment Durable Medical Equipment at home: None ? Home Health Receiving home health: No ? Hemodialysis or Peritoneal Dialysis Undergoing hemodialysis or peritoneal dialysis: No ? Tube/Enteral Feeds Receive tube/enteral feeds: No ? Infusion Receive infusions: No ? Private Duty Private duty help used: No ? Home and Community Based Services Home and community based services: No ? Terrence White Terrence White: No ? Hospice Hospice: No ? Outpatient Therapy PT: No OT: No CLOTH TRIMMER HAND: No ? [facility] Facility/[facility] SNF: No NH: No ? Inpatient Rehab IPR: No ? Long-Term Acute Care Hospital LTACH: No ? Acute Hospital Stay Acute Hospital Stay: No Ellie LINK, RN Inpatient Nurse Dining Services ManagerDenture Processor Oncology Office: Pager: [phone] M-F [phone] * Care Plan - Rosalina Hughes RN - 12/02/2019 11:57 AM CDT Problem: Discharge Planning Goal: Participation in plan of care Outcome: Goal Ongoing Goal: Knowledge regarding plan of care Outcome: Goal Ongoing Goal: Prepared for discharge Outcome: Goal Ongoing Problem: Pain Goal: Management of pain Outcome: Goal Ongoing Goal: Knowledge of pain management Outcome: Goal Ongoing Problem: Falls, High Risk of Goal: Absence of falls-Adult Patient Outcome: Goal Ongoing Problem: Self-Care Deficit Goal: Maximize ADL functioning Outcome: Goal Ongoing Problem: Mobility/Activity Intolerance Goal: Maximize functional ADL's and mobility outcomes Outcome: Goal Ongoing Problem: Bowel Elimination, Impaired/Altered Goal: Effective bowel elimination Outcome: Goal Ongoing * Care Plan - Stan Gomez RT - 12/01/2019 1:49 PM CDT RT Adult Assessment Note NAME:Pippa Hernandez :1955 AGE: 64 y.o. ADMISSION DATE: 12/01/2019 DAYS ADMITTED: LOS: 0 days RT Treatment Plan: Protocol Plan: Procedures PAP: Place a nursing order for "IS Q1h While Awake" for any of Lung Expansion in dicators Oxygen/Humidity: O2 to keep SpO2 > 92% Monitoring: Pulse oximetry BID & PRN Additional Comments: Impressions of the patient:no respiratory distress Vital Signs: Pulse: 71 RR: 14 PER MINUTE SpO2: 100 % O2 Device: Cannula Liter Flow: 4 Lpm O2%: Breath Sounds: Clear (implies normal);Decreased Respiratory Effort: Non-Labored * Operative Report (Direct Entry) - Bessy Elliott DO - 12/01/2019 8:38 AM CDT OPERATIVE REPORT Name: Pippa Hernandez is a 64 y.o. female : 1955 MRN#: [id number] DATE OF OPERATION: 12/01/2019 Surgeon(s) and Role: * Bessy Elliott DO - Primary * Lobito Moore MD - Resident - Assisting * Eulalio Wilson MD - Resident - Assisting Preoperative Diagnosis: Rectal cancer (HCC) [C20] Post-op Diagnosis * Rectal cancer (HCC) [C20] Procedure(s): ROBOTIC ASSISTED LOW ANTERIOR RESECTION WITH LOOP ILEOSTOMY, MOBILIZATION OF SPL ENIC FLEXURE Anesthesia Type: Defer to Anesthesia Indications: 64F with rectal cancer Description and Findings of Operative Procedure: The patient was brought to the operating room where a surgical safety checklist was performed. The patient was put in the lithotomy position. General anaesthesi a was induced. The abdomen was prepped and draped in the standard fashion. All pressure points were carefully padded. The abdomen was draped in the usual sterile fashion. A timeout was performed. Preoperative antibiotics were verifie d. An infraumbilical small incision was made, a Rosa was placed at the base o f the umbilicus and a Veress needle was introduced. Pneumoperitoneum was establ ished. Then an 8 mm trocar was introduced just to the right of the umbilicus. Once this port was placed, inspection of the peritoneal cavity revealed no evide nce of Veress needle or trocar injury. There was no evidence of lesions along t he peritoneal cavity. The liver was without evidence of metastasis. The patient was positioned appropriately in steep Trendelenburg and right side down. A 12 mm trocar was introduced in the right lower quadrant under direct visualization. Two additional 8 mm trocars were introduced up towards the xiphoid. An assist ant port was placed in the right upper quadrant. Once the patient was positione d appropriately, the robot was docked on, and we proceeded with robotic-assisted dissection. The pelvis was explored and there was no evidence of any lesions o r metastatic disease. The sigmoid colon was noted to be redundant. The sigmoid colon was elevated and the retroperitoneum was opened on the patient's right si de identifying the right ureter. With sweeping motions the retroperitoneum was dissected moving laterally, identifying the left ureter, and leaving its retrope ritoneal plane. We then mobilized proximally up to the base of the inferior mes enteric artery and skeletonized this. Once it was skeletonized it was transecte d using the vessel sealing device. Once this was transected, hemostasis was exc ellent. We then performed a retroperitoneal dissection all the way up towards t he splenic flexure and laterally out to the lateral attachments. Once this diss ection was undertaken, mobilization was continued proximally up to the duodenum and the retroperitoneum. The inferior mesenteric vein was divided just lateral to the duodenum with the vessel sealing device. We then turned our attention ba ck to the pelvis, where the traction was placed on the rectum and the presacral space was dissected all the way down to the levator plate. Then, the lateral di ssection planes were developed and then the anterior dissection plane for last. Both ureters were identified and protected. Once this dissection plane was cir cumferentially dissected, a digital rectal exam was performed to verify there we re no masses at the distal extent of the dissection. The rectum was then divide d with 2 firings of the 45 mm green load stapler. Once it was transected, the r ectum was delivered out of the pelvis. The pelvis was irrigated. Hemostasis was excellent. We then turned our attention to the lateral attachments which were taken down with a vessel sealer. This dissection was continued around the spleni c flexure which was completely mobilized to the level of the ligament of Treitz. We made an infraumbilical incision approximately 7 cm in length. A wound prot aranza was placed in this, and the rectum was delivered through this. Once it wa s delivered through this, A location was chosen near the proximal distribution o f the CASIMIRO and the bowel was clamped with a pursestring clamp. A 2-0 PDS suture o n a Devonte needle was passed through this. The bowel was divided with a 10 blade scalpel. A 29mm EEA stapler anvil was introduced and secured into the colon usin g the pursestring suture. This was re-introduced into the abdomen and insufflati on was re-established. The robot was re-docked. We had Anesthesia inject 3 mL o f indocyanine green and under firefly, I examined our conduit. It perfused very well. This was all the way up to the distal end. Under laparoscopic visualization, sizers were used to size the rectum. Once thi s was sized, the 29 EEA stapler was placed into the rectal stump and the spike w as delivered at the staple line. Once this was delivered, we verified orientati on by following the mesentery of our conduit, and then docked our anvil on. The anvil was clamped down, held for 15 seconds and fired. Two excellent donuts re sulted. Flexible sigmoidoscopy was performed up to and beyond the anastomosis a nd once submerged, there was no extravasation of air. The peritoneal cavity was then irrigated and aspirated copiously. Once this was freed, we were allowed t o easily mobilize the terminal ileum for a loop ileostomy. Preoperatively marke d ostomy site was utilized with a 12 mm trocar placed through this and it was gr asped. The incision was elongated superior and inferiorly, and the ileum easily delivered through this. We were able to digitalize around the loop ileostomy. A Son-Jesika was used to close the right lower quadrant 12 mm trocar site. The 8 mm trocars were removed. The midline incision was irrigated and closed with number 1 PDS suture and the midline secured upon itself. The skin and subc utaneous tissues were copiously irrigated and then 4-0 Monocryl was used to clos e the skin. Interrupted 4-0 Monocryl's were used to close the trocar sites and Dermabond was placed. The loop ileostomy was then matured in the usual Lily fashion. We had verifie d our orientation carefully and knew this prior to closure. The superior portio n was brooked and the inferior portion was not. The digitalized patent was pink and viable. Sterile dressings were applied. I was present for the entirety of the procedure. All instrument and sponge counts were correct. The patient was extubated and tra nsferred to the PACU in stable condition. Estimated Blood Loss: No blood loss documented. Specimen(s) Removed/Disposition: ID Type Source Tests Collected by Time Destination 1 : Rectum and Sigmoid Tissue Colon SURGICAL PATHOLOGY Bessy Elliott , 12/01/2019 0945 2 : Distal Donut Tissue Colon SURGICAL PATHOLOGY Bessy Elliott, 1003 Attestation: Complications: None Implants: None Drains: None Disposition: PACU - stable Lobito Moore MD Pager ATTESTATION I performed this procedure with a resident. and I was present for the entire pro cedure. Staff name: Bessy Elliott DO Date: 12/02/2019 documented in this encounter Plan of Treatment Not on filedocumented as of this encounter Goals Goal Patient Associated Recent Progress Patient-Stat Aut hor Goal Type Problems ed? Resume normal activities Hospital No Pat Hand RN documented as of this encounter Procedures Comments Procedure Name Priority Date/Time Associated Diag nosis HC CBC,AUTOMATED Routine 12/02/2019 4:14 AM CDT HC BASIC METABOLIC PANEL Routine 12/02/2019 4:14 AM CDT HC LEV III SRG PTH, GROSS Routine 12/01/2019 Rect al cancer (HCC) & MICRO 9:45 AM CDT ROBOT ASSISTED 12/01/2019 Rectal cancer (HCC) LAPAROSCOPIC COLECTOMY 7:50 AM CDT WITH ANASTOMOSIS AND COLOPROCTOSTOMY PARTIAL HC ABO GROUP STAT 12/01/2019 6:40 AM CDT TELEMETRY STRIPS-SCAN 12/01/2019 12:00 AM CDT documented in this encounter Results * BASIC METABOLIC PANEL (12/02/2019 4:14 AM CDT) Sodium 140 137 - 147 MMOL/L [facility] [...] MAIN LAB eGFR Non >60 >60 mL/min [facility] MAIN LAB Comment: Vietnamese The eGFR is not validated f or use in drug dosing adjustments. Continue to use estimated creatinine clearance per dosing reference text. Please contact the Clinical Pharmacist for questions. eGFR >60 >60 mL/min [facility] MAIN LAB Vietnamese Comment: The eGFR is not validated for use in drug dosing adjustments. Continue to use estimated creatinine clearance per dosing reference text. Please contact the Clinical Pharmacist for questions. Specimen Blood Performing Organization Address City/[facility] Ph one Number MAIN LAB [address] [place] [address] * CBC (12/02/2019 4:14 AM CDT) White Blood 5.5 4.5 - 11.0 K/UL [facility] MAIN LAB Cells RBC 3.57 (L) 4.0 - 5.0 M/UL [facility] MAIN LAB Hemoglobin 11.5 (L) 12.0 - 15.0 GM/DL [facility] MAIN LAB Hematocrit 33.8 (L) 36 - 45 % [facility] MAIN LAB MCV 94.8 80 - 100 FL MAIN LAB MCH 32.2 26 - 34 PG MAIN LAB MCHC 34.0 32.0 - 36.0 G/DL MAIN LAB RDW 14.7 11 - 15 % [facility] MAIN LAB Platelet Count 189 150 - 400 K/UL MAIN LAB MPV 7.1 7 - 11 FL MAIN LAB Specimen Blood Performing Organization Address City/[facility] Ph one Number MAIN LAB [address] [place] [address] * SURGICAL PATHOLOGY (12/01/2019 9:45 AM CDT) PATHOLOGY [facility] [email or web address] Department of Pathology and Laboratory Medicine [address] [place] [id number] Surgical Pathology Office: [phone] SURGICAL PATHOLOGY REPORT NAME: PIPPA HERNANDEZ SURG PATH #: [id number] MR #: [id number] SPECIMEN CLASS: [facility] BILLING #: [id number] ALT ID #: LOCATION: DISCHARGED DATE OF [...] Negative for malignancy. Comment: Pursuant to the Document Advisor Program at the [facility] Pathology Department, selected slides from [...] material indicated in this report. +++ +++ [facility]/12/05/2019 ############################## ############################## ############ Material Received: A: rectum [...] submitted to Biospecimen Repository Core Facility: No Criminalist sections of the specimen are submitted as [...] of Pathology and Laboratory Medicine of the [facility] ([employer]) in compliance with CLIA'88 [...] of Pathology and Laboratory Medicine of the [facility]. It has not been cleared or approved by the FDA. The FDA has determined that such clearance or approval is not necessary. Specimen Tissue - Colon Tissue - Colon Performing Organization Address City/State/Zipcode Ph one Number [facility] MAIN LAB [address] [place] [address] * TYPE & CROSSMATCH (12/01/2019 6:40 AM CDT) Units Ordered 2 MAIN LAB Crossmatch 12/04/2019,2359 MAIN LAB Expires Record Check FOUND MAIN LAB ABO/RH(D) O POS MAIN LAB Antibody Screen NEG MAIN LAB Electronic YES MAIN LAB Crossmatch Specimen Blood Performing Organization Address City/State/Zipcode Ph one Number MAIN LAB [address] [place] [address] * TELEMETRY STRIPS-SCAN (12/01/2019 12:00 AM CDT) Narrative Performed At This result has an attachment that is n ot available. Ordered by an unspecified provider. documented in this encounter Visit Diagnoses Diagnosis Rectal cancer (HCC) Malignant neoplasm of rectum documented in this encounter Administered Medications Action Date Dose Rate Site Medication Order MAR Action 12/01/2019 6:59 AM CDT 1,000 mg acetaminophen (TYLENOL) tablet 1,000 mg Given 1,000 mg, Oral, ONCE, 1 dose, Nicky 12/01/19 at 0630, TOTAL ACETAMINOPHEN DOSE NOT TO EXCEED 4GM DAILY, Pre-Op 12/02/2019 11:43 PM CDT 650 mg acetaminophen (TYLENOL) tablet 650 mg Given 650 mg, Oral, EVERY 4 HOURS PRN, Starting Nicky 12/01/19 at 1335, Until 12/03/19 at 0703, Pain non-opioid: may be used alone or in combination with opioi d analgesia, TOTAL ACETAMINOPHEN DOSE NOT TO EXCEED 4GM DAILY, 650 mg Given 12/02/2019 9:19 AM CDT 650 mg Given 12/01/2019 8:34 PM CDT 12/04/2019 9:37 AM CDT 650 mg acetaminophen (TYLENOL) tablet 650 mg Given 650 mg, Oral, EVERY 4 HOURS, First dos e (after last modification) on 12/03/19 at 0800, Until Discontinued, TOTAL ACETAMINOPHEN DOSE NOT TO EXCEED 4GM DAILY, 650 mg Given 12/04/2019 6:04 AM CDT 650 mg Given 12/03/2019 8:30 PM CDT 12/02/2019 4:04 AM CDT 2 g cefOXitin (MEFOXIN) IVP 2 g Given 2 g, Intravenous, EVERY 6 HOURS, 3 doses, First dose on Thu12/01/19 at 1600, Last dose on Thu12/02/19 at 0400, IV PUSH -- RECONSTITUTE 2 g vial by adding 20 mL 0.9% NACL, 2 g Given 12/01/2019 9:45 PM CDT 2 g Given 12/01/2019 4:13 PM CDT 12/01/2019 6:59 AM CDT 200 mg celecoxib (CeleBREX) capsule 200 mg Given 200 mg, Oral, ONCE, 1 dose, Thu12/01/19 at 0630, Pre-Op 12/03/2019 3:48 AM CDT 75 mL/hr dextrose 5 % & 0.45% NaCl with KCl 20 Given - New mEq/L infusion Bag 1,000 mL, Intravenous, at 75 mL/hr, CONTINUOUS, Starting Thu12/02/19 at 1145 , Until Thu12/03/19 at 0703 75 mL/hr Given - New Bag 12/02/2019 12:03 PM CDT 12/02/2019 8:05 PM CDT 40 mg Arm, Rig ht enoxaparin (LOVENOX) syringe 40 mg Given 40 mg, Subcutaneous, DAILY, First dose on Thu12/01/19 at 2345, Until Discontinued, For patients undergoing surgery: Consult physician in advance - - enoxaparin is an anticoagulant and may need to be held for 12hr prior to surgery or invasive procedures. NOTE: This is a HIGH ALERT Medication., 40 mg Arm, Left Given 12/01/2019 11:52 PM CDT 12/04/2019 9:37 AM CDT 20 mg FLUoxetine (PROzac) capsule 20 mg Given 20 mg, Oral, DAILY, First dose on Thu12/01/19 at 1345, Until Discontinued 20 mg Given 12/03/2019 8:50 AM CDT 20 mg Given 12/02/2019 8:16 AM CDT 12/01/2019 6:59 AM CDT 600 mg gabapentin (NEURONTIN) capsule 600 mg Given 600 mg, Oral, ONCE, 1 dose, Thu12/01/19 at 0630, Pre-Op 12/02/2019 8:16 AM CDT 75 mL/hr lactated ringers infusion Given - New 1,000 mL, Intravenous, at 75 mL/hr, Bag CONTINUOUS, Starting Thu12/01/19 at 1200, Until Thu12/02/19 at 1159 75 mL/hr Given - New Bag 12/01/2019 6:15 PM CDT 75 mL/hr Given - New Bag 12/01/2019 11:45 AM CDT 12/02/2019 9:19 AM CDT 4 mg ondansetron (ZOFRAN) injection 4-8 mg Given 4-8 mg, Intravenous, EVERY 6 HOURS PRN , Starting Nicky 12/01/19 at 1335, Until Thu12/04/19 at 1512, Nausea/Vomiting Injectable 12/04/2019 9:37 AM CDT [address] (PROTONIX) tablet 20 mg Given 20 mg, Oral, DAILY, First dose (after last reorder) on Thu12/02/19 at 0900, Until Discontinued, Do not crush or chester w tablet., 20 mg Given 12/03/2019 8:50 AM CDT 20 mg Given 12/02/2019 8:15 AM CDT 12/01/2019 6:45 AM CDT 250 mL 10 mL/hr sodium chloride 0.9 % infusion Given - New 250 mL, 250 mL, Intravenous, at 10 Bag mL/hr, CONTINUOUS, Starting Nicky 12/01/19 at 0630, Until Nicky 12/01/19 at 1513, Toro g bag in Preop, Pre-Op SODIUM CHLORIDE 0.9 % IV SOLP (Cabinet Override) NOW, 1 dose, Nicky 12/01/19 at 0600, Created by cabinet override, Created by cabinet override, documented in this encounter
--- OUTSIDE RECORDS SUMMARY | 2020-01-20 09:52 | XMS REPORT | Encounter Summary ---
Author Author [facility] Organization [facility] Address Unknown Phone Unavailable Care Team Providers Care Keno Dealer Name Role Phone Mony Wang MD Unavailable Anna Burr MD [address] Dudley DO Unavailable Anna Burr MD PCP Reason for Visit * Auth/Cert Referred By Contact Referred To Contact Status Reason Specialty Diagnoses / Procedures Diagnoses Rectal cancer (HCC) Rectal cancer (HCC) [C20] P rocedures OH LAPS COLECTOMY PRTL W/COLOPXTSTMY LW ANAST ROBOTIC ASSISTED LOW ANTERIOR RESECTION WITH LOOP ILEOSTOMY Encounter Details Care Team Description Date Type Department Bessy Elliott DO [address] [place] [address] ROBOTIC ASSISTED LOW ANTERIOR RESECTION WITH LOOP ILEOSTOMY, MOBILIZATION OF SPLENIC FLEXURE 12/01/2019 Surgery [facility] OR [address] [place] [address] Social History Date Tobacco Use Types Packs/Day [...] work toward your normal activity level at [facility]. Bathing Restrictions You may shower the day [...] or concerns regarding your hospital stay, call [phone]. Discharging attending physician: BESSY ELLIOTT [[id number]] Current Discharge Medication List START taking these [...] Department Center 12/23/2019 10:30 AM Nikkie Rodriguez APRN-CASE MANAGEMENT ASSISTANT CCC2 [facility] Exam Pending items needing follow up: [...] and any other valuables at home. [facility] is not responsible for the loss or breakage of persona l items. Remove nail central african, makeup and all jewelry (including piercings) before comin g to the hospital. The morning of your procedure: brush your teeth and tongue do not smoke do not shave the area where you will have surgery What to bring to the hospital ID/ Insurance Card Senior Engineering Specialist card Official documents for legal guardianship Copy [...] not receive a c all, please call [phone] before 4:30pm or [phone] after 4:30pm. Notify us at Call [phone] and ask for Elio Pre-Post if you need to cancel your procedure if you are going to be [place] [address] ? Park in the P5 parking garage located at [address] [place] [address]. ? Land Measurer parking is available in front of [facility] between the hours of 7:00 am and 4:00 pm Thursday through Thursday. ? If parking in the P5 garage, take the east elevators in the parking garage to the second level and walk to the entrance of the [facility]. ? Enter through the 1st floor [...] assista nce ? 1 support person or tower truck driver for patients undergoing outpatient treatment or [...] with any medicine updates or questions. E-mail: [email or web address] Before going home from the hospital, please ask your doctor when you should re-s tart your medicines that were stopped before surgery. * Discharge Instr - Case Management* Ellie Reed RN - 12/02/2019 1:42 PM CDT Your home health agency is [facility] in [place] [phone]. Your home health nurse will call you tomorrow to arrange your first home health visi t. Please be aware that the nurse is typically coming from another patient's [facility] e and will provide a time frame for visit, not a specific time. If you do not he ar from your nurse within 48 hours of discharge, please call your home health ag ency directly at number listed above. Please schedule follow up appointment with Anna Burr with in a month o f discharge, please call [phone]. Thank you, and take care! Ellie Reed [...] discharge this afternoon Frederic Kiser DO Pager: [phone] S: No acute events overnight. Pain controlled. [...] discharge with ostomy Donnie Marquez DO Pager: [phone] S: No acute events overnight. Pain controlled. [...] bathing at d/c. Prior Function Level Of [place]: Independent with ADLs and functional transfers Lives [...] (IADLs) Patient Currently Requires Equipment: None Therapist: Liv Canela OTR/Lesa [id number] Date: 12/02/2019 * Luci Flores, PT - [...] Visit: Increase ambulation distance. Trial stairs. Add MA P.T. mobility aide to assist with ongoing mobilization and exercise per instruct ions of licensed physical therapy staff. PT Discharge Recommendations Recommendation: Home with intermittent supervision/assistance Patient Currently Requires Physical Assist With: Ambulation Patient Currently Requires Equipment: None Therapist Luci Flores PT, DPT Date 12/02/2019 * Adam Bautista RT - 12/02/2019 8:15 AM CDT RT [...] 0700. Patient tolerated well. Will continue to [facility] for urine output. * Terrence Kumar MD [...] discharge with ostomy Donnie Marquez DO Pager: [phone] S: No acute events overnight. Pain controlled. [...] 12/01/2019 1:10 PM CDT Patient arrived to [place] [address] via bed accompanied by PACU staff. Patient [...] BSN Wound/ Ostomy Nursing Consult Service Office: [phone] Pager: [phone] Wound/ Ostomy Team pager (after hours/ weekends): [phone] * Amada Hanks RN - 11/30/2019 12:02 [...] Travel History: Has the patient travelled outside [place] and [place] in the past 14 days? No If [...] negative all except that she traveled to [place] October 15-. Pt has labs in chart [...] file Gets together: Not on file Attends holiness service: Not on file Active member of [...] %] Physical Exam Exam conducted with a sql manager present. Constitutional: Appearance: Normal appearance. HENT: Head: [...] radiology reviewed. Eulalio Wilson MD Service Pager [phone] documented in this encounter Consult Notes * [...] a nd wipe away the excess - Attalla no sting skin prep on powdered skin and let dry completely - Cut new pouch leaving 1/8"-1/4" of skin showing between the stoma and pouch - Stretch Iesha slim paste ring (#8306) around opening created on the adhesi ve [...] Guan RN, BSN, CMSRN Wound/Ostomy Team Pager: [phone] After Hours Wound/OstomyTeam Pager: [phone] documented in this encounter Miscellaneous Notes * [...] * Stable for DC today * Contacted [facility] in [place] at [phone] and spoke with t he answering service to inform of DC today * Soumya with [employer] contacted me and confirmed plan for SOC [...] Health Services [address] [facility] [address] [phone] Dialysis/Infusion No service has been selected for the patient. Bernadine Peraza RN, BSN, ACM-RN Lead Nurse Watch Inspector Final MovementSteam Engineer [phone] Pager [phone] * Care Plan - Maral Hawkins RN [...] AND HIBICLENS PREP TO BE DONE IN [place] E-POST Physical Assessment Height: 165.1 cm (65") Weight: 52.8 kg (116 lb 6.4 oz) Vital Signs (Last Filed in 24 hours) BP: 113/56 (12/01 154) Temp: 37.1 C (98.7 F) (12/01 154) Pulse: 78 (05/01 1542) Respirations: 16 PER MINUTE (12/01 154) SpO2: 97 % (12/01 1541) Patient History [...] need for same. -HH preference of [facility] in [place] [phone]/ fax because of previous family use. -This NCM contacted Max with [facility] in [place] [phone]/ fa x [phone] to inform of referral for RN and estimated discharge of 12/03. Fax sent and receipt confirmation. -NCM called PCP to inquire if PCP Anna Burr would follow HH orders upo n DC. Will follow up. -Orders have been completed and set to be signed. AVS updated with current outsi de agency information. -Mike/ able to transport home at DC; lives 1hr [place] 45mins away. Last PCP a ppointment was with in 2019. -NCM placed patient on the weekend list for final DC POC. Anticipated CM needs: HH for new ostomy Nurse Watch Inspector Final Movement Weekend Needs Instructions for CM W/E Staff: Notify [facility] in [place] [phone]/ fax [phone] of DC, send orders, and AVS. Teaching Needs Prior to DC: Teaching done Thursday and will get more per bedside RNs Expected delivery of any needed medication/supplies/equipment: At bedside Agency Expected SOC and Services Planned: SOC Thursday for RN Patient Address/Phone [address] [facility] [phone] (home) Emergency Contact Extended Emergency Contact [...] No Transportation Name, Phone and Availability #1: Mike . Lives 1hr and 45mi ns away. [...] appointment: per with in 2019 ? Pharmacy [facility] [place] - [address] [place] [address] [place] [address] ? Durable Medical Equipment Durable Medical Equipment [...] ? Outpatient Therapy PT: No OT: No FIRE ALARM INSTALLER: No ? Fci Facility/Jail SNF: No NH: No ? Inpatient Rehab IPR: No ? Long-Term Acute Care Hospital LTACH: No ? Acute Hospital Stay Acute Hospital Stay: No Ellie LINK, RN Inpatient Nurse Watch Inspector Final MovementForm Grader Oncology Office: Pager: [phone] M-F [phone] * Care Plan - Rosalina Hughes RN [...] 64 y.o. female : 1955 MRN#: [id number] DATE OF OPERATION: 12/01/2019 Surgeon(s) and Role: [...] Rectum and Sigmoid Tissue Colon SURGICAL PATHOLOGY Lexi Bessy Escudero , 12/01/2019 0945 2 : Distal Donut Tissue Colon SURGICAL PATHOLOGY Bessy Elliott DO 1003 Attestation: Complications: None Implants: None Drains: [...] >60 >60 mL/min [facility] Comment: Danish The eGFR is not validated f or use in drug dosing adjustments. Continue to use estimated creatinine clearance per dosing reference text. Please contact the Clinical Pharmacist for questions. eGFR >60 >60 mL/min [facility] Danish Comment: The eGFR is not validated for use in drug dosing adjustments. Continue to use estimated creatinine clearance per dosing reference text. Please contact the Clinical Pharmacist for questions. Specimen Blood Performing Organization Address City/State/[facility] Ph one Number MAIN LAB [address] [place] [address] * CBC (12/02/2019 4:14 AM CDT) White [...] City/State/Zipcode Ph one Number MAIN LAB [address] [place] [address] * SURGICAL PATHOLOGY (12/01/2019 9:45 AM CDT) PATHOLOGY [facility] [email or web address] Department of Pathology and Laboratory Medicine [address] [place] [address] Surgical Pathology Office: [phone] SURGICAL PATHOLOGY REPORT NAME: PIPPA HERNANDEZ SURG PATH #: [id number] MR #: [id number] SPECIMEN CLASS: [facility] BILLING #: [id number] ALT ID #: LOCATION: DISCHARGED DATE OF [...] Negative for malignancy. Comment: Pursuant to the Health Insurance Sales Agent Program at the [facility] Pathology Department, selected slides from this [...] material indicated in this report. +++ +++ [facility]/12/05/2019 ############################## ############################## ############ Material Received: [...] submitted to Biospecimen Repository Core Facility: No Slasher Hand sections of the specimen are submitted as [...] of Pathology and Laboratory Medicine of the [facility] ([employer]) in compliance with [...] of Pathology and Laboratory Medicine of the [facility]. It has not been cleared or approved by the FDA. The FDA has determined that such clearance or approval is not necessary. Specimen Tissue - Colon Tissue - Colon Performing Organization Address City/State/Zipcode Ph one Number [facility] [address] [place] [address] * TYPE & CROSSMATCH (12/01/2019 6:40 AM CDT) Units Ordered 2 MAIN LAB Crossmatch 12/04/2019,2359 MAIN LAB Expires Record Check FOUND MAIN LAB ABO/RH(D) O POS MAIN LAB Antibody Screen NEG MAIN LAB Electronic YES MAIN LAB Crossmatch Specimen Blood Performing Organization Address City/State/[facility] Ph one Number MAIN LAB [address] [place] [address] * TELEMETRY STRIPS-SCAN (12/01/2019 12:00 AM CDT) Narrative Performed At This result has an attachment that is n ot available. Ordered by an unspecified provider. documented in this encounter Visit Diagnoses Diagnosis Rectal cancer (HCC) Malignant neoplasm of rectum documented in this encounter Administered Medications Action Date Dose Rate Site Medication Order MAR Action 12/04/2019 9:37 AM CDT 650 mg acetaminophen (TYLENOL) tablet 650 mg Given 650 mg, Oral, EVERY 4 HOURS, First dos e (after last modification) on 12/03/19 at 0800, Until Discontinued, TOTAL ACETAMINOPHEN DOSE NOT TO EXCEED 4GM DAILY, 650 mg Given 12/04/2019 6:04 AM CDT 650 mg Given 12/03/2019 8:30 PM CDT 12/02/2019 8:05 PM CDT 40 mg Arm, Rig ht enoxaparin (LOVENOX) syringe 40 mg Given 40 mg, Subcutaneous, DAILY, First dose on Nicky 12/01/19 at 2345, Until Discontinued, For patients undergoing [...] 20 mg, Oral, DAILY, First dose on Nicky 12/01/19 at 1345, Until Discontinued 20 mg Given 12/03/2019 8:50 AM CDT 20 mg Given 12/02/2019 8:16 AM CDT 12/02/2019 9:19 AM CDT 4 mg ondansetron (ZOFRAN) injection 4-8 mg Given 4-8 mg, Intravenous, EVERY 6 HOURS PRN , Starting Nicky 12/01/19 at 1335, Until 12/04/19 at 1512, Nausea/Vomiting Injectable 12/04/2019 9:37 AM CDT [address] (PROTONIX) tablet 20 mg Given 20 mg, Oral, DAILY, First dose (after last reorder) on Thu12/02/19 at 0900, Until Discontinued, Do not crush or chester w tablet., 20 mg Given 12/03/2019 8:50 AM CDT 20 mg Given 12/02/2019 8:15 AM CDT documented in this encounter
--- OUTSIDE RECORDS SUMMARY | 2020-01-20 09:53 | XMS REPORT | Encounter Summary ---
Author Author [facility] Organization [facility] Address Unknown Phone Unavailable Care Team Providers Care Wheel Presser Name Role Phone Mony Wang MD Unavailable Anna Burr MD [address] Dudley DO Unavailable Anna Burr MD PCP Reason for Referral * Radiology Services (Routine) Referred By Contact Referred To Contact Status Reason Specialty Diagnoses / Procedures Yoni Elliott DO [address] [place] [address] Ca2 Mri [address] [address] No Auth Needed Radiology Diagnoses Rectal cancer (HCC) P rocedures MRI PELVIS WO/W CONTRAST MRI PELVIS W CONTRAST Reason for Visit * Radiology Services (Routine) Referred By Contact Referred To Contact Status Reason Specialty Diagnoses / Procedures Yoni Elliott DO [address] [place] [address] Ca2 Mri [address] [address] No Auth Needed Radiology Diagnoses Rectal cancer (HCC) P rocedures MRI PELVIS WO/W CONTRAST MRI PELVIS W CONTRAST Encounter Details Care Team Description Date Type Department Yoni Elliott DO [address] [facility] [place] [address] [phone] 10/28/2019 [facility] [address] [place] [address] Social History Date Tobacco Use Types Packs/Day [...] impairment: No documented as of this encounter Medications at Time of Discharge [...] 0 (PROTONIX) 20 mg tablet mouth daily. 10/28/2019 12/01/2019 metroNIDAZOLE (FLAGYL) 2 tablets PO 6 tablet 0 500 mg tabletIndications: at 1 pm, 3 pm Rectal cancer (HCC) and 11 pm the day prior to surgery 10/28/2019 12/01/2019 neomycin (MYCIFRADIN) 500 2 tablets PO 6 tablet 0 mg tabletIndications: at 1 pm, 3 pm Rectal cancer (HCC) and 11 pm the day prior to surgery documented as of this encounter Plan of Treatment Not on filedocumented as of this encounter Goals Goal Patient Associated Recent Progress Patient-Stat Aut hor Goal Type Problems ed? Resume normal activities Hospital No Pat Hand RN documented as of this encounter Procedures Comments Procedure Name Priority Date/Time Associated Diag nosis MRI PELVIS WO/W CONTRAST Routine 10/28/2019 Recta l cancer (HCC) 10:21 AM CDT documented in this encounter Results * MRI PELVIS WO/W CONTRAST (10/28/2019 10:21 [...] City/State/Zipcode Ph one Number [facility] RAD RESULTS documented in this encounter Visit Diagnoses Diagnosis Rectal cancer (HCC) Malignant neoplasm of rectum documented in this encounter Administered Medications Action Date Dose Rate Site Medication Order MAR Action 10/28/2019 10:12 AM CDT 11 mL gadobenate dimeglumine (MULTIHANCE) Given injection 11 mL 11 mL, Intravenous, ONCE, 1 dose, Thu10/28/19 at 1030, NOTE: This is a HIGH ALERT Medication., documented in this encounter
--- OUTSIDE RECORDS SUMMARY | 2020-01-20 09:53 | XMS REPORT | Encounter Summary ---
Author Author [facility] Organization [facility] Address Unknown Phone Unavailable Care Team Providers Care Angiography Technologist Name Role Phone PCP Unavailable Encounter Details Care Team Description Date Type Department 08/16/2019 [facility] [address] [address] Social History Date Tobacco Use Types Packs/Day Years Used Never Assessed Sex Assigned at Date Recorded Female Industry Job Start Date Occupation Not on [...] PET/CT EXTERNAL Routine 08/16/2019 IMAGING 12:00 AM RADIO NEWS WRITER documented in this encounter Results * NM PET/CT EXTERNAL IMAGING (08/16/2019 12:00 AM RADIO NEWS WRITER) Specimen Narrative Performed At This order has been auto finalized and does not contain a result. documented in this encounter Visit Diagnoses Not on filedocumented in this encounter
--- OUTSIDE RECORDS SUMMARY | 2020-01-20 09:53 | XMS REPORT | Encounter Summary ---
Author Author [facility] Organization [facility] Address Unknown Phone Unavailable Care Team Providers Care Filter Tip Inspector Name Role Phone Mony Wang MD Unavailable Anna Burr MD [address] Dudley DO Unavailable Anna Burr MD PCP Reason for Visit * Reason Comments General Question Encounter Details Care Team Description Date Type Department Yoni Elliott DO [address] [place] [address] [phone] General Question 10/04/[address] [address] Social History Date Tobacco Use Types Packs/Day Years Used Never Smoker Smokeless Tobacco: Never Used Drinks/Week oz/Week Comments Alcohol Use 2 Glasses of wine 2.0 Yes Sex Assigned at Date Recorded Female Industry Job Start Date Occupation Not on file Not on file Not on file Travel End Travel History Travel Start No recent travel history available. documented as of this encounter Miscellaneous Notes * Telephone Encounter - Deepti Hernandez RN - 10/04/2019 3:47 PM BLOCK HACKER I called this pt today to clarify [...] this week. Pt had no further questions. K HACKER documented in this encounter Plan of Treatment Not on filedocumented as of this encounter Goals Goal Patient Associated Recent Progress Patient-Stat Aut hor Goal Type Problems ed? Resume normal activities Hospital No Pat Hand, STEFANIE documented as of this encounter Visit Diagnoses Not on filedocumented in this encounter
--- OUTSIDE RECORDS SUMMARY | 2020-01-20 09:53 | XMS REPORT | Encounter Summary ---
Author Author [facility] Organization [facility] Address Unknown Phone Unavailable Care Team Providers Care Fast Food Delivery Driver Name Role Phone Mony Wang MD Unavailable Anna Burr MD [address] Dudley DO Unavailable Anna Burr MD PCP Reason for Visit * Reason Comments General Question Encounter Details Care Team Description Date Type Department Yoni Elliott DO [address] [place] [address] [phone] General Question 10/24/[address] [address] Social History Date Tobacco Use Types Packs/Day [...] Telephone Encounter - Deepti Hernandez RN - 10/24/2019 2:01 PM CDT I called pt today to let her know that her 10/[address] Elliott has been moved up to 1030, following MRI at [facility]. She was ok with this. documented in this encounter Plan of Treatment Not on filedocumented as of this encounter Goals Goal Patient Associated Recent Progress Patient-Stat Aut hor Goal Type Problems ed? Resume normal activities [facility] No Pat Hand, STEFANIE documented as of this encounter Visit Diagnoses Not on filedocumented in this encounter
--- OUTSIDE RECORDS SUMMARY | 2020-01-20 09:53 | XMS REPORT | Encounter Summary ---
Author Author [facility] Organization [facility] Address Unknown Phone Unavailable Care Team Providers Care Car Sealer Name Role Phone PCP Unavailable Encounter Details Care Team Description Date Type Department 08/12/2019 [facility] [address] [address] Social History Date Tobacco Use [...] PELVIS EXTERNAL Routine 08/12/2019 IMAGING 12:00 AM DIRECTOR OF STRATEGIC SALES documented in this encounter Results * MRI PELVIS EXTERNAL IMAGING (08/12/2019 12:00 AM DIRECTOR OF STRATEGIC SALES) Specimen Narrative Performed At This order has been auto finalized and does not contain a result. documented in this encounter Visit Diagnoses Not on filedocumented in this encounter
--- OUTSIDE RECORDS SUMMARY | 2020-01-20 09:53 | XMS REPORT | Encounter Summary ---
Author Author [facility] Organization [facility] Address Unknown Phone Unavailable Care Team Providers Care Pulmonary Specialist Name Role Phone PCP Unavailable Encounter Details Care Team Description Date Type Department 08/12/2019 [facility] [address] [address] Social History Date Tobacco Use [...] CHEST EXTERNAL IMAGING Routine 08/12/2019 12:05 AM SENIOR CORPORATE STRATEGY MANAGER documented in this encounter Results * CT CHEST EXTERNAL IMAGING (08/12/2019 12:05 AM SENIOR CORPORATE STRATEGY MANAGER) Specimen Narrative Performed At This order has been auto finalized and does not contain a result. documented in this encounter Visit Diagnoses Not on filedocumented in this encounter
--- OUTSIDE RECORDS SUMMARY | 2020-01-20 09:53 | XMS REPORT | Encounter Summary ---
Author Author [facility] Organization [facility] Address Unknown Phone Unavailable Care Team Providers Care Solution Specialist Name Role Phone Mony Wang MD Unavailable Anna Burr MD [address] Dud[address] DO Unavailable Anna Burr MD PCP Reason for Visit * Reason Comments Appointment Encounter Details Care Team Description Date Type Department Yoni Elliott DO [address] [place] [address] [phone] Appointment 08/26/2019 Telephone [facility] [address] [place] [phone] Social History Date Tobacco Use Types Packs/Day [...]
--- OUTSIDE RECORDS SUMMARY | 2020-01-20 09:53 | XMS REPORT | Encounter Summary ---
Author Author [facility] Organization [facility] Address Unknown Phone Unavailable Care Team Providers Care Patcher Wood Welder Name Role Phone PCP Unavailable Encounter Details Care Team Description Date Type Department 08/12/2019 [facility] [address] [address] Social History Date Tobacco Use [...] ABD/PEL EXTERNAL Routine 08/12/2019 IMAGING 12:10 AM SHOPPING CENTRE MANAGER documented in this encounter Results * CT ABD/PEL EXTERNAL IMAGING (08/12/2019 12:10 AM SHOPPING CENTRE MANAGER) Specimen Narrative Performed At This order has been auto finalized and does not contain a result. documented in this encounter Visit Diagnoses Not on filedocumented in this encounter
--- OUTSIDE RECORDS SUMMARY | 2020-01-20 09:53 | XMS REPORT | Encounter Summary ---
Author Author [facility] Organization [facility] Address Unknown Phone Unavailable Care Team Providers Care Fine Arts Teacher Name Role Phone Mony Wang MD Unavailable Anna Burr MD [address] DO Unavailable Anna Burr MD PCP Encounter Details Care Team Description Date Type Department Yoni Elliott DO [address] [place], [place] [phone] Rectal cancer (HCC) (Primary Dx) 10/04/2019 Orders Only The [address] [address] Social History Date Tobacco Use Types Packs/Day [...] Hand RN documented as of this encounter Results * COMPREHENSIVE METABOLIC PANEL (10/28/2019 10:56 AM [...] [facility] eGFR Non >60 >60 mL/min [facility] Comment: [place] The eGFR is not validated f or use in drug dosing adjustments. Continue to use estimated creatinine clearance per dosing reference text. Please contact the Clinical Pharmacist for questions. eGFR >60 >60 mL/min [facility] [place] Comment: The eGFR is not validated for use in drug dosing adjustments. Continue to use estimated creatinine clearance per dosing reference text. Please contact the Clinical Pharmacist for questions. Specimen Performing Organization Address City/State/[facility] Ph one Number [facility] [address] [place] [address] * CBC (10/28/2019 10:56 AM CDT) White Blood 4.9 4.5 - 11.0 K/UL [facility] Cells RBC 3.74 (L) 4.0 - 5.0 M/UL [facility] Hemoglobin 11.7 (L) 12.0 - 15.0 GM/DL [facility] Hematocrit 34.8 (L) 36 - 45 % [facility] MCV 92.9 80 - 100 FL [facility] MCH 31.1 26 - 34 PG [facility] MCHC 33.5 32.0 - 36.0 G/DL [facility] RDW 20.3 (H) 11 - 15 % [facility] Platelet Count 301 150 - 400 K/UL [facility] MPV 6.2 (L) 7 - 11 FL [facility] Specimen Performing Organization Address City/[facility] Ph one Number [facility] [address] [place] [address] * TYPE & SCREEN (NOT CROSSMATCH ELIGIBLE) (10/28/2019 10:56 AM CDT) ABO/RH(D) O POS [facility] LAB Antibody Screen NEG [facility] LAB Blood Component RED CELL GROUP [facility] LAB Type Specimen Blood, venous - Blood Performing Organization Address City/[facility] Ph one Number [facility] [address] [place] [address] documented in this encounter Visit Diagnoses Diagnosis Rectal cancer (HCC) Malignant neoplasm of rectum documented in this encounter
--- OUTSIDE RECORDS SUMMARY | 2020-01-20 09:53 | XMS REPORT | Encounter Summary ---
Author Author [facility] Organization [facility] Address Unknown Phone Unavailable Care Team Providers Care Brake Press Operator Name Role Phone Mony Wang MD Unavailable Anna Burr MD [address] DO Unavailable Anna Burr MD PCP Reason for Visit * Reason Comments Appointment Request Encounter Details Care Team Description Date Type Department Yoni Elliott DO [address] [place] [address] [phone] Appointment Request 09/19/2019 Telephone [facility] [address] [address] Social History Date Tobacco Use Types Packs/Day [...] - Logan Arita - 09/19/2019 9:12 AM ORDER FULFILLMENT SPECIALIST Left voice message for Pippa Fernandez regarding rescheduled appointments from 2019 to 10/14/2019 MRI (pelvis) at 12:30pm with 12:00pm arrival time at [facility] and Dr. Elliott at 2:30pm with 2:15pm arrival time at [facility]. Will mail appointment information. R FULFILLMENT SPECIALIST * Telephone Encounter - Logan Arita - 09/19/2019 9:08 AM ORDER FULFILLMENT SPECIALIST ----- Message from Deepti Hernandez RN sent at 09/16/2019 3:56 PM ORDER FULFILLMENT SPECIALIST ----- Regarding: appt move Diagnosis code (ICD10): [...] early next week. Thank you, STEFANIE Tatum R FULFILLMENT SPECIALIST documented in this encounter Plan of Treatment Not on filedocumented as of this encounter Goals Goal Patient Associated Recent Progress Patient-Stat Aut hor Goal Type Problems ed? Resume normal activities Hospital No Pat Hand RN documented as of this encounter Visit Diagnoses Not on filedocumented in this encounter
--- OUTSIDE RECORDS SUMMARY | 2020-01-20 09:53 | XMS REPORT | Encounter Summary ---
Author Author [facility] Organization [facility] Address Unknown Phone Unavailable Care Team Providers Care Data Governance Consultant Name Role Phone Mony Wang MD Unavailable Anna Burr MD [address] DO Unavailable Anna Burr MD PCP Reason for Visit * Reason Comments Follow Up Encounter Details Care Team Description Date Type Department Yoni Elliott KenaDO [address] [place], [place] [phone] Rectal cancer (HCC) (Primary Dx) 10/28/2019 Office Visit The [facility] Cancer [address] [address] Social History Date Tobacco Use Types Packs/Day [...] Signs Reading Time Taken Comments Vital Sign 108/50 10/28/2019 11:05 AM CDT Blood Pressure 81 10/28/2019 11:05 AM CDT Pulse 36.9 C (98.5 F) 10/28/2019 11:05 AM CDT Temperature 16 10/28/2019 11:05 AM CDT Respiratory Rate 100% 10/28/2019 11:05 AM CDT Oxygen Saturation - - Inhaled Oxygen Concentration 53.3 kg (117 lb 6.4 oz) 10/28/2019 11:05 AM CDT Weight 165.1 cm (5' 5") 10/28/2019 11:05 AM CDT Height 19.54 10/28/2019 11:05 AM CDT Body Mass Index documented in [...] as of this encounter Progress Notes * Yoni Elliott, DO - 10/28/2019 10:30 AM CDT Name: Pippa Fernandez : 1955 AGE: 63 y.o . DATE OF SERVICE: 10/28/2019 Subjective: Reason for Visit: Follow Up Pippa Fernandez is a 63 y.o. female. Cancer Staging No matching staging information was found for the patient. History of Present Illness Ms. Fernandez is a 63 year old female with recently diagnosed rectal cancer who retu rns to clinic for ongoing surgical planning. She has completed neoadjuvant chemo radiation as of 10/10/19. Her only side effect from chemoradiation is fatigue. She also lost 15 pounds during treatment, but she reports having gained back 4 rece ntly. Her appetite is good. She denies issues with nausea, vomiting, fevers, chi lls, constipation or diarrhea. She underwent MRI pelvis today with the findings below indicating treatment response. She remains active and is motivated to proc eed with surgery. MRI 10/28/19 IMPRESSION 1. Decrease in size of the posterior low rectal mass. Mild residual soft tissue thickening with associated restricted diffusion is suggestive of residual tumor. 2. Decrease in size and near complete resolution of a previously enlarged perirectal lymph node. Medical History: Diagnosis Date Rectal cancer (HCC) [...] of Systems Constitutional: Positive for activity change. HENT: Negative. Eyes: Negative. Respiratory: Negative. Cardiovascular: Negative. Gastrointestinal: Negative. Endocrine: Negative. Genitourinary: Negative. Musculoskeletal: Negative. Skin: Negative. Neurological: Negative. Hematological: Negative. Psychiatric/Behavioral: Negative. Objective: CALCIUM PO Take 1,200 mg by mouth daily. estrogens, conj/medroxyPROGESTERone (PREMPRO) 0.3/1.5 mg tablet Take 1 table t by mouth daily. fluoxetine (PROZAC) 20 mg capsule Take 20 mg by mouth daily. pantoprazole DR (PROTONIX) 20 mg tablet Take 20 mg by mouth daily. Vitals: 10/28/19 1105 BP: 108/50 Patient Position: Sitting Pulse: 81 Resp: 16 Temp: 36.9 C (98.5 F) SpO2: 100% Weight: 53.3 kg (117 lb 6.4 oz) Height: 165.1 cm (65") PainSc: Zero Body mass index is 19.54 kg/m. Pain Score: Zero Fatigue Scale: 0-None Physical Exam Exam conducted with a network operations center engineer present. Constitutional: Appearance: Normal appearance. HENT: Head: [...] normal. Judgment: Judgment normal. Assessment and Plan: Ms. Fernandez is a 63 year old female with rectal cancer s/p neoadjuvant chemoradiat ion. Ms. Fernandez has done well with chemoradiation and completed treatment on 10/10/19. W e discussed moving forward with surgery six to [...] to proceed with surgery. Informed consent obtained. Chuy Avendano M.D. Buckle Sewer Machine, PGY-5 Department of Surgery ATTESTATION I personally performed the stark portions of the E/M visit, discussed case with re sident and concur with resident documentation of history, physical exam, assessm ent, and treatment plan unless otherwise noted. Staff name: Yoni Elliott, Date: 10/31/2019 We spent a lot of time with this patient discussing the need for surgery and the need for preparation of an ostomy. We discussed minimally invasive techniques and the plans for a possible open technique. She is aware of these possibilitie s. She is also aware of the risks. Risks of bleeding and infection were discussed. Damage to surrounding structure was also discussed with the patient. Unique Risks: nerve injury, vascular injury, damage to bowel and bladder, fistul as and need for further surgery, leaks Patient related risks: Not a smoker, BMI 20, active, medications reviewed and n oted, Risk of not undergoing this procedure: Progression of malignancy, obstruction, metastasis We discussed nutrition. We discussed the need for protein intake. A well jorge nihtya diet and stop all nutritional and herbal supplements (vitamins/minerals/herb als) EXCEPTIONS the following are okay to continue: calcium, iron & vitamin D. Pippa Fernandez was given the option of meeting with a can handler today. We discussed the need for no smoking or smoking cessation. Pippa Fernandez is n ot a smoker. We also went over how to maximize strengthening and activity. The patient shoul d be walking daily and pushing further for added endurance leading up to surgery . This will enhance the recovery of the patient from any surgery. documented in this encounter Plan of Treatment Not on filedocumented as of this encounter Goals Goal Patient Associated Recent Progress Patient-Stat Aut hor Goal Type Problems ed? Resume normal activities Hospital No Pat Hand RN documented as of this encounter Visit Diagnoses Diagnosis Rectal cancer (HCC) Malignant neoplasm of rectum documented in this encounter
--- OUTSIDE RECORDS SUMMARY | 2020-01-20 09:53 | XMS REPORT | Encounter Summary ---
Author Author [facility] Organization [facility] Address Unknown Phone Unavailable Care Team Providers Care Supervisor Meter Shop Name Role Phone Mony Wang MD Unavailable Anna Burr MD [address] DO Unavailable Reason for Visit * Reason Comments Navigation Assessment Encounter Details Care Team Description Date Type Department Yoni Elliott DO [address] [place] [address] [phone] Navigation Assessment 08/24/[address] [address] Social History Date Tobacco Use Types Packs/Day Years Used Never Assessed Sex Assigned at Date Recorded Female Industry Job Start Date Occupation Not on file Not on file Not on file Travel End Travel History Travel Start No recent travel history available. documented as of this encounter Miscellaneous Notes * Telephone Encounter - Ewelina Millard RN - 08/24/2019 11:16 AM MANAGER EPIC Navigation Intake Assessment Document Patient Name: Pippa Fernandez : 1955 Insurance: BCBS Appointment Info: Future Appointments Date Time Provider Department Center 08/26/2019 9:45 AM Yoni Elliott DO [facility] Exam Diagnosis & Reason for Visit: Rectal cancer Physician Info: Referring Physician: Dr Ocampo [phone] Location of Films: PACS Location of Pathology: Please notify Julia Millard RN in Navigation and intake what additional studies are desired on path from rectal bx. Specimen at [facility] dical Lab [phone] collected 07/21/2019 History of Present Illness: 07/21/2019 [...] Onc Fertility: Onc Fertility Assessment: Not applicable GER EPIC documented in this encounter Plan of Treatment Not on filedocumented as of this encounter Goals Goal Patient Associated Recent Progress Patient-Stat Aut hor Goal Type Problems ed? Resume normal activities Hospital No Pat Hand, STEFANIE documented as of this encounter Visit Diagnoses Not on filedocumented in this encounter
--- OUTSIDE RECORDS SUMMARY | 2020-01-20 09:53 | XMS REPORT | Encounter Summary ---
Author Author [facility] Organization [facility] Address Unknown Phone Unavailable Care Team Providers Care Transportation Services Representative Name Role Phone Mony Wang MD Unavailable Anna Burr MD [address] DO Unavailable Anna Burr MD PCP Reason for Visit * Reason Comments General Question COVID 19 appt Encounter Details Care Team Description Date Type Department Yoni Elliott Kena, DO [address] [place] [address] [phone] General Question (COVID 19 appt) 10/18/2019 Telephone The [facility] Cancer [address] [address] Social History Date Tobacco Use Types Packs/Day [...] Telephone Encounter - Deepti Hernandez RN - 10/18/2019 2:36 PM CDT Left a VM for this pt in re to COVID 19. I told her I would like to keep her lovely t if possible as she is a cancer pt and we need to proceed with scheduling her s urgery, which should be sometime into December. I told her no need to call me back unless she would prefer to cx and postpone a week or two or if she was not feeling well. She has my direct phone number. documented in this encounter Plan of Treatment Not on filedocumented as of this encounter Goals Goal Patient Associated Recent Progress Patient-Stat Aut hor Goal Type Problems ed? Resume normal activities Hospital No Pat Hand, STEFANIE documented as of this encounter Visit Diagnoses Not on filedocumented in this encounter
--- OUTSIDE RECORDS SUMMARY | 2020-01-20 09:53 | XMS REPORT | Encounter Summary ---
Author Author [facility] Organization [facility] Address Unknown Phone Unavailable Care Team Providers Care Hitch Technician Name Role Phone Mony Wang MD Unavailable Anna Burr MD [address] DO Unavailable Anna Burr MD PCP Reason for Referral * Radiology Services (Routine) Referred By Contact Referred To Contact Status Reason Specialty Diagnoses / Procedures Yoni Elliott DO [address] [place] [address] Ca2 Mri [address] [address] No Auth Needed Radiology Diagnoses Rectal cancer (HCC) P rocedures MRI PELVIS WO/W CONTRAST MRI PELVIS W CONTRAST Reason for Visit * Reason Comments New CA Pt * Consult, Test & Treat (Routine) Referred By Contact Referred To Contact Status Reason Specialty Diagnoses / Procedures Mony Wang MD [address] [place] [address] Yoni Elliott DO [address] [place] [address] No Auth Needed Oncology Diagnoses Rectal cancer Encounter Details Care Team Description Date Type Department Yoni Elliott DO [address] [facility] [place] [address] [phone] Rectal cancer (HCC) (Primary Dx) 08/26/2019 Office Visit The [facility] [address] [address] Social History Date Tobacco Use Types Packs/Day [...] Comments Vital Sign 122/65 08/26/2019 9:41 AM DAIRY EQUIPMENT INSTALLER Blood Pressure 80 08/26/2019 9:41 AM DAIRY EQUIPMENT INSTALLER Pulse 37.1 C (98.8 F) 08/26/2019 9:41 AM DAIRY EQUIPMENT INSTALLER Temperature 16 08/26/2019 9:41 AM DAIRY EQUIPMENT INSTALLER Respiratory Rate 97% 08/26/2019 9:41 AM DAIRY EQUIPMENT INSTALLER Oxygen Saturation - - Inhaled Oxygen Concentration 57 kg (125 lb 9.6 oz) 08/26/2019 9:41 AM DAIRY EQUIPMENT INSTALLER Weight 164.4 cm (5' 4.72") 08/26/2019 9:41 AM DAIRY EQUIPMENT INSTALLER Height 21.08 08/26/2019 9:41 AM DAIRY EQUIPMENT INSTALLER Body Mass Index documented in this encounter Progress Notes * Yoni Elliott DO - 08/26/2019 9:45 AM DAIRY EQUIPMENT INSTALLER Name: Pippa Fernandez : 1955 AGE: 63 [...] Vitals signs reviewed. Exam conducted with a store administrative assistant present. Constitutional: Appearance: Normal appearance. She is [...] pelvis will be repeated at the time. Sdueep Mitchell MD ATTESTATION I personally performed the stark portions of the E/M visit, discussed case with re maggynt and concur with resident documentation of history, physical exam, assessm ent, and treatment plan unless otherwise noted. Staff name: Yoni Elliott DO Date: 08/26/2019 I spent 45 minutes with this patient. Y EQUIPMENT INSTALLER documented in this encounter Plan of Treatment Not on filedocumented as of this encounter Goals Goal Patient Associated Recent Progress Patient-Stat Aut hor Goal Type Problems ed? Resume normal activities Hospital No Pat Hand RN documented as of this encounter Results * MRI PELVIS WO/W [...]
--- OUTSIDE RECORDS SUMMARY | 2020-01-20 09:53 | XMS REPORT | Encounter Summary ---
Author Author [facility] Organization [facility] Address Unknown Phone Unavailable Care Team Providers Care Toe Closing Machine Tender Name Role Phone Mony Wang MD Unavailable Anna Burr MD [address] DO Unavailable Anna Burr MD PCP Reason for Visit * Reason Comments General Question rectal bleeding Encounter Details Care Team Description Date Type Department Yoni Elliott DO [address] [place] [address] [phone] General Question (rectal bleeding) 08/31/[address] Tele[address] [address] Social History Date Tobacco Use Types Packs/Day [...] Deepti Hernandez RN - 08/31/2019 12:52 PM DOPE HOUSE OPERATOR HELPER This pt called today to let me know that she's been having intermittent rectal b leeding. She said she was in to see her rad onc today and he was aware. I told h er I would notify Dr. Lexi, but most likely something we will just monitor f or now. I did tell her to call Dr. Wang's office, her med onc, and let him kno w. She had no more questions. HOUSE OPERATOR HELPER documented in this encounter Plan of Treatment Not on filedocumented as of this encounter Goals Goal Patient Associated Recent Progress Patient-Stat Aut hor Goal Type Problems ed? Resume normal activities Hospital No Pat Hand, STEFANIE documented as of this encounter Visit Diagnoses Not on filedocumented in this encounter
--- OUTSIDE RECORDS SUMMARY | 2020-01-20 09:53 | XMS REPORT | Encounter Summary ---
Author Author [facility] Organization [facility] Address Unknown Phone Unavailable Care Team Providers Care Storage Engineer Name Role Phone Mony Wang MD Unavailable Anna Burr MD [address] DO Unavailable Anna Burr MD PCP Encounter Details Care Team Description Date Type Department Yoni lEliott, DO [address] [place], [place] [phone] Rectal cancer (HCC) 10/28/2019 Lab Only [facility] Cancer [address] [address] Social History Date Tobacco Use Types Packs/Day [...] Date/Time Associated Diag nosis HC CBC,AUTOMATED Routine 10/28/2019 Rectal cancer (HCC) 10:56 AM CDT HC ABO GROUP Routine 10/28/2019 Rectal cancer ( HCC) 10:56 AM CDT HC COMPREHENSIVE Routine 10/28/2019 Rectal cancer (HCC) METABOLIC PANEL 10:56 AM CDT documented in this encounter Results * TYPE & SCREEN (NOT CROSSMATCH ELIGIBLE) (10/28/2019 10:56 AM CDT) ABO/RH(D) O POS [facility] Antibody Screen NEG [facility] Blood Component RED CELL GROUP [facility] Type Specimen Blood, venous - Blood Performing Organization Address City/State/[facility] Ph one Number [facility] [address] [place] [address] * COMPREHENSIVE METABOLIC PANEL (10/28/2019 10:56 AM [...] Non >60 >60 mL/min [facility] Comment: [place] The eGFR is not validated f or use in drug dosing adjustments. Continue to use estimated creatinine clearance per dosing reference text. Please contact the Clinical Pharmacist for questions. eGFR >60 >60 mL/min [facility] [place] Comment: The eGFR is not validated for use in drug dosing adjustments. Continue to use estimated creatinine clearance per dosing reference text. Please contact the Clinical Pharmacist for questions. Specimen Performing Organization Address City/[facility] Ph one Number [facility] [address] [place] [address] * CBC (10/28/2019 10:56 AM CDT) White [...] MPV 6.2 (L) 7 - 11 FL [facility] Specimen Performing Organization Address City/[facility] Ph one Number [facility] [address] [place] [address] documented in this encounter Visit Diagnoses Diagnosis Rectal cancer (HCC) Malignant neoplasm of rectum documented in this encounter
--- OUTSIDE RECORDS SUMMARY | 2020-01-20 09:54 | XMS REPORT | Continuity of Care Document ---
Author Organization Unknown Address Unknown Phone Unavailable Allergies Active Description Code Type Severity Reaction Onset Reported/Identified Relationship to Patient Clinical Status Yes No Known Drug Allergies [id number] Drug Allergy Unknown N/A 01/17/2020 Medications There is no data. Problems Date Dx Coded Attending Type Code Diagnosis Diagnosed By 09/08/2014 ANITA ORELLANA, NADYA Ugalde Ot 733.90 09/08/2014 ANITA ORELLANA, NADAY Ugalde Ot 737.30 09/11/2014 NADYA HOWARD MD [...] DO, GRECIA C Ot Z79.8 99 OTHER SENIOR LIVING (CURRENT) DRUG THERAPY 04/05/2019 SHELLEY DO, GRECIA [...] DO, GRECIA C Ot Z79.8 99 OTHER SENIOR LIVING (CURRENT) DRUG THERAPY 04/11/2019 SHELLEY DO, GRECIA [...] DO, GRECIA C Ot Z79.8 99 OTHER [employer]ATOR (CURRENT) DRUG THERAPY 04/15/2019 SHELLEY DO, GRECIA [...] Ot Y84.2 RADIOLOG PROC/RADIOTHRPY CAUSE ABN REACT 11/09/2019 REFUGIO PINTO Ot C20 MALIGNANT NEOPLASM OF RECTUM 11/09/2019 REFUGIO PINTO Ot Z98.890 OTHER SPECIFIED POSTPROCEDURAL STATES 11/10/2019 REFUGIO PINTO Ot C20 MALIGNANT NEOPLASM OF RECTUM 11/10/2019 REFUGIO PINTO Ot Z51.0 ENCOUNTER FOR ANTINEOPLASTIC RADIATION T 11/10/2019 REFUGIO PINTO Ot Z98.890 OTHER SPECIFIED POSTPROCEDURAL STATES 12/01/2019 ORENDER DOBILL S Ot C20 MALIGNANT NEOPLASM OF RECTUM 12/09/2019 OWENNDER DO BILL S Ot C20 MALIGNANT NEOPLASM OF RECTUM 12/15/2019 REFUGIO PINTO Ot C20 MALIGNANT NEOPLASM OF RECTUM 12/15/2019 REFUGIO PINTO Ot Z98.890 OTHER SPECIFIED POSTPROCEDURAL STATES 12/20/2019 REFUGIO PINTO N Ot C20 MALIGNANT NEOPLASM OF RECTUM 12/20/2019 REFUGIO PINTO Ot Z98.890 OTHER SPECIFIED POSTPROCEDURAL STATES 12/23/2019 BILL HERRING DO Ot C20 MALIGNANT NEOPLASM OF RECTUM 12/27/2019 REFUGIO PINOT Ot C20 MALIGNANT NEOPLASM OF RECTUM 12/27/2019 REFUGIO PINTO Ot Z98.890 OTHER SPECIFIED POSTPROCEDURAL STATES 12/30/2019 REFUGIO PINTO Ot C20 MALIGNANT NEOPLASM OF RECTUM 12/30/2019 REFUGIO PINTO Ot Z98.890 OTHER SPECIFIED POSTPROCEDURAL STATES Procedures There is no data. Results Test [...] - 10/04/19 05:15 Magnesium 1.6 mg/dL 1.6-2.4 Coronavirus SARS-CoV-2 SO 2018 0 13:00 Coronavirus Ab [Units/volume] in Serum Negative Negative Coronavirus SARS-CoV-2 SO 2018 0 08:15 Coronavirus Ab [Units/volume] in Serum Negative Negative Encounters ACCT No. Visit Date/Time Discharge Status Pt. Type Provider Facility Loc./Unit Complaint 12/201607/07/2019 10:13:45 07/07/2019 23:59 :59 CLS Outpatient [id number] 01/17/2020 05:40:00 14:30:00 DIS Outpatient SHEBA TORRES DO Via [facility] PREOP RECTAL CANCER [id number] 12/16/2019 12:48:00 23:59:59 CLS Outpatient REFUGIO PINTO [facility] ONC [id number] 11/28/2019 14:04:00 23:59:59 CLS Outpatient BILL HERRING DO [facility] LABNPT [id number] 11/03/2019 09:13:00 00:01:00 DIS Outpatient REFUGIO PINTO [facility] ONC [id number] 09/30/2019 11:10:00 16:24:00 DIS Inpatient REFUGIO PINTO Vi [facility] 4TH DEHYDRATION,N/V [id number] 08/16/2019 08:55:00 23:59:59 CLS Outpatient REFUGIO PINTO [facility] RAD RECTAL CANCER [id number] 08/12/2019 10:45:00 23:59:59 CLS Outpatient REFUGIO PINTO [facility] RAD RECTAL CANCER [id number] 04/05/2019 06:02:00 019 12:08:00 DIS Outpatient GRECIA SHELLEY DO [facility] SDC POST MENOPAUSAL BLEEDIN G [id number] 04/01/2019 05:32:00 019 11:51:00 DIS Outpatient GRECIA SHELLEY DO [facility] PREOP POST MENOPAUSAL BLEEDIN G [id number] 01/04/2019 11:46:00 019 23:59:59 CLS Outpatient BILL HERRING DO S [facility] RAD POST MENOPAUSAL BLEEDING [id number] 05/19/2018 07:52:00 018 23:59:59 CLS Outpatient ASHLEY HERRING DOLINE S [facility] RAD 6 MONTH FOLLOW UP LT BREAST ASYMMETRY [id number] 05/18/2018 10:30:00 018 23:59:59 CLS Preadmit ROBERTH PEOPLES APRN [facility] RAD SCREENING [id number] 01/20/2018 10:55:00 018 15:25:00 DIS Outpatient KAREN ALARCON MD [facility] ENDO SCREENING [id number] 01/15/2018 13:50:00 018 14:04:00 DIS Outpatient KAREN ALARCON MD [facility] PREOP COLONOSCOPY [id number] 04/20/2017 12:46:00 017 23:59:59 CLS Outpatient BILL HERRING DO S [facility] RAD LT BREAST LATER AL FULLNESS [id number] 01/04/2016 09:53:00 016 23:59:59 CLS Outpatient BILL HERRING DO S [facility] RAD [id number] 09/07/2014 09:03:00 015 23:59:59 CLS Outpatient NADYA HOWARD MD [facility] RAD [id number] 08/29/2014 08:24:00 015 23:59:59 CLS Outpatient ANITA ORELLANA, NADYA Ugalde [facility] RAD [id number] 12/28/2013 07:54:00 014 23:59:59 CLS Outpatient [id number] 12/20/2013 11:37:00 014 23:59:59 CLS Outpatient [id number] 06/26/2013 22:08:00 013 22:38:00 DIS Emergency [id number] 01/20/2020 10:00:00 P EN Preadmit SHEBA TORRES DO [facility] SDC RECTAL CANCER
[2020-01-20] MEDS ORDERED: fentaNYL INJECTION 100 MCG/2 ML AMP ONE (10:00)
--- NOTE | 2020-01-20 10:51 | Discharge Inst-Simple/Standard ---
Discharge Inst-Standard Patient Instructions/Follow Up Plan of Care/Instructions/FU: 2 weeks Sam Ice pack on 15 min off 30 min and repeat for first day or two to reduce swelling and discomfort. Activity as Tolerated: No Discharge Diet: Regular Diet Other Inst to Patient Follow up Appt: Make appointment for 2 week. Instructions: No lifting greater than 10 pounds. No strenuous activity. May shower in 24 hours, no tub bath or soaking. Use incentive spirometer at home as directed. No Smoking Skin/Wound Care: You have special glue over your incision that will fall off on it's own. Ice pack on 15 min and off 30 min and repeat to decrease swelling and discomfort. Symptoms to Report: Appetite Changes, Extremity Discoloration, Numbness/Tingling, Swelling Increased, Bleeding Excessive, Eyesight Changes, Pain Increased, Urine Color Change, Constipation(Persistent), Fever over 101 degree F, Pain/Pressure in chest, Urinating Difficulty, Cough Up/Vomit Blood, Heart Beat Irreg/Pounding, Pain/Pressure in jaw, Vaginal Bleeding Increase, Cramps in feet or legs, Lightheadedness, Pain/Pressure in shoulder, Diarrhea(Persistent), Memory Changes Suddenly, Questions/Concerns, Weight gain consecutive days, Dizziness/Fainting, Nausea/Vomiting, Shortness of Breath, Weight gain over 2 pounds If questions or concerns contact your physician Or seek help at emergency department. SHEBA TORRES DO Jan 20, 2020 10:51
--- NOTE | 2020-01-20 10:53 | Progress Note-Post Operative ---
Post-Operative Progess Note Surgeon (s)/Knot Cutter (s) Surgeon SHEBA TORRES DO Knot Cutter: na Pre-Operative Diagnosis rectal cancer Post-Operative Diagnosis same Procedure & Operative Findings Date of Procedure 01/20/20 Procedure Performed/Findings PROCEDURE: Right internal jugular port placement using ultrasound guidance. COMPLICATIONS: None. INDICATIONS: The patient is a 64 year old female with rectal cancer. Patient understands the risks and benefits of port placement and wished to proceed with the procedure. Consent was signed on the chart. PROCEDURE: The patient was taken to the operating suite, was prepped and draped in the sterile fashion. A surgical pause was performed. Ultrasound was used to locate the internal jugular vein. Once located anesthetic was infiltrated above it. Using micro-access kit, the right internal vein was accessed. Dark nonpulsatile blood was withdrawn. The wire was inserted. Fluoroscopy assured proper placement. The needle was removed. The micro-access dilator was advanced over the wire and the wire was removed. The regular wire was inserted and fluoroscopy assured proper placement. The wire was then secured. Local anesthetic was used to anesthetize from the neck for tunneling down to the right chest and for pocket creation. A 15 blade scalpel was used to make an incision over the right chest. Cautery was used to dissect down to the pectoral fascia. A pocket was created with blunt dissection. The dilator sheath was then advanced over the wire under fluoroscopy and the dilator and wire were removed. The Groshong catheter was inserted through the sheath and the sheath was then removed. The Groshong wire was removed. The catheter was then tunneled to the right chest pocket. Fluoroscopy was used to cut to length and this was then attached to the port which was then placed within the pocket. The port was then accessed without difficulty. It was then flushed with saline and then heparin. The subcutaneous tissues were then reapproximated using 3-0 Vicryl. The areas were then washed and dried. Skin Affix was placed over incision. The insertion point of the neck Skin Affix was placed over the incision. The patient tolerated the procedure well without complication and was taken to recovery room in stable condition. Chest x-ray is pending. Anesthesia Type mac c local Estimated Blood Loss Estimated blood loss (mL): min Specimens/Packing Specimens Removed SHEBA Smith DO Jan 20, 2020 10:53
--- NOTE | 2020-01-20 11:24 | Diagnostic Imaging Report ---
INDICATION: Port placement. TIME OF EXAM: 11:13 AM COMPARISON is made with prior chest from 09/30/2019. A right chest wall port has tip overlying the SVC. No pneumothorax is identified. Right basilar nodule appears stable. Left lung is clear. No effusion is seen. IMPRESSION: 1. Port placement. No pneumothorax is detected. 2. Stable right basilar nodule. Dictated by: Dictated on workstation # [id number]
--- NOTE | 2020-01-20 11:29 | Diagnostic Imaging Report ---
INDICATION: Fluoroscopy for port placement. Fluoroscopy was provided in the OR during port placement. 18 seconds of fluoroscopic time were utilized. A single image demonstrates a right sided port with tip overlying SVC. IMPRESSION: Fluoroscopy for port placement. Dictated by: Dictated on workstation # [id number]
--- NOTE | 2020-01-20 13:42 | Anesthesia-General Post-Op ---
MAC Patient Condition Mental Status/LOC: Same as Preop Cardiovascular: Satisfactory Nausea/Vomiting: Absent Respiratory: Satisfactory Pain: Controlled Complications: Absent Post Op Complications Complications None Follow Up Care/Instructions Patient Instructions None needed. Anesthesiology Discharge Order Discharge Order Patient is doing well, no complaints, stable vital signs, no apparent adverse anesthesia problems. No complications reported per nursing. ELVIS LAN CRNA Jan 20, 2020 13:42
== END 2020-01-20 12:20 | disposition home or self-care (01) ==
LOC: SDC 08:43 → EDSTATUS 10:00 → SDC 12:20
PROVIDERS: ATTEND Surgery
DX: C20 Malignant neoplasm of rectum (principal); Z11.2 Encounter for screening for other bacterial diseases; E87.2 Acidosis; Z79.899 Other long term (current) drug therapy; Z86.010 Personal history of colon polyps; F32.9 Major depressive disorder, single episode, unspecified; F41.9 Anxiety disorder, unspecified; K21.9 Gastro-esophageal reflux disease without esophagitis
CPT/HCPCS: 36561; 71045; 76000; 87081; C1788

== ENCOUNTER 2020-03-07 12:59 | Outpatient (RCR) | payer BC ==
[2019-12-16 13:44] LABS: BASOPHILS % (AUTO) 0 % (0-10); EOSINOPHILS # (AUTO) 0.3 10^3/uL (0.0-0.3); EOSINOPHILS % (AUTO) 4 % (0-10); HEMATOCRIT 35 % (35-52); HEMOGLOBIN 11.2 G/DL (11.5-16.0); LYMPHOCYTES # (AUTO) 0.4 X 10^3 (1.0-4.0); LYMPHOCYTES % (AUTO) 6 % (12-44); MEAN CORPUSCULAR HEMOGLOBIN 31 PG (25-34); MEAN CORPUSCULAR HGB CONC 32 G/DL (32-36); MEAN CORPUSCULAR VOLUME 96 FL (80-99); MEAN PLATELET VOLUME 8.5 FL (7.4-10.4); MONOCYTES # (AUTO) 0.5 X 10^3 (0.0-1.0); MONOCYTES % (AUTO) 7 % (0-12); NEUTROPHILS # (AUTO) 5.9 X 10^3 (1.8-7.8); NEUTROPHILS % (AUTO) 84 % (42-75); PLATELET COUNT 384 10^3/uL (130-400); RED CELL DISTRIBUTION WIDTH 12.1 % (10.0-14.5); WHITE BLOOD COUNT 7.1 10^3/uL (4.3-11.0)
[2019-12-16 14:01] LABS: ALANINE AMINOTRANSFERASE 16 U/L (0-55); ALBUMIN 3.6 GM/DL (3.2-4.5); ALKALINE PHOSPHATASE 85 U/L (40-136); BILIRUBIN,TOTAL 0.2 MG/DL (0.1-1.0); BUN/CREATININE RATIO 13; CALCIUM 9.1 MG/DL (8.5-10.1); CARBON DIOXIDE 27 MMOL/L (21-32); CHLORIDE 102 MMOL/L (98-107); CREATININE SERUM 0.75 MG/DL (0.60-1.30); GFR ESTIMATED > 60; GLUCOSE 97 MG/DL (70-105); POTASSIUM 3.9 MMOL/L (3.6-5.0); SODIUM 139 MMOL/L (135-145); TOTAL PROTEIN 7.1 GM/DL (6.4-8.2)
[2020-01-26 13:30] LABS: BASOPHILS % (AUTO) 1 % (0-10); EOSINOPHILS # (AUTO) 0.2 10^3/uL (0.0-0.3); EOSINOPHILS % (AUTO) 4 % (0-10); HEMATOCRIT 37 % (35-52); HEMOGLOBIN 11.7 G/DL (11.5-16.0); LYMPHOCYTES # (AUTO) 0.5 X 10^3 (1.0-4.0); LYMPHOCYTES % (AUTO) 11 % (12-44); MEAN CORPUSCULAR HEMOGLOBIN 29 PG (25-34); MEAN CORPUSCULAR HGB CONC 32 G/DL (32-36); MEAN CORPUSCULAR VOLUME 90 FL (80-99); MEAN PLATELET VOLUME 8.5 FL (7.4-10.4); MONOCYTES # (AUTO) 0.4 X 10^3 (0.0-1.0); MONOCYTES % (AUTO) 8 % (0-12); NEUTROPHILS # (AUTO) 3.3 X 10^3 (1.8-7.8); NEUTROPHILS % (AUTO) 76 % (42-75); PLATELET COUNT 265 10^3/uL (130-400); RED CELL DISTRIBUTION WIDTH 13.1 % (10.0-14.5); WHITE BLOOD COUNT 4.3 10^3/uL (4.3-11.0)
[2020-01-26 13:50] LABS: ALANINE AMINOTRANSFERASE 12 U/L (0-55); ALBUMIN 3.9 GM/DL (3.2-4.5); ALKALINE PHOSPHATASE 87 U/L (40-136); BILIRUBIN,TOTAL 0.3 MG/DL (0.1-1.0); BUN/CREATININE RATIO 18; CALCIUM 9.1 MG/DL (8.5-10.1); CARBON DIOXIDE 27 MMOL/L (21-32); CHLORIDE 104 MMOL/L (98-107); GFR ESTIMATED > 60; GLUCOSE 123 MG/DL (70-105); MAGNESIUM 2.2 MG/DL (1.6-2.4); POTASSIUM 3.7 MMOL/L (3.6-5.0); SODIUM 137 MMOL/L (135-145); TOTAL PROTEIN 7.2 GM/DL (6.4-8.2)
[2020-02-02 14:15] LABS: BASOPHILS % (AUTO) 0 % (0-10); EOSINOPHILS # (AUTO) 0.2 10^3/uL (0.0-0.3); EOSINOPHILS % (AUTO) 3 % (0-10); HEMATOCRIT 38 % (35-52); LYMPHOCYTES # (AUTO) 0.5 X 10^3 (1.0-4.0); LYMPHOCYTES % (AUTO) 10 % (12-44); MEAN CORPUSCULAR HEMOGLOBIN 28 PG (25-34); MEAN CORPUSCULAR HGB CONC 32 G/DL (32-36); MEAN CORPUSCULAR VOLUME 89 FL (80-99); MEAN PLATELET VOLUME 8.8 FL (7.4-10.4); MONOCYTES # (AUTO) 0.6 X 10^3 (0.0-1.0); MONOCYTES % (AUTO) 12 % (0-12); NEUTROPHILS # (AUTO) 3.6 X 10^3 (1.8-7.8); NEUTROPHILS % (AUTO) 75 % (42-75); PLATELET COUNT 278 10^3/uL (130-400); RED CELL DISTRIBUTION WIDTH 12.9 % (10.0-14.5); WHITE BLOOD COUNT 4.9 10^3/uL (4.3-11.0)
[2020-02-02 14:31] LABS: CALCIUM 9.1 MG/DL (8.5-10.1); CREATININE SERUM 0.96 MG/DL (0.60-1.30); MAGNESIUM 3.5 MG/DL (1.6-2.4); POTASSIUM 4.3 MMOL/L (3.6-5.0)
[2020-02-10 08:22] LABS: BASOPHILS % (AUTO) 0 % (0-10); EOSINOPHILS # (AUTO) 0.1 10^3/uL (0.0-0.3); EOSINOPHILS % (AUTO) 3 % (0-10); HEMATOCRIT 35 % (35-52); HEMOGLOBIN 11.5 G/DL (11.5-16.0); LYMPHOCYTES # (AUTO) 0.4 X 10^3 (1.0-4.0); LYMPHOCYTES % (AUTO) 10 % (12-44); MEAN CORPUSCULAR HEMOGLOBIN 29 PG (25-34); MEAN CORPUSCULAR HGB CONC 33 G/DL (32-36); MEAN CORPUSCULAR VOLUME 89 FL (80-99); MEAN PLATELET VOLUME 8.7 FL (7.4-10.4); MONOCYTES # (AUTO) 0.3 X 10^3 (0.0-1.0); MONOCYTES % (AUTO) 9 % (0-12); NEUTROPHILS # (AUTO) 2.9 X 10^3 (1.8-7.8); NEUTROPHILS % (AUTO) 77 % (42-75); PLATELET COUNT 223 10^3/uL (130-400); RED CELL DISTRIBUTION WIDTH 13.7 % (10.0-14.5); WHITE BLOOD COUNT 3.8 10^3/uL (4.3-11.0)
[2020-02-10 08:35] LABS: BUN/CREATININE RATIO 17; CARBON DIOXIDE 22 MMOL/L (21-32); CHLORIDE 108 MMOL/L (98-107); CREATININE SERUM 0.82 MG/DL (0.60-1.30); GFR ESTIMATED > 60; GLUCOSE 85 MG/DL (70-105); MAGNESIUM 1.8 MG/DL (1.6-2.4); POTASSIUM 4.1 MMOL/L (3.6-5.0); SODIUM 141 MMOL/L (135-145)
[2020-02-16 10:49] LABS: BASOPHILS % (AUTO) 0 % (0-10); EOSINOPHILS # (AUTO) 0.1 10^3/uL (0.0-0.3); EOSINOPHILS % (AUTO) 2 % (0-10); HEMATOCRIT 35 % (35-52); HEMOGLOBIN 11.1 G/DL (11.5-16.0); LYMPHOCYTES # (AUTO) 0.6 X 10^3 (1.0-4.0); LYMPHOCYTES % (AUTO) 17 % (12-44); MEAN CORPUSCULAR HEMOGLOBIN 29 PG (25-34); MEAN CORPUSCULAR HGB CONC 32 G/DL (32-36); MEAN CORPUSCULAR VOLUME 90 FL (80-99); MEAN PLATELET VOLUME 8.5 FL (7.4-10.4); MONOCYTES # (AUTO) 0.3 X 10^3 (0.0-1.0); MONOCYTES % (AUTO) 9 % (0-12); NEUTROPHILS # (AUTO) 2.4 X 10^3 (1.8-7.8); NEUTROPHILS % (AUTO) 72 % (42-75); PLATELET COUNT 195 10^3/uL (130-400); RED CELL DISTRIBUTION WIDTH 15.4 % (10.0-14.5); WHITE BLOOD COUNT 3.3 10^3/uL (4.3-11.0)
[2020-02-16 11:05] LABS: ALANINE AMINOTRANSFERASE 13 U/L (0-55); ALBUMIN 3.8 GM/DL (3.2-4.5); ALKALINE PHOSPHATASE 77 U/L (40-136); BILIRUBIN,TOTAL 0.3 MG/DL (0.1-1.0); BUN/CREATININE RATIO 20; CALCIUM 8.9 MG/DL (8.5-10.1); CARBON DIOXIDE 26 MMOL/L (21-32); CHLORIDE 107 MMOL/L (98-107); CREATININE SERUM 0.75 MG/DL (0.60-1.30); GFR ESTIMATED > 60; GLUCOSE 92 MG/DL (70-105); MAGNESIUM 1.7 MG/DL (1.6-2.4); POTASSIUM 4.2 MMOL/L (3.6-5.0); SODIUM 140 MMOL/L (135-145); TOTAL PROTEIN 6.5 GM/DL (6.4-8.2)
[2020-02-23 16:17] LABS: BASOPHILS % (AUTO) 0 % (0-10); EOSINOPHILS # (AUTO) 0.1 10^3/uL (0.0-0.3); EOSINOPHILS % (AUTO) 3 % (0-10); HEMATOCRIT 36 % (35-52); HEMOGLOBIN 11.9 G/DL (11.5-16.0); LYMPHOCYTES # (AUTO) 0.6 X 10^3 (1.0-4.0); LYMPHOCYTES % (AUTO) 14 % (12-44); MEAN CORPUSCULAR HEMOGLOBIN 29 PG (25-34); MEAN CORPUSCULAR HGB CONC 33 G/DL (32-36); MEAN CORPUSCULAR VOLUME 89 FL (80-99); MEAN PLATELET VOLUME 8.9 FL (7.4-10.4); MONOCYTES # (AUTO) 0.7 X 10^3 (0.0-1.0); MONOCYTES % (AUTO) 15 % (0-12); NEUTROPHILS # (AUTO) 3.1 X 10^3 (1.8-7.8); NEUTROPHILS % (AUTO) 69 % (42-75); PLATELET COUNT 180 10^3/uL (130-400); RED CELL DISTRIBUTION WIDTH 16.3 % (10.0-14.5); WHITE BLOOD COUNT 4.6 10^3/uL (4.3-11.0)
[2020-02-23 16:31] LABS: BUN/CREATININE RATIO 20; CARBON DIOXIDE 26 MMOL/L (21-32); CHLORIDE 108 MMOL/L (98-107); GFR ESTIMATED > 60; GLUCOSE 100 MG/DL (70-105); MAGNESIUM 2.1 MG/DL (1.6-2.4); POTASSIUM 4.3 MMOL/L (3.6-5.0); SODIUM 141 MMOL/L (135-145)
[2020-03-01 15:33] LABS: BASOPHILS % (AUTO) 0 % (0-10); EOSINOPHILS # (AUTO) 0.1 10^3/uL (0.0-0.3); EOSINOPHILS % (AUTO) 2 % (0-10); HEMATOCRIT 34 % (35-52); HEMOGLOBIN 10.9 G/DL (11.5-16.0); LYMPHOCYTES # (AUTO) 0.4 X 10^3 (1.0-4.0); LYMPHOCYTES % (AUTO) 10 % (12-44); MEAN CORPUSCULAR HEMOGLOBIN 29 PG (25-34); MEAN CORPUSCULAR HGB CONC 32 G/DL (32-36); MEAN CORPUSCULAR VOLUME 89 FL (80-99); MEAN PLATELET VOLUME 8.9 FL (7.4-10.4); MONOCYTES # (AUTO) 0.5 X 10^3 (0.0-1.0); MONOCYTES % (AUTO) 13 % (0-12); NEUTROPHILS # (AUTO) 3.1 X 10^3 (1.8-7.8); NEUTROPHILS % (AUTO) 75 % (42-75); PLATELET COUNT 189 10^3/uL (130-400); RED CELL DISTRIBUTION WIDTH 17.6 % (10.0-14.5); WHITE BLOOD COUNT 4.1 10^3/uL (4.3-11.0)
[2020-03-01 15:48] LABS: BUN/CREATININE RATIO 15; CALCIUM 8.7 MG/DL (8.5-10.1); CARBON DIOXIDE 26 MMOL/L (21-32); CHLORIDE 108 MMOL/L (98-107); CREATININE SERUM 0.89 MG/DL (0.60-1.30); GFR ESTIMATED > 60; GLUCOSE 84 MG/DL (70-105); MAGNESIUM 1.8 MG/DL (1.6-2.4); POTASSIUM 3.9 MMOL/L (3.6-5.0); SODIUM 141 MMOL/L (135-145)
[~2020-03-07] VITALS: Ht 165.1 cm; Wt 51.7 kg
[~2020-03-07 12:59] MED LIST changes: +D5W 500 ML IV (CANCER CTR) 500 ML IV SCH; +FOSAPREPITANT (CANCER CENTER) 150 MG in NS (IVPB) CANCER CENTER ONLY 150 ML IV SCH; +OXALIPLATIN 100 MG, OXALIPLATIN (GENERIC) 50 MG in D5W 250 ML IVPB (CANCER CTR) 250 ML IV SCH
[2020-03-07 13:15] LABS: BASOPHILS % (AUTO) 0 % (0-10); EOSINOPHILS # (AUTO) 0.1 10^3/uL (0.0-0.3); EOSINOPHILS % (AUTO) 3 % (0-10); HEMATOCRIT 34 % (35-52); HEMOGLOBIN 11.2 G/DL (11.5-16.0); LYMPHOCYTES # (AUTO) 0.4 X 10^3 (1.0-4.0); LYMPHOCYTES % (AUTO) 13 % (12-44); MEAN CORPUSCULAR HEMOGLOBIN 30 PG (25-34); MEAN CORPUSCULAR HGB CONC 33 G/DL (32-36); MEAN CORPUSCULAR VOLUME 90 FL (80-99); MEAN PLATELET VOLUME 8.8 FL (7.4-10.4); MONOCYTES # (AUTO) 0.5 X 10^3 (0.0-1.0); MONOCYTES % (AUTO) 15 % (0-12); NEUTROPHILS # (AUTO) 2.4 X 10^3 (1.8-7.8); NEUTROPHILS % (AUTO) 70 % (42-75); PLATELET COUNT 216 10^3/uL (130-400); RED CELL DISTRIBUTION WIDTH 19.8 % (10.0-14.5); WHITE BLOOD COUNT 3.4 10^3/uL (4.3-11.0)
[2020-03-07 13:34] LABS: ALANINE AMINOTRANSFERASE 16 U/L (0-55); ALBUMIN 3.9 GM/DL (3.2-4.5); ALKALINE PHOSPHATASE 66 U/L (40-136); BILIRUBIN,TOTAL 0.5 MG/DL (0.1-1.0); BUN/CREATININE RATIO 12; CALCIUM 8.8 MG/DL (8.5-10.1); CARBON DIOXIDE 22 MMOL/L (21-32); CHLORIDE 108 MMOL/L (98-107); CREATININE SERUM 0.78 MG/DL (0.60-1.30); GFR ESTIMATED > 60; GLUCOSE 105 MG/DL (70-105); MAGNESIUM 1.7 MG/DL (1.6-2.4); POTASSIUM 3.5 MMOL/L (3.6-5.0); SODIUM 141 MMOL/L (135-145); TOTAL PROTEIN 6.7 GM/DL (6.4-8.2)
== END 2020-03-15 | disposition home or self-care (01) ==
LOC: ONC 12:59
PROVIDERS: ATTEND Internal Medicine Hematology & Oncology
DX: Z51.11 Encounter for antineoplastic chemotherapy (principal); C20 Malignant neoplasm of rectum; Z98.890 Other specified postprocedural states
CPT/HCPCS: 80053; 85025; G0463; 36591; 80048; 82378; 83735; 96367; 96375; 96413; 96415; 99213

== ENCOUNTER 2020-05-09 12:57 | Outpatient (RCR) | payer BC ==
[2020-03-22 06:02] LABS: BASOPHILS % (AUTO) 0 % (0-10); EOSINOPHILS # (AUTO) 0.1 10^3/uL (0.0-0.3); EOSINOPHILS % (AUTO) 1 % (0-10); HEMATOCRIT 34 % (35-52); HEMOGLOBIN 11.2 G/DL (11.5-16.0); LYMPHOCYTES # (AUTO) 0.4 X 10^3 (1.0-4.0); LYMPHOCYTES % (AUTO) 10 % (12-44); MEAN CORPUSCULAR HEMOGLOBIN 30 PG (25-34); MEAN CORPUSCULAR HGB CONC 33 G/DL (32-36); MEAN CORPUSCULAR VOLUME 91 FL (80-99); MONOCYTES # (AUTO) 0.5 X 10^3 (0.0-1.0); MONOCYTES % (AUTO) 11 % (0-12); NEUTROPHILS # (AUTO) 3.1 X 10^3 (1.8-7.8); NEUTROPHILS % (AUTO) 77 % (42-75); PLATELET COUNT 166 10^3/uL (130-400)
[2020-03-22 06:06] LABS: BUN/CREATININE RATIO 14; CALCIUM 8.7 MG/DL (8.5-10.1); CARBON DIOXIDE 26 MMOL/L (21-32); CHLORIDE 107 MMOL/L (98-107); GFR ESTIMATED > 60; GLUCOSE 84 MG/DL (70-105); MAGNESIUM 1.7 MG/DL (1.6-2.4); POTASSIUM 3.8 MMOL/L (3.6-5.0); SODIUM 138 MMOL/L (135-145)
[2020-03-28 14:08] LABS: BASOPHILS % (AUTO) 0 % (0-10); EOSINOPHILS # (AUTO) 0.1 10^3/uL (0.0-0.3); EOSINOPHILS % (AUTO) 2 % (0-10); HEMATOCRIT 34 % (35-52); HEMOGLOBIN 11.4 G/DL (11.5-16.0); LYMPHOCYTES # (AUTO) 0.5 X 10^3 (1.0-4.0); LYMPHOCYTES % (AUTO) 12 % (12-44); MEAN CORPUSCULAR HEMOGLOBIN 31 PG (25-34); MEAN CORPUSCULAR HGB CONC 34 G/DL (32-36); MEAN CORPUSCULAR VOLUME 93 FL (80-99); MEAN PLATELET VOLUME 8.7 FL (7.4-10.4); MONOCYTES # (AUTO) 0.5 X 10^3 (0.0-1.0); MONOCYTES % (AUTO) 13 % (0-12); NEUTROPHILS # (AUTO) 2.8 X 10^3 (1.8-7.8); NEUTROPHILS % (AUTO) 73 % (42-75); PLATELET COUNT 219 10^3/uL (130-400); WHITE BLOOD COUNT 3.8 10^3/uL (4.3-11.0)
[2020-03-28 14:29] LABS: ALANINE AMINOTRANSFERASE 16 U/L (0-55); ALKALINE PHOSPHATASE 70 U/L (40-136); BILIRUBIN,TOTAL 0.4 MG/DL (0.1-1.0); BUN/CREATININE RATIO 17; CALCIUM 9.2 MG/DL (8.5-10.1); CARBON DIOXIDE 28 MMOL/L (21-32); CHLORIDE 106 MMOL/L (98-107); CREATININE SERUM 0.84 MG/DL (0.60-1.30); GFR ESTIMATED > 60; GLUCOSE 108 MG/DL (70-105); POTASSIUM 4.1 MMOL/L (3.6-5.0); SODIUM 139 MMOL/L (135-145); TOTAL PROTEIN 6.5 GM/DL (6.4-8.2)
[2020-04-11 16:05] LABS: BASOPHILS % (AUTO) 0 % (0-10); EOSINOPHILS # (AUTO) 0.1 10^3/uL (0.0-0.3); EOSINOPHILS % (AUTO) 2 % (0-10); HEMATOCRIT 34 % (35-52); HEMOGLOBIN 11.5 G/DL (11.5-16.0); LYMPHOCYTES # (AUTO) 0.6 X 10^3 (1.0-4.0); LYMPHOCYTES % (AUTO) 13 % (12-44); MEAN CORPUSCULAR HEMOGLOBIN 32 PG (25-34); MEAN CORPUSCULAR HGB CONC 33 G/DL (32-36); MEAN CORPUSCULAR VOLUME 94 FL (80-99); MEAN PLATELET VOLUME 9.2 FL (7.4-10.4); MONOCYTES # (AUTO) 0.7 X 10^3 (0.0-1.0); MONOCYTES % (AUTO) 14 % (0-12); NEUTROPHILS # (AUTO) 3.3 X 10^3 (1.8-7.8); NEUTROPHILS % (AUTO) 70 % (42-75); PLATELET COUNT 161 10^3/uL (130-400); WHITE BLOOD COUNT 4.7 10^3/uL (4.3-11.0)
[2020-04-11 16:27] LABS: CREATININE SERUM 0.95 MG/DL (0.60-1.30)
[2020-04-18 11:10] LABS: BASOPHILS % (AUTO) 0 % (0-10); EOSINOPHILS # (AUTO) 0.1 10^3/uL (0.0-0.3); EOSINOPHILS % (AUTO) 3 % (0-10); HEMATOCRIT 35 % (35-52); HEMOGLOBIN 11.6 G/DL (11.5-16.0); LYMPHOCYTES # (AUTO) 0.4 X 10^3 (1.0-4.0); LYMPHOCYTES % (AUTO) 14 % (12-44); MEAN CORPUSCULAR HEMOGLOBIN 32 PG (25-34); MEAN CORPUSCULAR HGB CONC 34 G/DL (32-36); MEAN CORPUSCULAR VOLUME 96 FL (80-99); MONOCYTES # (AUTO) 0.6 X 10^3 (0.0-1.0); MONOCYTES % (AUTO) 19 % (0-12); NEUTROPHILS % (AUTO) 65 % (42-75); PLATELET COUNT 196 10^3/uL (130-400); WHITE BLOOD COUNT 3.1 10^3/uL (4.3-11.0)
[2020-04-18 11:28] LABS: ALANINE AMINOTRANSFERASE 41 U/L (0-55); ALKALINE PHOSPHATASE 73 U/L (40-136); BILIRUBIN,TOTAL 0.4 MG/DL (0.1-1.0); BUN/CREATININE RATIO 16; CARBON DIOXIDE 23 MMOL/L (21-32); CHLORIDE 107 MMOL/L (98-107); CREATININE SERUM 0.81 MG/DL (0.60-1.30); GFR ESTIMATED > 60; GLUCOSE 105 MG/DL (70-105); MAGNESIUM 1.9 MG/DL (1.6-2.4); POTASSIUM 4.1 MMOL/L (3.6-5.0); SODIUM 140 MMOL/L (135-145); TOTAL PROTEIN 6.8 GM/DL (6.4-8.2)
[2020-04-25 14:18] LABS: BASOPHILS % (AUTO) 0 % (0-10); EOSINOPHILS # (AUTO) 0.1 10^3/uL (0.0-0.3); EOSINOPHILS % (AUTO) 2 % (0-10); HEMATOCRIT 34 % (35-52); HEMOGLOBIN 11.6 g/dL (11.5-16.0); LYMPHOCYTES # (AUTO) 0.5 10^3/uL (1.0-4.0); LYMPHOCYTES % (AUTO) 10 % (12-44); MEAN CORPUSCULAR HEMOGLOBIN 33 pg (25-34); MEAN CORPUSCULAR HGB CONC 34 g/dL (32-36); MEAN CORPUSCULAR VOLUME 96 fL (80-99); MEAN PLATELET VOLUME 9.3 fL (9.0-12.2); MONOCYTES # (AUTO) 0.8 10^3/uL (0.0-1.0); MONOCYTES % (AUTO) 17 % (0-12); NEUTROPHILS # (AUTO) 3.4 10^3/uL (1.8-7.8); NEUTROPHILS % (AUTO) 69 % (42-75); PLATELET COUNT 150 10^3/uL (130-400); WHITE BLOOD COUNT 4.9 10^3/uL (4.3-11.0)
[2020-04-25 14:35] LABS: BUN/CREATININE RATIO 19; CALCIUM 8.7 MG/DL (8.5-10.1); CARBON DIOXIDE 23 MMOL/L (21-32); CHLORIDE 107 MMOL/L (98-107); CREATININE SERUM 0.84 MG/DL (0.60-1.30); GFR ESTIMATED > 60; GLUCOSE 102 MG/DL (70-105); MAGNESIUM 1.9 MG/DL (1.6-2.4); POTASSIUM 4.1 MMOL/L (3.6-5.0); SODIUM 139 MMOL/L (135-145)
[~2020-05-09 12:57] MED LIST changes: +PANT20TA18 PO; -PANT20TA3 PO
[2020-05-09 13:18] LABS: BASOPHILS % (AUTO) 1 % (0-10); EOSINOPHILS # (AUTO) 0.1 10^3/uL (0.0-0.3); EOSINOPHILS % (AUTO) 2 % (0-10); HEMATOCRIT 33 % (35-52); HEMOGLOBIN 11.1 g/dL (11.5-16.0); LYMPHOCYTES # (AUTO) 0.4 10^3/uL (1.0-4.0); LYMPHOCYTES % (AUTO) 10 % (12-44); MEAN CORPUSCULAR HEMOGLOBIN 33 pg (25-34); MEAN CORPUSCULAR HGB CONC 33 g/dL (32-36); MEAN CORPUSCULAR VOLUME 100 fL (80-99); MEAN PLATELET VOLUME 9.6 fL (9.0-12.2); MONOCYTES # (AUTO) 0.5 10^3/uL (0.0-1.0); MONOCYTES % (AUTO) 13 % (0-12); NEUTROPHILS # (AUTO) 2.8 10^3/uL (1.8-7.8); NEUTROPHILS % (AUTO) 74 % (42-75); PLATELET COUNT 170 10^3/uL (130-400); WHITE BLOOD COUNT 3.8 10^3/uL (4.3-11.0)
[2020-05-09 13:40] LABS: ALANINE AMINOTRANSFERASE 29 U/L (0-55); ALKALINE PHOSPHATASE 69 U/L (40-136); BILIRUBIN,TOTAL 0.6 MG/DL (0.1-1.0); BUN/CREATININE RATIO 16; CALCIUM 8.8 MG/DL (8.5-10.1); CARBON DIOXIDE 24 MMOL/L (21-32); CHLORIDE 104 MMOL/L (98-107); CREATININE SERUM 0.81 MG/DL (0.60-1.30); GFR ESTIMATED > 60; GLUCOSE 115 MG/DL (70-105); MAGNESIUM 1.7 MG/DL (1.6-2.4); POTASSIUM 3.9 MMOL/L (3.6-5.0); SODIUM 140 MMOL/L (135-145); TOTAL PROTEIN 6.6 GM/DL (6.4-8.2)
== END 2020-06-19 | disposition home or self-care (01) ==
LOC: ONC 12:57
PROVIDERS: ATTEND Internal Medicine Hematology & Oncology
DX: Z51.11 Encounter for antineoplastic chemotherapy (principal); C20 Malignant neoplasm of rectum; Z98.890 Other specified postprocedural states
CPT/HCPCS: 36591; 80048; 80053; 82378; 83735; 85025; 96367; 96375; 96413; 96415

== ENCOUNTER → 2020-06-01 | Outpatient (CLI) | payer BC ==
[~2020-06-01] MED LIST changes: -D5W 500 ML IV (CANCER CTR) 500 ML IV SCH; -FOSAPREPITANT (CANCER CENTER) 150 MG in NS (IVPB) CANCER CENTER ONLY 150 ML IV SCH; -OXALIPLATIN 100 MG, OXALIPLATIN (GENERIC) 50 MG in D5W 250 ML IVPB (CANCER CTR) 250 ML IV SCH
== END ==
LOC: LABNPT 06:09
PROVIDERS: ATTEND Surgery
DX: Z20.828 Contact with and (suspected) exposure to other viral communicable diseases (principal); Z53.9 Procedure and treatment not carried out, unspecified reason

== ENCOUNTER → 2020-07-03 | Outpatient (CLI) | payer BC ==
--- NOTE | 2020-07-03 09:29 | Diagnostic Imaging Report ---
INDICATION: Routine screening. COMPARISON: 05/19/2018 and 04/20/2017. TECHNIQUE: 2D and 3D bilateral screening mammography was performed with CAD. FINDINGS: Both breasts are heterogeneously dense, limiting the sensitivity of mammography. The known cystic lesion in the outer left breast at posterior depth appears decreased in size. No new mass or malignant appearing microcalcifications are seen. The left axilla is unremarkable. There is an Hrjcte-s-Wnef hub in the right axilla. IMPRESSION: No mammographic features suspicious for malignancy are identified. ACR BI-RADS Category 2: Benign findings. Result letter will be mailed to the patient. Note: At least 10% of breast cancer is not imaged by mammography. Dictated by: Dictated on workstation # [id number]
== END ==
LOC: RAD 08:15
PROVIDERS: ATTEND Family Medicine
DX: Z12.31 Encounter for screening mammogram for malignant neoplasm of breast (principal)
CPT/HCPCS: 77063; 77067

== ENCOUNTER 2020-09-03 13:57 | Outpatient (RCR) | payer BC ==
[2020-09-03 14:15] LABS: BASOPHILS % (AUTO) 1 % (0-10); EOSINOPHILS # (AUTO) 0.2 10^3/uL (0.0-0.3); EOSINOPHILS % (AUTO) 3 % (0-10); HEMATOCRIT 37 % (35-52); HEMOGLOBIN 11.7 g/dL (11.5-16.0); LYMPHOCYTES # (AUTO) 0.5 10^3/uL (1.0-4.0); LYMPHOCYTES % (AUTO) 12 % (12-44); MEAN CORPUSCULAR HEMOGLOBIN 29 pg (25-34); MEAN CORPUSCULAR HGB CONC 32 g/dL (32-36); MEAN CORPUSCULAR VOLUME 92 fL (80-99); MEAN PLATELET VOLUME 8.9 fL (9.0-12.2); MONOCYTES # (AUTO) 0.4 10^3/uL (0.0-1.0); MONOCYTES % (AUTO) 9 % (0-12); NEUTROPHILS # (AUTO) 3.3 10^3/uL (1.8-7.8); NEUTROPHILS % (AUTO) 75 % (42-75); PLATELET COUNT 199 10^3/uL (130-400); WHITE BLOOD COUNT 4.4 10^3/uL (4.3-11.0)
[2020-09-03 14:40] LABS: ALANINE AMINOTRANSFERASE 10 U/L (0-55); ALBUMIN 3.7 GM/DL (3.2-4.5); ALKALINE PHOSPHATASE 65 U/L (40-136); BILIRUBIN,TOTAL 0.4 MG/DL (0.1-1.0); BUN/CREATININE RATIO 18; CALCIUM 8.7 MG/DL (8.5-10.1); CARBON DIOXIDE 25 MMOL/L (21-32); CHLORIDE 105 MMOL/L (98-107); GFR ESTIMATED > 60; GLUCOSE 109 MG/DL (70-105); POTASSIUM 3.9 MMOL/L (3.6-5.0); SODIUM 140 MMOL/L (135-145); TOTAL PROTEIN 6.8 GM/DL (6.4-8.2)
== END 2020-12-02 ==
LOC: ONC 13:57
PROVIDERS: ATTEND Internal Medicine Hematology & Oncology
DX: Z45.2 Encounter for adjustment and management of vascular access device (principal); C20 Malignant neoplasm of rectum; Z92.21 Personal history of antineoplastic chemotherapy; Z92.3 Personal history of irradiation; Z93.2 Ileostomy status; Z98.890 Other specified postprocedural states
CPT/HCPCS: 80053; 82378; 85025; G0463; 36591

== ENCOUNTER → 2020-12-10 | Outpatient (CLI) | payer BC ==
[~2020-12-10] MED LIST changes: +BARIUM SUSPENSION 2.1% (VANILLA SILQ) 450 ML PO ONE; +CATHETER FLUSH 10 ML SYR IV PRN; +HOLD METFORMIN - RECEIVED CONTRAST 20 ML VIAL IV SCH; +IOHEXOL 350 MG/ML 100 ML (OMNIPAQUE 350) VIAL IV ONE; +NS 100 ML (IVPB) BAG IV ONE
--- NOTE | 2020-12-10 11:03 | Diagnostic Imaging Report ---
PROCEDURE: CT chest with contrast, CT abdomen and pelvis with and without contrast. TECHNIQUE: Pre and post intravenous contrast axial imaging of the abdomen and pelvis and post contrast axial imaging of the chest were performed. Auto Exposure Controls were utilized during the CT exam to meet ALARA standards for radiation dose reduction. INDICATION: Rectal carcinoma. Correlation is made with prior PET/CT study from 08/16/2019. CT CHEST: A right chest wall port is tip in the SVC right atrial junction. No axillary lymphadenopathy is detected. No definite mediastinal or hilar lymphadenopathy is detected. No pericardial or pleural fluid is identified. The circumscribed nodule in the inferior right upper lobe near the major fissure appear stable at 16 mm. No new pulmonary nodules or infiltrates are detected. Bony structures are unremarkable. IMPRESSION: Stable right upper lobe nodule when compared with prior examination from 08/16/2019. Continued follow-up CT chest recommended to show continued stability. No thoracic lymphadenopathy is detected. CT abdomen and pelvis: FINDINGS: No discrete liver mass is identified. The gallbladder is unremarkable. There is no biliary ductal dilatation. Pancreas and spleen are unremarkable. No adrenal mass is detected. Kidneys are unremarkable. Aorta is nonaneurysmal. No definite central retroperitoneal or mesenteric lymphadenopathy is identified. Bowel loops are normal caliber. There is no obstruction. There has been development of moderate amount of presacral soft tissue thickening. This may be on a post-therapeutic bases. The uterus and bladder are unremarkable. No definite pelvic lymphadenopathy is seen. The bony structures are nonacute. IMPRESSION: There are post-therapeutic changes in the pelvis. No definite abdominal or pelvic lymphadenopathy or evidence of metastatic disease is identified. Dictated by: Dictated on workstation # [id number]
== END ==
LOC: RAD 09:45
PROVIDERS: ATTEND Internal Medicine Hematology & Oncology
DX: C20 Malignant neoplasm of rectum (principal); R91.1 Solitary pulmonary nodule
CPT/HCPCS: 71260; 74178

== ENCOUNTER 2021-02-26 13:54 | Outpatient (RCR) | payer BC ==
[2020-12-04 14:40] LABS: BASOPHILS % (AUTO) 0 % (0-10); EOSINOPHILS # (AUTO) 0.1 10^3/uL (0.0-0.3); EOSINOPHILS % (AUTO) 3 % (0-10); HEMATOCRIT 38 % (35-52); HEMOGLOBIN 12.2 g/dL (11.5-16.0); LYMPHOCYTES # (AUTO) 0.5 10^3/uL (1.0-4.0); LYMPHOCYTES % (AUTO) 14 % (12-44); MEAN CORPUSCULAR HEMOGLOBIN 30 pg (25-34); MEAN CORPUSCULAR HGB CONC 32 g/dL (32-36); MEAN CORPUSCULAR VOLUME 94 fL (80-99); MONOCYTES # (AUTO) 0.3 10^3/uL (0.0-1.0); MONOCYTES % (AUTO) 8 % (0-12); NEUTROPHILS # (AUTO) 2.8 10^3/uL (1.8-7.8); NEUTROPHILS % (AUTO) 75 % (42-75); PLATELET COUNT 180 10^3/uL (130-400); WHITE BLOOD COUNT 3.8 10^3/uL (4.3-11.0)
[2020-12-04 14:58] LABS: ALANINE AMINOTRANSFERASE 12 U/L (0-55); ALBUMIN 3.8 GM/DL (3.2-4.5); ALKALINE PHOSPHATASE 62 U/L (40-136); BILIRUBIN,TOTAL 0.4 MG/DL (0.1-1.0); BUN/CREATININE RATIO 16; CALCIUM 8.6 MG/DL (8.5-10.1); CARBON DIOXIDE 28 MMOL/L (21-32); CHLORIDE 106 MMOL/L (98-107); CREATININE SERUM 0.91 MG/DL (0.60-1.30); GFR ESTIMATED > 60; GLUCOSE 122 MG/DL (70-105); POTASSIUM 4.1 MMOL/L (3.6-5.0); SODIUM 139 MMOL/L (135-145); TOTAL PROTEIN 6.4 GM/DL (6.4-8.2)
[~2021-02-26 13:54] MED LIST changes: -BARIUM SUSPENSION 2.1% (VANILLA SILQ) 450 ML PO ONE; -CATHETER FLUSH 10 ML SYR IV PRN; -HOLD METFORMIN - RECEIVED CONTRAST 20 ML VIAL IV SCH; -IOHEXOL 350 MG/ML 100 ML (OMNIPAQUE 350) VIAL IV ONE; -NS 100 ML (IVPB) BAG IV ONE
[2021-02-26 14:23] LABS: BASOPHILS % (AUTO) 0 % (0-10); EOSINOPHILS # (AUTO) 0.1 10^3/uL (0.0-0.3); EOSINOPHILS % (AUTO) 2 % (0-10); HEMATOCRIT 37 % (35-52); LYMPHOCYTES # (AUTO) 0.7 X 10^3 (1.0-4.0); LYMPHOCYTES % (AUTO) 13 % (12-44); MEAN CORPUSCULAR HEMOGLOBIN 30 pg (25-34); MEAN CORPUSCULAR HGB CONC 32 g/dL (32-36); MEAN CORPUSCULAR VOLUME 93 fL (80-99); MEAN PLATELET VOLUME 8.7 fL (9.0-12.2); MONOCYTES # (AUTO) 0.4 X 10^3 (0.0-1.0); MONOCYTES % (AUTO) 7 % (0-12); NEUTROPHILS # (AUTO) 3.9 X 10^3 (1.8-7.8); NEUTROPHILS % (AUTO) 77 % (42-75); PLATELET COUNT 254 10^3/uL (130-400); WHITE BLOOD COUNT 5.1 10^3/uL (4.3-11.0)
[2021-02-26 14:35] LABS: ALBUMIN 3.7 GM/DL (3.2-4.5); BILIRUBIN,TOTAL 0.4 MG/DL (0.1-1.0); CREATININE SERUM 0.77 MG/DL (0.60-1.30); POTASSIUM 3.8 MMOL/L (3.6-5.0); TOTAL PROTEIN 7.6 GM/DL (6.4-8.2)
== END 2021-03-04 | disposition home or self-care (01) ==
LOC: ONC 13:54
PROVIDERS: ATTEND Internal Medicine Hematology & Oncology
DX: C20 Malignant neoplasm of rectum (principal); Z98.890 Other specified postprocedural states; Z92.21 Personal history of antineoplastic chemotherapy
CPT/HCPCS: 80053; 82378; 85025; G0463; 36591

== ENCOUNTER → 2021-05-30 | Outpatient (CLI) | payer BC ==
[~2021-05-30] MED LIST changes: +BARIUM SUSPENSION 2.1% (VANILLA SILQ) 450 ML PO ONE; +CATHETER FLUSH 10 ML SYR IV PRN; +HOLD METFORMIN - RECEIVED CONTRAST 20 ML VIAL IV SCH; +IOHEXOL 350 MG/ML 100 ML (OMNIPAQUE 350) VIAL IV ONE
[2021-05-30] MEDS: CATHETER FLUSH 10 ML SYR IV PRN ×2 (10:56→11:09)
--- NOTE | 2021-05-30 12:24 | Diagnostic Imaging Report ---
PROCEDURE: CT chest with contrast, CT abdomen and pelvis with and without contrast. TECHNIQUE: Pre and post intravenous contrast axial imaging of the abdomen and pelvis and post contrast axial imaging of the chest were performed. Auto Exposure Controls were utilized during the CT exam to meet ALARA standards for radiation dose reduction. INDICATION: Colorectal cancer with ileostomy follow-up compared with CT chest, abdomen, and pelvis dated 12/10/2020. FINDINGS: CHEST: A 1.6 cm mass juxta-fissural in the right middle lobe, unchanged from prior. No new lung lesion found. No thoracic lymphadenopathy. No evidence for edema or pneumonia. Central venous catheter tip is in the lower SVC in good position. No effusion. No pneumothorax. There is trace left basilar partial atelectasis. No suspect chest wall lesion. ABDOMEN AND PELVIS: Liver is negative. There is no bile duct dilatation. The spleen, adrenals, and pancreas are unremarkable. Unobstructed kidneys appeared normal. There is no abdominopelvic mesenteric or retroperitoneal lymphadenopathy. Some thickening of the presacral soft tissues, stable. Postoperative changes at the rectum, unchanged. No evidence for anastomotic breakdown or obstruction. No identifiable mass. Pelvic sidewalls are unremarkable. No ilioinguinal or abdominopelvic lymphadenopathy. Mildly elevated fecal load. There may be mild constipation but no focal impaction. No resultant bowel obstruction. No ascites, abscess, hematoma, or acute fluid collection. No adnexal lesion. The urinary bladder is normal. IMPRESSION: 1. Continued stable right middle lobe lung mass. No new chest pathology. 2. Post-therapeutic changes in the abdomen and pelvis with equivocal findings for mild constipation but no features of abdominopelvic neoplastic recurrence. Dictated by: Dictated on workstation # [id number]
--- NOTE | 2021-05-30 15:49 | Diagnostic Imaging Report ---
Whole body bone scan. Indication: Malignant neoplasm of rectum This study was performed following administration of 26.9 mCi of 99 technetium MDP. Anterior and posterior whole-body images were obtained. There are no prior studies available for comparison. There is fairly even distribution of the radiotracer throughout the skeleton. There is no focal area of increased or decreased activity to suggest metastatic disease or an acute abnormality. There is a tiny focus of slightly increased activity along the anterior aspect of the left knee joint. This of uncertain etiology but unlikely related to metastatic focus or an acute abnormality. Both kidneys do show excretion of the radiotracer. Impression: 1. There is no evidence for metastatic disease or for an acute bony abnormality. 2. The tiny focus of slightly increased activity overlying the left knee is of uncertain but unlikely to be clinically significant. If further evaluation is desired, a plain film left knee exam may provide additional information. Dictated by: Dictated on workstation # [id number]
== END ==
LOC: CARD 11:00
PROVIDERS: ATTEND Internal Medicine Hematology & Oncology
DX: C19 Malignant neoplasm of rectosigmoid junction (principal); R91.8 Other nonspecific abnormal finding of lung field; K59.00 Constipation, unspecified; Z93.2 Ileostomy status; Z98.890 Other specified postprocedural states
CPT/HCPCS: 71260; 74178; 78306; A9503

== ENCOUNTER 2021-06-04 13:51 | Outpatient (RCR) | payer BC ==
[2021-05-30 10:29] LABS: BASOPHILS % (AUTO) 1 % (0-10); EOSINOPHILS # (AUTO) 0.1 10^3/uL (0.0-0.3); EOSINOPHILS % (AUTO) 2 % (0-10); HEMATOCRIT 36 % (35-52); HEMOGLOBIN 11.8 g/dL (11.5-16.0); LYMPHOCYTES # (AUTO) 0.9 10^3/uL (1.0-4.0); LYMPHOCYTES % (AUTO) 24 % (12-44); MEAN CORPUSCULAR HEMOGLOBIN 29 pg (25-34); MEAN CORPUSCULAR HGB CONC 33 g/dL (32-36); MEAN CORPUSCULAR VOLUME 90 fL (80-99); MEAN PLATELET VOLUME 8.8 fL (9.0-12.2); MONOCYTES # (AUTO) 0.4 10^3/uL (0.0-1.0); MONOCYTES % (AUTO) 10 % (0-12); NEUTROPHILS # (AUTO) 2.3 10^3/uL (1.8-7.8); NEUTROPHILS % (AUTO) 63 % (42-75); PLATELET COUNT 187 10^3/uL (130-400); WHITE BLOOD COUNT 3.6 10^3/uL (4.3-11.0)
[2021-05-30 10:48] LABS: ALBUMIN 3.7 GM/DL (3.2-4.5); BILIRUBIN,TOTAL 0.5 MG/DL (0.1-1.0); CALCIUM 9.1 MG/DL (8.5-10.1); CREATININE SERUM 0.73 MG/DL (0.60-1.30); TOTAL PROTEIN 7.1 GM/DL (6.4-8.2)
[~2021-06-04 13:51] MED LIST changes: -BARIUM SUSPENSION 2.1% (VANILLA SILQ) 450 ML PO ONE; -CATHETER FLUSH 10 ML SYR IV PRN; -FLUO20CA46 PO; +FLUO20CA48 PO; -HOLD METFORMIN - RECEIVED CONTRAST 20 ML VIAL IV SCH; -IOHEXOL 350 MG/ML 100 ML (OMNIPAQUE 350) VIAL IV ONE; +ONDA-106 PO; -ONDA8TAB15 PO
== END 2021-08-02 | disposition home or self-care (01) ==
LOC: ONC 13:51
PROVIDERS: ATTEND Internal Medicine Hematology & Oncology
DX: C20 Malignant neoplasm of rectum (principal); Z98.890 Other specified postprocedural states; Z92.21 Personal history of antineoplastic chemotherapy; Z93.2 Ileostomy status; Z79.899 Other long term (current) drug therapy; Z79.2 Long term (current) use of antibiotics
CPT/HCPCS: 36591; 80053; 82378; 85025; 99213

== ENCOUNTER → 2021-07-19 | Outpatient (CLI) | payer BC ==
--- NOTE | 2021-07-19 10:13 | Diagnostic Imaging Report ---
INDICATION: Routine screening. COMPARISON is made with prior mammograms 07/03/2020 and 05/19/2018. 2-D and 3-D bilateral screening mammography was performed with CAD. Both breasts are heterogeneously dense, limiting the sensitivity of mammography. There are some rounded densities in both breasts consistent with cysts. No spiculated mass or malignant-appearing microcalcifications are seen. Cthcbv-q-Hxfh hub is located in the right axilla. IMPRESSION: BI-RADS Category 2 No mammographic features suspicious for malignancy are identified. ACR BI-RADS Category 2: Benign findings. Result letter will be mailed to the patient. Note: At least 10% of breast cancer is not imaged by mammography. Dictated by: Dictated on workstation # [id number]
== END ==
LOC: RAD 08:30
PROVIDERS: ATTEND Family Medicine
DX: Z12.31 Encounter for screening mammogram for malignant neoplasm of breast (principal)
CPT/HCPCS: 77063; 77067

== ENCOUNTER 2021-07-30 08:11 | Outpatient (RCR) | payer BC | END 2021-08-02 | disposition home or self-care (01) | PROVIDERS: ATTEND Orthopaedic Surgery | DX: M54.16 Radiculopathy, lumbar region (principal) ==

== ENCOUNTER 2022-04-17 05:37 | Outpatient (CLI) | payer MEDICARE, OTHER ==
[~2022-04-17] VITALS: Ht 162.5 cm; Wt 54.5 kg
== END 2022-04-22 09:09 | disposition home or self-care (01) ==
LOC: PREOP 05:37
PROVIDERS: ATTEND Surgery
DX: Z01.818 Encounter for other preprocedural examination (principal); Z85.528 Personal history of other malignant neoplasm of kidney

== ENCOUNTER 2022-04-25 06:18 | Day surgery (SDC) | payer MEDICARE, OTHER ==
[~2022-04-25] VITALS: Ht 162.5 cm; Wt 54.5 kg
[2022-04-25] VITALS (8 sets, daily range): BP systolic 78–105; BP diastolic 43–69
[2022-04-25] MEDS ORDERED: LACTATED RINGERS 1,000 ML IV PRN (07:00)
[2022-04-25] MEDS ORDERED: PROPOFOL INJECTION 50 ML IV ONE (07:06)
[2022-04-25] MEDS ORDERED: fentaNYL INJ 100 MCG/2 ML AMP ONE (07:06)
[2022-04-25] MEDS ORDERED: MIDAZOLAM 2 MG/2 ML (VERSED) VIAL ONE (07:07)
[2022-04-25] MEDS ORDERED: BUP/EPI 0.5% 1:200,000 (MARCAINE) 10ML VIAL IJ ONE (07:18)
--- NOTE | 2022-04-25 08:00 | Progress Note-Pre Operative ---
Pre-Operative Progress Note Date of Available H&P: Apr 11, 2022 Date H&P Reviewed: Apr 25, 2022 Time H&P Reviewed: 08:00 History & Physical: H&P Reviewed, Patient Examed, No changes noted Pre-Operative Diagnosis: hx rectal cancer SHEBA TORRES DO Apr 25, 2022 08:00
[2022-04-25] MEDS ORDERED: BUP/EPI 0.5% 1:200,000 (SENSORCAINE) 30 ML VIAL IJ ONE (08:13)
[2022-04-25] MEDS ORDERED: ceFAZolin INJECTION 1,000 MG ONE (08:29)
[2022-04-25] MEDS ORDERED: ceFAZolin INJECTION 1,000 MG VIAL IV ONE (08:30)
[2022-04-25] MEDS ORDERED: HYDROmorphone 2 MG/ML VIAL (DILAUDID) IV ONE (08:45)
[2022-04-25] MEDS ORDERED: ONDANSETRON 4 MG/2 ML (SDV) Z0FRAN IVP PRN (08:45)
--- NOTE | 2022-04-25 08:49 | Progress Note-Post Operative ---
Post-Operative Progess Note Surgeon (s)/Underwater Photographer (s) Surgeon SHEBA TORRES DO Underwater Photographer: na Pre-Operative Diagnosis hx rectal cancer Post-Operative Diagnosis same Procedure & Operative Findings Date of Procedure 04/25/22 Procedure Performed/Findings PROCEDURE: Removal of port, COMPLICATIONS: None. INDICATIONS: The patient is a 66 year-old female who had a port previously placed. Patient is ok to have port removed. The patient was explained risk and benefits of the procedure and wished to proceed with procedure. Consent was signed on the chart. PROCEDURE: The patient was taken to the operating suite and was prepped and draped in sterile fashion. A surgical pause was performed. Local anesthetic was infiltrated to the area around the port. A number 15 blade scalpel was used to make an incision. Cautery was used to dissect down to the port which was then grasped and then dissected around. The catheter was removed in its entirety. The port was then able to be dissected out of the pocket and elevated. The wound was then irrigated with copious amounts of irrigation. Hemostasis had been achieved. The subcutaneous tissues were then reapproximated using 3-0 Vicryl. The area was then washed and dried and Skin Affix placed over the incision. The patient tolerated the procedure well without complication and was taken to recovery room in stable condition. Anesthesia Type Mac c local Estimated Blood Loss Estimated blood loss (mL): minimal Specimens/Packing Specimens Removed SHEBA Smith DO Apr 25, 2022 08:49
--- NOTE | 2022-04-25 08:51 | Discharge Inst-Simple/Standard ---
Discharge Inst-Standard Patient Instructions/Follow Up Plan of Care/Instructions/FU: 2 weeks Sam Activity as Tolerated: Yes Discharge Diet: Regular Diet Other Inst to Patient Follow up Appt: Make appointment for 2 week. Instructions: No lifting greater than 10 pounds. No strenuous activity. May shower in 24 hours, no tub bath or soaking. Use incentive spirometer at home as directed. No Smoking Skin/Wound Care: You have special glue over your incision that will fall off on it's own. Ice pack on 15 min and off 30 min and repeat for first 48 hours this reduces swelling and discomfort. Symptoms to Report: Appetite Changes, Extremity Discoloration, Numbness/Tingling, Swelling Increased, Bleeding Excessive, Eyesight Changes, Pain Increased, Urine Color Change, Constipation(Persistent), Fever over 101 degree F, Pain/Pressure in chest, Urinating Difficulty, Cough Up/Vomit Blood, Heart Beat Irreg/Pounding, Pain/Pressure in jaw, Vaginal Bleeding Increase, Cramps in feet or legs, Lightheadedness, Pain/Pressure in shoulder, Diarrhea(Persistent), Memory Changes Suddenly, Questions/Concerns, Weight gain consecutive days, Dizziness/Fainting, Nausea/Vomiting, Shortness of Breath, Weight gain over 2 pounds If questions or concerns contact your physician Or seek help at emergency department. SHEBA TORRES DO Apr 25, 2022 08:51
--- NOTE | 2022-04-25 10:47 | Anesthesia-General Post-Op ---
MAC Patient Condition Mental Status/LOC: Same as Preop Cardiovascular: Satisfactory Nausea/Vomiting: Absent Respiratory: Satisfactory Pain: Controlled Complications: Absent Post Op Complications Complications None Follow Up Care/Instructions Patient Instructions None needed. Anesthesiology Discharge Order Discharge Order Patient is doing well, no complaints, stable vital signs, no apparent adverse anesthesia problems. No complications reported per nursing. CHINTAN GASPAR CRNA Apr 25, 2022 10:47
== END 2022-04-25 09:45 ==
LOC: SDC 06:18
PROVIDERS: ATTEND Surgery
DX: Z85.048 Personal history of other malignant neoplasm of rectum, rectosigmoid junction, and anus (principal)
CPT/HCPCS: 87081

== ENCOUNTER → 2022-07-21 | Outpatient (CLI) | payer MEDICARE, OTHER ==
--- NOTE | 2022-07-21 11:55 | Diagnostic Imaging Report ---
INDICATION: Routine screening. COMPARISON: 07/19/2021 and 07/03/2020. TECHNIQUE: 2D and 3D bilateral screening mammography was performed with CAD. FINDINGS: Both breasts are heterogeneously dense, limiting the sensitivity of mammography. The parenchymal pattern is stable. No mass or malignant-appearing microcalcifications are seen. The axillae are unremarkable. IMPRESSION: No mammographic features suspicious for malignancy are identified. ACR BI-RADS Category 1: Negative. Result letter will be mailed to the patient. Note: At least 10% of breast cancer is not imaged by mammography. Dictated by: Dictated on workstation # [id number]
== END ==
LOC: RAD 08:22
PROVIDERS: ATTEND Nurse Practitioner Family
DX: Z12.31 Encounter for screening mammogram for malignant neoplasm of breast (principal)
CPT/HCPCS: 77063; 77067